=== PATIENT | female | born 1950 | race Caucasian/White ===

== ENCOUNTER 2018-08-31 17:56 | Emergency (ER) | payer MEDICARE, MEDICAID ==
--- NOTE | 2018-08-31 18:34 | ERPHSYRPT ---
- History of Present Illness Source: patient, family Exam Limitations: no limitations Patient Subjective Stated Complaint: patietn states shes been cleaning out garage nad got her self worn down and isnt feeling best but shes jsut tired from all work getting ready for garage sale. family concerned and worried shegena hada stroke Triage Nursing Assessment: pt alert and orientedx3, able to ambulate by self, hand steward/stewardess wine equal bialteral no drift upper or lower, no facial paralysis,smile symetrical, speech clear and intact, pupils perrla2, tracking well , skin warm dry and intact. Timing/Duration: day(s) (several ) Severity: mild Associated Symptoms: syncope (last week), weakness, No nausea, No vomiting, No abdominal pain, No shortness of breath, No chest pain Hx Tetanus, Diphtheria Vaccination/Date Given: Yes Hx Influenza Vaccination/Date Given: Yes Hx Pneumococcal Vaccination/Date Given: Yes Immunizations Up to Date: Yes <JESSE RICE - Last Filed: 08/31/18 18:57> <MICHAEL MCKENZIE - Last Filed: 08/31/18 21:12> - History of Present Illness Time Seen by Provider: 08/31/18 18:27 Physician History: 68 y/o white female presents with several day h/o weakness and confusion. family states she has not eaten or drank well today. pt has not seen a doctor in 34 years. she has nkda. only on jonathan asa. pt denies head injury, denies cp, denies soa, denies abd pain. pt denies n/v/d. pt states in the last 2 weeks she has been working in the garage and outside getting her home ready for a garage sale. it has been hot but she states she has been drinking plenty of gatorade and water. (JESSE RICE) Allergies/Adverse Reactions: No Known Drug Allergies Allergy (Unverified 08/31/18 18:15) - Review of Systems Constitutional: Weakness Eyes: No Symptoms Ears, Nose, & Throat: No Symptoms Respiratory: No Symptoms Cardiac: No Symptoms Abdominal/Gastrointestinal: No Symptoms Genitourinary Symptoms: No Symptoms Musculoskeletal: No Symptoms Skin: No Symptoms Neurological: Other (pts family states more confused in last week. ) Psychological: No Symptoms Endocrine: No Symptoms Hematologic/Lymphatic: No Symptoms Immunological/Allergic: No Symptoms All Other Systems: Reviewed and Negative <JESSE RICE WilliamRaquel - Last Filed: 08/31/18 18:57> - Past Medical History Pertinent Past Medical History: No Neurological History: No Pertinent History ENT History: No Pertinent History Cardiac History: No Pertinent History Respiratory History: No Pertinent History Endocrine Medical History: No Pertinent History Musculoskeletal History: No Pertinent History GI Medical History: No Pertinent History History: No Pertinent History Psycho-Social History: No Pertinent History Female Reproductive Disorders: No Pertinent History - Past Surgical History Past Surgical History: No Neuro Surgical History: No Pertinent History Cardiac: No Pertinent History Respiratory: No Pertinent History Gastrointestinal: No Pertinent History Genitourinary: No Pertinent History Musculoskeletal: No Pertinent History Female Surgical History: No Pertinent History - Social History Smoking Status: Never smoker Exposure to second hand smoke: Yes Drug Use: none Patient Lives Alone: No - Female History Hx Now: No <JESSE RICE WilliamRaquel - Last Filed: 08/31/18 18:57> - Physical Exam General Appearance: no apparent distress, alert Eye Exam: PERRL/EOMI, eyes nml inspection Ears, Nose, Throat Exam: normal ENT inspection, moist mucous membranes Neck Exam: normal inspection, non-tender, supple, full range of motion Respiratory Exam: normal breath sounds, lungs clear, airway intact, No chest tenderness, No respiratory distress Cardiovascular Exam: regular rate/rhythm, normal heart sounds, normal peripheral pulses Gastrointestinal/Abdomen Exam: soft, normal bowel sounds, No tenderness, No guarding Pelvic Exam: not done Rectal Exam: not done Back Exam: normal inspection, normal range of motion, No CVA tenderness, No vertebral tenderness Extremity Exam: normal inspection, normal range of motion, pelvis stable Neurologic Exam: alert, oriented x 3, cooperative, trim line worker II-XII nml as tested, normal mood/affect, nml cerebellar function, nml station & gait, sensation nml Skin Exam: normal color, warm Lymphatic Exam: No adenopathy SpO2 Interpretation: normal SpO2: 96 O2 Delivery: Room Air <JESSE RICE WilliamRaquel - Last Filed: 08/31/18 18:57> - Nursing Vital Signs Nursing Vital Signs: Initial Vital Signs Temperature 98 F 08/31/18 17:57 Pulse Rate 102 H 08/31/18 17:57 Respiratory Rate 18 08/31/18 17:57 Blood Pressure 170/84 08/31/18 17:57 O2 Sat by Pulse Oximetry 96 08/31/18 17:57 Pain Scale Pain Intensity 0 - Course Nursing assessment & vital signs reviewed: Yes EKG Interpreted by Me: RATE (99), Sinus Rhythm, NORMAL AXIS, NORMAL INTERVALS, NORMAL QRS, Non-specific ST Changes, Other <JESSE RICE - Last Filed: 08/31/18 18:57> - CT Exams Head CT Interpretation: Discussed w/radiologist (head CT: Impression: 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) <MICHAEL MCKENZIE - Last Filed: 08/31/18 21:12> Ordered Tests: Active Orders 24 hr Category Date Time Status Accucheck STAT Care 08/31/18 18:41 Active Wastewater Engineer STAT Care 08/31/18 18:42 Active Clean Catch Urine Specimen STAT Care 08/31/18 18:41 Active EKG-ER Only STAT Care 08/31/18 18:41 Active IV Insertion STAT Care 08/31/18 18:41 Active Pulse Oximetry (ED) STAT Care 08/31/18 18:41 Active HEAD WITHOUT CONTRAST [CT] Stat Exams 08/31/18 18:42 Taken CBC W DIFF Stat Lab 08/31/18 18:45 Completed CMP Stat Lab 08/31/18 18:45 Completed CULTURE,URINE Stat Lab 08/31/18 18:41 Received NT PRO BNP Stat Lab 08/31/18 18:45 Completed TROPONIN Q3H Lab 08/31/18 18:45 Completed TROPONIN Q3H Lab 08/31/18 21:45 Ordered TROPONIN Q3H Lab 09/01/18 00:45 Ordered TROPONIN Q3H Lab 09/01/18 03:45 Ordered TROPONIN Q3H Lab 09/01/18 06:45 Ordered UA W/RFX UR CULTURE Stat Lab 08/31/18 18:41 Completed Urine Triage Profile Stat Lab 08/31/18 18:41 Ordered Medication Summary Generic Name Dose Route Start Last Admin Trade Name Freq PRN Reason Stop Dose Admin Ceftriaxone Sodium/Dextrose 1 g in 50 mls @ 100 mls/hr 08/31/18 21:05 Rocephin 1 Gm-D5w 50 Ml Bag IV 08/31/18 21:34 STAT STA Discontinued Medications Generic Name Dose Route Start Last Admin Trade Name Naina PRN Reason Stop Dose Admin Sodium Chloride 1,000 mls @ 999 mls/hr 08/31/18 18:41 08/31/18 20:04 Sodium Chloride 0.9% 1000 Ml IV 08/31/18 19:41 Infused .Q1H1M STA Infusion Sodium Chloride Confirm 08/31/18 19:10 Sodium Chloride 0.9% 1000 Ml Administered 08/31/18 19:11 Dose 1,000 mls @ ud .ROUTE .STK-MED ONE Lab/Rad Data: Laboratory Result Diagrams 08/31/18 18:45 08/31/18 18:45 Laboratory Results 08/31/18 08/31/18 08/31/18 Range/Units 18:45 18:45 18:45 WBC (4.0-10.5) K/mm3 RBC (4.1-5.4) M/mm3 Hgb (12.0-16.0) gm/dl Hct (35-47) % MCV (78-100) fl MCH (26-32) pg MCHC (32-36) g/dl RDW (11.5-14.0) % Plt Count (150-450) K/mm3 MPV (6-9.5) fl Gran % (36.0-66.0) % Eos # (Auto) (0-0.5) Absolute Lymphs (auto) (1.0-4.6) Absolute Monos (auto) (0.0-1.3) Lymphocytes % (24.0-44.0) % Monocytes % (0.0-12.0) % Eosinophils % (0.00-5.0) % Basophils % (0.0-0.4) % Absolute Granulocytes (1.4-6.9) Basophils # (0-0.4) Sodium 142 (137-145) mmol/L Potassium 3.8 (3.5-5.1) mmol/L Chloride 104 (98-107) mmol/L Carbon Dioxide 25 (22-30) mmol/L Anion Gap 16.2 H (5-15) MEQ/L BUN 17 (7-17) mg/dL Creatinine 0.75 (0.52-1.04) mg/dL Estimated GFR > 60.0 ML/MIN Glucose 102 (74-106) mg/dL Calcium 9.6 (8.4-10.2) mg/dL Total Bilirubin 0.60 (0.2-1.3) mg/dL AST 32 (14-36) U/L ALT 27 (0-35) U/L Alkaline Phosphatase 392 H (38-126) U/L Troponin I < 0.012 (0.000-0.034) ng/mL NT-Pro-B Natriuret Pep 122 (0-900) pg/mL Serum Total Protein 8.6 H (6.3-8.2) g/dL Albumin 4.3 (3.5-5.0) g/dL Urine Color (YELLOW) Urine Appearance (CLEAR) Urine pH (5-6) Ur Specific [place] (1.005-1.025) Urine Protein (Negative) Urine Ketones (NEGATIVE) Urine Blood (0-5) Sammy/ul Urine Nitrite (NEGATIVE) Urine Bilirubin (NEGATIVE) Urine Urobilinogen (0-1) mg/dL Ur Leukocyte Esterase (NEGATIVE) Urine WBC (Auto) (0-5) /HPF Urine RBC (Auto) (0-2) /HPF U Hyaline Cast (Auto) (0-2) /LPF U Epithel Cells (Auto) (FEW) /HPF Urine Bacteria (Auto) (NEGATIVE) /HPF Urine Mucus (Auto) (NEGATIVE) /HPF Urine Culture Reflexed (NO) Urine Glucose (NEGATIVE) mg/dL 08/31/18 08/31/18 Range/Units 18:45 18:41 WBC 10.2 (4.0-10.5) K/mm3 RBC 5.24 (4.1-5.4) M/mm3 Hgb 13.7 (12.0-16.0) gm/dl Hct 42.8 (35-47) % MCV 81.7 (78-100) fl MCH 26.1 (26-32) pg MCHC 32.0 (32-36) g/dl RDW 14.4 H (11.5-14.0) % Plt Count 456 H (150-450) K/mm3 MPV 10.1 H (6-9.5) fl Gran % 57.3 (36.0-66.0) % Eos # (Auto) 0.23 (0-0.5) Absolute Lymphs (auto) 3.23 (1.0-4.6) Absolute Monos (auto) 0.82 (0.0-1.3) Lymphocytes % 31.7 (24.0-44.0) % Monocytes % 8.1 (0.0-12.0) % Eosinophils % 2.3 (0.00-5.0) % Basophils % 0.6 (0.0-0.4) % Absolute Granulocytes 5.84 (1.4-6.9) Basophils # 0.06 (0-0.4) Sodium (137-145) mmol/L Potassium (3.5-5.1) mmol/L Chloride (98-107) mmol/L Carbon Dioxide (22-30) mmol/L Anion Gap (5-15) MEQ/L BUN (7-17) mg/dL Creatinine (0.52-1.04) mg/dL Estimated GFR ML/MIN Glucose (74-106) mg/dL Calcium (8.4-10.2) mg/dL Total Bilirubin (0.2-1.3) mg/dL AST (14-36) U/L ALT (0-35) U/L Alkaline Phosphatase (38-126) U/L Troponin I (0.000-0.034) ng/mL NT-Pro-B Natriuret Pep (0-900) pg/mL Serum Total Protein (6.3-8.2) g/dL Albumin (3.5-5.0) g/dL Urine Color YELLOW (YELLOW) Urine Appearance CLEAR (CLEAR) Urine pH 7.0 (5-6) Ur Specific [place] 1.011 (1.005-1.025) Urine Protein NEGATIVE (Negative) Urine Ketones SMALL (NEGATIVE) Urine Blood SMALL (0-5) Sammy/ul Urine Nitrite NEGATIVE (NEGATIVE) Urine Bilirubin NEGATIVE (NEGATIVE) Urine Urobilinogen 2 (0-1) mg/dL Ur Leukocyte Esterase SMALL (NEGATIVE) Urine WBC (Auto) 26-50 (0-5) /HPF Urine RBC (Auto) 0-2 (0-2) /HPF U Hyaline Cast (Auto) 3-5 (0-2) /LPF U Epithel Cells (Auto) NONE (FEW) /HPF Urine Bacteria (Auto) MANY (NEGATIVE) /HPF Urine Mucus (Auto) SLIGHT (NEGATIVE) /HPF Urine Culture Reflexed YES (NO) Urine Glucose NEGATIVE (NEGATIVE) mg/dL <JESSE RICE - Last Filed: 08/31/18 18:57> - Progress Progress: improved <MICHAEL MCKENZIE - Last Filed: 08/31/18 21:12> - Progress Progress Note: 08/31/18 18:57 transfer of care to dr. mckenzie. i have reviewed pt hx, condition and lab, ekg and xray results pending. (JESSE RICE) 08/31/18 20:35 This is a 68-year-old white female who is brought in by family with complaints of several days of weakness and seeming to be confused family states she has not been needing or drinking well today Patient basically states she just feels like she got tired from being out in the garage working Past medical history patient denies past surgical history patient denies Patient initially was seen by Dr. Rice given some IV fluids. Patient has not provided a urine yet. Patient's vitals temperature 90.8 pulse 102 respiration 18 blood pressure initially 170/84 this is, but after receiving IV fluids Physical examination head atraumatic normocephalic eyes PERRLA EOMI fundi unremarkable. Ears TMs are intact bilaterally. Nose is clear. Throat is clear. Neck is supple. Lungs are clear. Heart regular rate and rhythm without murmur. Abdomen soft nontender nondistended positive bowel sounds. Extremities full range of motion pulse equal symmetrical two over four. Neuro patient is alert, oriented x3, cranial nerves II through XII are intact, no facial droop,. Finger-nose within normal limits bilaterally, steward/stewardess wine equal and symmetrical 5 over 5,. Full range of motion all extremities. GCS is 15. Sensation intact to all extremities. The patient's EKG sinus rhythm, 99 beats per minute, normal axis, nonspecific ST and T wave abnormalities, no old EKG for comparison labs CBC White blood cell 10.7 hemoglobin 13.7 hematocrit 42.8 platelets 456 chemistry sodium 142 potassium 3.8 chloride 104 bicarbonate 25 BUN 17 creatinine 0.75 glucose 102 Troponin less than 0.[address] is pending. Impression weakness. Mild heat exhaustion. Plan await urinalysis. Await CT reading of the head. Will monitor patient's blood pressure. . .. . 08/31/18 21:08 Patient blood pressure is improved. Patient with 26-50 white cells per high-power field in her urine. Will give patient Rocephin 1 g IV. Plan home on Bactrim rest plenty of fluids. Patient was given IV normal saline 1 L. Impression 1 weakness 2. Mild heat exhaustion 3. UTI (MICHAEL MCKENZIE) <JESSE RICE - Last Filed: 08/31/18 18:57> - Departure Departure Disposition: Home Critical Care Time: No <MICHAEL MCKENZIE - Last Filed: 08/31/18 21:12> - Departure Clinical Impression: mild heat exhaustion, Weakness UTI (urinary tract infection) Qualifiers: Urinary tract infection type: site unspecified Hematuria presence: without hematuria Qualified Code(s): N39.0 - Urinary tract infection, site not specified Condition: Fair Referrals: DOCTOR,NO FAMILY [Primary Care Provider] - Additional Instructions: Return home. Rest. Plenty of fluids. Bactrim DS one orally twice a day for 10 days. Followup with your family doctor (list) call and schedule followup appointment. Return for acute distress severe symptoms or for any problems. Prescriptions: Smz/Tmp Ds Tablet [Bactrim Ds Tablet] 1 tab PO BID #20 tablet
[2018-08-31] MEDS ORDERED: Sodium Chloride 0.9% 1000 ML 1,000 ML IV STA (18:41)
[2018-08-31 18:57] LABS: BASOPHIL % 0.6 % (0.0-0.4); Basophil (Absolute #) 0.06 (0-0.4); Eosinophil % 2.3 % (0.00-5.0); Eosinophil (Absolute #) 0.23 (0-0.5); Granulocyte Absolute (ANC) 5.84 (1.4-6.9); Granulocytes % 57.3 % (36.0-66.0); Hematocrit 42.8 % (35-47); Hemoglobin 13.7 gm/dl (12.0-16.0); Lymphocyte (Absolute #) 3.23 (1.0-4.6); Lymphocytes % 31.7 % (24.0-44.0); Mean Cell Volume 81.7 fl (78-100); Mean Corpuscular Hemoglobin 26.1 pg (26-32); Mean Platelet Volume 10.1 fl (6-9.5); Monocyte (Absolute #) 0.82 (0.0-1.3); Monocytes % 8.1 % (0.0-12.0); Platelet Count 456 K/mm3 (150-450); Red Blood Count 5.24 M/mm3 (4.1-5.4); Red Cell Distribution Width 14.4 % (11.5-14.0); White Blood Count 10.2 K/mm3 (4.0-10.5)
[2018-08-31 19:10] LABS: ALBUMIN 4.3 g/dL (3.5-5.0); ALKALINE PHOSPHATASE 392 U/L (38-126); ANION GAP 16.2 MEQ/L (5-15); BLOOD UREA NITROGEN 17 mg/dL (7-17); CHLORIDE 104 mmol/L (98-107); Calcium 9.6 mg/dL (8.4-10.2); Carbon Dioxide 25 mmol/L (22-30); Creatinine 1 0.75 mg/dL (0.52-1.04); Glucose 102 mg/dL (74-106); Potassium 3.8 mmol/L (3.5-5.1); SGOT/AST 32 U/L (14-36); SGPT/ALT 27 U/L (0-35); SODIUM 142 mmol/L (137-145); Total Protein 8.6 g/dL (6.3-8.2)
[2018-08-31] MEDS ORDERED: Sodium Chloride 0.9% 1000 ML 1,000 ML ONE (19:10)
[2018-08-31 20:57] LABS: Appearance CLEAR (CLEAR); Bacteria MANY /HPF (NEGATIVE); Bilirubin NEGATIVE (NEGATIVE); Blood SMALL Ery/ul (0-5); Glucose NEGATIVE (NEGATIVE); Ketones SMALL (NEGATIVE); Leukocyte Esterase SMALL (NEGATIVE); Mucus SLIGHT /HPF (NEGATIVE); Nitrite NEGATIVE (NEGATIVE); Protein,Urine Dip NEGATIVE (Negative); RBC 0-2 /HPF (0-2); Specific Gravity 1.011 (1.005-1.025); Urobilinogen 2 mg/dL (0-1); WBC 26-50 /HPF (0-5)
[2018-08-31] MEDS ORDERED: ROCEPHIN 1 Gm-D5w 50 ml Bag** 1 G/50 ML IVPB IV STA (21:05)
[2018-08-31] MEDS ORDERED: ROCEPHIN 1 Gm-D5w 50 ml Bag** 1 G/50 ML IVPB IV ONE (21:13)
[2018-08-31 21:14] LABS: Amphetamine,Urine NEGATIVE (NEGATIVE); Barbiturate,Urine NEGATIVE (NEGATIVE); Benzodiazepine,Urine NEGATIVE (NEGATIVE); Cocaine,Urine NEGATIVE (NEGATIVE); Methadone,Urine NEGATIVE (NEGATIVE); Opiate,Urine NEGATIVE (NEGATIVE); PCP,Urine NEGATIVE (NEGATIVE); THC,Urine NEGATIVE (NEGATIVE)
[2018-08-31 21:49] VITALS: BP 196/71; PULSE 80; O2SAT 95
--- NOTE | 2018-09-01 08:43 | XRAY ---
Indication: Confusion and weakness. Multiple contiguous axial images obtained through the head without contrast. Comparison: None Age-appropriate global atrophy and minimal periventricular degenerative micro-ischemia bilaterally. Small remote appearing lacunar infarcts seen in the internal capsule bilaterally. No acute intracranial hemorrhage, abnormal extra-axial fluid collection, or mass effect. Fourth ventricle is midline without hydrocephalus. [place]-white matter differentiation preserved. Bony calvarium intact. Visualized paranasal sinuses and mastoid air cells are clear. 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 CT DI 70.31
== END 2018-08-31 21:47 | disposition home or self-care (01) ==
LOC: ED 17:56
DX: T67.5XXA Heat exhaustion, unspecified, initial encounter (principal); R53.1 Weakness; N39.0 Urinary tract infection, site not specified
CPT/HCPCS: 36000; 36415; 70450; 80053; 80307; 81001; 82962; 83880; 84484; 85025; 87077; 87086; 87186; 93005; 93041; 94760; 96360; 96365; 99284; J0696

== ENCOUNTER 2018-09-29 10:54 | Emergency (ER) | payer MEDICARE, MEDICAID ==
[2018-09-29 11:48] LABS: BASOPHIL % 0.4 % (0.0-0.4); Basophil (Absolute #) 0.04 (0-0.4); Eosinophil % 1.8 % (0.00-5.0); Eosinophil (Absolute #) 0.19 (0-0.5); Granulocyte Absolute (ANC) 7.71 (1.4-6.9); Granulocytes % 71.3 % (36.0-66.0); Hematocrit 42.1 % (35-47); Hemoglobin 13.4 gm/dl (12.0-16.0); Lymphocyte (Absolute #) 2.27 (1.0-4.6); Mean Cell Volume 81.4 fl (78-100); Mean Corpuscular Hemoglobin 25.9 pg (26-32); Mean Corpuscular Hgb Concent. 31.8 g/dl (32-36); Mean Platelet Volume 9.9 fl (6-9.5); Monocyte (Absolute #) 0.59 (0.0-1.3); Monocytes % 5.5 % (0.0-12.0); Platelet Count 436 K/mm3 (150-450); Red Blood Count 5.17 M/mm3 (4.1-5.4); Red Cell Distribution Width 15.1 % (11.5-14.0); White Blood Count 10.8 K/mm3 (4.0-10.5)
[2018-09-29 11:59] LABS: ALBUMIN 4.1 g/dL (3.5-5.0); ALKALINE PHOSPHATASE 683 U/L (38-126); ANION GAP 15.6 MEQ/L (5-15); BLOOD UREA NITROGEN 15 mg/dL (7-17); CHLORIDE 105 mmol/L (98-107); Calcium 9.5 mg/dL (8.4-10.2); Carbon Dioxide 24 mmol/L (22-30); Creatinine 1 0.85 mg/dL (0.52-1.04); Glucose 127 mg/dL (74-106); Potassium 3.5 mmol/L (3.5-5.1); SGOT/AST 83 U/L (14-36); SGPT/ALT 121 U/L (0-35); SODIUM 141 mmol/L (137-145); Total Protein 8.1 g/dL (6.3-8.2)
[2018-09-29 12:31] LABS: Appearance CLOUDY (CLEAR); Bacteria FEW /HPF (NEGATIVE); Bilirubin SMALL (NEGATIVE); Blood SMALL Ery/ul (0-5); Glucose 50 mg/dL (NEGATIVE); Hyaline Casts >50 /LPF (0-2); Ketones NEGATIVE (NEGATIVE); Leukocyte Esterase MODERATE (NEGATIVE); Mucus MANY /HPF (NEGATIVE); Nitrite NEGATIVE (NEGATIVE); Protein,Urine Dip 100 (Negative); Specific Gravity 1.019 (1.005-1.025); Urobilinogen 4 mg/dL (0-1); WBC >100 /HPF (0-5)
[2018-09-29 12:32] LABS: Budding Yeast Few /HPF (NEGATIVE)
[2018-09-29] MEDS ORDERED: ROCEPHIN 1 Gm-D5w 50 ml Bag** 0 G/0 ML IVPB IV ONE (12:52)
[2018-09-29] MEDS: ROCEPHIN 1 Gm-D5w 50 ml Bag** 1 G/50 ML IVPB IV STA ×2 (12:53→13:28)
[2018-09-29] MEDS ORDERED: Rocephin 1000 MG INJ ONE (13:17)
[2018-09-29] MEDS ORDERED: XYLOCAINE 1% HCL 20 ML MDV ONE (13:17)
[2018-09-29] MEDS ORDERED: Rocephin 1000 MG INJ IM ONE (13:28)
--- NOTE | 2018-09-29 13:35 | XRAY ---
Indication: Elevated liver function testing. Multiple contiguous axial images obtained through the abdomen and pelvis without contrast as ordered. Comparison: None Lung bases demonstrates mild bibasilar dependent atelectasis and a few calcified granulomas. No infiltrate or effusion. Heart is not enlarged. Moderate-sized hiatal hernia with partial intrathoracic stomach. Noncontrasted stomach and bowel loops appear nonobstructed. Normal appendix. Gallbladder normally distended with at least 2 gallstones, largest 5 mm. No intrahepatic biliary distention or free fluid/air. Tiny calcified splenic granulomas. Remaining liver, gallbladder, pancreas, spleen, adrenal glands, kidneys, ureters, bladder, and uterus appear unremarkable for noncontrast exam. Mild scattered aortoiliac calcifications without AAA. Osseous structures intact. Impression: 1. Tiny gallstones. Gallbladder sonogram may yield further information if clinically warranted. 2. Hiatal hernia with partial intrathoracic stomach and evidence for old granulomatous disease. 3. Remaining CT abdomen/pelvis without contrast exam is negative. CT DI 11.78
--- NOTE | 2018-09-29 14:00 | ERPHSYRPT ---
- History of Present Illness Source: patient, family Exam Limitations: clinical condition Patient Subjective Stated Complaint: pt states "I feel fine.". Pt sister states "She passed out once this morning in a chair and she just stared off and would not answer her children after that.". Pt daughter stated "she passed out and fell last week." Triage Nursing Assessment: Pt presented throgh the front and placed in room 3. Pt presented alert and orietented X 3, skin pwd PT ambulates with an upright and steady. PT able to speak in clear full sentences. PT in no apparent respiratory distress. Physician History: Pt is a 68 y/o female that presented to the ED with unresponsiveness. Pt was in the ED recently with syncope, and was worked up. Was told to f/u with neurology. She does have an appointment in the future. Today the pt woke up to go to the hospital for US of the abdomen, and was found by her son standing in the door way to the BR, unresponsive. He got her to dress and got her to the family room, and EMS were called. Pt refused to come to the ED by ambulance , and eventually was brought by her sister and daughter. Pt does not remember what happened, and she just remembered getting washed in the AM, and then being in the car. She has no memory of what happened between those incidents. Pt denies any complains at this point. Timing/Duration: today Severity: moderate Character of Deficits: general (difuse) Deficits: no difficulties Baseline/Normal Cognition: alert oriented x 3 Current Cognition: alert oriented x 3 Baseline Gait: walks w/o assistance Associated Symptoms: fatigue Allergies/Adverse Reactions: No Known Drug Allergies Allergy (Verified 09/29/18 11:11) Home Medications: Aspirin EC 81 mg [Ecotrin 81 mg] 81 mg PO DAILY 09/29/18 [History] Grape Seed Oil [Grapeseed Oil] 500 ml MC DAILY 09/29/18 [History] Sertraline HCl 25 mg PO DAILY 09/29/18 [History] Hx Tetanus, Diphtheria Vaccination/Date Given: No Hx Influenza Vaccination/Date Given: No Hx Pneumococcal Vaccination/Date Given: No Immunizations Up to Date: Yes - Review of Systems Constitutional: Fatigue, Lethargy Eyes: No Symptoms Ears, Nose, & Throat: No Symptoms Respiratory: No Cough, No Dyspnea Cardiac: No Chest Pain, No Edema, No Syncope Abdominal/Gastrointestinal: No Abdominal Pain, No Nausea, No Vomiting, No Diarrhea Neurological: Other (unresponsivness) - Past Medical History Pertinent Past Medical History: Yes Neurological History: No Pertinent History ENT History: No Pertinent History Cardiac History: No Pertinent History Respiratory History: No Pertinent History Endocrine Medical History: No Pertinent History Musculoskeletal History: No Pertinent History GI Medical History: GERD History: No Pertinent History Psycho-Social History: No Pertinent History Female Reproductive Disorders: No Pertinent History - Past Surgical History Past Surgical History: No Neuro Surgical History: No Pertinent History Cardiac: No Pertinent History Respiratory: No Pertinent History Gastrointestinal: No Pertinent History Genitourinary: No Pertinent History Musculoskeletal: No Pertinent History Female Surgical History: No Pertinent History - Social History Smoking Status: Never smoker Exposure to second hand smoke: No Drug Use: none Patient Lives Alone: No - Female History Hx Now: No - Nursing Vital Signs Nursing Vital Signs: Initial Vital Signs Temperature 97.7 F 09/29/18 11:02 Pulse Rate 79 09/29/18 11:02 Respiratory Rate 18 09/29/18 11:02 Blood Pressure 153/87 09/29/18 11:02 O2 Sat by Pulse Oximetry 99 09/29/18 11:02 Pain Scale Pain Intensity 0 - Lala Coma Scale Best Eye Response (Lala): (4) open spontaneously Best Verbal Response ([place]): (5) oriented Best Motor Response ([place]): (6) obeys commands Lala Total: 15 - Physical Exam General Appearance: no apparent distress, alert, lethargy Eye Exam: bilateral eye: normal inspection, PERRL, EOMI Ears, Nose, Throat Exam: normal ENT inspection, moist mucous membranes Neck Exam: normal inspection, non-tender, supple Respiratory: normal breath sounds, lungs clear, airway intact, No respiratory distress Cardiovascular: regular rate/rhythm, No edema Gastrointestinal: soft, No tenderness, No distention Extremity Exam: normal inspection, No pedal edema 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, oriented x 3, lethargy 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 Exam: tongue midline Motor/Sensory: no motor deficit, no sensory deficit SpO2 Interpretation: normal SpO2: 97 O2 Delivery: Room Air - Course Nursing assessment & vital signs reviewed: Yes - CT Exams Abdomen/Pelvis CT Interpretation: Tele-radiologist Report (tiny gallstones, Hiatal hernia.) Ordered Tests: Active Orders 24 hr Category Date Time Status ABDOMEN AND PELVIS W/0 CONTRAS [CT] Stat Exams 09/29/18 13:03 Completed CBC W DIFF Stat Lab 09/29/18 11:40 Completed CMP Stat Lab 09/29/18 11:40 Completed CULTURE,URINE Stat Lab 09/29/18 12:24 Received UA W/RFX UR CULTURE Stat Lab 09/29/18 12:24 Completed Medication Summary Discontinued Medications Generic Name Dose Route Start Last Admin Trade Name Freq PRN Reason Stop Dose Admin Ceftriaxone Sodium Confirm 09/29/18 13:17 Rocephin 1000 Mg Inj Administered 09/29/18 13:18 Dose 1,000 mg .ROUTE .STK-MED ONE Ceftriaxone Sodium 1,000 mg 09/29/18 13:28 09/29/18 13:29 Rocephin 1000 Mg Inj IM 09/29/18 13:29 1,000 mg STAT ONE Administration Ceftriaxone Sodium/Dextrose 1 g in 50 mls @ 100 mls/hr 09/29/18 12:46 13:28 Rocephin 1 Gm-D5w 50 Ml Bag IV 09/29/18 13:15 Not Given STAT STA Ceftriaxone Sodium/Dextrose Confirm 09/29/18 12:52 Rocephin 1 Gm-D5w 50 Ml Bag Administered 09/29/18 12:53 Dose 1 g in 50 mls @ ud IV .STK-MED ONE Lidocaine HCl Confirm 09/29/18 13:17 Xylocaine 1% Hcl 20 Ml Mdv Administered 09/29/18 13:18 Dose 1 ml .ROUTE .STK-MED ONE Lab/Rad Data: Laboratory Result Diagrams 09/29/18 11:40 09/29/18 11:40 Laboratory Results 09/29/18 09/29/18 09/29/18 Range/Units 12:24 11:40 11:40 WBC 10.8 H (4.0-10.5) K/mm3 RBC 5.17 (4.1-5.4) M/mm3 Hgb 13.4 (12.0-16.0) gm/dl Hct 42.1 (35-47) % MCV 81.4 (78-100) fl MCH 25.9 L (26-32) pg MCHC 31.8 L (32-36) g/dl RDW 15.1 H (11.5-14.0) % Plt Count 436 (150-450) K/mm3 MPV 9.9 H (6-9.5) fl Gran % 71.3 H (36.0-66.0) % Eos # (Auto) 0.19 (0-0.5) Absolute Lymphs (auto) 2.27 (1.0-4.6) Absolute Monos (auto) 0.59 (0.0-1.3) Lymphocytes % 21.0 L (24.0-44.0) % Monocytes % 5.5 (0.0-12.0) % Eosinophils % 1.8 (0.00-5.0) % Basophils % 0.4 (0.0-0.4) % Absolute Granulocytes 7.71 H (1.4-6.9) Basophils # 0.04 (0-0.4) Sodium 141 (137-145) mmol/L Potassium 3.5 (3.5-5.1) mmol/L Chloride 105 (98-107) mmol/L Carbon Dioxide 24 (22-30) mmol/L Anion Gap 15.6 H (5-15) MEQ/L BUN 15 (7-17) mg/dL Creatinine 0.85 (0.52-1.04) mg/dL Estimated GFR > 60.0 ML/MIN Glucose 127 H (74-106) mg/dL Calcium 9.5 (8.4-10.2) mg/dL Total Bilirubin 0.40 (0.2-1.3) mg/dL AST 83 H (14-36) U/L ALT 121 H (0-35) U/L Alkaline Phosphatase 683 H (38-126) U/L Serum Total Protein 8.1 (6.3-8.2) g/dL Albumin 4.1 (3.5-5.0) g/dL Urine Color LAYLA (YELLOW) Urine Appearance CLOUDY (CLEAR) Urine pH 5.0 (5-6) Ur Specific [place] 1.019 (1.005-1.025) Urine Protein 100 (Negative) Urine Ketones NEGATIVE (NEGATIVE) Urine Blood SMALL (0-5) Sammy/ul Urine Nitrite NEGATIVE (NEGATIVE) Urine Bilirubin SMALL (NEGATIVE) Urine Urobilinogen 4 (0-1) mg/dL Ur Leukocyte Esterase MODERATE (NEGATIVE) Urine WBC (Auto) >100 (0-5) /HPF Urine RBC (Auto) 11-15 (0-2) /HPF U Hyaline Cast (Auto) >50 (0-2) /LPF U Epithel Cells (Auto) NONE (FEW) /HPF Urine Bacteria (Auto) FEW (NEGATIVE) /HPF Granular Casts (Auto) 10-25 (NEGATIVE) /LPF Urine Mucus (Auto) MANY (NEGATIVE) /HPF Urine Yeast (Budding) Few (NEGATIVE) /HPF Urine Culture Reflexed YES (NO) Urine Glucose 50 (NEGATIVE) mg/dL - Progress Progress: unchanged Progress Note: 09/29/18 14:03 Pt was seen and examined. Lab work did show UTI and Ceftriaxone IM was ordered. LFTs and Alk phos were elevated again, and CT showed tiney gallstones. Work up should be done as out pt. Can consider MRCP. CT of head was not done again, as there was no acute changes recently. Pt might have having partial seizures, and she should have work up done by Neurology as out pt. At this point, she is safe to d/c on ABX. Will see patient in: office Counseled pt/family regarding: need for follow-up - Departure Departure Disposition: Home Clinical Impression: Unresponsive episode Condition: Stable Critical Care Time: No Referrals: SANCHO LEGER NP [Primary Care Provider] - Additional Instructions: F/U with PCP for Neurologic evaluation. Finish ABX as ordered. Prescriptions: Cefdinir [Omnicef] 300 mg PO BID #14 capsule
[2018-09-29 14:45] VITALS: BP 148/80; PULSE 68; O2SAT 96
== END 2018-09-29 14:45 | disposition home or self-care (01) ==
LOC: ED 10:54
DX: R41.82 Altered mental status, unspecified (principal); Z79.899 Other long term (current) drug therapy
CPT/HCPCS: 36415; 74176; 80053; 81001; 85025; 87077; 87086; 87186; 96372; 99284; J0696

== ENCOUNTER 2019-03-03 14:42 | Emergency (ER) | payer MEDICARE ==
[2019-03-03] MEDS ORDERED: Pepcid 20 MG VIAL IV ONE ×2 (15:48→15:53)
[2019-03-03] MEDS ORDERED: Zofran 4 MG/2 ML VIAL IV ONE (15:48)
[2019-03-03] MEDS ORDERED: Sodium Chloride 0.9% 1000 ML 1,000 ML IV STA (15:48)
[2019-03-03] MEDS ORDERED: Sodium Chloride 0.9% 1000 ML 1,000 ML ONE (15:53)
[2019-03-03] MEDS ORDERED: Zofran 4 MG/2 ML VIAL ONE (15:54)
[2019-03-03 16:06] LABS: INR 1.01 (0.8-3.0); PROTIME 11.4 SECONDS (9.95-12.35)
[2019-03-03 16:06] LABS: Hematocrit 38.9 % (35-47); Mean Cell Volume 81.2 fl (78-100); Mean Corpuscular Hemoglobin 27.1 pg (26-32); Mean Corpuscular Hgb Concent. 33.4 g/dl (32-36); Mean Platelet Volume 9.8 fl (6-9.5); Platelet Count 526 K/mm3 (150-450); Red Blood Count 4.79 M/mm3 (4.1-5.4); Red Cell Distribution Width 14.8 % (11.5-14.0); White Blood Count 15.1 K/mm3 (4.0-10.5)
[2019-03-03 16:10] LABS: ALBUMIN 4.3 g/dL (3.5-5.0); ALKALINE PHOSPHATASE 654 U/L (38-126); AMYLASE 56 U/L (30-110); ANION GAP 15.9 MEQ/L (5-15); BLOOD UREA NITROGEN 11 mg/dL (7-17); CHLORIDE 92 mmol/L (98-107); Calcium 9.4 mg/dL (8.4-10.2); Carbon Dioxide 25 mmol/L (22-30); Creatinine 1 0.74 mg/dL (0.52-1.04); Glucose 167 mg/dL (74-106); LIPASE 59 U/L (23-300); Potassium 3.6 mmol/L (3.5-5.1); SGOT/AST 97 U/L (14-36); SGPT/ALT 108 U/L (0-35); SODIUM 129 mmol/L (137-145); Total Protein 8.5 g/dL (6.3-8.2)
--- NOTE | 2019-03-03 16:58 | ERPHSYRPT ---
- History of Present Illness Time Seen by Provider: 03/03/19 15:45 Historian: patient, family, EMS Exam Limitations: no limitations Patient Subjective Stated Complaint: pt brought by ambulance for vomiting and maybe a having a seizure at home because she had fallen, pt is a poor historian , and unsure of what happened, she lives with her son. pt was vomiting in the ambulance Triage Nursing Assessment: pt arrived per ambulance with emisis on shirt, co nausea, she is alert but does not remember what happened which is normal for her. skin w/d/p. resp easy, no edema noted Physician History: Patient began having vomiting at home, causing her to have a break through generalized seizure. 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 Patient was fine yesterday and at her baseline. Timing/Duration: today, sudden Activities at Onset: none Quality: other (denies pain) Severity of Pain-Max: none Severity of Pain-Current: none Modifying Factors: Worsens With: vomiting Associated Symptoms: nausea, syncope, vomiting, No back, No chest pain, No diaphoresis, No diarrhea, No fever/chills, No fatigue, No headache, No loss of appetite, No neck pain, No rash, No shortness of breath, No weakness Previous symptoms: no prior history, no recent treatment, other (patient does have a history of seizures) Allergies/Adverse Reactions: No Known Drug Allergies Allergy (Verified 03/03/19 14:46) Home Medications: Aspirin EC 81 mg [Ecotrin 81 mg] 81 mg PO DAILY 09/29/18 [History] Grape Seed Oil [Grapeseed Oil] 500 ml MC DAILY 09/29/18 [History] Sertraline HCl 25 mg PO DAILY 09/29/18 [History] Amlodipine Besylate 1 ea DAILY 03/03/19 [History] Atorvastatin Calcium [Lipitor] 40 mg DAILY 03/03/19 [History] Levetiracetam 500 mg BID 03/03/19 [History] Lisinopril 20 mg DAILY 03/03/19 [History] Hx Tetanus, Diphtheria Vaccination/Date Given: No Hx Influenza Vaccination/Date Given: No Hx Pneumococcal Vaccination/Date Given: No Immunizations Up to Date: Yes - Review of Systems Constitutional: No Fever, No Chills Eyes: No Eye Pain, No Vision Changes Ears, Nose, & Throat: No Nose Congestion, No Throat Pain, No Painful Swallowing Respiratory: No Cough, No Dyspnea Cardiac: No Chest Pain, No Edema, No Syncope Abdominal/Gastrointestinal: Nausea, Vomiting, No Abdominal Pain, No Diarrhea Genitourinary Symptoms: No Dysuria, No Frequency, No Hematuria, No Flank Pain Musculoskeletal: No Back Pain, No Neck Pain, No Deformity, No Joint Pain Skin: No Rash Neurological: Seizure, No Dizziness, No Focal Weakness, No Headache, No Lethargy , No Parasthesia, No Sensory Changes, No Tremors Psychological: No Anxiety Endocrine: No Symptoms, Excessive Sweating Hematologic/Lymphatic: No Easy Bleeding, No Easy Bruising All Other Systems: Reviewed and Negative - Past Medical History Pertinent Past Medical History: Yes Neurological History: No Pertinent History ENT History: No Pertinent History Cardiac History: No Pertinent History Respiratory History: No Pertinent History Endocrine Medical History: No Pertinent History Musculoskeletal History: No Pertinent History GI Medical History: GERD History: No Pertinent History Psycho-Social History: No Pertinent History Female Reproductive Disorders: No Pertinent History - Past Surgical History Past Surgical History: No Neuro Surgical History: No Pertinent History Cardiac: No Pertinent History Respiratory: No Pertinent History Gastrointestinal: No Pertinent History Genitourinary: No Pertinent History Musculoskeletal: No Pertinent History Female Surgical History: No Pertinent History - Social History Smoking Status: Never smoker Exposure to second hand smoke: No Drug Use: none Patient Lives Alone: No - Female History Hx Last Menstrual Period: post - Nursing Vital Signs Nursing Vital Signs: Initial Vital Signs Pulse Rate 67 03/03/19 15:48 Respiratory Rate 16 03/03/19 15:48 Blood Pressure 121/47 03/03/19 15:48 O2 Sat by Pulse Oximetry 92 L 03/03/19 15:48 Pain Scale Pain Intensity 0 - Physical Exam General Appearance: no apparent distress, alert Eye Exam: PERRL/EOMI, eyes nml inspection, No scleral icterus, No pale conjunctivae Ears, Nose, Throat Exam: normal ENT inspection, TMs normal, pharynx normal, moist mucous membranes, No TM abnormal (R), No TM abnormal (L) Neck Exam: normal inspection, non-tender, supple, full range of motion, No meningismus, No Brudzinski, No Kernig's Respiratory Exam: normal breath sounds, lungs clear, No respiratory distress Cardiovascular Exam: regular rate/rhythm, normal heart sounds, normal peripheral pulses, capillary refill <2 sec Gastrointestinal/Abdomen Exam: soft, normal bowel sounds, No tenderness, No distention, No mass Back Exam: normal inspection, normal range of motion, No CVA tenderness, No vertebral tenderness Extremity Exam: normal inspection, normal range of motion, pelvis stable, No contusions, No deformities, No joint swelling Neurologic Exam: alert, cooperative, 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 Bony thorax intact.) - CT Exams Abdomen/Pelvis CT Interpretation: Other (per radiologist interpretation: Stable hiatal hernia with partial intrathoracic stomach and evidence for old granulomatous disease. Inderal cholecystectomy without complications. And a CT abdomen and pelvis without contrast exam is negative.) Ordered Tests: Active Orders 24 hr Category Date Time Status EKG-ER Only STAT Care 03/03/19 15:48 Active IV Insertion STAT Care 03/03/19 15:48 Active ABDOMEN AND PELVIS W/0 CONTRAS [CT] Stat Exams 03/03/19 15:48 Completed CHEST 1 VIEW (PORTABLE) Stat Exams 03/03/19 15:48 Completed AMYLASE Stat Lab 03/03/19 15:48 Completed CBC W DIFF Stat Lab 03/03/19 Completed CMP Stat Lab 03/03/19 15:48 Completed CULTURE,URINE Stat Lab 03/03/19 18:29 Received LIPASE Stat Lab 03/03/19 15:48 Completed Lactic Acid Stat Lab 03/03/19 16:01 Completed Lactic Acid Stat Lab 03/03/19 18:21 Results MAGNESIUM Stat Lab 03/03/19 15:49 Completed Manual Differential NC Stat Lab 03/03/19 Completed PROTIME WITH INR Stat Lab 03/03/19 15:48 Completed TROPONIN Q3H Lab 03/03/19 16:00 Completed TROPONIN Q3H Lab 03/03/19 19:30 Completed TROPONIN Q3H Lab 03/03/19 22:00 Ordered TROPONIN Q3H Lab 03/04/19 01:00 Ordered TROPONIN Q3H Lab 03/04/19 04:00 Ordered UA W/RFX UR CULTURE Stat Lab 03/03/19 18:29 Completed Medication Summary Discontinued Medications Generic Name Dose Route Start Last Admin Trade Name Indraq PRN Reason Stop Dose Admin Famotidine 20 mg 03/03/19 15:48 03/03/19 15:57 Pepcid 20 Mg Vial IV 03/03/19 15:49 20 mg STAT ONE Administration Famotidine Confirm 03/03/19 15:53 Pepcid 20 Mg Vial Administered 03/03/19 15:54 Dose 20 mg IV .STK-MED ONE Sodium Chloride 1,000 mls @ 999 mls/hr 03/03/19 15:48 03/03/19 17:17 Sodium Chloride 0.9% 1000 Ml IV 03/03/19 16:48 Infused .Q1H1M STA Infusion Sodium Chloride Confirm 03/03/19 15:53 Sodium Chloride 0.9% 1000 Ml Administered 03/03/19 15:54 Dose 1,000 mls @ ud .ROUTE .STK-MED ONE Ceftriaxone Sodium/Dextrose 1 g in 50 mls @ 100 mls/hr 03/03/19 19:38 19:52 Rocephin 1 Gm-D5w 50 Ml Bag IV 03/03/19 20:07 100 ml/hr STAT STA 100 mls/hr Administration Ceftriaxone Sodium/Dextrose Confirm 03/03/19 19:46 Rocephin 1 Gm-D5w 50 Ml Bag Administered 03/03/19 19:47 Dose 1 g in 50 mls @ ud IV .STK-MED ONE Ondansetron HCl 4 mg 03/03/19 15:48 03/03/19 15:56 Zofran 4 Mg/2 Ml Vial IV 03/03/19 15:49 4 mg STAT ONE Administration Ondansetron HCl Confirm 03/03/19 15:54 Zofran 4 Mg/2 Ml Vial Administered 03/03/19 15:55 Dose 4 mg .ROUTE .STK-MED ONE Lab/Rad Data: Laboratory Result Diagrams 03/03/19 Unknown 03/03/19 15:48 Laboratory Results 03/03/19 03/03/19 03/03/19 Range/Units Unknown 19:30 18:29 WBC 15.1 H (4.0-10.5) K/mm3 RBC 4.79 (4.1-5.4) M/mm3 Hgb 13.0 (12.0-16.0) gm/dl Hct 38.9 (35-47) % MCV 81.2 (78-100) fl MCH 27.1 (26-32) pg MCHC 33.4 (32-36) g/dl RDW 14.8 H (11.5-14.0) % Plt Count 526 H (150-450) K/mm3 MPV 9.8 H (6-9.5) fl Segmented Neutrophils 68 H (36.0-66.0) % Band Neutrophils 3 H (0.0-2.0) % Lymphocytes (Manual) 18 L (24-44) % Monocytes (Manual) 6 (0.0-12.0) % Eosinophils (Manual) 2 (0.00-3.0) % Basophils (Manual) 2 H (0.0-1.0) % Atypical Lymphocytes 1 % Platelet Estimate NORMAL (NORMAL) RBC Morphology NORMAL PT (9.95-12.35) SECONDS INR (0.8-3.0) Sodium (137-145) mmol/L Potassium (3.5-5.1) mmol/L Chloride (98-107) mmol/L Carbon Dioxide (22-30) mmol/L Anion Gap (5-15) MEQ/L BUN (7-17) mg/dL Creatinine (0.52-1.04) mg/dL Estimated GFR ML/MIN Glucose (74-106) mg/dL Lactic Acid (0.4-2.0) Calcium (8.4-10.2) mg/dL Magnesium (1.6-2.3) mg/dL Total Bilirubin (0.2-1.3) mg/dL AST (14-36) U/L ALT (0-35) U/L Alkaline Phosphatase (38-126) U/L Troponin I < 0.012 (0.000-0.034) ng/mL Serum Total Protein (6.3-8.2) g/dL Albumin (3.5-5.0) g/dL Amylase (30-110) U/L Lipase (23-300) U/L Urine Color YELLOW (YELLOW) Urine Appearance SLIGHTLY CLOUDY (CLEAR) Urine pH 6.0 (5-6) Ur Specific Chilo 1.009 (1.005-1.025) Urine Protein NEGATIVE (Negative) Urine Ketones NEGATIVE (NEGATIVE) Urine Blood NEGATIVE (0-5) Sammy/ul Urine Nitrite POSITIVE (NEGATIVE) Urine Bilirubin NEGATIVE (NEGATIVE) Urine Urobilinogen NEGATIVE (0-1) mg/dL Ur Leukocyte Esterase SMALL (NEGATIVE) Urine WBC (Auto) 11-15 (0-5) /HPF Urine RBC (Auto) NONE (0-2) /HPF U Hyaline Cast (Auto) 0-2 (0-2) /LPF U Epithel Cells (Auto) RARE (FEW) /HPF Urine Bacteria (Auto) FEW (NEGATIVE) /HPF Other Casts (Auto) NEGATIVE (NEGATIVE) /LPF Urine Mucus (Auto) SLIGHT (NEGATIVE) /HPF Urine Culture Reflexed YES (NO) Urine Glucose NEGATIVE (NEGATIVE) mg/dL 03/03/19 03/03/19 03/03/19 Range/Units 18:21 16:01 16:00 WBC (4.0-10.5) K/mm3 RBC (4.1-5.4) M/mm3 Hgb (12.0-16.0) gm/dl Hct (35-47) % MCV (78-100) fl MCH (26-32) pg MCHC (32-36) g/dl RDW (11.5-14.0) % Plt Count (150-450) K/mm3 MPV (6-9.5) fl Segmented Neutrophils (36.0-66.0) % Band Neutrophils (0.0-2.0) % Lymphocytes (Manual) (24-44) % Monocytes (Manual) (0.0-12.0) % Eosinophils (Manual) (0.00-3.0) % Basophils (Manual) (0.0-1.0) % Atypical Lymphocytes % Platelet Estimate (NORMAL) RBC Morphology PT (9.95-12.35) SECONDS INR (0.8-3.0) Sodium (137-145) mmol/L Potassium (3.5-5.1) mmol/L Chloride (98-107) mmol/L Carbon Dioxide (22-30) mmol/L Anion Gap (5-15) MEQ/L BUN (7-17) mg/dL Creatinine (0.52-1.04) mg/dL Estimated GFR ML/MIN Glucose (74-106) mg/dL Lactic Acid 2.0 3.0 H (0.4-2.0) Calcium (8.4-10.2) mg/dL Magnesium (1.6-2.3) mg/dL Total Bilirubin (0.2-1.3) mg/dL AST (14-36) U/L ALT (0-35) U/L Alkaline Phosphatase (38-126) U/L Troponin I < 0.012 (0.000-0.034) ng/mL Serum Total Protein (6.3-8.2) g/dL Albumin (3.5-5.0) g/dL Amylase (30-110) U/L Lipase (23-300) U/L Urine Color (YELLOW) Urine Appearance (CLEAR) Urine pH (5-6) Ur Specific Chilo (1.005-1.025) Urine Protein (Negative) Urine Ketones (NEGATIVE) Urine Blood (0-5) Sammy/ul Urine Nitrite (NEGATIVE) Urine Bilirubin (NEGATIVE) Urine Urobilinogen (0-1) mg/dL Ur Leukocyte Esterase (NEGATIVE) Urine WBC (Auto) (0-5) /HPF Urine RBC (Auto) (0-2) /HPF U Hyaline Cast (Auto) (0-2) /LPF U Epithel Cells (Auto) (FEW) /HPF Urine Bacteria (Auto) (NEGATIVE) /HPF Other Casts (Auto) (NEGATIVE) /LPF Urine Mucus (Auto) (NEGATIVE) /HPF Urine Culture Reflexed (NO) Urine Glucose (NEGATIVE) mg/dL 03/03/19 03/03/19 03/03/19 Range/Units 15:49 15:48 15:48 WBC (4.0-10.5) K/mm3 RBC (4.1-5.4) M/mm3 Hgb (12.0-16.0) gm/dl Hct (35-47) % MCV (78-100) fl MCH (26-32) pg MCHC (32-36) g/dl RDW (11.5-14.0) % Plt Count (150-450) K/mm3 MPV (6-9.5) fl Segmented Neutrophils (36.0-66.0) % Band Neutrophils (0.0-2.0) % Lymphocytes (Manual) (24-44) % Monocytes (Manual) (0.0-12.0) % Eosinophils (Manual) (0.00-3.0) % Basophils (Manual) (0.0-1.0) % Atypical Lymphocytes % Platelet Estimate (NORMAL) RBC Morphology PT 11.4 (9.95-12.35) SECONDS INR 1.01 (0.8-3.0) Sodium 129 L (137-145) mmol/L Potassium 3.6 (3.5-5.1) mmol/L Chloride 92 L (98-107) mmol/L Carbon Dioxide 25 (22-30) mmol/L Anion Gap 15.9 H (5-15) MEQ/L BUN 11 (7-17) mg/dL Creatinine 0.74 (0.52-1.04) mg/dL Estimated GFR > 60.0 ML/MIN Glucose 167 H (74-106) mg/dL Lactic Acid (0.4-2.0) Calcium 9.4 (8.4-10.2) mg/dL Magnesium 1.7 (1.6-2.3) mg/dL Total Bilirubin 0.40 (0.2-1.3) mg/dL AST 97 H (14-36) U/L ALT 108 H (0-35) U/L Alkaline Phosphatase 654 H (38-126) U/L Troponin I (0.000-0.034) ng/mL Serum Total Protein 8.5 H (6.3-8.2) g/dL Albumin 4.3 (3.5-5.0) g/dL Amylase 56 (30-110) U/L Lipase 59 (23-300) U/L Urine Color (YELLOW) Urine Appearance (CLEAR) Urine pH (5-6) Ur Specific Chilo (1.005-1.025) Urine Protein (Negative) Urine Ketones (NEGATIVE) Urine Blood (0-5) Sammy/ul Urine Nitrite (NEGATIVE) Urine Bilirubin (NEGATIVE) Urine Urobilinogen (0-1) mg/dL Ur Leukocyte Esterase (NEGATIVE) Urine WBC (Auto) (0-5) /HPF Urine RBC (Auto) (0-2) /HPF U Hyaline Cast (Auto) (0-2) /LPF U Epithel Cells (Auto) (FEW) /HPF Urine Bacteria (Auto) (NEGATIVE) /HPF Other Casts (Auto) (NEGATIVE) /LPF Urine Mucus (Auto) (NEGATIVE) /HPF Urine Culture Reflexed (NO) Urine Glucose (NEGATIVE) mg/dL - Progress Progress: improved Progress Note: 03/03/19 20:21 Patient is doing well, no seizure activity at any time in the emergency department and no episodes of vomiting as patient has remained alert throughout her time in the emergency department with no focal neurologic department. Counseled pt/family regarding: lab results, diagnosis, need for follow-up, rad results - Departure Departure Disposition: Home Clinical Impression: Mild dehydration, Breakthrough seizure, Hiatal hernia UTI (urinary tract infection) Qualifiers: Urinary tract infection type: acute cystitis Hematuria presence: without hematuria Qualified Code(s): N30.00 - Acute cystitis without hematuria Nausea & vomiting Qualifiers: Vomiting type: unspecified Vomiting Intractability: non-intractable Qualified Code(s): R11.2 - Nausea with vomiting, unspecified Condition: Good Critical Care Time: No Referrals: SANCHO LEGER, CLIENT SERVICE COORDINATOR [Primary Care Provider] - Follow Up with PCP/3 days Instructions: Nausea -- Adult, Vomiting -- Adult Additional Instructions: Discharge/Care Plan PAULETTE GRULLON was seen on 03/03/19 in the Emergency Room. The patient was counseled regarding Diagnosis,Lab results, Imaging studies, need for follow up and when to return to the Emergency Room. Prescriptions given: Bactrim DS BID for 7 days Discharge Note I have spoken with the patient and/or caregivers. I have explained the patient' s condition, diagnosis and treatment plan based on the information available to me at this time. I have answered the patient's and family's questions and addressed any concerns. The patient and family have as good understanding of the patient's diagnosis, condition and treatment plan as can be expected at this point. The vital signs have been stable. The patient's condition is stable and appropriate for discharge from the emergency department. The patient will pursue further outpatient evaluation with the primary care physician or other designated or consulting physician as outlined in the discharge instructions. The patient and family are agreeable to this plan of care and follow-up instructions have been explained in detail. The patient and family have received these instruction. The patient and family are aware that any significant change in condition or worsening of symptoms should prompt an immediate return to this or the closest emergency department or call 911. Prescriptions: Ondansetron ODT 4 MG [Zofran Odt 4 mg] 4 mg PO Q8H PRN PRN #10 tab.rapdis PRN Reason: Nausea Smz/Tmp Ds Tablet [Bactrim Ds Tablet] 1 tab PO Q12H #7 tablet
--- NOTE | 2019-03-03 17:02 | XRAY ---
Indication: Not feeling well. Recent UTI. Multiple contiguous axial images obtained through the abdomen and pelvis without contrast as ordered. Comparison: September 29, 2018. Lung bases again demonstrates bibasilar dependent atelectasis with calcified granulomas. No infiltrate or effusion. Heart is not enlarged. Stable moderate sized hiatal hernia with partial intrathoracic stomach. Noncontrasted stomach and bowel loops remain nonobstructed. Normal appendix. There has been interval cholecystectomy. No free fluid/air. Stable tiny splenic calcified granulomas Remaining liver, pancreas, spleen, adrenal glands, kidneys, ureters, bladder, and uterus appear unremarkable for noncontrast exam. Stable mild scattered aortoiliac calcifications without AAA. Osseous structures intact. New inferior L1 Schmorl node. Impression: 1. Stable hiatal hernia with partial intrathoracic stomach and evidence for old granulomatous disease. 2. Interval cholecystectomy without complications. 3. Remaining CT abdomen/pelvis without contrast exam is negative
--- NOTE | 2019-03-03 17:02 | XRAY ---
Indication: Nausea and vomiting. Comparison: None Portable chest demonstrates normal heart and lungs with a few incidental calcified granulomas. Bony thorax intact.
[2019-03-03 17:53] VITALS: O2SAT 97
[2019-03-03 17:57] LABS: ATYPICAL LYMPHS 1 %; BAND 3 % (0.0-2.0); Basophil 2 % (0.0-1.0); Eosinophil 2 % (0.00-3.0); Lymphocytes 18 % (24-44); Monocyte 6 % (0.0-12.0); Neutrophils 68 % (36.0-66.0); Platelet Estimate NORMAL (NORMAL); Total Cells Counted 100
[2019-03-03 18:38] LABS: Appearance SLIGHTLY CLOUDY (CLEAR); Bacteria FEW /HPF (NEGATIVE); Bilirubin NEGATIVE (NEGATIVE); Blood NEGATIVE Ery/ul (0-5); Epithelial Cells RARE /HPF (FEW); Glucose NEGATIVE (NEGATIVE); Hyaline Casts 0-2 /LPF (0-2); Ketones NEGATIVE (NEGATIVE); Leukocyte Esterase SMALL (NEGATIVE); Mucus SLIGHT /HPF (NEGATIVE); Nitrite POSITIVE (NEGATIVE); Protein,Urine Dip NEGATIVE (Negative); Specific Gravity 1.009 (1.005-1.025); Urobilinogen NEGATIVE mg/dL (0-1)
[2019-03-03 19:12] VITALS: PULSE 80
[2019-03-03] MEDS ORDERED: ROCEPHIN 1 Gm-D5w 50 ml Bag** 1 G/50 ML IVPB IV STA (19:38)
[2019-03-03] MEDS ORDERED: ROCEPHIN 1 Gm-D5w 50 ml Bag** 1 G/50 ML IVPB IV ONE (19:46)
[2019-03-03 20:52] VITALS: BP 166/69
== END 2019-03-03 20:52 | disposition home or self-care (01) ==
LOC: ED 14:42
DX: E86.0 Dehydration (principal); N39.0 Urinary tract infection, site not specified; R11.2 Nausea with vomiting, unspecified; K44.9 Diaphragmatic hernia without obstruction or gangrene; Z79.899 Other long term (current) drug therapy; G40.909 Epilepsy, unspecified, not intractable, without status epilepticus
CPT/HCPCS: 36000; 36415; 71045; 74176; 80053; 81001; 82150; 83605; 83690; 83735; 84484; 85025; 85610; 87077; 87086; 87186; 93005; 96360; 96365; 96374; 96375; 99284; J0696; J2405

== ENCOUNTER 2020-04-24 18:32 | Observation (INO) | payer MEDICARE ==
[2020-04-24] MEDS ORDERED: Sodium Chloride 0.9% 1000 ML 1,000 ML IV SCH (19:15)
[2020-04-24 20:06] LABS: Hematocrit 34.8 % (35-47); Hemoglobin 10.6 gm/dl (12.0-16.0); Mean Cell Volume 92.3 fl (78-100); Mean Corpuscular Hemoglobin 28.1 pg (26-32); Mean Corpuscular Hgb Concent. 30.5 g/dl (32-36); Mean Platelet Volume 9.6 fl (7.5-11.0); Platelet Count 460 K/mm3 (150-450); Red Blood Count 3.77 M/mm3 (4.1-5.4); Red Cell Distribution Width 15.8 % (11.5-14.0); White Blood Count 10.7 K/mm3 (4.0-10.5)
[2020-04-24] MEDS ORDERED: Sodium Chloride 0.9% 1000 ML 1,000 ML ONE (20:07)
[2020-04-24 20:19] LABS: ALBUMIN 3.7 g/dL (3.5-5.0); ALKALINE PHOSPHATASE 816 U/L (38-126); ANION GAP 12.6 MEQ/L (5-15); BLOOD UREA NITROGEN 14 mg/dL (7-17); CHLORIDE 105 mmol/L (98-107); Carbon Dioxide 22 mmol/L (22-30); Creatinine 1 0.56 mg/dL (0.52-1.04); EST GLOMERULAR FILTRATION RATE > 60.0 ML/MIN; Glucose 89 mg/dL (74-106); SGOT/AST 71 U/L (14-36); SGPT/ALT 77 U/L (0-35); SODIUM 135 mmol/L (137-145); Total Protein 7.4 g/dL (6.3-8.2)
[2020-04-24 20:24] LABS: Potassium 4.5 mmol/L (3.5-5.1)
--- NOTE | 2020-04-24 20:27 | ERPHSYRPT ---
- History of Present Illness Time Seen by Provider: 04/24/20 19:00 Source: patient Exam Limitations: no limitations Patient Subjective Stated Complaint: pt here for blood in urine and increase confusion per son, pt is confused to reasons she is here, Triage Nursing Assessment: pt alert,confused to recent events, face mask in place, resp easy, skin w/d/p. abd soft, moves all ext well Physician History: Patient is a 69-year-old female presents to our ED with complaints of hematuria and confusion. Patient son states that patient had surgery in [facility] in January 2020. Surgery was performed in [place]. Patient later developed urinary tract infection. Patient was initially treated with Keflex. Antibiotic was switched to Macrobid. Patient complains of mild back pain. No fever. No nausea vomiting. No abdominal pain. Patient has no urinary symptoms at this time. Son also notes that she appears to be somewhat more confused than normal. Patient has difficult with short term memory. Symptoms are mild to moderate in intensity. No specific worsening improving factors. No associated chest pain or shortness of breath. No headache. No blurred vision. No numbness tingling or weakness. Patient voices no other complaints concerns at this time. Timing/Duration: today Severity: moderate Modifying Factors: Improves With: nothing Associated Symptoms: denies symptoms Allergies/Adverse Reactions: No Known Drug Allergies Allergy (Verified 03/03/19 14:46) Home Medications: Aspirin 81 gm Chew [Baby Aspirin 81 mg Chew] 81 mg PO DAILY 04/24/20 [History] Carvedilol 3.125 mg [Coreg 3.125 MG] 3.125 mg PO BID 04/24/20 [History] Ferrous Sulfate 325 mg [Feosol 325 mg] 325 mg PO DAILY 04/24/20 [History] Megestrol Acetate 20 mg PO DAILY 04/24/20 [History] Nitroglycerin 0.4 mg SL DAILY PRN PRN 04/24/20 [History] PANTOPRAZOLE 40 mg Tablet [Protonix 40MG Tablet] 40 mg PO DAILY 04/24/20 [History] Potassium Chloride 10 Meq Tab* [Klor Con 10 MEQ] 10 meq PO TID 04/24/20 [History] Sertraline HCl 100 mg PO DAILY 04/24/20 [History] Ticagrelor [Brilinta] 90 mg PO BID 04/24/20 [History] Hx Tetanus, Diphtheria Vaccination/Date Given: No Hx Influenza Vaccination/Date Given: No Hx Pneumococcal Vaccination/Date Given: No Immunizations Up to Date: Yes Travel Risk - International Travel Have you traveled outside of the country in past 3 weeks: No - Coronavirus Screening Are you exhibiting any of the following symptoms?: No - Review of Systems Constitutional: No Symptoms, No Fever, No Chills Eyes: No Symptoms Ears, Nose, & Throat: No Symptoms Respiratory: No Symptoms, No Cough, No Dyspnea Cardiac: No Symptoms, No Chest Pain, No Edema, No Syncope Abdominal/Gastrointestinal: No Symptoms, No Abdominal Pain, No Nausea, No Vomiting, No Diarrhea Genitourinary Symptoms: No Symptoms, No Dysuria Musculoskeletal: No Symptoms, No Back Pain, No Neck Pain Skin: No Symptoms, No Rash Neurological: No Symptoms, No Dizziness, No Focal Weakness, No Sensory Changes Psychological: No Symptoms Endocrine: No Symptoms Hematologic/Lymphatic: No Symptoms Immunological/Allergic: No Symptoms All Other Systems: Reviewed and Negative - Past Medical History Pertinent Past Medical History: Yes Neurological History: Stroke ENT History: No Pertinent History Cardiac History: No Pertinent History Respiratory History: No Pertinent History Endocrine Medical History: No Pertinent History Musculoskeletal History: No Pertinent History GI Medical History: GERD History: No Pertinent History Psycho-Social History: No Pertinent History Female Reproductive Disorders: No Pertinent History - Past Surgical History Past Surgical History: Yes Neuro Surgical History: No Pertinent History Cardiac: No Pertinent History Respiratory: No Pertinent History Gastrointestinal: No Pertinent History Genitourinary: No Pertinent History Musculoskeletal: No Pertinent History Female Surgical History: No Pertinent History - Social History Smoking Status: Never smoker Exposure to second hand smoke: No Drug Use: none Patient Lives Alone: No - Female History Hx Last Menstrual Period: post Hx Now: No - Nursing Vital Signs Nursing Vital Signs: Initial Vital Signs Temperature 97.8 F 04/24/20 18:42 Pulse Rate 100 H 04/24/20 18:42 Respiratory Rate 20 04/24/20 18:42 Blood Pressure 136/76 04/24/20 18:42 O2 Sat by Pulse Oximetry 97 04/24/20 18:42 Pain Scale Pain Intensity 0 - Physical Exam General Appearance: no apparent distress, alert Eye Exam: PERRL/EOMI, eyes nml inspection Ears, Nose, Throat Exam: normal ENT inspection, TMs normal, pharynx normal, moist mucous membranes Neck Exam: normal inspection, non-tender, supple, full range of motion Respiratory Exam: normal breath sounds, lungs clear, No respiratory distress Cardiovascular Exam: regular rate/rhythm, normal heart sounds, normal peripheral pulses Gastrointestinal/Abdomen Exam: soft, normal bowel sounds, No tenderness, No mass Back Exam: normal inspection, normal range of motion, No CVA tenderness, No vertebral tenderness Extremity Exam: normal inspection, normal range of motion, pelvis stable Neurologic Exam: alert, oriented x 3 (Patient requires cues for time.), cooperative, normal mood/affect, nml cerebellar function, sensation nml, confusion (Patient tends to make comments that are nonsensical. Patient states she is the blood running down her nose to her feet.), No motor deficits, No sensory deficit Skin Exam: normal color, warm, dry, No rash Lymphatic Exam: No adenopathy SpO2 Interpretation: normal SpO2: 98 O2 Delivery: Room Air - Course Nursing assessment & vital signs reviewed: Yes EKG Interpreted by Me: RATE (89), Sinus Rhythm, NORMAL AXIS, NORMAL INTERVALS - CT Exams Head CT Interpretation: Tele-radiologist Report (CT head reveals old bilateral basal ganglia lacunar infarcts. However there is a new right lacunar infarct right internal capsule) Ordered Tests: Active Orders 24 hr Category Date Time Status EKG-ER Only STAT Care 04/24/20 19:03 Active IV Insertion STAT Care 04/24/20 19:03 Active ABDOMEN AND PELVIS W CONTRAST [CT] Stat Exams 04/24/20 19:09 Taken HEAD WITHOUT CONTRAST [CT] Stat Exams 04/24/20 19:09 Taken CBC W DIFF Stat Lab 04/24/20 19:50 Completed CMP Stat Lab 04/24/20 19:50 Completed CULTURE,URINE Stat Lab 04/24/20 21:27 Received Manual Differential NC Stat Lab 04/24/20 19:50 Completed TROPONIN Q3H Lab 04/24/20 19:50 Completed TROPONIN Q3H Lab 04/24/20 22:49 Completed TSH [TSH, 3RD Generation] Stat Lab 04/24/20 19:50 Completed UA W/RFX UR CULTURE Stat Lab 04/24/20 21:27 Completed Transfer Order Routine Transfer 04/25/20 Ordered Medication Summary Generic Name Dose Route Start Last Admin Trade Name Freq PRN Reason Stop Dose Admin Sodium Chloride 1,000 mls @ 100 mls/hr 04/24/20 19:15 04/24/20 20:09 Sodium Chloride 0.9% 1000 Ml IV 05/24/20 19:14 100 mls/hr .Q10H AMELIE Administration Lab/Rad Data: Laboratory Result Diagrams 04/24/20 19:50 04/24/20 19:50 Laboratory Results 04/24/20 04/24/20 04/24/20 Range/Units 23:32 22:49 21:27 WBC (4.0-10.5) K/mm3 RBC (4.1-5.4) M/mm3 Hgb (12.0-16.0) gm/dl Hct (35-47) % MCV (78-100) fl MCH (26-32) pg MCHC (32-36) g/dl RDW (11.5-14.0) % Plt Count (150-450) K/mm3 MPV (7.5-11.0) fl Segmented Neutrophils (36.0-66.0) % Lymphocytes (Manual) (24-44) % Monocytes (Manual) (0.0-12.0) % Eosinophils (Manual) (0.00-3.0) % Platelet Estimate (NORMAL) RBC Morphology Sodium (137-145) mmol/L Potassium (3.5-5.1) mmol/L Chloride (98-107) mmol/L Carbon Dioxide (22-30) mmol/L Anion Gap (5-15) MEQ/L BUN (7-17) mg/dL Creatinine (0.52-1.04) mg/dL Estimated GFR ML/MIN Glucose (74-106) mg/dL Calcium (8.4-10.2) mg/dL Total Bilirubin (0.2-1.3) mg/dL AST (14-36) U/L ALT (0-35) U/L Alkaline Phosphatase (38-126) U/L Troponin I < 0.012 (0.000-0.034) ng/mL Serum Total Protein (6.3-8.2) g/dL Albumin (3.5-5.0) g/dL TSH 3rd Generation (0.47-4.68) mIU/L Urine Color YELLOW (YELLOW) Urine Appearance SLIGHTLY CLOUDY (CLEAR) Urine pH 7.0 (5-6) Ur Specific [place] 1.038 (1.005-1.025) Urine Protein NEGATIVE (Negative) Urine Ketones NEGATIVE (NEGATIVE) Urine Blood LARGE (0-5) Sammy/ul Urine Nitrite NEGATIVE (NEGATIVE) Urine Bilirubin NEGATIVE (NEGATIVE) Urine Urobilinogen NEGATIVE (0-1) mg/dL Ur Leukocyte Esterase TRACE (NEGATIVE) Urine WBC (Auto) 6-10 (0-5) /HPF Urine RBC (Auto) 51-100 (0-2) /HPF U Epithel Cells (Auto) RARE (FEW) /HPF Urine Bacteria (Auto) NONE SEEN (NEGATIVE) /HPF Urine Mucus (Auto) SLIGHT (NEGATIVE) /HPF Urine Culture Reflexed YES (NO) Urine Glucose NEGATIVE (NEGATIVE) mg/dL Influenza Type A Ag NEGATIVE (NEGATIVE) Influenza Type B Ag NEGATIVE (NEGATIVE) RSV (PCR) NEGATIVE (Negative) SARS-CoV-2 (PCR) NEGATIVE (NEGATIVE) 04/24/20 04/24/20 04/24/20 Range/Units 19:50 19:50 19:50 WBC (4.0-10.5) K/mm3 RBC (4.1-5.4) M/mm3 Hgb (12.0-16.0) gm/dl Hct (35-47) % MCV (78-100) fl MCH (26-32) pg MCHC (32-36) g/dl RDW (11.5-14.0) % Plt Count (150-450) K/mm3 MPV (7.5-11.0) fl Segmented Neutrophils (36.0-66.0) % Lymphocytes (Manual) (24-44) % Monocytes (Manual) (0.0-12.0) % Eosinophils (Manual) (0.00-3.0) % Platelet Estimate (NORMAL) RBC Morphology Sodium 135 L (137-145) mmol/L Potassium 4.5 (3.5-5.1) mmol/L Chloride 105 (98-107) mmol/L Carbon Dioxide 22 (22-30) mmol/L Anion Gap 12.6 (5-15) MEQ/L BUN 14 (7-17) mg/dL Creatinine 0.56 (0.52-1.04) mg/dL Estimated GFR > 60.0 ML/MIN Glucose 89 (74-106) mg/dL Calcium 9.0 (8.4-10.2) mg/dL Total Bilirubin 0.40 (0.2-1.3) mg/dL AST 71 H (14-36) U/L ALT 77 H (0-35) U/L Alkaline Phosphatase 816 H (38-126) U/L Troponin I < 0.012 (0.000-0.034) ng/mL Serum Total Protein 7.4 (6.3-8.2) g/dL Albumin 3.7 (3.5-5.0) g/dL TSH 3rd Generation 1.550 (0.47-4.68) mIU/L Urine Color (YELLOW) Urine Appearance (CLEAR) Urine pH (5-6) Ur Specific [place] (1.005-1.025) Urine Protein (Negative) Urine Ketones (NEGATIVE) Urine Blood (0-5) Sammy/ul Urine Nitrite (NEGATIVE) Urine Bilirubin (NEGATIVE) Urine Urobilinogen (0-1) mg/dL Ur Leukocyte Esterase (NEGATIVE) Urine WBC (Auto) (0-5) /HPF Urine RBC (Auto) (0-2) /HPF U Epithel Cells (Auto) (FEW) /HPF Urine Bacteria (Auto) (NEGATIVE) /HPF Urine Mucus (Auto) (NEGATIVE) /HPF Urine Culture Reflexed (NO) Urine Glucose (NEGATIVE) mg/dL Influenza Type A Ag (NEGATIVE) Influenza Type B Ag (NEGATIVE) RSV (PCR) (Negative) SARS-CoV-2 (PCR) (NEGATIVE) 04/24/20 Range/Units 19:50 WBC 10.7 H (4.0-10.5) K/mm3 RBC 3.77 L (4.1-5.4) M/mm3 Hgb 10.6 L (12.0-16.0) gm/dl Hct 34.8 L (35-47) % MCV 92.3 (78-100) fl MCH 28.1 (26-32) pg MCHC 30.5 L (32-36) g/dl RDW 15.8 H (11.5-14.0) % Plt Count 460 H (150-450) K/mm3 MPV 9.6 (7.5-11.0) fl Segmented Neutrophils 52 (36.0-66.0) % Lymphocytes (Manual) 29 (24-44) % Monocytes (Manual) 14 H (0.0-12.0) % Eosinophils (Manual) 5 H (0.00-3.0) % Platelet Estimate NORMAL (NORMAL) RBC Morphology NORMAL Sodium (137-145) mmol/L Potassium (3.5-5.1) mmol/L Chloride (98-107) mmol/L Carbon Dioxide (22-30) mmol/L Anion Gap (5-15) MEQ/L BUN (7-17) mg/dL Creatinine (0.52-1.04) mg/dL Estimated GFR ML/MIN Glucose (74-106) mg/dL Calcium (8.4-10.2) mg/dL Total Bilirubin (0.2-1.3) mg/dL AST (14-36) U/L ALT (0-35) U/L Alkaline Phosphatase (38-126) U/L Troponin I (0.000-0.034) ng/mL Serum Total Protein (6.3-8.2) g/dL Albumin (3.5-5.0) g/dL TSH 3rd Generation (0.47-4.68) mIU/L Urine Color (YELLOW) Urine Appearance (CLEAR) Urine pH (5-6) Ur Specific [place] (1.005-1.025) Urine Protein (Negative) Urine Ketones (NEGATIVE) Urine Blood (0-5) Sammy/ul Urine Nitrite (NEGATIVE) Urine Bilirubin (NEGATIVE) Urine Urobilinogen (0-1) mg/dL Ur Leukocyte Esterase (NEGATIVE) Urine WBC (Auto) (0-5) /HPF Urine RBC (Auto) (0-2) /HPF U Epithel Cells (Auto) (FEW) /HPF Urine Bacteria (Auto) (NEGATIVE) /HPF Urine Mucus (Auto) (NEGATIVE) /HPF Urine Culture Reflexed (NO) Urine Glucose (NEGATIVE) mg/dL Influenza Type A Ag (NEGATIVE) Influenza Type B Ag (NEGATIVE) RSV (PCR) (Negative) SARS-CoV-2 (PCR) (NEGATIVE) - Progress Progress: improved Progress Note: 04/25/20 00:32 Patient reassessed. Repeat neuro exam unchanged. Patient has hematuria. Patient has UTI currently on Macrobid. We will continue the Macrobid during this admission. Hematuria may need to be further investigated. In light of patient's confusion and new right internal capsule stroke we will admit for further evaluation. There is some pneumobilia observed however this is likely residual from her MRCP. Son states that patient is a fall risk. They agree to admission [facility] for further evaluation and treatment. Rapid Covid negative. 04/25/20 00:41 Discussed with : Molly Will see patient in: hospital (observation) Counseled pt/family regarding: lab results, diagnosis, rad results - Departure Departure Disposition: Home Clinical Impression: Hematuria, Infarction of right basal ganglia, Constipation, Hiatal hernia, Pn eumobilia, Lacunar infarction, Confusion Condition: Stable Critical Care Time: No Referrals: SANCHO LEGER NP [Primary Care Provider] -
[2020-04-24 20:54] LABS: Eosinophil 5 % (0.00-3.0); Lymphocytes 29 % (24-44); Monocyte 14 % (0.0-12.0); Neutrophils 52 % (36.0-66.0); Platelet Estimate NORMAL (NORMAL); Total Cells Counted 100
[2020-04-24 21:45] LABS: Appearance SLIGHTLY CLOUDY (CLEAR); Bilirubin NEGATIVE (NEGATIVE); Blood LARGE Ery/ul (0-5); Epithelial Cells RARE /HPF (FEW); Glucose NEGATIVE (NEGATIVE); Ketones NEGATIVE (NEGATIVE); Leukocyte Esterase TRACE (NEGATIVE); Mucus SLIGHT /HPF (NEGATIVE); Nitrite NEGATIVE (NEGATIVE); Protein,Urine Dip NEGATIVE (Negative); RBC 51-100 /HPF (0-2); Specific Gravity 1.038 (1.005-1.025); Urobilinogen NEGATIVE mg/dL (0-1)
[2020-04-24 21:46] LABS: Bacteria NONE SEEN /HPF (NEGATIVE)
[2020-04-25 00:12] LABS: INFLUENZA A NEGATIVE (NEGATIVE); INFLUENZA B NEGATIVE (NEGATIVE); RESPIRATORY SYNCTIAL VIRUS NEGATIVE (Negative)
[2020-04-25] MEDS ORDERED: MORPHINE SULFATE 2 MG INJ IV PRN (02:58)
[2020-04-25 05:28] LABS: Hematocrit 33.7 % (35-47); Hemoglobin 9.9 gm/dl (12.0-16.0); Mean Cell Volume 93.1 fl (78-100); Mean Corpuscular Hemoglobin 27.3 pg (26-32); Mean Corpuscular Hgb Concent. 29.4 g/dl (32-36); Mean Platelet Volume 9.4 fl (7.5-11.0); Platelet Count 432 K/mm3 (150-450); Red Blood Count 3.62 M/mm3 (4.1-5.4); Red Cell Distribution Width 15.7 % (11.5-14.0); White Blood Count 10.5 K/mm3 (4.0-10.5)
[2020-04-25 05:48] LABS: ALBUMIN 3.5 g/dL (3.5-5.0); ALKALINE PHOSPHATASE 861 U/L (38-126); ANION GAP 11.3 MEQ/L (5-15); BLOOD UREA NITROGEN 10 mg/dL (7-17); CHLORIDE 106 mmol/L (98-107); Calcium 9.2 mg/dL (8.4-10.2); Carbon Dioxide 24 mmol/L (22-30); Creatinine 1 0.57 mg/dL (0.52-1.04); EST GLOMERULAR FILTRATION RATE > 60.0 ML/MIN; Glucose 94 mg/dL (74-106); Potassium 4.2 mmol/L (3.5-5.1); SGOT/AST 62 U/L (14-36); SGPT/ALT 71 U/L (0-35); SODIUM 136 mmol/L (137-145); TROPONIN < 0.012 ng/mL (0.000-0.034); Total Protein 6.9 g/dL (6.3-8.2)
[2020-04-25] MEDS: Sodium Chloride 0.9% 1000 ML 1,000 ML IV SCH ×2 (07:18→20:05)
[2020-04-25 08:36] LABS: ANISOCYTOSIS 1+; BAND 1 % (0.0-2.0); Basophil 1 % (0.0-1.0); Eosinophil 3 % (0.00-3.0); Hypochromia 1+; Lymphocytes 31 % (24-44); Monocyte 5 % (0.0-12.0); Neutrophils 59 % (36.0-66.0); Platelet Estimate NORMAL (NORMAL); Total Cells Counted 100; Toxic Granulation 1+
--- NOTE | 2020-04-25 08:48 | XRAY ---
Indication: Confusion. Multiple contiguous images obtained through the head without contrast. Comparison: August 31, 2018. There is again age-appropriate global atrophy, mild periventricular degenerative micro-ischemia, and small remote-appearing bilateral internal capsule lacunar infarcts. Anterior limb right internal capsule demonstrates new subcentimeter focus of lacunar infarct. No acute intracranial hemorrhage, abnormal extra-axial fluid collection, or mass effect. Fourth ventricle is midline without hydrocephalus. Cop[place]-white matter differentiation preserved. Bony calvarium intact. Visualized paranasal sinuses and mastoid air cells are clear. Impression: 1. Again atrophy, degenerative micro-ischemia, and multifocal bilateral internal capsule lacunar infarcts. 2. No acute intracranial abnormalities.
--- NOTE | 2020-04-25 08:54 | XRAY ---
Indication: Hematuria. Renal mass. Recent UTI. Multiple contiguous axial images obtained through the abdomen and pelvis using 80 cc Isovue 370 contrast. Comparison: March 03, 2019. Lung bases demonstrate stable left costophrenic angle calcified granuloma. No infiltrate or effusion. Heart is not enlarged. Stable moderate-sized hiatal hernia with partial intrathoracic stomach. Noncontrasted stomach and bowel loops appear nonobstructed. Normal appendix. There is now mild diffuse scattered colonic fecal debris throughout including rectum. Again cholecystectomy with new mild pneumobilia. No free fluid/air. Remaining liver, pancreas, spleen, adrenal glands, kidneys, ureters, bladder, and aorta appear unremarkable. There remains mild scattered aortoiliac calcifications. No AAA or pathologic retroperitoneal lymphadenopathy. Osseous structures again demonstrates inferior L1 Schmorl node. T12 superior endplate demonstrates new minimal concave deformity with sclerotic margins favoring remote fracture with less than 25% height loss. Impression: 1. New mild diffuse fecal stasis. 2. Again cholecystectomy with new pneumobilia. 3. New finding remote appearing minimal T12 endplate fracture. 4. Stable hiatal hernia with partial intrathoracic stomach and left lung calcified granuloma.
[2020-04-25] MEDS: Macrobid 100MG Capsule PO SCH ×2 (09:07→17:51)
[2020-04-25] MEDS ORDERED: Nitrostat 0.4 MG Tablet SL PRN (12:42)
[2020-04-25] MEDS ORDERED: Protonix 40MG Tablet PO SCH (12:45)
[2020-04-25] MEDS ORDERED: ZOLOFT 50 MG TABLET PO SCH (13:00)
[2020-04-25] MEDS ORDERED: ECOTRIN 81 MG PO SCH (13:00)
[2020-04-25] MEDS ORDERED: FEOSOL 325 MG PO SCH (13:00)
[2020-04-25] MEDS ORDERED: Megace 40 MG/ML PO SCH (13:00)
[2020-04-25] MEDS ORDERED: Miralax Powder 17GM PACKET PO SCH (14:00)
[2020-04-25] MEDS: Klor Con 10 MEQ PO SCH ×2 (14:19→21:53)
[2020-04-25] MEDS: BRILINTA PO SCH ×2 (14:20→21:53)
[2020-04-25] MEDS: Coreg 3.125 MG PO SCH ×2 (14:20→21:53)
[2020-04-26 03:36] VITALS: BP 189/83; PULSE 76; O2SAT 97
[2020-04-26] MEDS ORDERED: MEGESTROL ACETATE 20 MG PO SCH (10:00)
[2020-04-26] MEDS ORDERED: NON-FORMULARY ITEM (Sertraline Hcl [Sertraline Hcl] 100 MG) PO SCH (10:00)
[2020-04-26] MEDS ORDERED: BABY ASPIRIN 81 MG CHEW PO SCH (10:00)
--- NOTE | 2020-06-08 12:01 | PCM.SSS ---
History of Present Illness - Chief Complaint Chief Complaint: UTI, R lacunar infarct, Confusion Date: 06/24/20 History of Present Illness: is a 69 year old female. Pt. presented to ER with some increase in her baseline confusion level and hematuria which has been an intermittent problem for this patient. - Review of Systems Constitutional: No Fever, No Chills Eyes: No Symptoms Ears, Nose, & Throat: No Symptoms Respiratory: No Cough, No Short Of Breath Cardiac: No Chest Pain, No Edema, No Syncope Abdominal/Gastrointestinal: No Abdominal Pain, No Nausea, No Vomiting, No Diarrhea Genitourinary Symptoms: No Dysuria Musculoskeletal: No Back Pain, No Neck Pain Skin: No Rash Neurological: No Dizziness, No Focal Weakness, No Sensory Changes Psychological: No Symptoms Endocrine: No Symptoms Hematologic/Lymphatic: No Symptoms Immunological/Allergic: No Symptoms Medications & Allergies Home Medications: Home Medication List Aspirin 81 gm Chew [Baby Aspirin 81 mg Chew] 81 mg PO DAILY 04/24/20 [History Confirmed 04/24/20] Carvedilol 3.125 mg [Coreg 3.125 MG] 3.125 mg PO BID 04/24/20 [History Confirmed 04/24/20] Ferrous Sulfate 325 mg [Feosol 325 mg] 325 mg PO DAILY 04/24/20 [History Confirmed 04/24/20] Megestrol Acetate 20 mg PO DAILY 04/24/20 [History Confirmed 04/24/20] Nitroglycerin 0.4 mg SL DAILY PRN PRN 04/24/20 [History Confirmed 04/24/20] PANTOPRAZOLE 40 mg Tablet [Protonix 40MG Tablet] 40 mg PO DAILY 04/24/20 [History Confirmed 04/24/20] Potassium Chloride 10 Meq Tab* [Klor Con 10 MEQ] 10 meq PO TID 04/24/20 [History Confirmed 04/24/20] Sertraline HCl 100 mg PO DAILY 04/24/20 [History Confirmed 04/24/20] Ticagrelor [Brilinta] 90 mg PO BID 04/24/20 [History Confirmed 04/24/20] Allergies/Adverse Reactions: Allergies Allergy/AdvReac Type Severity Reaction Status Date / Time No Known Drug Allergies Allergy Verified 03/03/19 14:46 - Past Medical History Past Medical History: No Neurological History: Stroke ENT History: No Pertinent History Cardiac History: Hypertension Respiratory History: No Pertinent History Endocrine Medical History: No Pertinent History Musculoskelatal History: No Pertinent History GI Medical History: Other History: No Pertinent History Pyscho-Social History: No Pertinent History Reproductive Disorders: No Pertinent History - Female History Hx Last Menstrual Period: post Are you now?: No - Past Surgical History Past Surgical History: Yes Neuro Surgical History: No Pertinent History Cardiac History: Cardiac Stent Respiratory Surgery: No Pertinent History GI Surgical History: Cholecystectomy Genitourinary Surgical Hx: No Pertinent History Musculskeletal Surgical Hx: No Pertinent History Female Surgical History: No Pertinent History - Social History Smoking Status: Never smoker Exposure to second hand smoke: No Alcohol: None Drug Use: none - Physical Exam General Appearance: no apparent distress, alert Neurologic Exam: alert, oriented x 3, cooperative, normal mood/affect, nml cerebellar function, nml station & gait, sensation nml, No motor deficits Eye Exam: PERRL/EOMI, eyes nml inspection Ears, Nose, Throat Exam: normal ENT inspection, pharynx normal, moist mucous membranes Neck Exam: normal inspection, non-tender, supple, full range of motion Respiratory Exam: normal breath sounds, lungs clear, No respiratory distress Cardiovascular Exam: regular rate/rhythm, normal heart sounds, normal peripheral pulses Gastrointestinal/Abdomen Exam: soft, normal bowel sounds, No tenderness, No mass Back Exam: normal inspection, normal range of motion, No CVA tenderness, No vertebral tenderness Extremity Exam: normal inspection, normal range of motion, pelvis stable Skin Exam: normal color, warm, dry, No rash Lymphatic Exam: No adenopathy Results - Labs Lab/Micro Results: Microbiology 04/24/20 21:27 Urine Culture - Final Urine, Catheterized NO GROWTH Assessment/Plan (1) Confusion Status: Acute Code(s): R41.0 - DISORIENTATION, UNSPECIFIED (2) Hematuria Status: Acute Code(s): R31.9 - HEMATURIA, UNSPECIFIED (3) Lacunar infarction Status: Acute Code(s): I63.81 - OTHER CEREB INFRC DUE TO OCCLS OR STENOSIS OF SMALL ARTERY (4) UTI (urinary tract infection) Status: Acute Code(s): N39.0 - URINARY TRACT INFECTION, SITE NOT SPECIFIED Hospital Summary - Hospital Course Hospital Course: Pt. admitted, urine cleared up quickly and pateint promptly returned to her baseline, feeling able and ready for d/c the following day - Vitals & Intake/Output Vital Signs: Vital Signs Temperature 98.1 F 04/26/20 03:36 Pulse Rate 76 04/26/20 03:36 Respiratory Rate 18 04/26/20 03:36 Blood Pressure 189/83 04/26/20 03:36 O2 Sat by Pulse Oximetry 97 04/26/20 03:36 - Lab Result Diagrams: 04/25/20 04:20 04/25/20 04:20 Micro Results-Entire Visit: Microbiology 04/24/20 21:27 Urine Culture - Final Urine, Catheterized NO GROWTH - Procedures and Test Procedures and Tests throughout Hospitalization: Therapy Orders & Screens 04/25/20 03:50 OT Screen per Nursing Assess ONCE Comment: Protocol Order Physician Instructions: Greater than 3 points order OT Admission Screening Reason For Exam: Triggered on Admission Diagnosis: UTI, R lacunar infarct Open Wound/Cellutlitis/Pressure Ulcers: No Acute Fx/ORIF/Change in wt bearing status: No Severe MUSCULOSKELETAL pain: No ADL Dysfunction: Yes Decreased Functional Mobility/Strength: Yes Sprain/Strain: No Acute Post-op Mobility Dysfunction: No Total Points: 4 PT Screen per Nursing Assess ONCE Comment: Protocol Order Physician Instructions: Greater than 3 points order PT Admission Screenin Reason For Exam: Triggered on Admission Diagnosis: UTI, R lacunar infarct Open Wound/Cellutlitis/Pressure Ulcers: No Acute Fx/ORIF/Change in wt bearing status: No Severe MUSCULOSKELETAL pain: No ADL Dysfunction: Yes Decreased Functional Mobility/Strength: Yes Sprain/Strain: No Acute Post-op Mobility Dysfunction: No Total Points: 4 - Discharge Discharge Date: 04/26/20 Disposition: DC TO OTHER HOSP Condition: Stable Prescriptions: No Action Ticagrelor [Brilinta] 90 mg PO BID Sertraline HCl 100 mg PO DAILY Potassium Chloride 10 Meq Tab* [Klor Con 10 MEQ] 10 meq PO TID PANTOPRAZOLE 40 mg Tablet [Protonix 40MG Tablet] 40 mg PO DAILY Nitroglycerin 0.4 mg SL DAILY PRN PRN PRN Reason: Chest Pain Megestrol Acetate 20 mg PO DAILY Ferrous Sulfate 325 mg [Feosol 325 mg] 325 mg PO DAILY Carvedilol 3.125 mg [Coreg 3.125 MG] 3.125 mg PO BID Aspirin 81 gm Chew [Baby Aspirin 81 mg Chew] 81 mg PO DAILY Follow up with: SANCHO LEGER NP [Primary Care Provider] -
== END 2020-04-26 03:25 ==
LOC: ED 18:32 → MED SURG 04-25 02:56
PROVIDERS: ADMIT Family Medicine; ATTEND Family Medicine
DX: R41.0 Disorientation, unspecified (principal); R31.9 Hematuria, unspecified; I63.81 Other cerebral infarction due to occlusion or stenosis of small artery; Z79.899 Other long term (current) drug therapy; N39.0 Urinary tract infection, site not specified; Z20.822 Contact with and (suspected) exposure to COVID-19
CPT/HCPCS: 0241U; 36000; 36415; 70450; 74177; 80053; 81001; 84443; 84484; 85025; 87086; 93005; 93268; 94762; 99284; G0378; A9270-GY

== ENCOUNTER 2020-10-17 23:01 | Emergency (ER) | payer MEDICARE ==
[2020-10-17] MEDS ORDERED: Sodium Chloride 0.9% 1000 ML 1,000 ML IV STA (23:03)
[2020-10-17] MEDS ORDERED: Zofran 4 MG/2 ML VIAL IV ONE (23:08)
[2020-10-17] MEDS ORDERED: Sodium Chloride 0.9% 1000 ML 1,000 ML ONE (23:39)
[2020-10-18 00:09] LABS: ALBUMIN 4.1 g/dL (3.5-5.0); ALKALINE PHOSPHATASE 284 U/L (38-126); ANION GAP 17.1 MEQ/L (5-15); BLOOD UREA NITROGEN 14 mg/dL (7-17); CHLORIDE 104 mmol/L (98-107); Calcium 8.9 mg/dL (8.4-10.2); Carbon Dioxide 23 mmol/L (22-30); Creatinine 1 0.61 mg/dL (0.52-1.04); EST GLOMERULAR FILTRATION RATE > 60.0 ML/MIN; Glucose 119 mg/dL (74-106); Potassium 3.6 mmol/L (3.5-5.1); SGOT/AST 139 U/L (14-36); SGPT/ALT 78 U/L (0-35); SODIUM 140 mmol/L (137-145); Total Protein 7.5 g/dL (6.3-8.2)
[2020-10-18 00:10] LABS: Absolute Neutrophil Ct (ANC) 11.95 (1.4-6.9); BASOPHIL % 0.1 % (0.0-0.4); Basophil (Absolute #) 0.01 (0-0.4); Eosinophil % 0.3 % (0.00-5.0); Eosinophil (Absolute #) 0.04 (0-0.5); Hematocrit 40.6 % (35-47); Hemoglobin 12.8 gm/dl (12.0-16.0); Lymphocyte (Absolute #) 0.85 (1.0-4.6); Mean Cell Volume 93.5 fl (78-100); Mean Corpuscular Hemoglobin 29.5 pg (26-32); Mean Corpuscular Hgb Concent. 31.5 g/dl (32-36); Monocyte (Absolute #) 1.28 (0.0-1.3); Monocytes % 9.1 % (0.0-12.0); Neutrophil % 84.5 % (36.0-66.0); Platelet Count 228 K/mm3 (150-450); Red Blood Count 4.34 M/mm3 (4.1-5.4); Red Cell Distribution Width 13.7 % (11.5-14.0); White Blood Count 14.1 K/mm3 (4.0-10.5)
--- NOTE | 2020-10-18 00:10 | ERPHSYRPT ---
- History of Present Illness Time Seen by Provider: 10/17/20 23:10 Source: patient Exam Limitations: no limitations Patient Subjective Stated Complaint: pt states "I have vomited x3, diarrhea and had a fever since 2129". Triage Nursing Assessment: Pt arrived via EMS with c/o vomiting x3 since 2129, diarrhea x2 and a fever of 102.8. Pt denies any cough or weakness. Abd soft with hypoactive bs x4 quad, nontender. Physician History: Patient is a 70-year-old female presents to our ED for evaluation of nausea vomiting diarrhea and fever. Symptoms started today. Symptoms have been progressive. Patient feels weak. Emesis is nonbloody nonbilious. No associated chest pain or shortness of breath. Patient was vaccinated against Covid 19 using moderna vaccination. Symptoms are constant. Symptoms are moderate in intensity. No specific worsening or improving factors. Patient voices no other complaints or concerns at this time. 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: Acetaminophen Associated Symptoms: nausea/vomiting, weakness, No chest pain, No cough, No headache, No shortness of breath, No sore throat, No stiff neck, No syncope Allergies/Adverse Reactions: No Known Drug Allergies Allergy (Verified 10/17/20 23:30) Home Medications: Aspirin 81 gm Chew [Baby Aspirin 81 mg Chew] 81 mg PO DAILY 04/24/20 [History] Carvedilol 3.125 mg [Coreg 3.125 MG] 3.125 mg PO BID 04/24/20 [History] Megestrol Acetate 20 mg PO DAILY 04/24/20 [History] Nitroglycerin 0.4 mg SL DAILY PRN PRN 04/24/20 [History] PANTOPRAZOLE 40 mg Tablet [Protonix 40MG Tablet] 40 mg PO DAILY 04/24/20 [History] Potassium Chloride 10 Meq Tab* [Klor Con 10 MEQ] 10 meq PO TID 04/24/20 [History] Sertraline HCl 100 mg PO DAILY 04/24/20 [History] Ticagrelor [Brilinta] 90 mg PO BID 04/24/20 [History] lisinopriL [Lisinopril] 5 mg PO DAILY 10/17/20 [History] ursodioL [Ursodiol] 500 mg PO TID 10/17/20 [History] Hx Tetanus, Diphtheria Vaccination/Date Given: Yes Hx Influenza Vaccination/Date Given: (unknown) Hx Pneumococcal Vaccination/Date Given: Yes Immunizations Up to Date: Yes Travel Risk - International Travel Have you traveled outside of the country in past 3 weeks: No - Coronavirus Screening Are you exhibiting any of the following symptoms?: Yes Symptoms: Fever, Vomiting/Diarrhea Close contact with a COVID-19 positive Pt in past 14-21 Days: No - Vaccine Status Have you recieved a Covid-19 vaccination: Yes 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 - Vaccination Dates Date of 2cond Vaccination (if applicable): jun, 2020 - Review of Systems Constitutional: No Symptoms, No Fever, No Chills Eyes: No Symptoms Ears, Nose, & Throat: No Symptoms Respiratory: No Symptoms, No Cough, No Dyspnea Cardiac: No Symptoms, No Chest Pain, No Edema, No Syncope Abdominal/Gastrointestinal: No Symptoms, No Abdominal Pain, No Nausea, No Vomiting, No Diarrhea Genitourinary Symptoms: No Symptoms, No Dysuria Musculoskeletal: No Symptoms, No Back Pain, No Neck Pain Skin: No Symptoms, No Rash Neurological: No Symptoms, No Dizziness, No Focal Weakness, No Sensory Changes Psychological: No Symptoms Endocrine: No Symptoms Hematologic/Lymphatic: No Symptoms Immunological/Allergic: No Symptoms All Other Systems: Reviewed and Negative - Past Medical History Pertinent Past Medical History: Yes Neurological History: Stroke ENT History: No Pertinent History Cardiac History: Angina, Hypertension Respiratory History: No Pertinent History Endocrine Medical History: No Pertinent History Musculoskeletal History: No Pertinent History GI Medical History: Other History: No Pertinent History Psycho-Social History: No Pertinent History Female Reproductive Disorders: No Pertinent History Other Medical History: autoimmune liver disease. shingles - Past Surgical History Past Surgical History: Yes Neuro Surgical History: No Pertinent History Cardiac: Cardiac Stent Respiratory: No Pertinent History Gastrointestinal: Cholecystectomy Genitourinary: No Pertinent History Musculoskeletal: No Pertinent History Female Surgical History: No Pertinent History - Social History Smoking Status: Never smoker Exposure to second hand smoke: No Drug Use: none Patient Lives Alone: No - Nursing Vital Signs Nursing Vital Signs: Initial Vital Signs Temperature 102.8 F 10/17/20 23:02 Pulse Rate 102 H 10/17/20 23:02 Respiratory Rate 18 10/17/20 23:02 Blood Pressure 172/59 10/17/20 23:02 O2 Sat by Pulse Oximetry 99 10/17/20 23:02 Pain Scale Pain Intensity 0 - Physical Exam General Appearance: no apparent distress, alert Eye Exam: PERRL/EOMI ENT Exam: normal ENT inspection, No pharyngeal erythema, No tonsillar exudate Neck Exam: supple, full range of motion, No meningismus Respiratory Exam: normal breath sounds, lungs clear, no respiratory distress Cardiovascular/Chest Exam: normal heart sounds, regular rate/rhythm, No murmur, No edema Gastrointestinal/Abdominal Exam: soft, non tender, no distention Extremity Exam: non-tender, normal range of motion, normal inspection, normal capillary refill Neurologic Exam: alert, oriented x 3, cooperative, surveyor geodetic II-XII nml as tested, normal mood/affect, sensation nml, No motor deficits Skin Exam: normal color, warm, dry, No rash SpO2: 97 - Course Nursing assessment & vital signs reviewed: Yes EKG Interpreted by Me: RATE ([id number]), Sinus Tach, NORMAL AXIS, NORMAL INTERVALS - Radiology Exams Chest X-ray Interpretation: Interpreted by me (Few calcified granulomas. Chest x-ray similar to previous dated 03/03/2019. No new infiltrates or consolidations. Bony thorax intact.) Ordered Tests: Active Orders 24 hr Category Date Time Status Grainer Machine STAT Care 10/17/20 23:04 Active EKG-ER Only STAT Care 10/17/20 23:03 Active IV Insertion STAT Care 10/17/20 23:03 Active Pulse Oximetry (ED) STAT Care 10/17/20 23:03 Active CHEST 1 VIEW (PORTABLE) Stat Exams 10/17/20 23:04 Taken BLOOD CULTURE Stat Lab 10/17/20 23:50 Received CBC W DIFF Stat Lab 10/17/20 23:35 Completed CMP Stat Lab 10/17/20 23:35 Completed INFLUENZA A+B WESLEY Stat Lab 10/17/20 23:35 Completed Lactic Acid Stat Lab 10/17/20 23:46 Completed Lactic Acid Stat Lab 10/18/20 01:51 Completed UA W/RFX UR CULTURE Stat Lab 10/18/20 01:35 Completed Medication Summary Generic Name Dose Route Start Last Admin Trade Name Freq PRN Reason Stop Dose Admin Sodium Chloride 1,000 mls @ 250 mls/hr 10/18/20 01:30 10/18/20 01:25 Sodium Chloride 0.9% 1000 Ml IV 11/17/20 01:29 250 mls/hr .Q4H AMELIE Administration Discontinued Medications Generic Name Dose Route Start Last Admin Trade Name Naina PRN Reason Stop Dose Admin Acetaminophen 975 mg 10/18/20 01:20 10/18/20 01:39 Tylenol 325 Mg PO 10/18/20 01:21 975 mg STAT ONE Administration Acetaminophen Confirm 10/18/20 01:38 Tylenol 325 Mg Administered 10/18/20 01:39 Dose 975 mg .ROUTE .STK-MED ONE Sodium Chloride 1,000 mls @ 999 mls/hr 10/17/20 23:03 10/17/20 23:41 Sodium Chloride 0.9% 1000 Ml IV 10/18/20 00:03 999 mls/hr .Q1H1M STA Administration Sodium Chloride Confirm 10/17/20 23:39 Sodium Chloride 0.9% 1000 Ml Administered 10/17/20 23:40 Dose 1,000 mls @ ud .ROUTE .STK-MED ONE Ibuprofen 600 mg 10/18/20 01:20 10/18/20 01:39 Motrin 600 Mg PO 10/18/20 01:21 600 mg STAT ONE Administration Ibuprofen Confirm 10/18/20 01:38 Motrin 600 Mg Administered 10/18/20 01:39 Dose 600 mg .ROUTE .STK-MED ONE Ondansetron HCl 4 mg 10/17/20 23:08 Zofran 4 Mg/2 Ml Vial IV 10/17/20 23:09 STAT ONE Lab/Rad Data: Laboratory Result Diagrams 10/17/20 23:35 10/17/20 23:35 Laboratory Results 10/18/20 10/18/20 10/17/20 Range/Units 01:51 01:35 23:46 WBC (4.0-10.5) K/mm3 RBC (4.1-5.4) M/mm3 Hgb (12.0-16.0) gm/dl Hct (35-47) % MCV (78-100) fl MCH (26-32) pg MCHC (32-36) g/dl RDW (11.5-14.0) % Plt Count (150-450) K/mm3 MPV (7.5-11.0) fl Gran % (36.0-66.0) % Eos # (Auto) (0-0.5) Absolute Lymphs (auto) (1.0-4.6) Absolute Monos (auto) (0.0-1.3) Lymphocytes % (24.0-44.0) % Monocytes % (0.0-12.0) % Eosinophils % (0.00-5.0) % Basophils % (0.0-0.4) % Absolute Granulocytes (1.4-6.9) Basophils # (0-0.4) Sodium (137-145) mmol/L Potassium (3.5-5.1) mmol/L Chloride (98-107) mmol/L Carbon Dioxide (22-30) mmol/L Anion Gap (5-15) MEQ/L BUN (7-17) mg/dL Creatinine (0.52-1.04) mg/dL Estimated GFR ML/MIN Glucose (74-106) mg/dL Lactic Acid 1.9 3.0 H (0.4-2.0) Calcium (8.4-10.2) mg/dL Total Bilirubin (0.2-1.3) mg/dL AST (14-36) U/L ALT (0-35) U/L Alkaline Phosphatase (38-126) U/L Serum Total Protein (6.3-8.2) g/dL Albumin (3.5-5.0) g/dL Urine Color YELLOW (YELLOW) Urine Appearance CLEAR (CLEAR) Urine pH 7.0 (5-6) Ur Specific [place] 1.009 (1.005-1.025) Urine Protein NEGATIVE (Negative) Urine Ketones NEGATIVE (NEGATIVE) Urine Blood NEGATIVE (0-5) Sammy/ul Urine Nitrite NEGATIVE (NEGATIVE) Urine Bilirubin NEGATIVE (NEGATIVE) Urine Urobilinogen NEGATIVE (0-1) mg/dL Ur Leukocyte Esterase NEGATIVE (NEGATIVE) Urine WBC (Auto) NONE (0-5) /HPF Urine RBC (Auto) NONE (0-2) /HPF U Epithel Cells (Auto) NONE (FEW) /HPF Urine Bacteria (Auto) NONE (NEGATIVE) /HPF Urine Mucus (Auto) SLIGHT (NEGATIVE) /HPF Urine Culture Reflexed NO (NO) Urine Glucose NEGATIVE (NEGATIVE) mg/dL Influenza Type A Ag (NEGATIVE) Influenza Type B Ag (NEGATIVE) 10/17/20 10/17/2010/17/21 Range/Units 23:35 23:35 23:35 WBC 14.1 H (4.0-10.5) K/mm3 RBC 4.34 (4.1-5.4) M/mm3 Hgb 12.8 (12.0-16.0) gm/dl Hct 40.6 (35-47) % MCV 93.5 (78-100) fl MCH 29.5 (26-32) pg MCHC 31.5 L (32-36) g/dl RDW 13.7 (11.5-14.0) % Plt Count 228 (150-450) K/mm3 MPV 10.0 (7.5-11.0) fl Gran % 84.5 H (36.0-66.0) % Eos # (Auto) 0.04 (0-0.5) Absolute Lymphs (auto) 0.85 L (1.0-4.6) Absolute Monos (auto) 1.28 (0.0-1.3) Lymphocytes % 6.0 L (24.0-44.0) % Monocytes % 9.1 (0.0-12.0) % Eosinophils % 0.3 (0.00-5.0) % Basophils % 0.1 (0.0-0.4) % Absolute Granulocytes 11.95 H (1.4-6.9) Basophils # 0.01 (0-0.4) Sodium 140 (137-145) mmol/L Potassium 3.6 (3.5-5.1) mmol/L Chloride 104 (98-107) mmol/L Carbon Dioxide 23 (22-30) mmol/L Anion Gap 17.1 H (5-15) MEQ/L BUN 14 (7-17) mg/dL Creatinine 0.61 (0.52-1.04) mg/dL Estimated GFR > 60.0 ML/MIN Glucose 119 H (74-106) mg/dL Lactic Acid (0.4-2.0) Calcium 8.9 (8.4-10.2) mg/dL Total Bilirubin 0.80 (0.2-1.3) mg/dL AST 139 H (14-36) U/L ALT 78 H (0-35) U/L Alkaline Phosphatase 284 H (38-126) U/L Serum Total Protein 7.5 (6.3-8.2) g/dL Albumin 4.1 (3.5-5.0) g/dL Urine Color (YELLOW) Urine Appearance (CLEAR) Urine pH (5-6) Ur Specific [place] (1.005-1.025) Urine Protein (Negative) Urine Ketones (NEGATIVE) Urine Blood (0-5) Sammy/ul Urine Nitrite (NEGATIVE) Urine Bilirubin (NEGATIVE) Urine Urobilinogen (0-1) mg/dL Ur Leukocyte Esterase (NEGATIVE) Urine WBC (Auto) (0-5) /HPF Urine RBC (Auto) (0-2) /HPF U Epithel Cells (Auto) (FEW) /HPF Urine Bacteria (Auto) (NEGATIVE) /HPF Urine Mucus (Auto) (NEGATIVE) /HPF Urine Culture Reflexed (NO) Urine Glucose (NEGATIVE) mg/dL Influenza Type A Ag NEGATIVE (NEGATIVE) Influenza Type B Ag NEGATIVE (NEGATIVE) - Progress Progress: improved Progress Note: Patient reassessed. She feels much better. Upon arrival patient had a mild tachycardia. Tachycardia resolved. Patient has a mild leukocytosis of 14. No focus of bacterial infection observed. Lactic acid was slightly elevated upon arrival. Lactic acid now within normal limits. Lactic acid originally 3.0. Di scharge lactic acid is 1.9. Chest x-ray was negative for pneumonia. No infiltrates or consolidations. Few calcified granulomas. Chest x-ray was similar to chest x-ray performed on March 03, 2019. Temperature upon arrival was 102.8. Temperature currently 99.3. Patient tolerated p.o. No bouts of diarrhea while in our ED. Anion gap slightly elevated. Patient received 2.5 L normal saline total. After liter was received via EMS. She received 2 L in our ED. Will discharge home at this time. Patient agrees to follow-up with her primary care doctor within 48 hours for reevaluation. Outpatient Covid test performed just prior to arrival. Results pending. 10/18/20 04:49 Counseled pt/family regarding: lab results, diagnosis, need for follow-up, rad results - Departure Departure Disposition: Home Clinical Impression: Fever, Nausea and vomiting, Diarrhea, Leukocytosis, High anion gap metabolic acidosis, Lactic acidosis Condition: Stable Critical Care Time: No Referrals: SANCHO LEGER NP [Primary Care Provider] - Additional Instructions: Discharge/Care Plan PAULETTE GRULLON was seen on 10/18/20 in the Emergency Room. The patient was counseled regarding Diagnosis,Lab results, Imaging studies, need for follow up and when to return to the Emergency Room. Prescriptions given: Discharge Note I have spoken with the patient and/or caregivers. I have explained the patient's condition, diagnosis and treatment plan based on the information available to me at this time. I have answered the patient's and/or caregiver's questions and addressed any concerns. The patient and/or caregivers have as good understanding of the patient's diagnosis, condition and treatment plan as can be expected at this point. The vital signs have been stable. The patient's condition is stable and appropriate for discharge from the emergency department. The patient will pursue further outpatient evaluation with the primary care physician or other designated or consulting physician as outlined in the discharge instructions. The patient and/or caregivers are agreeable to this plan of care and follow-up instructions have been explained in detail. The patient and/or caregivers have received these instruction. The patient/and or caregivers are aware that any significant change in condition or worsening of symptoms should prompt an immediate return to this or the closest emergency department or call 911.
[2020-10-18 00:20] LABS: INFLUENZA A NEGATIVE (NEGATIVE); INFLUENZA B NEGATIVE (NEGATIVE)
[2020-10-18] MEDS ORDERED: MOTRIN 600 MG PO ONE (01:20)
[2020-10-18] MEDS ORDERED: TYLENOL 325 MG PO ONE (01:20)
[2020-10-18] MEDS ORDERED: Sodium Chloride 0.9% 1000 ML 1,000 ML ONE (01:22)
[2020-10-18] MEDS ORDERED: Sodium Chloride 0.9% 1000 ML 1,000 ML IV SCH (01:30)
[2020-10-18] MEDS ORDERED: MOTRIN 600 MG ONE (01:38)
[2020-10-18] MEDS ORDERED: TYLENOL 325 MG ONE (01:38)
[2020-10-18 02:10] LABS: Appearance CLEAR (CLEAR); Bilirubin NEGATIVE (NEGATIVE); Blood NEGATIVE Ery/ul (0-5); Glucose NEGATIVE (NEGATIVE); Ketones NEGATIVE (NEGATIVE); Leukocyte Esterase NEGATIVE (NEGATIVE); Mucus SLIGHT /HPF (NEGATIVE); Nitrite NEGATIVE (NEGATIVE); Protein,Urine Dip NEGATIVE (Negative); Specific Gravity 1.009 (1.005-1.025); Urobilinogen NEGATIVE mg/dL (0-1)
[2020-10-18 05:38] VITALS: BP 135/54; PULSE 72; O2SAT 98
--- NOTE | 2020-10-18 09:24 | XRAY ---
Indication: Pneumonia. Comparison: March 03, 2019. Portable chest again demonstrates normal heart and lungs with incidental tiny calcified granulomas. Bony thorax intact again with mild osteopenia and degenerative changes. No new/acute findings.
== END 2020-10-18 05:45 | disposition home or self-care (01) ==
LOC: ED 23:01
DX: R11.2 Nausea with vomiting, unspecified (principal); R19.7 Diarrhea, unspecified; R50.9 Fever, unspecified; R53.1 Weakness; Z79.899 Other long term (current) drug therapy; R00.0 Tachycardia, unspecified; D72.829 Elevated white blood cell count, unspecified; E87.2 Acidosis; Z20.822 Contact with and (suspected) exposure to COVID-19
CPT/HCPCS: 36000; 36415; 71045; 80053; 81001; 83605; 85025; 87040; 87400; 93005; 93041; 94760; 96360; 99284; U0003; A9270-GY

== ENCOUNTER 2021-02-07 16:23 | Emergency (ER) | payer MEDICARE ==
--- NOTE | 2021-02-07 16:45 | ERPHSYRPT ---
- History of Present Illness Time Seen by Provider: 02/07/21 16:35 Source: patient, EMS Exam Limitations: no limitations Physician History: This is 70-year-old white female with history of gastroesophageal reflux disease and hypertension who was at home and looked off into space and the home health provider felt that the patient might of had a seizure. The patient did vomit. Patient states that she did not feel that she had a seizure and felt very hot and that may have precipitated her vomiting. Patient sees nurse practitioner Smitha. Patient arrived to the emergency department via EMS without pain. She states she is not nauseated at this time. Her blood sugar in route was 120. Timing/Duration: today Severity: mild Character of Deficits: none Deficits: no difficulties Baseline/Normal Cognition: alert oriented x 3 Current Cognition: alert oriented x 3 Baseline Gait: walks w/o assistance Associated Symptoms: vomiting Allergies/Adverse Reactions: No Known Drug Allergies Allergy (Verified 10/17/20 23:30) Home Medications: Aspirin 81 gm Chew [Baby Aspirin 81 mg Chew] 81 mg PO DAILY 04/24/20 [History] Carvedilol 3.125 mg [Coreg 3.125 MG] 3.125 mg PO BID 04/24/20 [History] Megestrol Acetate 20 mg PO DAILY 04/24/20 [History] Nitroglycerin 0.4 mg SL DAILY PRN PRN 04/24/20 [History] PANTOPRAZOLE 40 mg Tablet [Protonix 40MG Tablet] 40 mg PO DAILY 04/24/20 [History] Potassium Chloride 10 Meq Tab* [Klor Con 10 MEQ] 10 meq PO TID 04/24/20 [History] Sertraline HCl 100 mg PO DAILY 04/24/20 [History] Ticagrelor [Brilinta] 90 mg PO BID 04/24/20 [History] lisinopriL [Lisinopril] 5 mg PO DAILY 10/17/20 [History] ursodioL [Ursodiol] 500 mg PO TID 10/17/20 [History] Hx Tetanus, Diphtheria Vaccination/Date Given: Yes Hx Influenza Vaccination/Date Given: (unknown) Hx Pneumococcal Vaccination/Date Given: Yes Travel Risk - International Travel Have you traveled outside of the country in past 3 weeks: No - Coronavirus Screening Are you exhibiting any of the following symptoms?: No Close contact with a COVID-19 positive Pt in past 14-21 Days: No - Vaccine Status Have you recieved a Covid-19 vaccination: Yes 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 - Vaccination Dates Date of 2cond Vaccination (if applicable): jun, 2020 - Review of Systems Constitutional: No Symptoms Eyes: No Symptoms Ears, Nose, & Throat: No Symptoms Respiratory: No Symptoms Cardiac: No Symptoms Abdominal/Gastrointestinal: Vomiting Genitourinary Symptoms: No Symptoms Musculoskeletal: No Symptoms Skin: No Symptoms Neurological: No Symptoms Psychological: No Symptoms Endocrine: No Symptoms Hematologic/Lymphatic: No Symptoms Immunological/Allergic: No Symptoms All Other Systems: Reviewed and Negative - Past Medical History Pertinent Past Medical History: Yes Neurological History: Stroke ENT History: No Pertinent History Cardiac History: Angina, Hypertension Respiratory History: No Pertinent History Endocrine Medical History: No Pertinent History Musculoskeletal History: No Pertinent History GI Medical History: Other History: No Pertinent History Psycho-Social History: No Pertinent History Female Reproductive Disorders: No Pertinent History Other Medical History: autoimmune liver disease. shingles - Past Surgical History Past Surgical History: Yes Neuro Surgical History: No Pertinent History Cardiac: Cardiac Stent Respiratory: No Pertinent History Gastrointestinal: Cholecystectomy Genitourinary: No Pertinent History Musculoskeletal: No Pertinent History Female Surgical History: No Pertinent History - Social History Smoking Status: Never smoker Exposure to second hand smoke: No Drug Use: none Patient Lives Alone: No - Nursing Vital Signs Nursing Vital Signs: Initial Vital Signs Temperature 98.2 F 02/07/21 16:26 Pulse Rate 61 02/07/21 16:26 Respiratory Rate 15 02/07/21 16:26 Blood Pressure 136/44 02/07/21 16:26 O2 Sat by Pulse Oximetry 96 02/07/21 16:26 Pain Scale Pain Intensity 0 - Lala Coma Scale Best Eye Response (Lala): (4) open spontaneously Best Verbal Response ([place]): (5) oriented Best Motor Response ([place]): (6) obeys commands [place] Total: 15 - Physical Exam General Appearance: no apparent distress, alert, anxiety Eye Exam: bilateral eye: normal inspection, PERRL, EOMI Ears, Nose, Throat Exam: normal ENT inspection, moist mucous membranes Neck Exam: normal inspection, non-tender, supple, full range of motion Respiratory: normal breath sounds, lungs clear, airway intact, No chest tenderness, No respiratory distress Cardiovascular: regular rate/rhythm, normal heart sounds, normal peripheral pulses Gastrointestinal: soft, normal bowel sounds, No tenderness Pelvic Exam: not done Rectal Exam: not done Back Exam: normal inspection, normal range of motion, No CVA tenderness, No vertebral tenderness Extremity Exam: normal inspection, normal range of motion, pelvis stable 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, oriented x 3, cooperative lineman Exam: normal hearing, normal speech, PERRL Coordination/Gait: normal finger to nose, normal gait, normal cerebellar function Motor/Sensory: no motor deficit, no sensory deficit, no pronator drift Skin Exam: normal color, warm, dry SpO2 Interpretation: normal O2 Delivery: Room Air - Course Nursing assessment & vital signs reviewed: Yes EKG Interpreted by Me: RATE (61), Sinus Rhythm, NORMAL AXIS, NORMAL INTERVALS, NORMAL QRS, NORMAL ST-T, Other (No acute ischemic changes on today's EKG. There is improvement when compared to EKG dated 10/17/2020) Ordered Tests: Active Orders 24 hr Category Date Time Status Reefer Truck Driver STAT Care 02/07/21 16:50 Active EKG-ER Only STAT Care 02/07/21 16:49 Active IV Insertion STAT Care 02/07/21 16:49 Active Pulse Oximetry (ED) STAT Care 02/07/21 16:49 Active HEAD WITHOUT CONTRAST [CT] Stat Exams 02/07/21 16:49 Taken BLOOD CULTURE Stat Lab 02/07/21 17:14 Received CBC W DIFF Stat Lab 02/07/21 16:45 Completed CMP Stat Lab 02/07/21 16:45 Completed MAG [MAGNESIUM] Stat Lab 02/07/21 16:45 Completed UA W/RFX UR CULTURE Stat Lab 02/07/21 16:49 Ordered Lab/Rad Data: Laboratory Result Diagrams 02/07/21 16:45 02/07/21 16:45 Laboratory Results 02/07/21 02/07/21 02/07/21 Range/Units 16:45 16:45 16:45 WBC 9.7 (4.0-10.5) K/mm3 RBC 4.79 (4.1-5.4) M/mm3 Hgb 13.6 (12.0-16.0) gm/dl Hct 43.6 (35-47) % MCV 91.0 (78-100) fl MCH 28.4 (26-32) pg MCHC 31.2 L (32-36) g/dl RDW 15.0 H (11.5-14.0) % Plt Count 456 H (150-450) K/mm3 MPV 9.6 (7.5-11.0) fl Gran % 50.5 (36.0-66.0) % Eos # (Auto) 0.35 (0-0.5) Absolute Lymphs (auto) 4.07 (1.0-4.6) Absolute Monos (auto) 0.34 (0.0-1.3) Lymphocytes % 41.8 (24.0-44.0) % Monocytes % 3.5 (0.0-12.0) % Eosinophils % 3.6 (0.00-5.0) % Basophils % 0.6 (0.0-0.4) % Absolute Granulocytes 4.92 (1.4-6.9) Basophils # 0.06 (0-0.4) Sodium 139 (137-145) mmol/L Potassium 4.7 (3.5-5.1) mmol/L Chloride 105 (98-107) mmol/L Carbon Dioxide 23 (22-30) mmol/L Anion Gap 15.2 H (5-15) MEQ/L BUN 19 H (7-17) mg/dL Creatinine 1.06 H (0.52-1.04) mg/dL Estimated GFR 54.3 ML/MIN Glucose 125 H (74-106) mg/dL Calcium 9.5 (8.4-10.2) mg/dL Magnesium 2.1 (1.6-2.3) mg/dL Total Bilirubin 0.40 (0.2-1.3) mg/dL AST 32 (14-36) U/L ALT 21 (0-35) U/L Alkaline Phosphatase 178 H (38-126) U/L Serum Total Protein 7.4 (6.3-8.2) g/dL Albumin 4.1 (3.5-5.0) g/dL - Progress Progress: improved Progress Note: 02/07/21 18:11 CAT scan of the head shows a nonacute senile brain with old bilateral basal ganglia lacunar infarcts when compared to a prior CT of the head 2020 Patient has not yet provided us a urine sample and refuses straight catheterization. We will provide her with oral intake. However, if she still cannot provide us with a urine sample and refuses catheterization, we will send a prescription home with her to obtain a urine sample at home and bring it to the lab for evaluation. 02/07/21 18:52 Patient is still unable to provide us with a urine. She refuses catheteriza tion. I have written a prescription for her to bring back a urine specimen to the laboratory data. The prescription states to fax the results to Sanaz Ramirez nurse practitioner's office once it is obtained and ran. Counseled pt/family regarding: lab results, diagnosis, need for follow-up, rad results - Departure Departure Disposition: Home Clinical Impression: Vomiting, Fever Condition: Stable Critical Care Time: No Referrals: SANAZ LEGER NP [Primary Care Provider] - Follow up/PCP as directed Additional Instructions: Drink plenty fluids. Once you are able to obtain a urine specimen, return to the lab at [facility]. Call your primary provider's office approximately 2 hours after you have dropped off the urine specimen to obtain your results.
[2021-02-07 17:04] LABS: Absolute Neutrophil Ct (ANC) 4.92 (1.4-6.9); BASOPHIL % 0.6 % (0.0-0.4); Basophil (Absolute #) 0.06 (0-0.4); Eosinophil % 3.6 % (0.00-5.0); Eosinophil (Absolute #) 0.35 (0-0.5); Hematocrit 43.6 % (35-47); Hemoglobin 13.6 gm/dl (12.0-16.0); Lymphocyte (Absolute #) 4.07 (1.0-4.6); Lymphocytes % 41.8 % (24.0-44.0); Mean Corpuscular Hemoglobin 28.4 pg (26-32); Mean Corpuscular Hgb Concent. 31.2 g/dl (32-36); Mean Platelet Volume 9.6 fl (7.5-11.0); Monocyte (Absolute #) 0.34 (0.0-1.3); Monocytes % 3.5 % (0.0-12.0); Neutrophil % 50.5 % (36.0-66.0); Platelet Count 456 K/mm3 (150-450); Red Blood Count 4.79 M/mm3 (4.1-5.4); White Blood Count 9.7 K/mm3 (4.0-10.5)
[2021-02-07 17:13] LABS: ALBUMIN 4.1 g/dL (3.5-5.0); ANION GAP 15.2 MEQ/L (5-15); BILIRUBIN,TOTAL 0.4 mg/dL (0.2-1.3); Calcium 9.5 mg/dL (8.4-10.2); Creatinine 1 1.06 mg/dL (0.52-1.04); EST GLOMERULAR FILTRATION RATE 54.3 ML/MIN; Potassium 4.7 mmol/L (3.5-5.1); Total Protein 7.4 g/dL (6.3-8.2)
[2021-02-07 19:04] VITALS: BP 124/56; PULSE 80; O2SAT 99
--- NOTE | 2021-02-08 08:49 | XRAY ---
Indication: Seizure. Multiple contiguous axial images obtained through the head without contrast. Comparison: April 24, 2020. There is again age-appropriate global atrophy and old bilateral basal ganglia lacunar infarcts. Left cerebellum now demonstrates 5 mm focus of old infarct. No acute intracranial hemorrhage, abnormal extra-axial fluid collection, or mass effect. Fourth ventricle is midline without hydrocephalus. Bony calvarium intact. Visualized paranasal sinuses and mastoid air cells are clear. Impression: 1. Again atrophy, degenerative micro-ischemia, and multifocal tiny remote infarcts as detailed. 2. No acute intracranial abnormalities.
== END 2021-02-07 19:09 | disposition home or self-care (01) ==
LOC: ED 16:23
DX: R11.11 Vomiting without nausea (principal); R50.9 Fever, unspecified; I10 Essential (primary) hypertension; I20.9 Angina pectoris, unspecified; K21.9 Gastro-esophageal reflux disease without esophagitis
CPT/HCPCS: 36000; 36415; 70450; 80053; 83735; 85025; 87040; 93005; 93041; 94760; 99284

== ENCOUNTER 2021-08-24 22:18 | Emergency (ER) | payer MEDICARE ==
[2021-08-24] MEDS ORDERED: XYLOCAINE 1% HCL 20 ML MDV IJ ONE (22:19)
[2021-08-24] MEDS ORDERED: Zofran 4 MG/2 ML VIAL IV ONE (22:22)
[2021-08-24] MEDS ORDERED: Sodium Chloride 0.9% 1000 ML 1,000 ML IV STA (22:22)
[2021-08-24 22:46] VITALS: O2SAT 94
[2021-08-24] MEDS ORDERED: Sodium Chloride 0.9% 1000 ML 1,000 ML ONE (22:46)
[2021-08-24] MEDS ORDERED: Zofran 4 MG/2 ML VIAL ONE (22:49)
[2021-08-24 22:52] LABS: Absolute Neutrophil Ct (ANC) 11.96 x10^3/uL (1.4-6.9); Basophil (Absolute #) 0.04 x10^3/uL (0-0.4); Eosinophil % 0.1 % (0.00-5.0); Eosinophil (Absolute #) 0.01 x10^3/uL (0-0.5); Hematocrit 40.4 % (35-47); Hemoglobin 13.4 g/dL (12.0-16.0); Lymphocytes % 4.4 % (24.0-44.0); Mean Cell Volume 90.4 fL (78-100); Mean Corpuscular Hgb Concent. 33.2 g/dL (32-36); Mean Platelet Volume 9.8 fL (7.5-11.0); Monocyte (Absolute #) 0.95 x10^3/uL (0.0-1.3); Neutrophil % 87.6 % (36.0-66.0); Platelet Count 236 x10^3/uL (150-450); Red Blood Count 4.47 x10^6/uL (4.1-5.4); Red Cell Distribution Width 13.4 % (11.5-14.0); White Blood Count 13.6 x10^3/uL (4.0-10.5)
[2021-08-24 22:58] LABS: Appearance SLIGHTLY CLOUDY (CLEAR); Bilirubin SMALL (NEGATIVE); Glucose NEGATIVE (NEGATIVE); Ketones NEGATIVE (NEGATIVE); Mucus SLIGHT /HPF (NEGATIVE); RBC 0-2 /HPF (0-2)
[2021-08-24 22:59] LABS: Bacteria NONE SEEN /HPF (NEGATIVE); Dipstick done @ ? MAIN LAB; Nitrite NEGATIVE (NEGATIVE); Protein,Urine Dip 30 (Negative); RBC NEGATIVE Ery/ul (0-5); Urine Cultured Indicated? NO; Urobilinogen 2 mg/dL (0-1)
--- NOTE | 2021-08-24 23:00 | ERPHSYRPT ---
- History of Present Illness Time Seen by Provider: 08/24/21 22:57 Source: patient, family, EMS Exam Limitations: no limitations Patient Subjective Stated Complaint: ems states pt she treated for uti last thursday and has been running a fever today Triage Nursing Assessment: pt came into the er via ambulance; pt is axo x3; c/o urinary difficults and fever; family states fever of 100 at home; pt was afebrile upon arrival; pt not opening eye when being talked to; clear lung sounds in all lobes; clear heart tone; family states pt vomited twice at home; abd large, soft, nontender; hyperactive bowel sounds; hypertension; urine straw and foul smelling Physician History: ems states pt she treated for uti last thursday and has been running a fever today pt vomited twice at home; patient is confused. Patient is 71-year-old female with significant past medical history of hypertension coronary artery disease autoimmune hepatitis was recently treated for urinary tract infection with nitrofurantoin. Patient also recently got hepatitis B vaccination. Since last 2 to 3 days patient started feeling bad and having a nausea and vomiting could not keep anything down. Today she has 2 episode of vomiting so son got concerned and called ambulance and patient was brought into the emergency room. In the emergency room patient was initially weak but afterwards patient was able to answer. She denies any fever or chills. Brought she states that she was running low-grade fever yesterday. Timing/Duration: day(s) (three) Pain Radiation: none Severity of Pain-Max: none Severity of Pain-Current: none Prior abdominal problems: none Sexual intercourse history: non-contributory Modifying Factors: Improves With: nothing Associated Symptoms: fever, nausea, vomiting, dysuria Allergies/Adverse Reactions: No Known Drug Allergies Allergy (Verified 08/24/21 22:26) Home Medications: Aspirin 81 gm Chew [Baby Aspirin 81 mg Chew] 81 mg PO DAILY 04/24/20 [History] Carvedilol 3.125 mg [Coreg 3.125 MG] 3.125 mg PO BID 04/24/20 [History] Megestrol Acetate 20 mg PO DAILY 04/24/20 [History] Nitroglycerin 0.4 mg SL DAILY PRN PRN 04/24/20 [History] PANTOPRAZOLE 40 mg Tablet [Protonix 40MG Tablet] 40 mg PO DAILY 04/24/20 [History] Potassium Chloride Tab* [Klor Con] 10 meq PO TID 04/24/20 [History] Sertraline HCl 100 mg PO DAILY 04/24/20 [History] Ticagrelor [Brilinta] 90 mg PO BID 04/24/20 [History] lisinopriL [Lisinopril] 5 mg PO DAILY 10/17/20 [History] ursodioL [Ursodiol] 500 mg PO TID 10/17/20 [History] Hx Tetanus, Diphtheria Vaccination/Date Given: Yes Hx Influenza Vaccination/Date Given: Yes (unknown) Hx Pneumococcal Vaccination/Date Given: Yes Travel Risk - International Travel Have you traveled outside of the country in past 3 weeks: No - Coronavirus Screening Are you exhibiting any of the following symptoms?: Yes Symptoms: Fever, Vomiting/Diarrhea Close contact with a COVID-19 positive Pt in past 14-21 Days: No - Vaccine Status Have you recieved a Covid-19 vaccination: Yes Abstract Checker: [facility] - Vaccination Dates Date of 2cond Vaccination (if applicable): jun, 2020 - Review of Systems Constitutional: Fever, Lethargy, Weakness Eyes: No Symptoms Ears, Nose, & Throat: No Symptoms Respiratory: No Symptoms Cardiac: No Symptoms Abdominal/Gastrointestinal: Nausea, Vomiting, Appetite Changes, No Diarrhea, No Hematemesis, No Hematochezia, No Melena, No Dysphagia Genitourinary Symptoms: Frequency, Urgency Musculoskeletal: No Symptoms - Past Medical History Pertinent Past Medical History: Yes Neurological History: Stroke ENT History: No Pertinent History Cardiac History: Angina, Coronary Artery Disease, Hypertension Respiratory History: No Pertinent History Endocrine Medical History: No Pertinent History Musculoskeletal History: No Pertinent History GI Medical History: Other History: No Pertinent History Psycho-Social History: No Pertinent History Female Reproductive Disorders: No Pertinent History Other Medical History: autoimmune liver disease. shingles - Past Surgical History Past Surgical History: Yes Neuro Surgical History: No Pertinent History Cardiac: Cardiac Stent Respiratory: No Pertinent History Gastrointestinal: Cholecystectomy Genitourinary: No Pertinent History Musculoskeletal: No Pertinent History Female Surgical History: No Pertinent History - Social History Smoking Status: Never smoker Exposure to second hand smoke: No Drug Use: none Patient Lives Alone: No Significant Family History: no pertinent family hx - Nursing Vital Signs Nursing Vital Signs: Initial Vital Signs Temperature 97.5 F 08/24/21 22:20 Pulse Rate 106 H 08/24/21 22:20 Respiratory Rate 14 08/24/21 22:20 Blood Pressure 157/74 08/24/21 22:20 O2 Sat by Pulse Oximetry 94 L 08/24/21 22:20 - Physical Exam General Appearance: mild distress, lethargy Eye Exam: PERRL/EOMI Ears, Nose, Throat Exam: normal ENT inspection Neck Exam: normal inspection Respiratory Exam: normal breath sounds Cardiovascular Exam: regular rate/rhythm Gastrointestinal/Abdomen Exam: soft Back Exam: normal inspection Extremity Exam: normal inspection Neurologic Exam: disoriented, confusion Skin Exam: normal color SpO2 Interpretation: normal SpO2: 94 O2 Delivery: Room Air - Course Nursing assessment & vital signs reviewed: Yes Ordered Tests: Active Orders 24 hr Category Date Time Status CBC W DIFF Stat Lab 08/24/21 22:50 Completed CMP Stat Lab 08/24/21 22:50 Completed CULTURE,URINE Stat Lab 08/24/21 23:04 Received UA W/RFX CULTURE Stat Lab 08/24/21 22:20 Completed Medication Summary Discontinued Medications Generic Name Dose Route Start Last Admin Trade Name Freq PRN Reason Stop Dose Admin Ceftriaxone Sodium 1,000 mg 08/24/21 23:09 08/24/21 23:16 Ceftriaxone Sodium 1000 Mg Inj Vial IM 08/24/21 23:10 1,000 mg STAT ONE Administration Ceftriaxone Sodium Confirm 08/24/21 23:12 Ceftriaxone Sodium 1000 Mg Inj Vial Administered 08/24/21 23:13 Dose 1,000 mg .ROUTE .STK-MED ONE Methylprednisolone Sodium 0 mg 08/24/21 23:22 08/24/21 23:26 Succinate 125 mg/ Sterile IM 08/24/21 23:23 125 mg Water 2 ml STAT ONE Administration Sodium Chloride 1,000 mls @ 999 mls/hr 08/24/21 22:22 08/24/21 22:50 Sodium Chloride 0.9% 1000 Ml IV 08/24/21 23:22 999 mls/hr .Q1H1M STA Administration Sodium Chloride Confirm 08/24/21 22:46 Sodium Chloride 0.9% 1000 Ml Administered 08/24/21 22:47 Dose 1,000 mls @ ud .ROUTE .STK-MED ONE Ceftriaxone Sodium/Dextrose 1 g in 50 mls @ 100 mls/hr 08/24/21 22:55 08/24/21 23:11 Rocephin 1 Gm-D5w 50 Ml Bag IV 08/24/21 23:24 Not Given STAT STA Ceftriaxone Sodium/Dextrose Confirm 08/24/21 23:03 Rocephin 1 Gm-D5w 50 Ml Bag Administered 08/24/21 23:04 Dose 1 g in 50 mls @ ud IV .STK-MED ONE Methylprednisolone Sodium Succinate Confirm 08/24/21 23:21 Methylprednis Sod Succ 125 Mg/2 Ml Vial Administered 08/24/21 23:22 Dose 125 mg .ROUTE .STK-MED ONE Ondansetron HCl 4 mg 08/24/21 22:22 08/24/21 22:50 Ondansetron Hcl 4 Mg/2 Ml Vial IV 08/24/21 22:23 4 mg STAT ONE Administration Ondansetron HCl Confirm 08/24/21 22:49 Ondansetron Hcl 4 Mg/2 Ml Vial Administered 08/24/21 22:50 Dose 4 mg .ROUTE .STK-MED ONE Sterile Water Confirm 08/24/21 23:21 Water For Injection,Sterile 10 Ml Vial Administered 08/24/21 23:22 Dose 10 ml IJ .STK-MED ONE Lab/Rad Data: Laboratory Result Diagrams 08/24/21 22:50 08/24/21 22:50 Laboratory Results 08/24/21 08/24/21 08/24/21 Range/Units 22:50 22:50 22:20 WBC 13.6 H (4.0-10.5) x10^3/uL RBC 4.47 (4.1-5.4) x10^6/uL Hgb 13.4 (12.0-16.0) g/dL Hct 40.4 (35-47) % MCV 90.4 (78-100) fL MCH 30.0 (26-32) pg MCHC 33.2 (32-36) g/dL RDW 13.4 (11.5-14.0) % Plt Count 236 (150-450) x10^3/uL MPV 9.8 (7.5-11.0) fL Gran % 87.6 H (36.0-66.0) % Immature Gran % (Auto) 0.6 H (0.00-0.4) % Nucleat RBC Rel Count 0.0 (0.00-0.1) % Eos # (Auto) 0.01 (0-0.5) x10^3/uL Immature Gran # (Auto) 0.08 H (0.00-0.03) x10^3u/L Absolute Lymphs (auto) 0.60 L (1.0-4.6) x10^3/uL Absolute Monos (auto) 0.95 (0.0-1.3) x10^3/uL Absolute Nucleated RBC 0.00 (0.00-0.01) x10^3u/L Lymphocytes % 4.4 L (24.0-44.0) % Monocytes % 7.0 (0.0-12.0) % Eosinophils % 0.1 (0.00-5.0) % Basophils % 0.3 (0.0-0.4) % Absolute Granulocytes 11.96 H (1.4-6.9) x10^3/uL Basophils # 0.04 (0-0.4) x10^3/uL Sodium 139 (137-145) mmol/L Potassium 3.5 (3.5-5.1) mmol/L Chloride 110 H (98-107) mmol/L Carbon Dioxide 17 L (22-30) mmol/L Anion Gap 15.0 (5-15) MEQ/L BUN 14 (7-17) mg/dL Creatinine 0.76 (0.52-1.04) mg/dL Estimated GFR > 60.0 ML/MIN Glucose 139 H (74-106) mg/dL Calcium 8.7 (8.4-10.2) mg/dL Total Bilirubin 1.80 H (0.2-1.3) mg/dL AST 303 H (14-36) U/L ALT 171 H (0-35) U/L Alkaline Phosphatase 235 H (38-126) U/L Serum Total Protein 7.3 (6.3-8.2) g/dL Albumin 3.8 (3.5-5.0) g/dL Urinalys Dipstick Clnc MAIN LAB Urine Color DARK YELLOW (YELLOW) Urine Appearance SLIGHTLY CLOUDY (CLEAR) Urine pH 8.0 (5-6) Ur Specific [place] 1.020 (1.005-1.025) POC Urine Protein Conf 30 (Negative) Urine Ketones NEGATIVE (NEGATIVE) Urine Nitrite NEGATIVE (NEGATIVE) Urine Bilirubin SMALL (NEGATIVE) Urine Urobilinogen 2 (0-1) mg/dL Urine Leukocytes NEGATIVE (NEGATIVE) Urine WBC (Auto) 3-5 (0-5) /HPF Urine RBC (Auto) 0-2 (0-2) /HPF U Hyaline Cast (Auto) 3-5 (0-2) /LPF U Epithel Cells (Auto) NONE (FEW) /HPF Urine Bacteria (Auto) NONE SEEN (NEGATIVE) /HPF Urine RBC NEGATIVE (0-5) Sammy/ul Urine Mucus (Auto) SLIGHT (NEGATIVE) /HPF Ur Culture Indicated? NO Urine Glucose NEGATIVE (NEGATIVE) mg/dL - Progress Progress: improved Air Movement: good Antibiotics given: Yes Counseled pt/family regarding: lab results, diagnosis, need for follow-up - Departure Departure Disposition: Home Clinical Impression: Chronic autoimmune hepatitis UTI (urinary tract infection) Qualifiers: Urinary tract infection type: acute cystitis Hematuria presence: without hematuria Qualified Code(s): N30.00 - Acute cystitis without hematuria Nausea & vomiting Qualifiers: Vomiting type: unspecified Qualified Code(s): R11.2 - Nausea with vomiting, unspecified Condition: Stable Critical Care Time: Yes Critical Care Time(excluding separately billable procedures): Critical 30-74 mins Referrals: SANCHO LEGER NP [Primary Care Provider] - Follow Up with PCP/3 days Instructions: Urinary Tract Infection, Adult (DC) Additional Instructions: During this ER visit your blood tests are showing that your autoimmune hepatitis is flaring up as well as you have mild urinary tract infection. We have treated your urinary tract infection with antibiotic as well as we have given 1 dose of steroid for your autoimmune hepatitis. We have prescribed cephalexin 500 mg every 6 hours for 7 days as well as prednisone 10 mg daily. We have provided you your lab results which you should contact your liver specialist and let them know about these liver enzymes elevation. Stay on your oral medication for your autoimmune hepatitis. If symptoms get worse or patient gets more confused come back to the emergency room. Discharge/Care Plan PAULETTE GRULLON was seen on 08/24/21 in the Emergency Room. The patient was counseled regarding Diagnosis,Lab results, Imaging studies, need for follow up and when to return to the Emergency Room. Prescriptions given: Discharge Note I have spoken with the patient and/or caregivers. I have explained the patient's condition, diagnosis and treatment plan based on the information available to me at this time. I have answered the patient's and/or caregiver's questions and addressed any concerns. The patient and/or caregivers have as good understanding of the patient's diagnosis, condition and treatment plan as can be expected at this point. The vital signs have been stable. The patient's condition is stable and appropriate for discharge from the emergency department. The patient will pursue further outpatient evaluation with the primary care danica calix or other designated or consulting physician as outlined in the discharge instructions. The patient and/or caregivers are agreeable to this plan of care and follow-up instructions have been explained in detail. The patient and/or caregivers have received these instruction. The patient/and or caregivers are aware that any significant change in condition or worsening of symptoms should prompt an immediate return to this or the closest emergency department or call 911. PAULETTE GRULLON was seen on 08/24/21 n the Emergency Room. At that time you were treated for an emergent condition, during your visit Laboratory, Radiology and/or other procedures may have been ordered. It is very important that you follow-up with your Primary Care Physician SANCHO LEGER within the next 24-48 hours to review your Emergency Room visit and the final results of testing that was ordered. Some test results such as Urine Cultures, Blood Cultures, and other cultures if ordered will not be finalized for 24-48 hours. If you do not have a Primary Care Provider please call the medical records department at [phone] ext [phone] to obtain a copy of your results or you may sign into our patient portal to obtain these results by visiting us @ [email or web address] and completing the following steps: 1. Click on the Patient Portal link 2. Click the Patient Self Enrollment Link to complete the enrollment form and entering your 3. Once the enrollment form is completed you will receive an email with a temporary ID and password at the email address you provided. 4. Next choose a user name and password. Your user name must be at least 4 characters long and your password must be at least 4 characters long. 5. Choose a security question from the list and provide your answer to the que stion. If you already have signed into the Health Portal you may access your Health Ca re Information 22/09 by the following steps: 1. Login to our website @ [email or web address] 2. Enter your original user name and password. FAQS The [facility] Health Portal is an online tool that contains your Lab Results, Radiology Reports, Visit History, Discharge Instructions and Health Summary Lab and Radiology Results will not be available for 72 hours on the portal. The Portal is a secure site, passwords are encryted and URLs are re-written so they cannot be copied and pasted. You and authorized family members are the only ones who can access your Portal. Also there is a timeout feature that protects your information if you leave the Portal page open. If you have technical difficulty please use the Contact Us link on the page this will allow you to submit any questions you have regarding the Portal or you may contact the Medical Record Department at [phone]. Prescriptions: Prednisone 10 mg [Deltasone 10 mg] 10 mg PO DAILY #30 tablet Cephalexin Mh 500 mg [Keflex 500 mg] 500 mg PO Q6H #40 cap Ondansetron ODT 4 MG [Zofran Odt 4 mg] 4 mg PO Q6H PRN PRN #20 tablet PRN Reason: Nausea/Vomiting
[2021-08-24] MEDS ORDERED: ROCEPHIN 1 Gm-D5w 50 ml Bag** 1 G/50 ML IVPB IV ONE (23:03)
[2021-08-24] MEDS: ROCEPHIN 1 Gm-D5w 50 ml Bag** 1 G/50 ML IVPB IV STA ×2 (23:04→23:11)
[2021-08-24 23:05] LABS: ALBUMIN 3.8 g/dL (3.5-5.0); ALKALINE PHOSPHATASE 235 U/L (38-126); BLOOD UREA NITROGEN 14 mg/dL (7-17); CHLORIDE 110 mmol/L (98-107); Calcium 8.7 mg/dL (8.4-10.2); Carbon Dioxide 17 mmol/L (22-30); Creatinine 1 0.76 mg/dL (0.52-1.04); EST GLOMERULAR FILTRATION RATE > 60.0 ML/MIN; Glucose 139 mg/dL (74-106); Potassium 3.5 mmol/L (3.5-5.1); SGOT/AST 303 U/L (14-36); SGPT/ALT 171 U/L (0-35); SODIUM 139 mmol/L (137-145); Total Protein 7.3 g/dL (6.3-8.2)
[2021-08-24] MEDS ORDERED: Rocephin 1000 MG INJ IM ONE (23:09)
[2021-08-24] MEDS ORDERED: Rocephin 1000 MG INJ ONE (23:12)
[2021-08-24] MEDS ORDERED: Sterile H2O 10 ml IJ ONE (23:21)
[2021-08-24] MEDS ORDERED: solu-MEDROL ONE (23:21)
[2021-08-24] MEDS ORDERED: solu-MEDROL 125 MG, Sterile H2O 10 ml 2 ML IM ONE ×2 (23:22)
[2021-08-24 23:37] VITALS: BP 148/76; PULSE 102
== END 2021-08-24 23:40 | disposition home or self-care (01) ==
LOC: ED 22:18
DX: K75.4 Autoimmune hepatitis (principal); N30.00 Acute cystitis without hematuria; R11.2 Nausea with vomiting, unspecified; R50.9 Fever, unspecified; R53.1 Weakness; I10 Essential (primary) hypertension; Z79.899 Other long term (current) drug therapy; Z79.52 Long term (current) use of systemic steroids
CPT/HCPCS: 36000; 36415; 80053; 81015; 85025; 87086; 96372; 96374; 99284; 99291; J0696; J2405; J2930

== ENCOUNTER 2021-11-07 18:33 | Emergency (ER) | payer MEDICARE ==
[2021-11-07 18:54] VITALS: BP 160/71; PULSE 79; O2SAT 100
--- NOTE | 2021-11-07 19:24 | ERPHSYRPT ---
- History of Present Illness Time Seen by Provider: 11/07/21 18:43 Source: patient Exam Limitations: no limitations Patient Subjective Stated Complaint: pt states "I have back pain when I have a bowel movement." Triage Nursing Assessment: pt came into the er via wheelchair; pt is axo x3; c/o back pain; pt currently denies pain; no tenderness present when palpating back; good range of motion to back; hypertension Physician History: 71 years old female with history of CVA, hypertension, seizure disorder presented in the ER with chief complaint of intermittent low back pain which comes and cramps before having a bowel movement and improves after bowel movement. This has been happening for the last few days. It happened earlier and home health nurse thought this could be a sign of kidney stone and sent in here. Patient denies any abdominal pain, nausea vomiting or back pain at present. No new numbness tingling or weakness of lower extremities. Denies any perineal numbness. Does have history of recurrent UTI and recently completed antibiotics. Timing/Duration: day(s) (2), intermittent, improved Severity: moderate Modifying Factors: Improves With: other (Worsens before bowel movement and gets better after) Associated Symptoms: denies symptoms Allergies/Adverse Reactions: No Known Drug Allergies Allergy (Verified 11/07/21 18:41) Home Medications: Aspirin 81 gm Chew [Baby Aspirin 81 mg Chew] 81 mg PO DAILY 04/24/20 [History] Carvedilol 3.125 mg [Coreg 3.125 MG] 3.125 mg PO BID 04/24/20 [History] Megestrol Acetate 20 mg PO DAILY 04/24/20 [History] Nitroglycerin 0.4 mg SL DAILY PRN PRN 04/24/20 [History] PANTOPRAZOLE 40 mg Tablet [Protonix 40MG Tablet] 40 mg PO DAILY 04/24/20 [History] Potassium Chloride Tab* [Klor Con] 10 meq PO TID 04/24/20 [History] Sertraline HCl 100 mg PO DAILY 04/24/20 [History] Ticagrelor [Brilinta] 90 mg PO BID 04/24/20 [History] lisinopriL [Lisinopril] 5 mg PO DAILY 10/17/20 [History] ursodioL [Ursodiol] 500 mg PO TID 10/17/20 [History] Hx Tetanus, Diphtheria Vaccination/Date Given: Yes Hx Influenza Vaccination/Date Given: Yes (unknown) Hx Pneumococcal Vaccination/Date Given: Yes Travel Risk - International Travel Have you traveled outside of the country in past 3 weeks: No - Coronavirus Screening Are you exhibiting any of the following symptoms?: No Close contact with a COVID-19 positive Pt in past 14-21 Days: No - Vaccine Status Have you recieved a Covid-19 vaccination: Yes Whizzer Operator: Moderna - Vaccination Dates Date of 2cond Vaccination (if applicable): jun, 2020 - Review of Systems Constitutional: No Symptoms Eyes: No Symptoms Ears, Nose, & Throat: No Symptoms Respiratory: No Symptoms Cardiac: No Symptoms Abdominal/Gastrointestinal: No Symptoms Genitourinary Symptoms: No Symptoms Musculoskeletal: No Symptoms Psychological: No Symptoms Endocrine: No Symptoms Hematologic/Lymphatic: No Symptoms Immunological/Allergic: No Symptoms - Past Medical History Pertinent Past Medical History: Yes Neurological History: Stroke ENT History: No Pertinent History Cardiac History: Angina, Coronary Artery Disease, Hypertension Respiratory History: No Pertinent History Endocrine Medical History: No Pertinent History Musculoskeletal History: No Pertinent History GI Medical History: Other History: No Pertinent History Psycho-Social History: No Pertinent History Female Reproductive Disorders: No Pertinent History Other Medical History: autoimmune liver disease. shingles - Past Surgical History Past Surgical History: Yes Neuro Surgical History: No Pertinent History Cardiac: Cardiac Stent Respiratory: No Pertinent History Gastrointestinal: Cholecystectomy Genitourinary: No Pertinent History Musculoskeletal: No Pertinent History Female Surgical History: No Pertinent History - Social History Smoking Status: Never smoker Exposure to second hand smoke: No Drug Use: none Patient Lives Alone: No Significant Family History: no pertinent family hx - Nursing Vital Signs Nursing Vital Signs: Initial Vital Signs Temperature 98.6 F 11/07/21 18:42 Pulse Rate 79 11/07/21 18:42 Respiratory Rate 16 11/07/21 18:42 Blood Pressure 160/71 11/07/21 18:42 O2 Sat by Pulse Oximetry 100 11/07/21 18:42 Pain Scale Pain Intensity [Lower Back] 0 Pain Intensity 0 - Physical Exam General Appearance: no apparent distress, alert Eye Exam: PERRL/EOMI, eyes nml inspection Ears, Nose, Throat Exam: normal ENT inspection, pharynx normal Neck Exam: normal inspection, non-tender, supple, full range of motion Respiratory Exam: normal breath sounds, lungs clear Cardiovascular Exam: regular rate/rhythm, normal heart sounds Gastrointestinal/Abdomen Exam: soft, normal bowel sounds, No tenderness, No distention, No mass, No guarding Back Exam: normal inspection, normal range of motion, No CVA tenderness Extremity Exam: normal inspection Neurologic Exam: alert, oriented x 3, cooperative, beef grinder II-XII nml as tested Skin Exam: normal color SpO2 Interpretation: normal SpO2: 100 O2 Delivery: Room Air - Progress Progress: unchanged Progress Note: 11/07/21 19:23 Patient is symptom-free currently. No objective findings on exam. Offered baseline work-up and patient does not want anything to be done. She is not in any distress at all. She wants to go home. Discussed with her son as well and he is in agreement with having outpatient follow-up with primary care and return to ER for any worsening Counseled pt/family regarding: diagnosis, need for follow-up - Departure Departure Disposition: Home Clinical Impression: Intermittent low back pain Condition: Stable Critical Care Time: No Referrals: SANCHO LEGER NP [Primary Care Provider] - Follow up/PCP as directed (1-2 days for reevaluation) Instructions: Low Back Pain (DC) Additional Instructions: Take Tylenol as needed for pain. Follow-up with primary care for reevaluation. Return to ER for worsening low back pain, abdominal pain or if develop nausea vomiting etc.
== END 2021-11-07 19:30 | disposition home or self-care (01) ==
LOC: ED 18:33
DX: M54.50 Low back pain, unspecified (principal); I10 Essential (primary) hypertension; Z79.02 Long term (current) use of antithrombotics/antiplatelets; Z79.899 Other long term (current) drug therapy
CPT/HCPCS: 99281

== ENCOUNTER 2022-04-18 22:57 | Emergency (ER) | payer MEDICARE ==
[2022-04-18] MEDS ORDERED: Pepcid 20 MG VIAL IV ONE ×2 (23:15→23:25)
[2022-04-18] MEDS ORDERED: Zofran 4 MG/2 ML VIAL IV ONE (23:15)
[2022-04-18] MEDS ORDERED: Sodium Chloride 0.9% 1000 ML 1,000 ML IV STA (23:15)
[2022-04-18] MEDS ORDERED: MORPHINE SULFATE 4 MG INJ IV ONE (23:15)
[2022-04-18] MEDS ORDERED: BENADRYL 50 MG/ML IV ONE (23:15)
[2022-04-18] MEDS ORDERED: BENADRYL 50 MG/ML ONE (23:25)
[2022-04-18] MEDS ORDERED: Zofran 4 MG/2 ML VIAL ONE (23:25)
[2022-04-18] MEDS ORDERED: Sodium Chloride 0.9% 1000 ML 1,000 ML ONE (23:26)
[2022-04-18] MEDS ORDERED: MORPHINE SULFATE 4 MG INJ ONE (23:26)
--- NOTE | 2022-04-18 23:34 | ERPHSYRPT ---
- History of Present Illness Time Seen by Provider: 04/18/22 23:00 Historian: patient, family (son) Exam Limitations: no limitations Patient Subjective Stated Complaint: Pt reports she started vomiting approx 2 hours after eating dinner. Denies any pain. Triage Nursing Assessment: Pt brought in by EMS, transfered to ED cot by staff. Vomiting of undigested food while on EMS cot visualized. Alert and oriented x3. No apparent respiratory distress. Skin cool/pale/dry. Physician History: Patient has had 8 episodes of sudden onset of vomiting over the past 5 hours. Patient states that she has not not been feeling well over the last 2 months and has been evaluated by many people with no specific cause to her symptoms. Patient is currently taking prophylactic Bactrim to prevent UTIs and patient's son states that she gets more fatigued and sleeps more when she gets a UTI or has more confusion, and patient son states she is not sleeping more over the past day with no confusion. Son was concerned that patient had potentially brought some things in her lungs as she did have a brief syncopal event with the vomiting, causing her to stiffen up, then when she woke she had the emesis coming out of her mouth but did not stop breathing. Timing/Duration: today, hour(s) (5) Activities at Onset: none Abdominal Pain Onset Location: generalized abdomen Pain Radiation: no radiation Severity of Pain-Max: moderate Severity of Pain-Current: moderate Modifying Factors: Worsens With: eating Associated Symptoms: fatigue, nausea, vomiting, No back, No chest pain, No diaphoresis, No diarrhea, No fever/chills, No headache, No heartburn, No neck pain, No rash, No shortness of breath, No syncope, No weakness Previous symptoms: different symptoms, recently seen Allergies/Adverse Reactions: levetiracetam [From [facility]] Adverse Reaction (Verified 04/18/22 23:29) Home Medications: Aspirin 81 gm Chew [Baby Aspirin 81 mg Chew] 81 mg PO BID 04/24/20 [History] Nitroglycerin 0.4 mg SL DAILY PRN PRN 04/24/20 [History] PANTOPRAZOLE 40 mg Tablet [Protonix 40MG Tablet] 40 mg PO BID 04/24/20 [History] Potassium Chloride Tab* [Klor Con] 10 meq PO TID 04/24/20 [History] Sertraline HCl 100 mg PO DAILY 04/24/20 [History] ursodioL [Ursodiol] 500 mg PO TID 10/17/20 [History] Alendronate Sodium 70 mg PO WEEKLY 04/18/22 [History] Atorvastatin Calcium 40 mg PO DAILY 04/18/22 [History] Cholecalciferol (Vitamin D3) [Vitamin D3] 2,000 iu PO DAILY 04/18/22 [History] Donepezil HCl 10 mg PO DAILY 04/18/22 [History] Magnesium Oxide [Magnesium] 400 mg PO DAILY 04/18/22 [History] Metoprolol Succinate 25 mg PO DAILY 04/18/22 [History] Mirabegron [Myrbetriq] 25 mg PO DAILY 04/18/22 [History] Smz/Tmp Ds Tablet [Bactrim Ds Tablet] 1 tab PO DAILY 04/18/22 [History] Topiramate 100 mg [Topamax 100 MG] 100 mg PO BID 04/18/22 [History] Hx Tetanus, Diphtheria Vaccination/Date Given: Yes Hx Influenza Vaccination/Date Given: Yes (unknown) Hx Pneumococcal Vaccination/Date Given: Yes Travel Risk - International Travel Have you traveled outside of the country in past 3 weeks: No - Coronavirus Screening Are you exhibiting any of the following symptoms?: Yes Symptoms: Vomiting/Diarrhea Close contact with a COVID-19 positive Pt in past 14-21 Days: No - Vaccine Status Have you recieved a Covid-19 vaccination: Yes Alarm Security Or Surveillance Monitor: Moderna - Vaccination Dates Date of 2cond Vaccination (if applicable): jun, 2020 - Review of Systems Constitutional: Fatigue, Malaise, No Fever, No Chills Eyes: No Eye Pain, No Eye Redness, No Photophobia, No Vision Changes Ears, Nose, & Throat: No Ear Pain, No Ear Discharge, No Nose Congestion, No Nose Discharge, No Sinus Drainage, No Mouth Pain Respiratory: No Cough, No Dyspnea, No Dyspnea on Exertion (HINES) Cardiac: No Chest Pain, No Edema, No Syncope Abdominal/Gastrointestinal: Abdominal Pain, Nausea, Vomiting, No Diarrhea, No Hematemesis, No Hematochezia, No Melena Genitourinary Symptoms: No Dysuria, No Hematuria, No Flank Pain Musculoskeletal: No Back Pain, No Neck Pain Skin: No Rash, No Skin Lesions Neurological: No Dizziness, No Focal Weakness, No Headache, No Parasthesia, No Seizure, No Sensory Changes Psychological: No Symptoms, No Anxiety, No Hallucinations Endocrine: No Polyuria, No Polydipsia Hematologic/Lymphatic: No Easy Bleeding, No Easy Bruising All Other Systems: Reviewed and Negative - Past Medical History Pertinent Past Medical History: Yes Neurological History: Stroke ENT History: No Pertinent History Cardiac History: Angina, Coronary Artery Disease, Hypertension Respiratory History: No Pertinent History Endocrine Medical History: No Pertinent History Musculoskeletal History: No Pertinent History GI Medical History: Other History: No Pertinent History Psycho-Social History: No Pertinent History Female Reproductive Disorders: No Pertinent History Other Medical History: autoimmune liver disease. shingles - Past Surgical History Past Surgical History: Yes Neuro Surgical History: No Pertinent History Cardiac: Cardiac Stent Respiratory: No Pertinent History Gastrointestinal: Cholecystectomy Genitourinary: No Pertinent History Musculoskeletal: No Pertinent History Female Surgical History: No Pertinent History - Social History Smoking Status: Never smoker Exposure to second hand smoke: No Drug Use: none Patient Lives Alone: No Significant Family History: no pertinent family hx - Nursing Vital Signs Nursing Vital Signs: Initial Vital Signs Temperature 96.4 F 04/18/22 22:58 Pulse Rate 61 04/18/22 22:58 Respiratory Rate 15 04/18/22 22:58 Blood Pressure 148/47 04/18/22 22:58 O2 Sat by Pulse Oximetry 97 04/18/22 22:58 Pain Scale Pain Intensity 0 - Physical Exam General Appearance: no apparent distress, alert Eye Exam: PERRL/EOMI, eyes nml inspection Ears, Nose, Throat Exam: normal ENT inspection, TMs normal, pharynx normal, moist mucous membranes, No dry mucous membranes Neck Exam: normal inspection, non-tender, supple, full range of motion, No Brudzinski, No JVD, No lymphadenopathy Respiratory Exam: normal breath sounds, lungs clear, airway intact, No respiratory distress, No diminished breath sounds, No accessory muscle use, No crackles/rales, No rhonchi, No wheezing, No stridor Cardiovascular Exam: regular rate/rhythm, normal heart sounds, normal peripheral pulses, capillary refill <2 sec Gastrointestinal/Abdomen Exam: soft, normal bowel sounds, No tenderness, No distention, No mass, No guarding Back Exam: normal range of motion, No CVA tenderness, No vertebral tenderness, No rash Extremity Exam: normal inspection, normal range of motion, pelvis stable, No calf tenderness, No veena's sign, No tenderness Neurologic Exam: alert, oriented x 3, cooperative, digital associate II-XII nml as tested, normal mood/affect, nml cerebellar function, sensation nml, No motor deficits Skin Exam: normal color, warm, dry, No rash, No petechiae, No jaundice SpO2 Interpretation: normal SpO2: 97 O2 Delivery: Room Air - Course Nursing assessment & vital signs reviewed: Yes EKG Interpreted by Me: RATE (63), Sinus Rhythm, NORMAL AXIS, NORMAL INTERVALS, NORMAL QRS, NORMAL ST-T, Other (No significant change in comparison to EKG from June 07, 2021; repeat EKG at 331 on 04/19/2022 shows no significant change in comparison to previous EKG from 04/18/2022 as patient has borderline QTc prolongation at 487 ms but no signs of any ST or T wave changes and any difference and a Q wave in III) Rhythm Strip: Normal Sinus Rhythm - Radiology Exams Chest X-ray Interpretation: Interpreted by me, Negative, No Pneumonia, No Pneumothorax, Nml Heart Size, No Infiltrates, Nml Mediastinum, Nml Soft Tissues, Other (Calcification of the aorta) - CT Exams Abdomen/Pelvis CT Interpretation: Negative, Tele-radiologist Report (Atherosclerotic disease of the visualized distal thoracic aorta as well as abdominal aorta and iliac arteries with approximately 30 to 40% infrarenal abdominal aortic narrowing. Gallbladder surgically absent. Liver is normal. Pancreas normal. Spleen is normal. Overall: No acute abnormalities) Ordered Tests: Active Orders 24 hr Category Date Time Status EKG-ER Only STAT Care 04/18/22 23:15 Completed EKG-ER Only STAT Care 04/19/22 03:25 Completed IV Insertion STAT Care 04/18/22 23:15 Completed ABDOMEN AND PELVIS W CONTRAST [CT] Stat Exams 04/18/22 23:16 Taken CHEST 1 VIEW (PORTABLE) Stat Exams 04/18/22 23:15 Taken ACETAMINOPHEN Stat Lab 04/19/22 00:00 Completed CBC W DIFF Stat Lab 04/18/22 23:36 Completed CMP Stat Lab 04/18/22 23:36 Completed ETHYL ALCOHOL Stat Lab 04/18/22 23:36 Completed LIPASE Stat Lab 04/18/22 23:36 Completed Lactic Acid Stat Lab 04/18/22 23:58 Completed MAGNESIUM Stat Lab 04/18/22 23:36 Completed PROTIME WITH INR Stat Lab 04/18/22 23:36 Completed TROPONIN Q4H Lab 04/18/22 23:36 Completed TROPONIN Q4H Lab 04/19/22 02:52 Completed VENOUS BLOOD GAS Stat Lab 04/18/22 23:58 Completed Medication Summary Discontinued Medications Generic Name Dose Route Start Last Admin Trade Name Naina PRN Reason Stop Dose Admin Diphenhydramine HCl 25 mg 04/18/22 23:15 04/18/22 23:32 Diphenhydramine Hcl 50 Mg/Ml Vial IV 04/18/22 23:16 25 mg STAT ONE Administration Diphenhydramine HCl Confirm 04/18/22 23:25 Diphenhydramine Hcl 50 Mg/Ml Vial Administered 04/18/22 23:26 Dose 50 mg .ROUTE .STK-MED ONE Famotidine 20 mg 04/18/22 23:15 04/18/22 23:33 Famotidine 20 Mg/1 Vial IV 04/18/22 23:16 20 mg STAT ONE Administration Famotidine Confirm 04/18/22 23:25 Famotidine 20 Mg/1 Vial Administered 04/18/22 23:26 Dose 20 mg IV .STK-MED ONE Sodium Chloride 1,000 mls @ 999 mls/hr 04/18/22 23:15 04/19/22 02:45 Sodium Chloride 0.9% 1000 Ml IV 04/19/22 00:15 Infused .Q1H1M STA Infusion Sodium Chloride Confirm 04/18/22 23:26 Sodium Chloride 0.9% 1000 Ml Administered 04/18/22 23:27 Dose 1,000 mls @ ud .ROUTE .STK-MED ONE Morphine Sulfate 4 mg 04/18/22 23:15 04/18/22 23:33 Morphine Sulfate 4 Mg/Ml Injection IV 04/18/22 23:16 4 mg STAT ONE Administration Morphine Sulfate Confirm 04/18/22 23:26 Morphine Sulfate 4 Mg/Ml Injection Administered 04/18/22 23:27 Dose 4 mg .ROUTE .STK-MED ONE Ondansetron HCl 4 mg 04/18/22 23:15 04/18/22 23:31 Ondansetron Hcl 4 Mg/2 Ml Vial IV 04/18/22 23:16 4 mg STAT ONE Administration Ondansetron HCl Confirm 04/18/22 23:25 Ondansetron Hcl 4 Mg/2 Ml Vial Administered 04/18/22 23:26 Dose 4 mg .ROUTE .STK-MED ONE Lab/Rad Data: Laboratory Result Diagrams 04/18/22 23:36 04/18/22 23:36 Laboratory Results 04/19/22 04/19/22 04/18/22 Range/Units 02:52 00:00 23:58 WBC (4.0-10.5) x10^3/uL RBC (4.1-5.4) x10^6/uL Hgb (12.0-16.0) g/dL Hct (35-47) % MCV (78-100) fL MCH (26-32) pg MCHC (32-36) g/dL RDW (11.5-14.0) % Plt Count (150-450) x10^3/uL MPV (7.5-11.0) fL Gran % (36.0-66.0) % Immature Gran % (Auto) (0.00-0.4) % Nucleat RBC Rel Count (0.00-0.1) % Eos # (Auto) (0-0.5) x10^3/uL Immature Gran # (Auto) (0.00-0.03) x10^3u/L Absolute Lymphs (auto) (1.0-4.6) x10^3/uL Absolute Monos (auto) (0.0-1.3) x10^3/uL Absolute Nucleated RBC (0.00-0.01) x10^3u/L Lymphocytes % (24.0-44.0) % Monocytes % (0.0-12.0) % Eosinophils % (0.00-5.0) % Basophils % (0.0-0.4) % Absolute Granulocytes (1.4-6.9) x10^3/uL Basophils # (0-0.4) x10^3/uL PT (9.4-12.5) SECONDS INR (0.8-3.0) pO2/FiO2 Ratio 21.0 % VBG pH 7.29 L (7.32-7.42) VBG pCO2 at Pat Temp 44 (42-55) mm/Hg VBG pO2 at Pat Temp 21 L (25-40) mm/Hg VBG HCO3 21.2 L (22-28) meq/L VBG O2 Sat (Kristel) 32.8 L (95-100) VBG Base Excess -5.3 L (-2.0-2.0) VBG Hemoglobin 13.1 VBG Carboxyhemoglobin 2.9 (0.0-6.9) % T HGB POC Potassium 3.7 (3.5-5.1) Sodium (137-145) mmol/L Potassium (3.5-5.1) mmol/L Chloride (98-107) mmol/L Carbon Dioxide (22-30) mmol/L Anion Gap (5-15) MEQ/L BUN (7-17) mg/dL Creatinine (0.52-1.04) mg/dL Estimated GFR ML/MIN Glucose (74-106) mg/dL Lactic Acid (0.4-2.0) Calcium (8.4-10.2) mg/dL Magnesium (1.6-2.3) mg/dL Total Bilirubin (0.2-1.3) mg/dL AST (14-36) U/L ALT (0-35) U/L Alkaline Phosphatase (38-126) U/L Troponin I 0.020 (0.000-0.034) ng/mL Serum Total Protein (6.3-8.2) g/dL Albumin (3.5-5.0) g/dL Lipase (23-300) U/L Urine Color (Yellow) Urine Appearance (Clear) Urine pH (4.6-8.0) Ur Specific [place] (1.005-1.030) Urine Protein (Negative) Urine Glucose (UA) (Negative) mg/dL Urine Ketones (Negative) Urine Blood (Negative) Urine Nitrite (Negative) Urine Bilirubin (Negative) Urine Urobilinogen (0.2) mg/dL Ur Leukocyte Esterase (Negative) U Hyaline Cast (Auto) (0-2) /LPF Urine Microscopic RBC (0-5) /HPF Urine Microscopic WBC (0-5) /HPF Ur Epithelial Cells (None Seen) /HPF Urine Bacteria (None Seen) /HPF Urine Culture Reflexed (NO) Urine Opiates Level (NEGATIVE) Ur Methadone (NEGATIVE) Acetaminophen < 10 L (10-30) ug/ml Urine Barbiturates (NEGATIVE) Ur Phencyclidine (PCP) (NEGATIVE) Urine Amphetamine (NEGATIVE) U Benzodiazepine Level (NEGATIVE) Urine Cocaine (NEGATIVE) Urine Marijuana (THC) (NEGATIVE) Ethyl Alcohol (0-10) mg/dL Influenza Type A Ag (NEGATIVE) Influenza Type B Ag (NEGATIVE) RSV (PCR) (Negative) SARS-CoV-2 (PCR) (NEGATIVE) 04/18/22 04/18/22 04/18/22 Range/Units 23:58 23:36 23:36 WBC (4.0-10.5) x10^3/uL RBC (4.1-5.4) x10^6/uL Hgb (12.0-16.0) g/dL Hct (35-47) % MCV (78-100) fL MCH (26-32) pg MCHC (32-36) g/dL RDW (11.5-14.0) % Plt Count (150-450) x10^3/uL MPV (7.5-11.0) fL Gran % (36.0-66.0) % Immature Gran % (Auto) (0.00-0.4) % Nucleat RBC Rel Count (0.00-0.1) % Eos # (Auto) (0-0.5) x10^3/uL Immature Gran # (Auto) (0.00-0.03) x10^3u/L Absolute Lymphs (auto) (1.0-4.6) x10^3/uL Absolute Monos (auto) (0.0-1.3) x10^3/uL Absolute Nucleated RBC (0.00-0.01) x10^3u/L Lymphocytes % (24.0-44.0) % Monocytes % (0.0-12.0) % Eosinophils % (0.00-5.0) % Basophils % (0.0-0.4) % Absolute Granulocytes (1.4-6.9) x10^3/uL Basophils # (0-0.4) x10^3/uL PT (9.4-12.5) SECONDS INR (0.8-3.0) pO2/FiO2 Ratio % VBG pH (7.32-7.42) VBG pCO2 at Pat Temp (42-55) mm/Hg VBG pO2 at Pat Temp (25-40) mm/Hg VBG HCO3 (22-28) meq/L VBG O2 Sat (Kristel) (95-100) VBG Base Excess (-2.0-2.0) VBG Hemoglobin VBG Carboxyhemoglobin (0.0-6.9) % T HGB POC Potassium (3.5-5.1) Sodium (137-145) mmol/L Potassium (3.5-5.1) mmol/L Chloride (98-107) mmol/L Carbon Dioxide (22-30) mmol/L Anion Gap (5-15) MEQ/L BUN (7-17) mg/dL Creatinine (0.52-1.04) mg/dL Estimated GFR ML/MIN Glucose (74-106) mg/dL Lactic Acid 1.8 (0.4-2.0) Calcium (8.4-10.2) mg/dL Magnesium 1.9 (1.6-2.3) mg/dL Total Bilirubin (0.2-1.3) mg/dL AST (14-36) U/L ALT (0-35) U/L Alkaline Phosphatase (38-126) U/L Troponin I (0.000-0.034) ng/mL Serum Total Protein (6.3-8.2) g/dL Albumin (3.5-5.0) g/dL Lipase (23-300) U/L Urine Color (Yellow) Urine Appearance (Clear) Urine pH (4.6-8.0) Ur Specific [place] (1.005-1.030) Urine Protein (Negative) Urine Glucose (UA) (Negative) mg/dL Urine Ketones (Negative) Urine Blood (Negative) Urine Nitrite (Negative) Urine Bilirubin (Negative) Urine Urobilinogen (0.2) mg/dL Ur Leukocyte Esterase (Negative) U Hyaline Cast (Auto) (0-2) /LPF Urine Microscopic RBC (0-5) /HPF Urine Microscopic WBC (0-5) /HPF Ur Epithelial Cells (None Seen) /HPF Urine Bacteria (None Seen) /HPF Urine Culture Reflexed (NO) Urine Opiates Level (NEGATIVE) Ur Methadone (NEGATIVE) Acetaminophen (10-30) ug/ml Urine Barbiturates (NEGATIVE) Ur Phencyclidine (PCP) (NEGATIVE) Urine Amphetamine (NEGATIVE) U Benzodiazepine Level (NEGATIVE) Urine Cocaine (NEGATIVE) Urine Marijuana (THC) (NEGATIVE) Ethyl Alcohol (0-10) mg/dL Influenza Type A Ag NEGATIVE (NEGATIVE) Influenza Type B Ag NEGATIVE (NEGATIVE) RSV (PCR) NEGATIVE (Negative) SARS-CoV-2 (PCR) NEGATIVE (NEGATIVE) 04/18/22 04/18/22 04/18/22 Range/Units 23:36 23:36 23:36 WBC 15.5 H (4.0-10.5) x10^3/uL RBC 4.18 (4.1-5.4) x10^6/uL Hgb 12.6 (12.0-16.0) g/dL Hct 39.7 (35-47) % MCV 95.0 (78-100) fL MCH 30.1 (26-32) pg MCHC 31.7 L (32-36) g/dL RDW 13.2 (11.5-14.0) % Plt Count 288 (150-450) x10^3/uL MPV 9.8 (7.5-11.0) fL Gran % 80.2 H (36.0-66.0) % Immature Gran % (Auto) 0.4 (0.00-0.4) % Nucleat RBC Rel Count 0.0 (0.00-0.1) % Eos # (Auto) 0.10 (0-0.5) x10^3/uL Immature Gran # (Auto) 0.06 H (0.00-0.03) x10^3u/L Absolute Lymphs (auto) 2.12 (1.0-4.6) x10^3/uL Absolute Monos (auto) 0.78 (0.0-1.3) x10^3/uL Absolute Nucleated RBC 0.00 (0.00-0.01) x10^3u/L Lymphocytes % 13.6 L (24.0-44.0) % Monocytes % 5.0 (0.0-12.0) % Eosinophils % 0.6 (0.00-5.0) % Basophils % 0.2 (0.0-0.4) % Absolute Granulocytes 12.45 H (1.4-6.9) x10^3/uL Basophils # 0.03 (0-0.4) x10^3/uL PT 10.6 (9.4-12.5) SECONDS INR 1.00 (0.8-3.0) pO2/FiO2 Ratio % VBG pH (7.32-7.42) VBG pCO2 at Pat Temp (42-55) mm/Hg VBG pO2 at Pat Temp (25-40) mm/Hg VBG HCO3 (22-28) meq/L VBG O2 Sat (Kristel) (95-100) VBG Base Excess (-2.0-2.0) VBG Hemoglobin VBG Carboxyhemoglobin (0.0-6.9) % T HGB POC Potassium (3.5-5.1) Sodium 140 (137-145) mmol/L Potassium 3.7 (3.5-5.1) mmol/L Chloride 108 H (98-107) mmol/L Carbon Dioxide 22 (22-30) mmol/L Anion Gap 13.0 (5-15) MEQ/L BUN 16 (7-17) mg/dL Creatinine 1.03 (0.52-1.04) mg/dL Estimated GFR 56.0 ML/MIN Glucose 123 H (74-106) mg/dL Lactic Acid (0.4-2.0) Calcium 8.3 L (8.4-10.2) mg/dL Magnesium (1.6-2.3) mg/dL Total Bilirubin 1.20 (0.2-1.3) mg/dL AST 251 H (14-36) U/L ALT 142 H (0-35) U/L Alkaline Phosphatase 128 H (38-126) U/L Troponin I < 0.012 (0.000-0.034) ng/mL Serum Total Protein 7.1 (6.3-8.2) g/dL Albumin 3.9 (3.5-5.0) g/dL Lipase 182 (23-300) U/L Urine Color (Yellow) Urine Appearance (Clear) Urine pH (4.6-8.0) Ur Specific [place] (1.005-1.030) Urine Protein (Negative) Urine Glucose (UA) (Negative) mg/dL Urine Ketones (Negative) Urine Blood (Negative) Urine Nitrite (Negative) Urine Bilirubin (Negative) Urine Urobilinogen (0.2) mg/dL Ur Leukocyte Esterase (Negative) U Hyaline Cast (Auto) (0-2) /LPF Urine Microscopic RBC (0-5) /HPF Urine Microscopic WBC (0-5) /HPF Ur Epithelial Cells (None Seen) /HPF Urine Bacteria (None Seen) /HPF Urine Culture Reflexed (NO) Urine Opiates Level (NEGATIVE) Ur Methadone (NEGATIVE) Acetaminophen (10-30) ug/ml Urine Barbiturates (NEGATIVE) Ur Phencyclidine (PCP) (NEGATIVE) Urine Amphetamine (NEGATIVE) U Benzodiazepine Level (NEGATIVE) Urine Cocaine (NEGATIVE) Urine Marijuana (THC) (NEGATIVE) Ethyl Alcohol < 10 (0-10) mg/dL Influenza Type A Ag (NEGATIVE) Influenza Type B Ag (NEGATIVE) RSV (PCR) (Negative) SARS-CoV-2 (PCR) (NEGATIVE) 04/18/22 04/18/22 Range/Units 00:54 00:54 WBC (4.0-10.5) x10^3/uL RBC (4.1-5.4) x10^6/uL Hgb (12.0-16.0) g/dL Hct (35-47) % MCV (78-100) fL MCH (26-32) pg MCHC (32-36) g/dL RDW (11.5-14.0) % Plt Count (150-450) x10^3/uL MPV (7.5-11.0) fL Gran % (36.0-66.0) % Immature Gran % (Auto) (0.00-0.4) % Nucleat RBC Rel Count (0.00-0.1) % Eos # (Auto) (0-0.5) x10^3/uL Immature Gran # (Auto) (0.00-0.03) x10^3u/L Absolute Lymphs (auto) (1.0-4.6) x10^3/uL Absolute Monos (auto) (0.0-1.3) x10^3/uL Absolute Nucleated RBC (0.00-0.01) x10^3u/L Lymphocytes % (24.0-44.0) % Monocytes % (0.0-12.0) % Eosinophils % (0.00-5.0) % Basophils % (0.0-0.4) % Absolute Granulocytes (1.4-6.9) x10^3/uL Basophils # (0-0.4) x10^3/uL PT (9.4-12.5) SECONDS INR (0.8-3.0) pO2/FiO2 Ratio % VBG pH (7.32-7.42) VBG pCO2 at Pat Temp (42-55) mm/Hg VBG pO2 at Pat Temp (25-40) mm/Hg VBG HCO3 (22-28) meq/L VBG O2 Sat (Kristel) (95-100) VBG Base Excess (-2.0-2.0) VBG Hemoglobin VBG Carboxyhemoglobin (0.0-6.9) % T HGB POC Potassium (3.5-5.1) Sodium (137-145) mmol/L Potassium (3.5-5.1) mmol/L Chloride (98-107) mmol/L Carbon Dioxide (22-30) mmol/L Anion Gap (5-15) MEQ/L BUN (7-17) mg/dL Creatinine (0.52-1.04) mg/dL Estimated GFR ML/MIN Glucose (74-106) mg/dL Lactic Acid (0.4-2.0) Calcium (8.4-10.2) mg/dL Magnesium (1.6-2.3) mg/dL Total Bilirubin (0.2-1.3) mg/dL AST (14-36) U/L ALT (0-35) U/L Alkaline Phosphatase (38-126) U/L Troponin I (0.000-0.034) ng/mL Serum Total Protein (6.3-8.2) g/dL Albumin (3.5-5.0) g/dL Lipase (23-300) U/L Urine Color Yellow (Yellow) Urine Appearance Clear (Clear) Urine pH 6.5 (4.6-8.0) Ur Specific [place] >=1.030 A (1.005-1.030) Urine Protein Negative (Negative) Urine Glucose (UA) Negative (Negative) mg/dL Urine Ketones Negative (Negative) Urine Blood Negative (Negative) Urine Nitrite Negative (Negative) Urine Bilirubin Negative (Negative) Urine Urobilinogen 0.2 (0.2) mg/dL Ur Leukocyte Esterase Negative (Negative) U Hyaline Cast (Auto) NONE SEEN (0-2) /LPF Urine Microscopic RBC 0-2 (0-5) /HPF Urine Microscopic WBC 0-2 (0-5) /HPF Ur Epithelial Cells None Seen (None Seen) /HPF Urine Bacteria None Seen (None Seen) /HPF Urine Culture Reflexed NO (NO) Urine Opiates Level POSITIVE (NEGATIVE) Ur Methadone NEGATIVE (NEGATIVE) Acetaminophen (10-30) ug/ml Urine Barbiturates NEGATIVE (NEGATIVE) Ur Phencyclidine (PCP) NEGATIVE (NEGATIVE) Urine Amphetamine NEGATIVE (NEGATIVE) U Benzodiazepine Level NEGATIVE (NEGATIVE) Urine Cocaine NEGATIVE (NEGATIVE) Urine Marijuana (THC) NEGATIVE (NEGATIVE) Ethyl Alcohol (0-10) mg/dL Influenza Type A Ag (NEGATIVE) Influenza Type B Ag (NEGATIVE) RSV (PCR) (Negative) SARS-CoV-2 (PCR) (NEGATIVE) - Progress Progress: improved Progress Note: 04/19/22 01:11 Patient's nausea, vomiting and pain have all resolved and is resting comfortably 04/19/22 01:55 Patient is resting comfortably, sinus rhythm on the monitor car operator, normal SPO2, normal respiratory rate and has not had any episodes of vomiting during her time in the emergency department after IV medications and IV hydration given 04/19/22 03:28 Patient has no active nausea or vomiting, no chest pain, no dizziness, no dyspnea, no abdominal pain with no tenderness, guarding or rebound on repeat abdominal examination with sinus rhythm on the monitor car operator no signs of ST or T wave changes suggest any type of ischemia, injury or infarction or any significant ectopy or arrhythmias of any concern 04/19/22 03:38 Patient is a 69-year-old female was brought to emergency room due to having uncontrollable nausea and vomiting that began this evening with nonspecific abdominal pain. Patient not felt well for multiple months, and there is no specific trigger to her symptoms this evening. Patient initial evaluation showed an EKG that was negative for any acute ST or T wave changes suggest ischemia, injury or infarction or any arrhythmias, and she had a normal initial troponin. Review of systems otherwise was negative and physical exam did not show any other concerning findings, so labs were drawn, swabs for influenza, SARS-CoV-2 and RSV were performed and a urine was obtained as well as a chest x- ray and CT of the abdomen pelvis performed due to concerns of potential aspiration of the chest, due to concerns potential obstruction or inflammation of the abdomen causing the vomiting and patient's son states that she had a brief syncopal event with vomiting but woke up instantly but did have some emesis in her mouth. Patient was given IV hydration, IV medications to help with nausea and pain which resolves her symptoms she had no issues of vomiting for over 4 and half hours of monitoring in the emergency department. Patient's chest x-ray is negative for any acute cardiopulmonary process including any signs of aspiration per my interpretation and her CT of her abdomen and pelvis did not show any significant abnormalities in regards to obstruction, inflammation or any other concerning findings on the CT scan imaging per radiologist interpretation, as patient did have an elevation in her AST, ALT and alk phos which most likely was from her chronic autoimmune hepatitis as she had a negative alcohol negative acetaminophen levels here in the emergency department and no signs of any new inflammation or obstruction to her biliary tract or liver on the CAT scan. Although patient had elevated white blood cell count, this most likely was reactive to her clinical vomiting as she had no signs of infectious causes on her viral swabs, urinalysis, chest x-ray and no signs of sepsis or any perfusion abnormalities in her lab work on her clinical examination. Patient did not have any concerning findings of cardiac etiology causing her nausea and vomiting as well as the potentially brief syncope she had as she maintained sinus rhythm with no significant AV blocks, arrhythmias or ectopy during her time in the emergency department and had initial negative EKG, initial negative troponin, and repeat EKG showed no acute changes with a sinus rhythm in comparison to previous with no signs of any ST or T wave changes of any significance as well as having a repeat troponin that was in the normal range 4 hours after the initial. Patient at this is time will be discharged home with short supply of Zofran to help with symptomatic relief, and she is to follow-up with her primary care provider as an outpatient to continue evaluation of her symptoms and determine if she needs any further evaluation for her chr onic and acute issues that brought her into the emergency room this evening. At the time of discharge, patient was hemodynamically good condition, vomiting well controlled, hydrated and did not have any indication for inpatient admission or transfer to another facility for any further evaluation can be tried a trial of outpatient therapy. Counseled pt/family regarding: lab results, diagnosis, need for follow-up, rad results Medical Desision Making - Independent Historian Additional History obtained from: Child - Diagnostic Testing Diagnostic test were ordered, analyzed, and reviewed by me: Yes Radiological Interpretation: Interpreted by me, Reviewed by me, Teleradiologist Report - Risk of complications Low Risk: Low risk of morbidity from additional dx testing or treatment The pt has a mod risk of morbidity or mortality based on: Need for prescription drug management - Departure Departure Disposition: Home Clinical Impression: Chronic autoimmune hepatitis, Generalized abdominal pain, Transaminitis Nausea & vomiting Qualifiers: Vomiting type: unspecified Qualified Code(s): R11.2 - Nausea with vomiting, unspecified Leukocytosis Qualifiers: Eosinophilia type: in diseases classified elsewhere Condition: Good Critical Care Time: No Referrals: SANCHO LEGER NP [Primary Care Provider] - 04/21/22 Instructions: Vasovagal Response, Nausea and Vomiting, Adult (DC), Syncope (Fainting) (DC), Liver Function Test, Abdominal Pain, Adult ED Additional Instructions: Return back to the nearest emergency room if you have any worsening vomiting, worsening abdominal pain, new vomiting blood, any black or red stools, new chest pain, new shortness of breath, new back pain, new focal weakness in your arms legs face, any overwhelming headache, any loss of vision, any fever greater than 101, new easy bruising or new skin rashes or any other concerning signs or symptoms that were not present at today's emergency room visit for immediate re evaluation in the nearest emergency department Prescriptions: Ondansetron ODT 4 MG [Zofran Odt 4 mg] 4 mg PO Q8H PRN PRN #12 tablet PRN Reason: Vomiting
[2022-04-18 23:42] LABS: Absolute Neutrophil Ct (ANC) 12.45 x10^3/uL (1.4-6.9); BASOPHIL % 0.2 % (0.0-0.4); Basophil (Absolute #) 0.03 x10^3/uL (0-0.4); Eosinophil % 0.6 % (0.00-5.0); Hematocrit 39.7 % (35-47); Hemoglobin 12.6 g/dL (12.0-16.0); IMMATURE GRAN # 0.06 x10^3u/L (0.00-0.03); IMMATURE GRAN % 0.4 % (0.00-0.4); Lymphocyte (Absolute #) 2.12 x10^3/uL (1.0-4.6); Lymphocytes % 13.6 % (24.0-44.0); Mean Corpuscular Hemoglobin 30.1 pg (26-32); Mean Corpuscular Hgb Concent. 31.7 g/dL (32-36); Mean Platelet Volume 9.8 fL (7.5-11.0); Monocyte (Absolute #) 0.78 x10^3/uL (0.0-1.3); Neutrophil % 80.2 % (36.0-66.0); Platelet Count 288 x10^3/uL (150-450); Red Blood Count 4.18 x10^6/uL (4.1-5.4); Red Cell Distribution Width 13.2 % (11.5-14.0); White Blood Count 15.5 x10^3/uL (4.0-10.5)
[2022-04-18 23:56] LABS: PROTIME 10.6 SECONDS (9.4-12.5)
[2022-04-19 00:02] LABS: VBG BASE EXCESS -5.3 (-2.0-2.0); VBG CARBOXYHEMOGLOBIN 2.9 % T HGB (0.0-6.9); VBG HCO3- 21.2 meq/L (22-28); VBG HEMOGLOBIN 13.1; VBG O2 SATURATION 32.8 (95-100); VBG POTASSIUM 3.7 (3.5-5.1); VBG pH 7.29 (7.32-7.42)
[2022-04-19 00:07] LABS: ALBUMIN 3.9 g/dL (3.5-5.0); ALKALINE PHOSPHATASE 128 U/L (38-126); BLOOD UREA NITROGEN 16 mg/dL (7-17); CHLORIDE 108 mmol/L (98-107); Calcium 8.3 mg/dL (8.4-10.2); Carbon Dioxide 22 mmol/L (22-30); Creatinine 1 1.03 mg/dL (0.52-1.04); ETHYL ALCOHOL < 10 mg/dL (0-10); Glucose 123 mg/dL (74-106); LIPASE 182 U/L (23-300); Potassium 3.7 mmol/L (3.5-5.1); SGOT/AST 251 U/L (14-36); SGPT/ALT 142 U/L (0-35); SODIUM 140 mmol/L (137-145); TROPONIN < 0.012 ng/mL (0.000-0.034); Total Protein 7.1 g/dL (6.3-8.2)
[2022-04-19 00:19] LABS: INFLUENZA A NEGATIVE (NEGATIVE); INFLUENZA B NEGATIVE (NEGATIVE); RESPIRATORY SYNCTIAL VIRUS NEGATIVE (Negative); SARS-CoV-2 Xpert Express NEGATIVE (NEGATIVE)
[2022-04-19 01:18] LABS: Amphetamine,Urine NEGATIVE (NEGATIVE); Barbiturate,Urine NEGATIVE (NEGATIVE); Benzodiazepine,Urine NEGATIVE (NEGATIVE); Cocaine,Urine NEGATIVE (NEGATIVE); Methadone,Urine NEGATIVE (NEGATIVE); Opiate,Urine POSITIVE (NEGATIVE); PCP,Urine NEGATIVE (NEGATIVE); THC,Urine NEGATIVE (NEGATIVE)
[2022-04-19 01:25] LABS: ADD URINE CULTURE? NO (NO); Appearance Clear (Clear); Bacteria None Seen /HPF (None Seen); Bilirubin Negative (Negative); Blood Negative (Negative); Epithelial Cells None Seen /HPF (None Seen); Glucose, Urine Negative (Negative); Hyaline Casts NONE SEEN /LPF (0-2); Ketones Negative (Negative); Leukocyte Esterase Negative (Negative); Nitrite Negative (Negative); Ph 6.5 (4.6-8.0); Protein,Urine Dip Negative (Negative); RBC 0-2 /HPF (0-5); Specific Gravity >=1.030 (1.005-1.030); Urobilinogen 0.2 mg/dL (0.2); WBC 0-2 /HPF (0-5)
[2022-04-19 03:09] VITALS: BP 129/56
[2022-04-19 04:04] VITALS: PULSE 87
[2022-04-19 07:04] VITALS: O2SAT 97
--- NOTE | 2022-04-19 07:55 | XRAY ---
Indication: Nausea, vomiting, diarrhea. Multiple contiguous axial images obtained through the abdomen and pelvis using 80 cc Isovue 370 contrast. Comparison: April 24, 2020 Lung bases again demonstrates left costophrenic angle and new peripheral right lower lobe calcified granulomas. Minimal bilateral dependent atelectasis. Heart not enlarged. Enlarging moderate sized hiatal hernia again with partial intrathoracic stomach. Interval left total hip arthroplasty with subsequent beam artifact limits images through the pelvis. Also interval hysterectomy. Noncontrasted stomach and bowel loops remain nonobstructed again with normal appendix. No free fluid/air. Again cholecystectomy with pneumobilia. Urinary bladder demonstrates new tiny intraluminal air bubble either iatrogenic from recent catheterization versus gas-forming infection. Remaining liver, pancreas, spleen, adrenal glands, kidneys, ureters, and bladder are unremarkable. Again moderate scattered aortoiliac calcifications. No AAA or pathological retroperitoneal lymphadenopathy. Osseous structures intact again with osteopenia, remote T12 superior endplate fracture, and inferior L1 Schmorl node. Impression: 1. New beam artifact from left total hip arthroplasty. 2. Enlarging hiatal hernia with again partial intrathoracic stomach. 3. New urinary bladder intraluminal air bubble either iatrogenic versus gas-forming infection. 4. Again cholecystectomy with pneumobilia, arteriosclerotic disease, chronic bony findings, and old granulomatous disease. Comment: Preliminary interpretation made by [facility] who does not report incidental urinary bladder air bubble.
--- NOTE | 2022-04-19 07:57 | XRAY ---
Indication: Nausea and vomiting. Malaise. Comparison: March 17, 2022 Portable chest again demonstrates normal heart and lungs with a few incidental calcified granulomas. No new/acute findings.
== END 2022-04-19 04:04 | disposition home or self-care (01) ==
LOC: ED 22:57
DX: K75.4 Autoimmune hepatitis (principal); R10.84 Generalized abdominal pain; R74.01 Elevation of levels of liver transaminase levels; R11.2 Nausea with vomiting, unspecified; I10 Essential (primary) hypertension; Z79.899 Other long term (current) drug therapy; Z20.828 Contact with and (suspected) exposure to other viral communicable diseases
CPT/HCPCS: 0241U; 36000; 36415; 71045; 74177; 80053; 80307; 81001; 82805; 83605; 83690; 83735; 84484; 85025; 85610; 93005; 96360; 96374; 96375; 99284; J1200; J2270; J2405; G0480

== ENCOUNTER 2022-05-30 18:05 | Emergency (ER) | payer MEDICARE ==
--- NOTE | 2022-05-30 18:08 | ERPHSYRPT ---
- History of Present Illness Time Seen by Provider: 05/30/22 18:08 Source: patient, EMS Exam Limitations: clinical condition Physician History: This is a 71-year-old white female patient who was brought into the emergency department by paramedics. Additional history was obtained from the paramedics and the patient's son. Patient arrived to the emergency department with her vital signs stable and without any types of complaints. She states she is here because her children wanted her to be evaluated. Her son states that she has been more drowsy and confused today. Patient is not on any antibiotics. She was on Bactrim DS for prophylaxis. However despite the prophylaxis she was still having urinary tract infections and therefore they tried a different antibiotic, cefdinir. On the cefdinir, the son states that she has been having diarrhea so they stopped the cefdinir antibiotic. Patient has no complaints of chest pain. She has no complaints of abdominal pain. She has no nausea or vomiting complaints. Patient states she is not short of breath. Patient does have a history of a CVA in the past and chronic angina. She also has a history of hypertension and hyperlipidemia. Timing/Duration: today Severity: mild (To moderate) Character of Deficits: none Deficits: no difficulties Baseline/Normal Cognition: alert oriented x 3 Current Cognition: alert oriented x 3 Baseline Gait: walks w/o assistance Associated Symptoms: weakness (Per family but patient denies that there is any difference) Allergies/Adverse Reactions: levetiracetam [From [facility]] Adverse Reaction (Verified 05/30/22 18:29) Home Medications: Aspirin 81 gm Chew [Baby Aspirin 81 mg Chew] 81 mg PO BID 04/24/20 [History] Nitroglycerin 0.4 mg SL DAILY PRN PRN 04/24/20 [History] PANTOPRAZOLE 40 mg Tablet [Protonix 40MG Tablet] 40 mg PO BID 04/24/20 [History] Potassium Chloride Tab* [Klor Con] 10 meq PO TID 04/24/20 [History] Sertraline HCl 100 mg PO DAILY 04/24/20 [History] ursodioL [Ursodiol] 500 mg PO TID 10/17/20 [History] Alendronate Sodium 70 mg PO WEEKLY 04/18/22 [History] Atorvastatin Calcium 40 mg PO DAILY 04/18/22 [History] Cholecalciferol (Vitamin D3) [Vitamin D3] 2,000 iu PO DAILY 04/18/22 [History] Donepezil HCl 10 mg PO DAILY 04/18/22 [History] Magnesium Oxide [Magnesium] 400 mg PO DAILY 04/18/22 [History] Metoprolol Succinate 25 mg PO DAILY 04/18/22 [History] Mirabegron [Myrbetriq] 25 mg PO DAILY 04/18/22 [History] Topiramate 100 mg [Topamax 100 MG] 100 mg PO BID 04/18/22 [History] Cyanocobalamin (Vitamin B-12) [Vitamin B-12] 1 cap PO DAILY 05/30/22 [History] Memantine HCl 5 mg [Namenda 5 MG] 1 tab PO BID 05/30/22 [History] Multivitamin 1 tab PO DAILY 05/30/22 [History] Hx Tetanus, Diphtheria Vaccination/Date Given: Yes Hx Influenza Vaccination/Date Given: Yes (unknown) Hx Pneumococcal Vaccination/Date Given: Yes Travel Risk - International Travel Have you traveled outside of the country in past 3 weeks: No - Coronavirus Screening Are you exhibiting any of the following symptoms?: No Close contact with a COVID-19 positive Pt in past 14-21 Days: No - Vaccine Status Have you recieved a Covid-19 vaccination: Yes Medical Surgery Nurse: Moderna - Vaccination Dates Date of 2cond Vaccination (if applicable): jun, 2020 - Review of Systems Constitutional: Weakness Eyes: No Symptoms Ears, Nose, & Throat: No Symptoms Respiratory: No Symptoms Cardiac: No Symptoms Abdominal/Gastrointestinal: No Symptoms Genitourinary Symptoms: No Symptoms Musculoskeletal: No Symptoms Skin: No Symptoms Neurological: No Symptoms Psychological: No Symptoms Endocrine: No Symptoms Hematologic/Lymphatic: No Symptoms Immunological/Allergic: No Symptoms All Other Systems: Reviewed and Negative - Past Medical History Pertinent Past Medical History: Yes Neurological History: Stroke ENT History: No Pertinent History Cardiac History: Angina, Coronary Artery Disease, Hypertension Respiratory History: No Pertinent History Endocrine Medical History: No Pertinent History Musculoskeletal History: No Pertinent History GI Medical History: Other History: No Pertinent History Psycho-Social History: No Pertinent History Female Reproductive Disorders: No Pertinent History Other Medical History: autoimmune liver disease. shingles - Past Surgical History Past Surgical History: Yes Neuro Surgical History: No Pertinent History Cardiac: Cardiac Stent Respiratory: No Pertinent History Gastrointestinal: Cholecystectomy Genitourinary: No Pertinent History Musculoskeletal: No Pertinent History Female Surgical History: No Pertinent History - Social History Smoking Status: Never smoker Exposure to second hand smoke: No Drug Use: none Patient Lives Alone: No Significant Family History: no pertinent family hx - Nursing Vital Signs Nursing Vital Signs: Initial Vital Signs Temperature 97.7 F 05/30/22 18:06 Pulse Rate 72 05/30/22 18:06 Respiratory Rate 17 05/30/22 18:06 Blood Pressure 155/50 05/30/22 18:06 O2 Sat by Pulse Oximetry 99 05/30/22 18:06 Pain Scale Pain Intensity 0 - [place] Coma Scale Best Eye Response ([place]): (4) open spontaneously Best Verbal Response ([place]): (5) oriented Best Motor Response ([place]): (6) obeys commands [place] Total: 15 - Physical Exam General Appearance: no apparent distress, alert Eye Exam: bilateral eye: normal inspection, PERRL, EOMI Ears, Nose, Throat Exam: normal ENT inspection, moist mucous membranes Neck Exam: normal inspection, non-tender, supple, full range of motion Respiratory: normal breath sounds, lungs clear, airway intact, No chest tenderness, No respiratory distress Cardiovascular: regular rate/rhythm, normal heart sounds, normal peripheral pulses Gastrointestinal: soft, normal bowel sounds, No tenderness Pelvic Exam: not done Rectal Exam: not done Back Exam: normal inspection, normal range of motion, No CVA tenderness, No vertebral tenderness Extremity Exam: normal inspection, normal range of motion, pelvis stable 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, oriented x 3, 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 Exam: normal hearing, normal speech, PERRL, tongue midline Motor/Sensory: no motor deficit, no sensory deficit Skin Exam: normal color, warm, dry SpO2 Interpretation: normal O2 Delivery: Room Air - Course Nursing assessment & vital signs reviewed: Yes EKG Interpreted by Me: RATE (69), Sinus Rhythm, NORMAL AXIS, NORMAL INTERVALS, NORMAL QRS, NORMAL ST-T, Other (No acute ischemic changes on today's twelve-lead EKG.) Ordered Tests: Active Orders 24 hr Category Date Time Status Neon Technician STAT Care 05/30/22 18:19 Active EKG-ER Only STAT Care 05/30/22 18:18 Active IV Insertion STAT Care 05/30/22 18:18 Active NPO (ED) STAT Care 05/30/22 18:18 Active POCT Glucose Check STAT Care 05/30/22 18:18 Active Pulse Oximetry (ED) STAT Care 05/30/22 18:18 Active cath [Cath for Specimen-Straight] STAT Care 05/30/22 18:25 Active HEAD WITHOUT CONTRAST [CT] Stat Exams 05/30/22 18:19 Taken CBC W DIFF Stat Lab 05/30/22 18:30 Completed CMP Stat Lab 05/30/22 18:30 Completed CULTURE,URINE Stat Lab 05/30/22 18:29 Ordered Direct Bilirubin Stat Lab 05/30/22 20:35 Completed MAGNESIUM Stat Lab 05/30/22 18:30 Completed [place] Screen Stat Lab 05/30/22 18:30 Completed POCT GLUCOSE Stat Lab 05/30/22 18:31 Completed TROPONIN Q4H Lab 05/30/22 18:30 Completed TROPONIN Q4H Lab 05/30/22 22:30 Ordered TROPONIN Q4H Lab 05/31/22 02:30 Ordered UA W/RFX UR CULTURE Stat Lab 05/30/22 18:29 Completed Medication Summary Generic Name Dose Route Start Last Admin Trade Name Freq PRN Reason Stop Dose Admin Levofloxacin/Dextrose 500 mg in 100 mls @ 100 mls/hr 05/30/22 20:49 05/30/22 21:02 Levofloxacin 500mg/100ml D5w IV 05/30/22 21:48 100 ml/hr STAT STA 100 mls/hr Administration Discontinued Medications Generic Name Dose Route Start Last Admin Trade Name Freq PRN Reason Stop Dose Admin Levofloxacin/Dextrose Confirm 05/30/22 21:00 Levofloxacin 500mg/100ml D5w Administered 05/30/22 21:01 Dose 500 mg in 100 mls @ ud IV .AirPOS-MED ONE Lab/Rad Data: Laboratory Result Diagrams 05/30/22 18:30 05/30/22 18:30 Laboratory Results 05/30/22 05/30/22 05/30/22 Range/Units 20:35 18:31 18:30 WBC (4.0-10.5) x10^3/uL RBC (4.1-5.4) x10^6/uL Hgb (12.0-16.0) g/dL Hct (35-47) % MCV (78-100) fL MCH (26-32) pg MCHC (32-36) g/dL RDW (11.5-14.0) % Plt Count (150-450) x10^3/uL MPV (7.5-11.0) fL Gran % (36.0-66.0) % Immature Gran % (Auto) (0.00-0.4) % Nucleat RBC Rel Count (0.00-0.1) % Eos # (Auto) (0-0.5) x10^3/uL Immature Gran # (Auto) (0.00-0.03) x10^3u/L Absolute Lymphs (auto) (1.0-4.6) x10^3/uL Absolute Monos (auto) (0.0-1.3) x10^3/uL Absolute Nucleated RBC (0.00-0.01) x10^3u/L Lymphocytes % (24.0-44.0) % Monocytes % (0.0-12.0) % Eosinophils % (0.00-5.0) % Basophils % (0.0-0.4) % Absolute Granulocytes (1.4-6.9) x10^3/uL Basophils # (0-0.4) x10^3/uL Sodium (137-145) mmol/L Potassium (3.5-5.1) mmol/L Chloride (98-107) mmol/L Carbon Dioxide (22-30) mmol/L Anion Gap (5-15) MEQ/L BUN (7-17) mg/dL Creatinine (0.52-1.04) mg/dL Estimated GFR ML/MIN Glucose (74-106) mg/dL POC Glucometer 111 H (74 to 106) mg/dL Calcium (8.4-10.2) mg/dL Magnesium (1.6-2.3) mg/dL Total Bilirubin (0.2-1.3) mg/dL Direct Bilirubin 1.0 H (0.0-0.4) mg/dL AST (14-36) U/L ALT (0-35) U/L Alkaline Phosphatase (38-126) U/L Ammonia (9-30) umol/L Troponin I (0.000-0.034) ng/mL Serum Total Protein (6.3-8.2) g/dL Albumin (3.5-5.0) g/dL Urine Color (Yellow) Urine Appearance (Clear) Urine pH (4.6-8.0) Ur Specific [place] (1.005-1.030) Urine Protein (Negative) Urine Glucose (UA) (Negative) mg/dL Urine Ketones (Negative) Urine Blood (Negative) Urine Nitrite (Negative) Urine Bilirubin (Negative) Urine Urobilinogen (0.2) mg/dL Ur Leukocyte Esterase (Negative) U Hyaline Cast (Auto) (0-2) /LPF Urine Microscopic RBC (0-5) /HPF Urine Microscopic WBC (0-5) /HPF Ur Epithelial Cells (None Seen) /HPF Urine Bacteria (None Seen) /HPF Urine Culture Reflexed (NO) Monoscreen (Negative) Influenza Type A Ag NEGATIVE (NEGATIVE) Influenza Type B Ag NEGATIVE (NEGATIVE) RSV (PCR) NEGATIVE (NEGATIVE) SARS-CoV-2 (PCR) NEGATIVE (NEGATIVE) 05/30/22 05/30/22 05/30/22 Range/Units 18:30 18:30 18:30 WBC (4.0-10.5) x10^3/uL RBC (4.1-5.4) x10^6/uL Hgb (12.0-16.0) g/dL Hct (35-47) % MCV (78-100) fL MCH (26-32) pg MCHC (32-36) g/dL RDW (11.5-14.0) % Plt Count (150-450) x10^3/uL MPV (7.5-11.0) fL Gran % (36.0-66.0) % Immature Gran % (Auto) (0.00-0.4) % Nucleat RBC Rel Count (0.00-0.1) % Eos # (Auto) (0-0.5) x10^3/uL Immature Gran # (Auto) (0.00-0.03) x10^3u/L Absolute Lymphs (auto) (1.0-4.6) x10^3/uL Absolute Monos (auto) (0.0-1.3) x10^3/uL Absolute Nucleated RBC (0.00-0.01) x10^3u/L Lymphocytes % (24.0-44.0) % Monocytes % (0.0-12.0) % Eosinophils % (0.00-5.0) % Basophils % (0.0-0.4) % Absolute Granulocytes (1.4-6.9) x10^3/uL Basophils # (0-0.4) x10^3/uL Sodium (137-145) mmol/L Potassium (3.5-5.1) mmol/L Chloride (98-107) mmol/L Carbon Dioxide (22-30) mmol/L Anion Gap (5-15) MEQ/L BUN (7-17) mg/dL Creatinine (0.52-1.04) mg/dL Estimated GFR ML/MIN Glucose (74-106) mg/dL POC Glucometer (74 to 106) mg/dL Calcium (8.4-10.2) mg/dL Magnesium (1.6-2.3) mg/dL Total Bilirubin (0.2-1.3) mg/dL Direct Bilirubin (0.0-0.4) mg/dL AST (14-36) U/L ALT (0-35) U/L Alkaline Phosphatase (38-126) U/L Ammonia < 9 L (9-30) umol/L Troponin I < 0.012 (0.000-0.034) ng/mL Serum Total Protein (6.3-8.2) g/dL Albumin (3.5-5.0) g/dL Urine Color (Yellow) Urine Appearance (Clear) Urine pH (4.6-8.0) Ur Specific [place] (1.005-1.030) Urine Protein (Negative) Urine Glucose (UA) (Negative) mg/dL Urine Ketones (Negative) Urine Blood (Negative) Urine Nitrite (Negative) Urine Bilirubin (Negative) Urine Urobilinogen (0.2) mg/dL Ur Leukocyte Esterase (Negative) U Hyaline Cast (Auto) (0-2) /LPF Urine Microscopic RBC (0-5) /HPF Urine Microscopic WBC (0-5) /HPF Ur Epithelial Cells (None Seen) /HPF Urine Bacteria (None Seen) /HPF Urine Culture Reflexed (NO) Monoscreen NEGATIVE (Negative) Influenza Type A Ag (NEGATIVE) Influenza Type B Ag (NEGATIVE) RSV (PCR) (NEGATIVE) SARS-CoV-2 (PCR) (NEGATIVE) 05/30/22 05/30/22 05/30/22 Range/Units 18:30 18:30 18:29 WBC 11.7 H (4.0-10.5) x10^3/uL RBC 4.29 (4.1-5.4) x10^6/uL Hgb 12.8 (12.0-16.0) g/dL Hct 40.3 (35-47) % MCV 93.9 (78-100) fL MCH 29.8 (26-32) pg MCHC 31.8 L (32-36) g/dL RDW 13.1 (11.5-14.0) % Plt Count 232 (150-450) x10^3/uL MPV 10.0 (7.5-11.0) fL Gran % 79.1 H (36.0-66.0) % Immature Gran % (Auto) 0.3 (0.00-0.4) % Nucleat RBC Rel Count 0.0 (0.00-0.1) % Eos # (Auto) 0.06 (0-0.5) x10^3/uL Immature Gran # (Auto) 0.04 H (0.00-0.03) x10^3u/L Absolute Lymphs (auto) 1.34 (1.0-4.6) x10^3/uL Absolute Monos (auto) 0.95 (0.0-1.3) x10^3/uL Absolute Nucleated RBC 0.00 (0.00-0.01) x10^3u/L Lymphocytes % 11.5 L (24.0-44.0) % Monocytes % 8.2 (0.0-12.0) % Eosinophils % 0.5 (0.00-5.0) % Basophils % 0.4 (0.0-0.4) % Absolute Granulocytes 9.21 H (1.4-6.9) x10^3/uL Basophils # 0.05 (0-0.4) x10^3/uL Sodium 144 (137-145) mmol/L Potassium 4.1 (3.5-5.1) mmol/L Chloride 113 H (98-107) mmol/L Carbon Dioxide 21 L (22-30) mmol/L Anion Gap 13.8 (5-15) MEQ/L BUN 16 (7-17) mg/dL Creatinine 0.81 (0.52-1.04) mg/dL Estimated GFR > 60.0 ML/MIN Glucose 118 H (74-106) mg/dL POC Glucometer (74 to 106) mg/dL Calcium 8.6 (8.4-10.2) mg/dL Magnesium 2.0 (1.6-2.3) mg/dL Total Bilirubin 1.50 H (0.2-1.3) mg/dL Direct Bilirubin (0.0-0.4) mg/dL AST 328 H (14-36) U/L ALT 206 H (0-35) U/L Alkaline Phosphatase 155 H (38-126) U/L Ammonia (9-30) umol/L Troponin I (0.000-0.034) ng/mL Serum Total Protein 6.8 (6.3-8.2) g/dL Albumin 3.7 (3.5-5.0) g/dL Urine Color Dark Yellow A (Yellow) Urine Appearance Clear (Clear) Urine pH 6.5 (4.6-8.0) Ur Specific [place] 1.020 (1.005-1.030) Urine Protein Trace A (Negative) Urine Glucose (UA) Negative (Negative) mg/dL Urine Ketones Trace A (Negative) Urine Blood Negative (Negative) Urine Nitrite Negative (Negative) Urine Bilirubin Small A (Negative) Urine Urobilinogen 1.0 A (0.2) mg/dL Ur Leukocyte Esterase Small A (Negative) U Hyaline Cast (Auto) 0-2 (0-2) /LPF Urine Microscopic RBC 0-2 (0-5) /HPF Urine Microscopic WBC 3-5 (0-5) /HPF Ur Epithelial Cells Few (None Seen) /HPF Urine Bacteria Few A (None Seen) /HPF Urine Culture Reflexed ORDERED SEPARATELY (NO) Monoscreen (Negative) Influenza Type A Ag (NEGATIVE) Influenza Type B Ag (NEGATIVE) RSV (PCR) (NEGATIVE) SARS-CoV-2 (PCR) (NEGATIVE) - Progress Progress: improved, re-examined Progress Note: 05/30/22 20:11 Patient has no acute intracranial abnormality on CAT scan of the head without contrast 05/30/22 21:18 This patient's medical issue is 1 of moderate complexity. Level of complexity and the work-up performed was based on review of the patient's past medical history, review of the patient's medication list, review of the patient's drug allergy list, history of present illness and physical findings on examination. Work-up includes placement of intravenous line, normal saline infusion through the IV, CBC, CMP, ammonia level, twelve-lead EKG, urinalysis and CAT scan of the head. I reviewed the results of these studies. I did compare them to labs that were performed on outpatient approxi-10 hours prior to these labs. Althoug h not emergent levels, the repeat levels of the liver enzymes are elevated. I attempted to get a hold of Dr. Mojica, the patient's pastoral counselor. He was not on-call. We put a call into Dr. Cruz. He never called back. I went in to discuss the lab results, CAT scan of the head findings with the patient's son. I also informed him that I did attempt to put a call into Dr. Mojica and then Dr. Neil without a return call back. The patient now appears much more alert and is looking around. The patient is having Levaquin infused to treat a urinary tract infection. I let the patient know that I did a hepatitis profile but that we will get the results back tonight on that profile panel. Patient states that his mother has an appointment to see urologist next week and she is to keep that appointment. He was also told to get a hold of his pastoral counselor, Dr. Mojica on 06/02/2022 to make arranges for follow-up appointment within the next 3 to 5 days. We will write for Macrodantin antibiotic for this patient as an outpatient Counseled pt/family regarding: lab results, diagnosis, need for follow-up, rad results Medical Desision Making - Independent Historian Additional History obtained from: Child - Discussion of managment Reviewed:: Test results Agreed on:: Treatment plan, need for follow-up - Social Determinants of Health Limited access to: transportation - Diagnostic Testing Radiological Interpretation: Reviewed by me - Risk of complications The pt has a mod risk of morbidity or mortality based on: Need for prescription drug management - Departure Departure Disposition: Home Clinical Impression: UTI (urinary tract infection), Confusion, Elevated liver function tests Condition: Stable Critical Care Time: No Referrals: [facility] [Primary Care Provider] - Follow up/PCP as directed Additional Instructions: Drink plenty of fluids. Take the antibiotics as prescribed. Follow-up with your liver specialist on 06/02/2022 to make arrangements for follow-up appointment in the next 3 to 5 days. Take your other medicine as prescribed. Keep your appointment with your urologist for next week. Prescriptions: Nitrofurantoin Macrocrystal [Macrodantin] 100 mg PO BID #10 cap
[2022-05-30 18:41] LABS: Absolute Neutrophil Ct (ANC) 9.21 x10^3/uL (1.4-6.9); BASOPHIL % 0.4 % (0.0-0.4); Basophil (Absolute #) 0.05 x10^3/uL (0-0.4); Eosinophil % 0.5 % (0.00-5.0); Eosinophil (Absolute #) 0.06 x10^3/uL (0-0.5); Hematocrit 40.3 % (35-47); Hemoglobin 12.8 g/dL (12.0-16.0); IMMATURE GRAN # 0.04 x10^3u/L (0.00-0.03); IMMATURE GRAN % 0.3 % (0.00-0.4); Lymphocyte (Absolute #) 1.34 x10^3/uL (1.0-4.6); Lymphocytes % 11.5 % (24.0-44.0); Mean Cell Volume 93.9 fL (78-100); Mean Corpuscular Hemoglobin 29.8 pg (26-32); Mean Corpuscular Hgb Concent. 31.8 g/dL (32-36); Monocyte (Absolute #) 0.95 x10^3/uL (0.0-1.3); Monocytes % 8.2 % (0.0-12.0); Neutrophil % 79.1 % (36.0-66.0); Platelet Count 232 x10^3/uL (150-450); Red Blood Count 4.29 x10^6/uL (4.1-5.4); Red Cell Distribution Width 13.1 % (11.5-14.0); White Blood Count 11.7 x10^3/uL (4.0-10.5)
[2022-05-30 18:55] LABS: ALBUMIN 3.7 g/dL (3.5-5.0); ALKALINE PHOSPHATASE 155 U/L (38-126); ANION GAP 13.8 MEQ/L (5-15); BLOOD UREA NITROGEN 16 mg/dL (7-17); CHLORIDE 113 mmol/L (98-107); Calcium 8.6 mg/dL (8.4-10.2); Carbon Dioxide 21 mmol/L (22-30); Creatinine 1 0.81 mg/dL (0.52-1.04); EST GLOMERULAR FILTRATION RATE > 60.0 ML/MIN; Glucose 118 mg/dL (74-106); Potassium 4.1 mmol/L (3.5-5.1); SGOT/AST 328 U/L (14-36); SGPT/ALT 206 U/L (0-35); SODIUM 144 mmol/L (137-145); Total Protein 6.8 g/dL (6.3-8.2)
[2022-05-30 19:06] LABS: Appearance Clear (Clear); Bilirubin Small (Negative); Blood Negative (Negative); Epithelial Cells Few /HPF (None Seen); Glucose, Urine Negative (Negative); Ketones Trace (Negative); Leukocyte Esterase Small (Negative); Nitrite Negative (Negative); Ph 6.5 (4.6-8.0); Protein,Urine Dip Trace (Negative)
[2022-05-30 19:07] LABS: ADD URINE CULTURE? ORDERED SEPARATELY (NO); Bacteria Few /HPF (None Seen); Hyaline Casts 0-2 /LPF (0-2); RBC 0-2 /HPF (0-5)
[2022-05-30 19:20] LABS: INFLUENZA A NEGATIVE (NEGATIVE); INFLUENZA B NEGATIVE (NEGATIVE); RESPIRATORY SYNCTIAL VIRUS NEGATIVE (NEGATIVE); SARS-CoV-2 Xpert Express NEGATIVE (NEGATIVE)
[2022-05-30] MEDS ORDERED: Levofloxacin 500MG/100ML D5W 500 MG/100 ML BAG IV STA (20:49)
[2022-05-30] MEDS ORDERED: Levofloxacin 500MG/100ML D5W 500 MG/100 ML BAG IV ONE (21:00)
[2022-05-30] MEDS ORDERED: Sodium Chloride 0.9% 500 ML 500 ML IV ONE ×2 (21:17→21:31)
--- NOTE | 2022-05-30 21:39 | XRAY ---
Indication: Confusion. Syncope. Multiple contiguous axial images obtained through the head without contrast. Comparison: February 07, 2021 Again age-appropriate global atrophy, minimal periventricular degenerative micro-ischemia, and old bilateral basal ganglia lacunar infarcts. No acute intracranial hemorrhage, abnormal extra-axial fluid collection, or mass effect. Fourth ventricle is midline without hydrocephalus. Bony calvarium intact. Visualized paranasal sinuses and mastoid air cells are clear. Impression: Again nonacute senile brain with old bilateral basal ganglia lacunar infarcts. Comment: Preliminary interpretation made by [facility]. No critical discrepancy.
[2022-05-30 23:13] VITALS: BP 137/85; PULSE 84; O2SAT 98
[2022-06-01 10:08] LABS: HBsAg Screen Negative (Negative); HCV Ab Non Reactive (Non Reactive); Hep A Ab, IgM Negative (Negative); Hep B Core Ab, IgM Negative (Negative)
== END 2022-05-30 23:13 | disposition home or self-care (01) ==
LOC: ED 18:05
DX: N39.0 Urinary tract infection, site not specified (principal); R41.0 Disorientation, unspecified; R79.89 Other specified abnormal findings of blood chemistry; I10 Essential (primary) hypertension; E78.5 Hyperlipidemia, unspecified; Z79.899 Other long term (current) drug therapy; Z20.828 Contact with and (suspected) exposure to other viral communicable diseases
CPT/HCPCS: 0241U; 36000; 36415; 70450; 80053; 80074; 81001; 82140; 82248; 82947; 83735; 84484; 85025; 86308; 87086; 93005; 93041; 94760; 99284; P9612; 96360; 96361; 96365; J1956

== ENCOUNTER 2022-06-27 10:00 | Observation (INO) | payer MEDICARE ==
[2022-06-27 10:43] LABS: BASOPHIL % 0.6 % (0.0-0.4); Basophil (Absolute #) 0.06 x10^3/uL (0-0.4); Eosinophil % 1.5 % (0.00-5.0); Eosinophil (Absolute #) 0.16 x10^3/uL (0-0.5); Hematocrit 40.5 % (35-47); Hemoglobin 12.7 g/dL (12.0-16.0); IMMATURE GRAN # 0.05 x10^3u/L (0.00-0.03); IMMATURE GRAN % 0.5 % (0.00-0.4); Lymphocytes % 19.8 % (24.0-44.0); Mean Cell Volume 95.7 fL (78-100); Mean Corpuscular Hgb Concent. 31.4 g/dL (32-36); Mean Platelet Volume 10.1 fL (7.5-11.0); Monocyte (Absolute #) 0.43 x10^3/uL (0.0-1.3); Monocytes % 4.1 % (0.0-12.0); Neutrophil % 73.5 % (36.0-66.0); Platelet Count 226 x10^3/uL (150-450); Red Blood Count 4.23 x10^6/uL (4.1-5.4); Red Cell Distribution Width 13.5 % (11.5-14.0); White Blood Count 10.6 x10^3/uL (4.0-10.5)
--- NOTE | 2022-06-27 10:46 | XRAY ---
Indication: Syncope. Comparison: April 18, 2022 Portable chest again demonstrates normal heart and lungs with incidental tiny calcified granulomas. Bony thorax intact again with osteopenia and mild degenerative changes. Impression: Continued nonacute chest with chronic features.
--- NOTE | 2022-06-27 10:52 | XRAY ---
Indication: Syncope. Altered mental status. Stroke. Multiple contiguous axial images obtained through the head without contrast. Comparison: May 30, 2022 Stable age-appropriate global atrophy, minimal periventricular degenerative micro-ischemia, and old bilateral basal ganglia lacunar infarcts. No acute intracranial hemorrhage, abnormal extra-axial fluid collection, or mass effect. Fourth ventricle is midline without hydrocephalus. Bony calvarium intact. Visualized paranasal sinuses and mastoid air cells are clear. Impression: Stable nonacute senile brain with old bilateral basal ganglia lacunar infarcts.
[2022-06-27 10:59] LABS: ALBUMIN 3.3 g/dL (3.5-5.0); ALKALINE PHOSPHATASE 107 U/L (38-126); ANION GAP 15.1 MEQ/L (5-15); BLOOD UREA NITROGEN 18 mg/dL (7-17); CHLORIDE 112 mmol/L (98-107); Calcium 8.1 mg/dL (8.4-10.2); Carbon Dioxide 21 mmol/L (22-30); Creatinine 1 0.78 mg/dL (0.52-1.04); EST GLOMERULAR FILTRATION RATE > 60.0 ML/MIN; Glucose 111 mg/dL (74-106); MAGNESIUM 2.1 mg/dL (1.6-2.3); Potassium 3.9 mmol/L (3.5-5.1); SGOT/AST 85 U/L (14-36); SGPT/ALT 35 U/L (0-35); SODIUM 144 mmol/L (137-145); Total Protein 6.5 g/dL (6.3-8.2)
--- NOTE | 2022-06-27 11:17 | ERPHSYRPT ---
- History of Present Illness Time Seen by Provider: 06/27/22 10:04 Source: patient Exam Limitations: no limitations Patient Subjective Stated Complaint: pt here for a syncope episode at home today, family told ems she has them often, Triage Nursing Assessment: pt arrived per ambulance, alert but drowsy, resp easy, skin w/d/p. abd soft, chest clear, no edema noted Physician History: 71 years old female with multiple medical problems including hypertension, hyperlipidemia, anxiety/depressiondementia, some autoimmune liver problem, frequent syncope episodes/blackouts is brought in the ER after she had 3 [id number] syncopal episodes prior to arrival. Per son patient was sitting on Timing/Duration: today, sudden, improved Severity: moderate Character of Deficits: none Deficits: no difficulties Baseline/Normal Cognition: alert oriented x 3 Current Cognition: alert oriented x 3 Associated Symptoms: fatigue, loss of consciousness, No confusion, No fever, No vomiting, No muscle spasms, No numbness/tingling in legs/feet, No ringing in e ars, No seizures, No slurred speech, No vision changes, No headache Allergies/Adverse Reactions: levetiracetam [From [facility]] Adverse Reaction (Verified 06/27/22 10:09) Home Medications: Aspirin 81 gm Chew [Baby Aspirin 81 mg Chew] 81 mg PO BID 04/24/20 [History] Nitroglycerin 0.4 mg SL Q5MIN PRN MR X 3 PRN 04/24/20 [History] PANTOPRAZOLE 40 mg Tablet [Protonix 40MG Tablet] 40 mg PO BID 04/24/20 [History] Potassium Chloride Tab* [Klor Con] 10 meq PO TID 04/24/20 [History] Sertraline HCl 100 mg PO HS 04/24/20 [History] ursodioL [Ursodiol] 500 mg PO TID 10/17/20 [History] Alendronate Sodium 70 mg PO WEEKLY 04/18/22 [History] Atorvastatin Calcium 40 mg PO HS 04/18/22 [History] Cholecalciferol (Vitamin D3) [Vitamin D3] 50 mcg PO DAILY 04/18/22 [History] Donepezil HCl 10 mg PO 1700 04/18/22 [History] Magnesium Oxide [Magnesium] 400 mg PO DAILY 04/18/22 [History] Metoprolol Succinate 25 mg PO HS 04/18/22 [History] Mirabegron [Myrbetriq] 25 mg PO HS 04/18/22 [History] Topiramate 100 mg [Topamax 100 MG] 100 mg PO BID 04/18/22 [History] Cyanocobalamin (Vitamin B-12) [Vitamin B-12] 1,000 mcg PO DAILY 05/30/22 [Histor y] Multivitamin 1 tab PO 1200 05/30/22 [History] Ascorbic Acid [Vitamin C] 250 mg PO DAILY 06/27/22 [History] Memantine HCl [Namenda] 10 mg PO BID 06/27/22 [History] Polyethylene Glycol 3350 17 gm [Miralax Powder 17GM PACKET] 17 gm PO BID 06/27/22 [History] Hx Tetanus, Diphtheria Vaccination/Date Given: Yes Hx Influenza Vaccination/Date Given: Yes (unknown) Hx Pneumococcal Vaccination/Date Given: Yes Immunizations Up to Date: Yes Travel Risk - International Travel Have you traveled outside of the country in past 3 weeks: No - Coronavirus Screening Are you exhibiting any of the following symptoms?: No - Vaccine Status Have you recieved a Covid-19 vaccination: Yes [place]: Moderna - Vaccination Dates Date of 2cond Vaccination (if applicable): jun, 2020 - Review of Systems Constitutional: Fatigue, Weakness Eyes: No Symptoms Ears, Nose, & Throat: No Symptoms Respiratory: No Symptoms Skin: No Symptoms Hematologic/Lymphatic: No Symptoms - Past Medical History Pertinent Past Medical History: Yes Neurological History: Stroke ENT History: No Pertinent History Cardiac History: Angina, Coronary Artery Disease, Hypertension Respiratory History: No Pertinent History Endocrine Medical History: No Pertinent History Musculoskeletal History: No Pertinent History GI Medical History: Other History: No Pertinent History Psycho-Social History: No Pertinent History Female Reproductive Disorders: No Pertinent History Other Medical History: autoimmune liver disease. shingles - Past Surgical History Past Surgical History: Yes Neuro Surgical History: No Pertinent History Cardiac: Cardiac Stent Respiratory: No Pertinent History Gastrointestinal: Cholecystectomy Genitourinary: No Pertinent History Musculoskeletal: No Pertinent History Female Surgical History: No Pertinent History - Social History Smoking Status: Never smoker Exposure to second hand smoke: No Drug Use: none Patient Lives Alone: No Significant Family History: no pertinent family hx - Nursing Vital Signs Nursing Vital Signs: Initial Vital Signs Temperature 96.8 F 06/27/22 10:11 Pulse Rate 54 L 06/27/22 10:11 Respiratory Rate 18 06/27/22 10:11 Blood Pressure 132/49 06/27/22 10:11 Pain Scale Pain Intensity 0 - Lala Coma Scale Best Eye Response ([place]): (4) open spontaneously Best Verbal Response ([place]): (5) oriented Best Motor Response ([place]): (6) obeys commands Lala Total: 15 - Physical Exam General Appearance: no apparent distress, alert Eye Exam: bilateral eye: normal inspection, PERRL, EOMI Ears, Nose, Throat Exam: moist mucous membranes Neck Exam: normal inspection, full range of motion Respiratory: normal breath sounds, lungs clear Cardiovascular: regular rate/rhythm, normal heart sounds Gastrointestinal: soft, normal bowel sounds Back Exam: normal inspection Extremity Exam: normal inspection, normal range of motion 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, 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: normal hearing, normal speech, PERRL Coordination/Gait: normal finger to nose Motor/Sensory: no motor deficit, no sensory deficit, negative Babinski's sign Skin Exam: normal color SpO2 Interpretation: normal SpO2: 95 O2 Delivery: Room Air - Course EKG Interpreted by Me: RATE (53), Sinus John, NORMAL AXIS, NORMAL INTERVALS, Non-specific ST Changes Ordered Tests: Medication Summary Discontinued Medications Generic Name Dose Route Start Last Admin Trade Name Freq PRN Reason Stop Dose Admin Acetaminophen 650 mg 06/27/22 15:59 06/28/22 09:31 Acetaminophen 325 Mg Tablet PO 07/27/22 15:58 650 mg Q4H PRN PRN Administration PAIN AND/OR FEVER Albuterol/Ipratropium 3 ml 06/27/22 15:59 Ipratropium/Albuterol Sulfate 3 Ml Ampul.Neb IH 07/27/22 15:58 Q4HPRN PRN SHORTNESS OF BREATH/WHEEZING Alendronate Sodium 70 mg 06/29/22 06:00 06/29/22 06:18 Alendronate Sodium 70 Mg Tablet PO 07/29/22 05:59 70 mg Farmer AMELIE Administration Ascorbic Acid 250 mg 06/28/22 10:00 06/29/22 10:16 Ascorbic Acid 500 Mg Tablet PO 07/28/22 09:59 250 mg DAILY AMELIE Administration Aspirin 81 mg 06/28/22 10:00 06/29/22 10:13 Aspirin 81 Mg Tablet.Ec PO 07/28/22 09:59 81 mg DAILY AMELIE Administration Cholecalciferol 2,000 unit 06/28/22 10:00 06/29/22 10:17 Cholecalciferol (Vitamin D3) 1000 Unit Tablet PO 07/28/22 09:59 2,000 unit DAILY AMELIE Administration Cyanocobalamin 1,000 mcg 06/28/22 10:00 06/29/22 10:15 Cyanocobalamin 500 Mcg Tablet PO 07/28/22 09:59 1,000 mcg DAILY AMELIE Administration Donepezil HCl 10 mg 06/28/22 17:00 06/29/22 16:58 Donepezil Hcl 10 Mg Tablet PO 07/28/22 16:59 10 mg 1700 AMELIE Administration Sodium Chloride 500 mls @ 500 mls/hr 06/27/22 11:51 06/27/22 14:15 Sodium Chloride 0.9% 500 Ml IV 06/27/22 12:50 Infused .Q1H ONE Infusion Ceftriaxone Sodium/Dextrose 2 g in 50 mls @ 100 mls/hr 06/27/22 14:04 06/27/22 14:54 Rocephin 2 Gm-D5w 50ml Bag IV 06/27/22 14:33 Infused STAT STA Infusion Ceftriaxone Sodium/Dextrose Confirm 06/27/22 14:07 Rocephin 2 Gm-D5w 50ml Bag Administered 06/27/22 14:08 Dose 2 g in 50 mls @ ud IV .STK-MED ONE Sodium Chloride 1,000 mls @ 50 mls/hr 06/27/22 15:59 06/29/22 11:46 Sodium Chloride 0.9% 1000 Ml IV 07/27/22 15:58 50 mls/hr .Q20H AMELIE Administration Ceftriaxone Sodium/Dextrose 2 g in 50 mls @ 100 mls/hr 06/28/22 10:00 06/29/22 10:32 Rocephin 2 Gm-D5w 50ml Bag IV 07/01/22 09:59 100 mls/hr Q24H10 AMELIE Administration Magnesium Oxide 400 mg 06/28/22 10:00 06/29/22 10:13 Magnesium Oxide 400 Mg Tablet PO 07/28/22 09:59 400 mg DAILY AMELIE Administration Memantine 10 mg 06/27/22 22:00 06/27/22 23:10 Memantine Hcl 5 Mg Tablet PO 06/27/22 22:01 10 mg BID ONE Administration Memantine 10 mg 06/28/22 10:00 06/29/22 10:14 Memantine Hcl 5 Mg Tablet PO 07/27/22 21:59 10 mg BID AMELIE Administration Metoprolol Succinate 25 mg 06/27/22 22:00 06/27/22 23:10 Metoprolol Succinate 25 Mg Xl Tab PO 06/27/22 22:01 25 mg HS ONE Administration Metoprolol Succinate 25 mg 06/28/22 22:00 Metoprolol Succinate 25 Mg Xl Tab PO 07/27/22 21:59 HS AMELIE Mirabegron 25 mg 06/27/22 22:00 06/27/22 23:11 Mirabegron 25 Mg Tab.Er.24h PO 06/27/22 22:01 25 mg HS ONE Administration Mirabegron 25 mg 06/28/22 22:00 06/28/22 22:20 Mirabegron 25 Mg Tab.Er.24h PO 07/28/22 21:59 25 mg HS AMELIE Administration Multivitamins Therapeutic 1 tab 06/28/22 12:00 06/29/22 12:21 Multivitamins,Therapeutic 1 Tab Tab PO 07/28/22 11:59 1 tab 1200 AMELIE Administration Nitroglycerin 0.4 mg 06/28/22 07:58 Nitroglycerin 0.4 Mg Tablet Bottle SL 07/28/22 07:57 Q5MIN PRN MR X 3 PRN CHEST PAIN Ursodiol 500mg 1 each 06/28/22 15:00 06/29/22 15:04 Tablet PO 07/28/22 14:59 1 each TID AMELIE Administration Pantoprazole Sodium 40 mg 06/27/22 17:00 06/29/22 10:14 Pantoprazole 40 Mg Vial IV 07/27/22 16:59 40 mg Q24H10 AMELIE Administration Polyethylene Glycol 17 gm 06/28/22 07:58 Polyethylene Glycol 3350 17 Gm Packet PO 07/28/22 07:57 BID PRN PRN CONSTIPATION Potassium Chloride 10 meq 06/27/22 22:00 06/29/22 15:03 Potassium Chloride Tab 10 Meq Tab PO 07/27/22 21:59 10 meq TID AMELIE Administration Sertraline HCl 50 mg 06/27/22 22:00 06/27/22 23:11 Sertraline Hcl 50 Mg Tab PO 06/27/22 22:01 50 mg HS ONE Administration Sertraline HCl 50 mg 06/28/22 22:00 06/28/22 22:20 Sertraline Hcl 50 Mg Tab PO 07/27/22 21:59 50 mg HS AMELIE Administration Simvastatin 40 mg 06/27/22 22:00 06/27/22 23:11 Simvastatin 20 Mg Tablet PO 06/27/22 22:01 40 mg HS ONE Administration Simvastatin 40 mg 06/28/22 22:00 06/28/22 22:20 Simvastatin 20 Mg Tablet PO 07/27/22 21:59 40 mg HS AMELIE Administration Topiramate 100 mg 06/27/22 22:00 06/29/22 10:15 Topiramate 50 Mg Tablet PO 07/27/22 21:59 100 mg BID AMELIE Administration Lab/Rad Data: Laboratory Result Diagrams 06/27/22 10:36 06/27/22 10:00 Laboratory Results 06/27/22 06/27/22 06/27/22 Range/Units 12:37 12:37 11:41 WBC (4.0-10.5) x10^3/uL RBC (4.1-5.4) x10^6/uL Hgb (12.0-16.0) g/dL Hct (35-47) % MCV (78-100) fL MCH (26-32) pg MCHC (32-36) g/dL RDW (11.5-14.0) % Plt Count (150-450) x10^3/uL MPV (7.5-11.0) fL Gran % (36.0-66.0) % Immature Gran % (Auto) (0.00-0.4) % Nucleat RBC Rel Count (0.00-0.1) % Eos # (Auto) (0-0.5) x10^3/uL Immature Gran # (Auto) (0.00-0.03) x10^3u/L Absolute Lymphs (auto) (1.0-4.6) x10^3/uL Absolute Monos (auto) (0.0-1.3) x10^3/uL Absolute Nucleated RBC (0.00-0.01) x10^3u/L Lymphocytes % (24.0-44.0) % Monocytes % (0.0-12.0) % Eosinophils % (0.00-5.0) % Basophils % (0.0-0.4) % Absolute Granulocytes (1.4-6.9) x10^3/uL Basophils # (0-0.4) x10^3/uL Sodium (137-145) mmol/L Potassium (3.5-5.1) mmol/L Chloride (98-107) mmol/L Carbon Dioxide (22-30) mmol/L Anion Gap (5-15) MEQ/L BUN (7-17) mg/dL Creatinine (0.52-1.04) mg/dL Estimated GFR ML/MIN Glucose (74-106) mg/dL POC Glucometer 93 (74 to 106) mg/dL Calcium (8.4-10.2) mg/dL Magnesium (1.6-2.3) mg/dL Total Bilirubin (0.2-1.3) mg/dL AST (14-36) U/L ALT (0-35) U/L Alkaline Phosphatase (38-126) U/L Troponin I < 0.012 (0.000-0.034) ng/mL Serum Total Protein (6.3-8.2) g/dL Albumin (3.5-5.0) g/dL Procalcitonin 0.109 H (0.030-0.080) ng/mL TSH 3rd Generation 1.090 (0.47-4.68) mIU/L Urine Color (Yellow) Urine Appearance (Clear) Urine pH (4.6-8.0) Ur Specific [place] (1.005-1.030) Urine Protein (Negative) Urine Glucose (UA) (Negative) mg/dL Urine Ketones (Negative) Urine Blood (Negative) Urine Nitrite (Negative) Urine Bilirubin (Negative) Urine Urobilinogen (0.2) mg/dL Ur Leukocyte Esterase (Negative) U Hyaline Cast (Auto) (0-2) /LPF Urine Microscopic RBC (0-5) /HPF Urine Microscopic WBC (0-5) /HPF Ur Epithelial Cells (None Seen) /HPF Urine Bacteria (None Seen) /HPF Urine Culture Reflexed (NO) 06/27/22 06/27/22 06/27/22 Range/Units 11:22 10:36 10:36 WBC 10.6 H (4.0-10.5) x10^3/uL RBC 4.23 (4.1-5.4) x10^6/uL Hgb 12.7 (12.0-16.0) g/dL Hct 40.5 (35-47) % MCV 95.7 (78-100) fL MCH 30.0 (26-32) pg MCHC 31.4 L (32-36) g/dL RDW 13.5 (11.5-14.0) % Plt Count 226 (150-450) x10^3/uL MPV 10.1 (7.5-11.0) fL Gran % 73.5 H (36.0-66.0) % Immature Gran % (Auto) 0.5 H (0.00-0.4) % Nucleat RBC Rel Count 0.0 (0.00-0.1) % Eos # (Auto) 0.16 (0-0.5) x10^3/uL Immature Gran # (Auto) 0.05 H (0.00-0.03) x10^3u/L Absolute Lymphs (auto) 2.10 (1.0-4.6) x10^3/uL Absolute Monos (auto) 0.43 (0.0-1.3) x10^3/uL Absolute Nucleated RBC 0.00 (0.00-0.01) x10^3u/L Lymphocytes % 19.8 L (24.0-44.0) % Monocytes % 4.1 (0.0-12.0) % Eosinophils % 1.5 (0.00-5.0) % Basophils % 0.6 (0.0-0.4) % Absolute Granulocytes 7.80 H (1.4-6.9) x10^3/uL Basophils # 0.06 (0-0.4) x10^3/uL Sodium (137-145) mmol/L Potassium (3.5-5.1) mmol/L Chloride (98-107) mmol/L Carbon Dioxide (22-30) mmol/L Anion Gap (5-15) MEQ/L BUN (7-17) mg/dL Creatinine (0.52-1.04) mg/dL Estimated GFR ML/MIN Glucose (74-106) mg/dL POC Glucometer (74 to 106) mg/dL Calcium (8.4-10.2) mg/dL Magnesium (1.6-2.3) mg/dL Total Bilirubin (0.2-1.3) mg/dL AST (14-36) U/L ALT (0-35) U/L Alkaline Phosphatase (38-126) U/L Troponin I < 0.012 (0.000-0.034) ng/mL Serum Total Protein (6.3-8.2) g/dL Albumin (3.5-5.0) g/dL Procalcitonin (0.030-0.080) ng/mL TSH 3rd Generation (0.47-4.68) mIU/L Urine Color Dark Yellow A (Yellow) Urine Appearance Turbid A (Clear) Urine pH 7.0 (4.6-8.0) Ur Specific [place] 1.020 (1.005-1.030) Urine Protein Trace A (Negative) Urine Glucose (UA) Negative (Negative) mg/dL Urine Ketones Trace A (Negative) Urine Blood Negative (Negative) Urine Nitrite Negative (Negative) Urine Bilirubin Negative (Negative) Urine Urobilinogen 0.2 (0.2) mg/dL Ur Leukocyte Esterase Small A (Negative) U Hyaline Cast (Auto) 6-10 A (0-2) /LPF Urine Microscopic RBC 3-5 (0-5) /HPF Urine Microscopic WBC 6-10 A (0-5) /HPF Ur Epithelial Cells Rare (None Seen) /HPF Urine Bacteria None Seen (None Seen) /HPF Urine Culture Reflexed YES (NO) 06/27/22 06/27/22 Range/Units 10:16 10:00 WBC (4.0-10.5) x10^3/uL RBC (4.1-5.4) x10^6/uL Hgb (12.0-16.0) g/dL Hct (35-47) % MCV (78-100) fL MCH (26-32) pg MCHC (32-36) g/dL RDW (11.5-14.0) % Plt Count (150-450) x10^3/uL MPV (7.5-11.0) fL Gran % (36.0-66.0) % Immature Gran % (Auto) (0.00-0.4) % Nucleat RBC Rel Count (0.00-0.1) % Eos # (Auto) (0-0.5) x10^3/uL Immature Gran # (Auto) (0.00-0.03) x10^3u/L Absolute Lymphs (auto) (1.0-4.6) x10^3/uL Absolute Monos (auto) (0.0-1.3) x10^3/uL Absolute Nucleated RBC (0.00-0.01) x10^3u/L Lymphocytes % (24.0-44.0) % Monocytes % (0.0-12.0) % Eosinophils % (0.00-5.0) % Basophils % (0.0-0.4) % Absolute Granulocytes (1.4-6.9) x10^3/uL Basophils # (0-0.4) x10^3/uL Sodium 144 (137-145) mmol/L Potassium 3.9 (3.5-5.1) mmol/L Chloride 112 H (98-107) mmol/L Carbon Dioxide 21 L (22-30) mmol/L Anion Gap 15.1 H (5-15) MEQ/L BUN 18 H (7-17) mg/dL Creatinine 0.78 (0.52-1.04) mg/dL Estimated GFR > 60.0 ML/MIN Glucose 111 H (74-106) mg/dL POC Glucometer 103 (74 to 106) mg/dL Calcium 8.1 L (8.4-10.2) mg/dL Magnesium 2.1 (1.6-2.3) mg/dL Total Bilirubin 0.80 (0.2-1.3) mg/dL AST 85 H (14-36) U/L ALT 35 (0-35) U/L Alkaline Phosphatase 107 (38-126) U/L Troponin I (0.000-0.034) ng/mL Serum Total Protein 6.5 (6.3-8.2) g/dL Albumin 3.3 L (3.5-5.0) g/dL Procalcitonin (0.030-0.080) ng/mL TSH 3rd Generation (0.47-4.68) mIU/L Urine Color (Yellow) Urine Appearance (Clear) Urine pH (4.6-8.0) Ur Specific [place] (1.005-1.030) Urine Protein (Negative) Urine Glucose (UA) (Negative) mg/dL Urine Ketones (Negative) Urine Blood (Negative) Urine Nitrite (Negative) Urine Bilirubin (Negative) Urine Urobilinogen (0.2) mg/dL Ur Leukocyte Esterase (Negative) U Hyaline Cast (Auto) (0-2) /LPF Urine Microscopic RBC (0-5) /HPF Urine Microscopic WBC (0-5) /HPF Ur Epithelial Cells (None Seen) /HPF Urine Bacteria (None Seen) /HPF Urine Culture Reflexed (NO) - Progress Progress: improved, re-examined Progress Note: 06/27/22 14:25 71 years old is evaluated for multiple syncopal episodes prior to arrival. Patient does have multiple medical problems including having similar syncopal episodes and usually they are 1 or 2 and she is back to normal but today she was feeling more weaker than usual. She has generalized weakness and feels more sleepy per son. She does have history of UTIs and is on prophylactic medications. She is given gentle hydration, obtain CT head which is negative for any acute intracranial findings. Chest x-ray negative as well. Has a white count of 10, chemistries consistent with mild dehydration. AST 85 and normal bilirubin. Patient has normal TSH but procalcitonin 1.1, does have UTI as well despite being on antibiotic, started on Rocephin. Cultures are obtained. Patient has bradycardia with heart rate in 50s on presentation with no ST elevation and negative troponins but improved in 70s on reevaluation. She is not in any distress but sleepy which is not normal for her. She has no focal new neurodeficit. I believe patient would benefit with [facility] admission and further evaluation and continue with antibiotics until cultures are back. Discussed work-up with patient and son, plan of observation admission and they agree with it. Discussed with Dr. Patel and patient is accepted for admission. Discussed with : Molly Will see patient in: hospital (observation) Counseled pt/family regarding: lab results, diagnosis, rad results Medical Desision Making - Independent Historian Additional History obtained from: Child - Discussion of managment Care discussed with:: on-call "doc" Reviewed:: Test results, Need for additional workup Agreed on:: Treatment plan, place in obs Will see patient: in hospital - Diagnostic Testing Diagnostic test were ordered, analyzed, and reviewed by me: Yes Radiological Interpretation: Reviewed by me - Risk of complications The pt has a high risk of morbidity or mortality based on: Decision regarding hospitilization or escalation of hosp level of care - Departure Departure Disposition: Observation Clinical Impression: Syncope and collapse, UTI (urinary tract infection), Weakness Condition: Stable Critical Care Time: No
[2022-06-27 11:49] LABS: Appearance Turbid (Clear); Bilirubin Negative (Negative); Blood Negative (Negative); Glucose, Urine Negative (Negative); Ketones Trace (Negative); Leukocyte Esterase Small (Negative); Nitrite Negative (Negative); Protein,Urine Dip Trace (Negative); Urobilinogen 0.2 mg/dL (0.2)
[2022-06-27] MEDS ORDERED: Sodium Chloride 0.9% 500 ML 500 ML IV ONE (11:51)
[2022-06-27 12:16] LABS: Bacteria None Seen /HPF (None Seen); Epithelial Cells Rare /HPF (None Seen)
[2022-06-27 12:17] LABS: ADD URINE CULTURE? YES (NO)
[2022-06-27 13:47] LABS: PROCALCITONIN 0.109 ng/mL (0.030-0.080); TSH, 3RD Generation 1.09 mIU/L (0.47-4.68)
[2022-06-27] MEDS ORDERED: ROCEPHIN 2 Gm-D5w 50ML BAG** 2 G/50 ML IVPB IV STA (14:04)
[2022-06-27] MEDS ORDERED: ROCEPHIN 2 Gm-D5w 50ML BAG** 2 G/50 ML IVPB IV ONE (14:07)
[2022-06-27] MEDS ORDERED: DUONEB 0.5-3 MG/3 ml Neb IH PRN (15:59)
[2022-06-27] MEDS ORDERED: TYLENOL 325 MG PO PRN (15:59)
[2022-06-27] MEDS: Sodium Chloride 0.9% 1000 ML 1,000 ML IV SCH (16:22)
[2022-06-27] MEDS: PROTONIX 40 MG IV IV SCH (18:31)
[2022-06-27] MEDS ORDERED: ZOLOFT 50 MG TABLET PO ONE (22:00)
[2022-06-27] MEDS ORDERED: MYRBETRIQ PO ONE (22:00)
[2022-06-27] MEDS ORDERED: Toprol-Xl 25MG Tablets PO ONE (22:00)
[2022-06-27] MEDS ORDERED: Namenda 5 MG PO ONE (22:00)
[2022-06-27] MEDS ORDERED: ZOCOR 20MG PO ONE (22:00)
[2022-06-27] MEDS: TOPIRAMATE PO SCH (23:10)
[2022-06-27] MEDS: Klor Con PO SCH (23:10)
[2022-06-28] MEDS: Sodium Chloride 0.9% 1000 ML 1,000 ML IV SCH ×3 (02:27→23:55)
[2022-06-28 07:02] LABS: Absolute Neutrophil Ct (ANC) 6.21 x10^3/uL (1.4-6.9); BASOPHIL % 0.4 % (0.0-0.4); Basophil (Absolute #) 0.04 x10^3/uL (0-0.4); Eosinophil % 0.4 % (0.00-5.0); Eosinophil (Absolute #) 0.04 x10^3/uL (0-0.5); Hematocrit 36.2 % (35-47); Hemoglobin 11.4 g/dL (12.0-16.0); IMMATURE GRAN # 0.03 x10^3u/L (0.00-0.03); IMMATURE GRAN % 0.3 % (0.00-0.4); Lymphocyte (Absolute #) 1.94 x10^3/uL (1.0-4.6); Lymphocytes % 20.8 % (24.0-44.0); Mean Cell Volume 93.3 fL (78-100); Mean Corpuscular Hemoglobin 29.4 pg (26-32); Mean Corpuscular Hgb Concent. 31.5 g/dL (32-36); Mean Platelet Volume 10.3 fL (7.5-11.0); Monocyte (Absolute #) 1.08 x10^3/uL (0.0-1.3); Monocytes % 11.6 % (0.0-12.0); Neutrophil % 66.5 % (36.0-66.0); Platelet Count 181 x10^3/uL (150-450); Red Blood Count 3.88 x10^6/uL (4.1-5.4); Red Cell Distribution Width 13.5 % (11.5-14.0); White Blood Count 9.3 x10^3/uL (4.0-10.5)
[2022-06-28 07:12] LABS: ALBUMIN 2.4 g/dL (3.5-5.0); ALKALINE PHOSPHATASE 108 U/L (38-126); ANION GAP 10.4 MEQ/L (5-15); BLOOD UREA NITROGEN 18 mg/dL (7-17); CHLORIDE 114 mmol/L (98-107); Calcium 7.2 mg/dL (8.4-10.2); Carbon Dioxide 18 mmol/L (22-30); Creatinine 1 0.64 mg/dL (0.52-1.04); EST GLOMERULAR FILTRATION RATE > 60.0 ML/MIN; Glucose 90 mg/dL (74-106); Potassium 3.8 mmol/L (3.5-5.1); SGOT/AST 301 U/L (14-36); SGPT/ALT 223 U/L (0-35); SODIUM 139 mmol/L (137-145); Total Protein 5.1 g/dL (6.3-8.2)
[2022-06-28] MEDS ORDERED: Miralax Powder 17GM PACKET PO PRN (07:58)
[2022-06-28] MEDS ORDERED: Nitrostat 0.4 MG Tablet SL PRN (07:58)
[2022-06-28] MEDS: PROTONIX 40 MG IV IV SCH (08:55)
[2022-06-28] MEDS: ROCEPHIN 2 Gm-D5w 50ML BAG** 2 G/50 ML IVPB IV SCH (08:57)
[2022-06-28] MEDS: Namenda 5 MG PO SCH ×2 (08:59→22:21)
[2022-06-28] MEDS: TOPIRAMATE PO SCH ×2 (08:59→22:21)
[2022-06-28] MEDS: Klor Con PO SCH ×3 (08:59→22:20)
[2022-06-28] MEDS: ECOTRIN 81 MG PO SCH (09:31)
[2022-06-28] MEDS: VITAMIN D PO SCH (09:31)
[2022-06-28] MEDS: Vitamin C 500 MG PO SCH (09:31)
[2022-06-28] MEDS: Vitamin B-12 500 MCG PO SCH (09:31)
[2022-06-28] MEDS: MAG-OX 400 PO SCH (09:31)
[2022-06-28] MEDS ORDERED: NON-FORMULARY ITEM (Cyanocobalamin (Vitamin B-12) [Vitamin B-12] 1,000 MCG Capsule) PO SCH (10:00)
[2022-06-28] MEDS ORDERED: NON-FORMULARY ITEM (Cholecalciferol (Vitamin D3) [Vitamin D3] 50 MCG Tablet) PO SCH (10:00)
[2022-06-28] MEDS ORDERED: NON-FORMULARY ITEM (Magnesium Oxide [Magnesium] 400 MG Tablet) PO SCH (10:00)
[2022-06-28] MEDS ORDERED: ASCORBIC ACID 250 MG PO SCH (10:00)
[2022-06-28] MEDS: THERAGRAN MULTIVITAMIN PO SCH (11:58)
[2022-06-28] MEDS ORDERED: NON-FORMULARY ITEM (Multivitamin [Multivitamin] 1 EACH Tablet) PO SCH (12:00)
[2022-06-28] MEDS ORDERED: Actigall 300MG PO SCH (15:00)
[2022-06-28] MEDS: NON-FORMULARY ITEM PO SCH ×2 (15:09→22:21)
--- NOTE | 2022-06-28 17:29 | PCM.HP ---
History of Present Illness - Chief Complaint Chief Complaint: Syncope and collapse History of Present Illness: is a 71 years old female with multiple medical problems including HTN,HLD,CAD, anxiety/depressiondementia, some autoimmune liver problem, frequent syncope episodes/blackouts is brought in the ER after she had 3 [id number] syncopal episodes prior to arrival. - Review of Systems Constitutional: Fatigue, Lethargy Eyes: No Symptoms Ears, Nose, & Throat: No Symptoms Respiratory: No Symptoms Cardiac: No Symptoms Abdominal/Gastrointestinal: No Symptoms Genitourinary Symptoms: Frequency Musculoskeletal: Myalgias Skin: No Symptoms Neurological: Other (syncope) Psychological: No Symptoms Endocrine: No Symptoms Hematologic/Lymphatic: No Symptoms Immunological/Allergic: No Symptoms Medications & Allergies Home Medications: Home Medication List Aspirin 81 gm Chew [Baby Aspirin 81 mg Chew] 81 mg PO BID 04/24/20 [History Confirmed 06/27/22] Nitroglycerin 0.4 mg SL Q5MIN PRN MR X 3 PRN 04/24/20 [History Confirmed 06/27/22] PANTOPRAZOLE 40 mg Tablet [Protonix 40MG Tablet] 40 mg PO BID 04/24/20 [History Confirmed 06/27/22] Potassium Chloride Tab* [Klor Con] 10 meq PO TID 04/24/20 [History Confirmed 06/27/22] Sertraline HCl 100 mg PO HS 04/24/20 [History Confirmed 06/27/22] ursodioL [Ursodiol] 500 mg PO TID 10/17/20 [History Confirmed 06/27/22] Alendronate Sodium 70 mg PO WEEKLY 04/18/22 [History Confirmed 06/27/22] Atorvastatin Calcium 40 mg PO HS 04/18/22 [History Confirmed 06/27/22] Cholecalciferol (Vitamin D3) [Vitamin D3] 50 mcg PO DAILY 04/18/22 [History Confirmed 06/27/22] Donepezil HCl 10 mg PO 1700 04/18/22 [History Confirmed 06/27/22] Magnesium Oxide [Magnesium] 400 mg PO DAILY 04/18/22 [History Confirmed 06/27/22] Metoprolol Succinate 25 mg PO HS 04/18/22 [History Confirmed 06/27/22] Mirabegron [Myrbetriq] 25 mg PO HS 04/18/22 [History Confirmed 06/27/22] Topiramate 100 mg [Topamax 100 MG] 100 mg PO BID 04/18/22 [History Confirmed 06/27/22] Cyanocobalamin (Vitamin B-12) [Vitamin B-12] 1,000 mcg PO DAILY 05/30/22 [History Confirmed 06/27/22] Multivitamin 1 tab PO 1200 05/30/22 [History Confirmed 06/27/22] Ascorbic Acid [Vitamin C] 250 mg PO DAILY 06/27/22 [History Confirmed 06/27/22] Memantine HCl [Namenda] 10 mg PO BID 06/27/22 [History Confirmed 06/27/22] Polyethylene Glycol 3350 17 gm [Miralax Powder 17GM PACKET] 17 gm PO BID 06/27/22 [History Confirmed 06/27/22] Allergies/Adverse Reactions: Allergies Allergy/AdvReac Type Severity Reaction Status Date / Time levetiracetam [From [facility]] AdvReac Verified 06/27/22 10:09 - Past Medical History Past Medical History: Yes Neurological History: Seizures, Stroke ENT History: No Pertinent History Cardiac History: Angina, Coronary Artery Disease, Hypertension Respiratory History: No Pertinent History Endocrine Medical History: No Pertinent History Musculoskelatal History: No Pertinent History GI Medical History: Other History: No Pertinent History Pyscho-Social History: No Pertinent History Reproductive Disorders: No Pertinent History Comment: autoimmune liver disease. shingles - Past Surgical History Past Surgical History: Yes Neuro Surgical History: No Pertinent History Cardiac History: Cardiac Stent Respiratory Surgery: No Pertinent History GI Surgical History: Cholecystectomy Genitourinary Surgical Hx: No Pertinent History Musculskeletal Surgical Hx: No Pertinent History Female Surgical History: No Pertinent History Other Surgical History: L HIP REPLACEMENT - Social History Smoking Status: Never smoker Exposure to second hand smoke: No Alcohol: None Drug Use: none Significant Family History: no pertinent family hx - Physical Exam Vital Signs: Vital Signs - 24 hr Temp Pulse Resp BP Pulse Ox 06/28/22 16:00 97.1 F 60 17 138/58 96 06/28/22 12:00 18 06/28/22 11:55 98.4 F 66 17 131/61 93 L 06/28/22 08:00 18 06/28/22 07:31 100.4 F 70 18 128/62 94 L 06/28/22 04:00 98.9 F 68 16 130/62 95 06/28/22 00:00 16 06/27/22 23:48 99.8 F 90 16 124/58 94 L 06/27/22 20:00 16 06/27/22 19:47 100.3 F 84 16 117/53 95 General Appearance: no apparent distress, other (sleepy alert when awakened and oreinted.) Eye Exam: eyes nml inspection Ears, Nose, Throat Exam: normal ENT inspection Neck Exam: normal inspection Respiratory Exam: normal breath sounds Cardiovascular Exam: regular rate/rhythm Gastrointestinal/Abdomen Exam: soft, normal bowel sounds, tenderness (suprapubic,no guarding) Pelvic Exam: not done Rectal Exam: not done Back Exam: normal inspection Results - Labs Lab/Micro Results: Lab Results-Last 24 Hours 06/27/22 06/27/22 06/27/22 Range/Units 16:51 19:44 19:44 WBC (4.0-10.5) x10^3/uL RBC (4.1-5.4) x10^6/uL Hgb (12.0-16.0) g/dL Hct (35-47) % MCV (78-100) fL MCH (26-32) pg MCHC (32-36) g/dL RDW (11.5-14.0) % Plt Count (150-450) x10^3/uL MPV (7.5-11.0) fL Gran % (36.0-66.0) % Immature Gran % (Auto) (0.00-0.4) % Nucleat RBC Rel Count (0.00-0.1) % Eos # (Auto) (0-0.5) x10^3/uL Immature Gran # (Auto) (0.00-0.03) x10^3u/L Absolute Lymphs (auto) (1.0-4.6) x10^3/uL Absolute Monos (auto) (0.0-1.3) x10^3/uL Absolute Nucleated RBC (0.00-0.01) x10^3u/L Lymphocytes % (24.0-44.0) % Monocytes % (0.0-12.0) % Eosinophils % (0.00-5.0) % Basophils % (0.0-0.4) % Absolute Granulocytes (1.4-6.9) x10^3/uL Basophils # (0-0.4) x10^3/uL Sodium (137-145) mmol/L Potassium (3.5-5.1) mmol/L Chloride (98-107) mmol/L Carbon Dioxide (22-30) mmol/L Anion Gap (5-15) MEQ/L BUN (7-17) mg/dL Creatinine (0.52-1.04) mg/dL Estimated GFR ML/MIN Glucose (74-106) mg/dL POC Glucometer (74 to 106) mg/dL Calcium (8.4-10.2) mg/dL Total Bilirubin (0.2-1.3) mg/dL AST (14-36) U/L ALT (0-35) U/L Alkaline Phosphatase (38-126) U/L Troponin I < 0.012 (0.000-0.034) ng/mL Serum Total Protein (6.3-8.2) g/dL Albumin (3.5-5.0) g/dL Prealbumin 20.10 (17.6-36.0) mg/dL 25-OH Vitamin D Total 47.8 (30-100) ng/mL 06/27/22 06/28/22 06/28/22 Range/Units 20:40 06:19 06:19 WBC 9.3 (4.0-10.5) x10^3/uL RBC 3.88 L (4.1-5.4) x10^6/uL Hgb 11.4 L (12.0-16.0) g/dL Hct 36.2 (35-47) % MCV 93.3 (78-100) fL MCH 29.4 (26-32) pg MCHC 31.5 L (32-36) g/dL RDW 13.5 (11.5-14.0) % Plt Count 181 (150-450) x10^3/uL MPV 10.3 (7.5-11.0) fL Gran % 66.5 H (36.0-66.0) % Immature Gran % (Auto) 0.3 (0.00-0.4) % Nucleat RBC Rel Count 0.0 (0.00-0.1) % Eos # (Auto) 0.04 (0-0.5) x10^3/uL Immature Gran # (Auto) 0.03 (0.00-0.03) x10^3u/L Absolute Lymphs (auto) 1.94 (1.0-4.6) x10^3/uL Absolute Monos (auto) 1.08 (0.0-1.3) x10^3/uL Absolute Nucleated RBC 0.00 (0.00-0.01) x10^3u/L Lymphocytes % 20.8 L (24.0-44.0) % Monocytes % 11.6 (0.0-12.0) % Eosinophils % 0.4 (0.00-5.0) % Basophils % 0.4 (0.0-0.4) % Absolute Granulocytes 6.21 (1.4-6.9) x10^3/uL Basophils # 0.04 (0-0.4) x10^3/uL Sodium 139 (137-145) mmol/L Potassium 3.8 (3.5-5.1) mmol/L Chloride 114 H (98-107) mmol/L Carbon Dioxide 18 L (22-30) mmol/L Anion Gap 10.4 (5-15) MEQ/L BUN 18 H (7-17) mg/dL Creatinine 0.64 (0.52-1.04) mg/dL Estimated GFR > 60.0 ML/MIN Glucose 90 (74-106) mg/dL POC Glucometer 99 (74 to 106) mg/dL Calcium 7.2 L (8.4-10.2) mg/dL Total Bilirubin 1.50 H (0.2-1.3) mg/dL AST 301 H (14-36) U/L ALT 223 H (0-35) U/L Alkaline Phosphatase 108 (38-126) U/L Troponin I (0.000-0.034) ng/mL Serum Total Protein 5.1 L (6.3-8.2) g/dL Albumin 2.4 L (3.5-5.0) g/dL Prealbumin (17.6-36.0) mg/dL 25-OH Vitamin D Total (30-100) ng/mL Microbiology 06/27/22 11:22 Urine Culture - Preliminary Clean Catch Midstream <10K NORMAL SKIN AVELINA PROBABLE SKIN CONTAMINANT - Radiology Impressions Radiology Exams & Impressions: Radiology Procedures Category Date Time Status CHEST 1 VIEW (PORTABLE) Stat Exams 06/27/22 10:15 Completed HEAD WITHOUT CONTRAST [CT] Stat Exams 06/27/22 10:16 Completed - Other Procedures and Tests Respiratory Therapy 06/27/22 16:30 Respiratory Therapy Assessment ONCE Assessment/Plan (1) Syncope and collapse Status: Suspected Code(s): R55 - SYNCOPE AND COLLAPSE (2) UTI (urinary tract infection) Status: Acute Qualifiers: Urinary tract infection type: site unspecified Code(s): N39.0 - URINARY TRACT INFECTION, SITE NOT SPECIFIED (3) Leukocytosis Status: Acute Code(s): D72.829 - ELEVATED WHITE BLOOD CELL COUNT, UNSPECIFIED
[2022-06-28] MEDS: Aricept 10 MG PO SCH (18:26)
[2022-06-28] MEDS ORDERED: MYRBETRIQ PO SCH (22:00)
[2022-06-28] MEDS ORDERED: ZOLOFT 50 MG TABLET PO SCH (22:00)
[2022-06-28] MEDS ORDERED: ZOCOR 20MG PO SCH (22:00)
[2022-06-28] MEDS ORDERED: Toprol-Xl 25MG Tablets PO SCH (22:00)
[2022-06-29] MEDS ORDERED: Fosamax 70 MG PO SCH (06:00)
[2022-06-29 07:16] LABS: Hematocrit 36.6 % (35-47); Hemoglobin 11.6 g/dL (12.0-16.0); Mean Cell Volume 93.1 fL (78-100); Mean Corpuscular Hemoglobin 29.5 pg (26-32); Mean Corpuscular Hgb Concent. 31.7 g/dL (32-36); Mean Platelet Volume 9.8 fL (7.5-11.0); Platelet Count 163 x10^3/uL (150-450); Red Blood Count 3.93 x10^6/uL (4.1-5.4); Red Cell Distribution Width 13.7 % (11.5-14.0); White Blood Count 6.4 x10^3/uL (4.0-10.5)
[2022-06-29 07:46] LABS: ALBUMIN 2.8 g/dL (3.5-5.0); ALKALINE PHOSPHATASE 119 U/L (38-126); ANION GAP 9.8 MEQ/L (5-15); BLOOD UREA NITROGEN 6 mg/dL (7-17); CHLORIDE 116 mmol/L (98-107); Calcium 7.4 mg/dL (8.4-10.2); Carbon Dioxide 20 mmol/L (22-30); Creatinine 1 0.51 mg/dL (0.52-1.04); EST GLOMERULAR FILTRATION RATE > 60.0 ML/MIN; Glucose 81 mg/dL (74-106); Potassium 3.6 mmol/L (3.5-5.1); SGOT/AST 136 U/L (14-36); SGPT/ALT 151 U/L (0-35); SODIUM 142 mmol/L (137-145); Total Protein 5.8 g/dL (6.3-8.2)
[2022-06-29] MEDS: ECOTRIN 81 MG PO SCH (10:13)
[2022-06-29] MEDS: MAG-OX 400 PO SCH (10:13)
[2022-06-29] MEDS: Klor Con PO SCH ×2 (10:13→15:03)
[2022-06-29] MEDS: NON-FORMULARY ITEM PO SCH ×2 (10:14→15:04)
[2022-06-29] MEDS: PROTONIX 40 MG IV IV SCH (10:14)
[2022-06-29] MEDS: Namenda 5 MG PO SCH (10:14)
[2022-06-29] MEDS: Vitamin B-12 500 MCG PO SCH (10:15)
[2022-06-29] MEDS: TOPIRAMATE PO SCH (10:15)
[2022-06-29] MEDS: Vitamin C 500 MG PO SCH (10:16)
[2022-06-29] MEDS: VITAMIN D PO SCH (10:17)
[2022-06-29] MEDS: ROCEPHIN 2 Gm-D5w 50ML BAG** 2 G/50 ML IVPB IV SCH (10:32)
[2022-06-29] MEDS: Sodium Chloride 0.9% 1000 ML 1,000 ML IV SCH (11:46)
[2022-06-29] MEDS: THERAGRAN MULTIVITAMIN PO SCH (12:21)
[2022-06-29 15:15] LABS: Appearance Clear (Clear); Bacteria None Seen /HPF (None Seen); Bilirubin Negative (Negative); Blood Small (Negative); Epithelial Cells None Seen /HPF (None Seen); Glucose, Urine Negative (Negative); Ketones Negative (Negative); Leukocyte Esterase Small (Negative); Nitrite Negative (Negative); Ph 7.5 (4.6-8.0); Protein,Urine Dip Negative (Negative); RBC 0-2 /HPF (0-5); Specific Gravity <=1.005 (1.005-1.030); Urobilinogen 0.2 mg/dL (0.2)
[2022-06-29 15:16] LABS: ADD URINE CULTURE? ORDERED SEPARATELY (NO)
[2022-06-29 16:09] VITALS: BP 146/65; PULSE 64
[2022-06-29] MEDS: Aricept 10 MG PO SCH (16:58)
--- NOTE | 2022-06-29 17:04 | PCM.DCORD ---
- Discharge Condition: Stable Prescriptions: Continue Sertraline HCl 100 mg PO HS Potassium Chloride Tab* [Klor Con] 10 meq PO TID PANTOPRAZOLE 40 mg Tablet [Protonix 40MG Tablet] 40 mg PO BID Nitroglycerin 0.4 mg SL Q5MIN PRN MR X 3 PRN PRN Reason: Chest Pain Aspirin 81 gm Chew [Baby Aspirin 81 mg Chew] 81 mg PO BID ursodioL [Ursodiol] 500 mg PO TID Topiramate 100 mg [Topamax 100 MG] 100 mg PO BID Metoprolol Succinate 25 mg PO HS Alendronate Sodium 70 mg PO WEEKLY Magnesium Oxide [Magnesium] 400 mg PO DAILY Donepezil HCl 10 mg PO 1700 Cholecalciferol (Vitamin D3) [Vitamin D3] 50 mcg PO DAILY Mirabegron [Myrbetriq] 25 mg PO HS Atorvastatin Calcium 40 mg PO HS Cyanocobalamin (Vitamin B-12) [Vitamin B-12] 1,000 mcg PO DAILY Multivitamin 1 tab PO 1200 Polyethylene Glycol 3350 17 gm [Miralax Powder 17GM PACKET] 17 gm PO BID Ascorbic Acid [Vitamin C] 250 mg PO DAILY Memantine HCl [Namenda] 10 mg PO BID Discontinued Cefdinir 300 mg PO HS Additional Instructions: will follow up with he Urologiat, Dr Velázquez. Will see Breeding Manager -appt Dr Lissette Sun in [place] this Thursday Will follow with her Equity Structurer Dr Salas Butts Follow up with: [facility] [Primary Care Provider] - SANCHO LEGER NP [Family Provider] -
[2022-07-05 23:44] VITALS: O2SAT 95
== END 2022-06-29 18:25 | disposition home health service (06) ==
LOC: ED 10:00 → MED SURG 15:58
PROVIDERS: ADMIT Family Medicine; ATTEND Family Medicine
DX: R55 Syncope and collapse (principal); N39.0 Urinary tract infection, site not specified; I10 Essential (primary) hypertension; D72.829 Elevated white blood cell count, unspecified; I25.10 Atherosclerotic heart disease of native coronary artery without angina pectoris; E78.5 Hyperlipidemia, unspecified; Z79.899 Other long term (current) drug therapy; F41.9 Anxiety disorder, unspecified; F41.8 Other specified anxiety disorders
CPT/HCPCS: 36000; 36415; 70450; 71045; 80053; 81001; 82306; 82533; 82607; 82947; 83735; 84134; 84145; 84425; 84443; 84484; 85025; 85027; 87040; 87077; 87086; 87186; 93005; 93268; 96360; 96365; 99285; G0378; J0696; A9270-GY

== ENCOUNTER 2022-07-27 01:59 | Observation (INO) | payer MEDICARE ==
[2022-07-27] MEDS ORDERED: Sodium Chloride 0.9% 1000 ML 1,000 ML IV SCH (02:45)
--- NOTE | 2022-07-27 02:50 | ERPHSYRPT ---
- History of Present Illness Time Seen by Provider: 07/27/22 02:43 Source: patient, family Exam Limitations: no limitations Physician History: hx is confirmed by independent interview her family present in ER. pt had 2 syncopal episodes the first began with back dailey . Now has no symptoms - no CP, No Dizziness, No headache, No vomiting no pain, No abd pain. Normal neuro exam and fundia re benign with normal visual childress on exam. No hx fall or trauma. no pronator drift. normal bilateral bacteriologist dairy Witnessed: by family Prior Episodes: multiple episodes today Timing/Duration: today Precipitating Factors: unknown Context: sitting Loss of Consciousness: brief (seconds) Charcter of event(s): became unresponsive Allergies/Adverse Reactions: levetiracetam [From [facility]] Adverse Reaction (Verified 07/27/22 02:05) Home Medications: Aspirin 81 gm Chew [Baby Aspirin 81 mg Chew] 81 mg PO BID 04/24/20 [History] Nitroglycerin 0.4 mg SL Q5MIN PRN MR X 3 PRN 04/24/20 [History] PANTOPRAZOLE 40 mg Tablet [Protonix 40MG Tablet] 40 mg PO BID 04/24/20 [History] Potassium Chloride Tab* [Klor Con] 10 meq PO TID 04/24/20 [History] Sertraline HCl 100 mg PO HS 04/24/20 [History] ursodioL [Ursodiol] 500 mg PO TID 10/17/20 [History] Alendronate Sodium 70 mg PO WEEKLY 04/18/22 [History] Atorvastatin Calcium 40 mg PO HS 04/18/22 [History] Cholecalciferol (Vitamin D3) [Vitamin D3] 50 mcg PO DAILY 04/18/22 [History] Donepezil HCl 10 mg PO 1700 04/18/22 [History] Magnesium Oxide [Magnesium] 400 mg PO DAILY 04/18/22 [History] Mirabegron [Myrbetriq] 25 mg PO HS 04/18/22 [History] Topiramate 100 mg [Topamax 100 MG] 100 mg PO BID 04/18/22 [History] Cyanocobalamin (Vitamin B-12) [Vitamin B-12] 1,000 mcg PO DAILY 05/30/22 [Hi story] Multivitamin 1 tab PO 1200 05/30/22 [History] Ascorbic Acid [Vitamin C] 250 mg PO DAILY 06/27/22 [History] Memantine HCl [Namenda] 10 mg PO BID 06/27/22 [History] Polyethylene Glycol 3350 17 gm [Miralax Powder 17GM PACKET] 17 gm PO BID 06/27/22 [History] Hx Tetanus, Diphtheria Vaccination/Date Given: Yes Hx Influenza Vaccination/Date Given: Yes (unknown) Hx Pneumococcal Vaccination/Date Given: Yes Travel Risk - Vaccine Status Have you recieved a Covid-19 vaccination: Yes 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 - Vaccination Dates Date of 2cond Vaccination (if applicable): jun, 2020 - Past Medical History Pertinent Past Medical History: Yes Neurological History: Seizures, Stroke ENT History: No Pertinent History Cardiac History: Angina, Coronary Artery Disease, Hypertension Respiratory History: No Pertinent History Endocrine Medical History: No Pertinent History Musculoskeletal History: No Pertinent History GI Medical History: Other History: No Pertinent History Psycho-Social History: No Pertinent History Female Reproductive Disorders: No Pertinent History Other Medical History: autoimmune liver disease. shingles - Past Surgical History Past Surgical History: Yes Neuro Surgical History: No Pertinent History Cardiac: Cardiac Stent Respiratory: No Pertinent History Gastrointestinal: Cholecystectomy Genitourinary: No Pertinent History Musculoskeletal: No Pertinent History Female Surgical History: No Pertinent History Other Surgical History: L HIP REPLACEMENT - Social History Smoking Status: Never smoker Exposure to second hand smoke: No Drug Use: none Patient Lives Alone: No Significant Family History: no pertinent family hx - Review of Systems Constitutional: No Fever, No Chills Eyes: No Symptoms Ears, Nose, & Throat: No Symptoms Respiratory: No Cough, No Dyspnea Cardiac: No Chest Pain, No Edema, No Syncope Abdominal/Gastrointestinal: No Abdominal Pain, No Nausea, No Vomiting, No Diarrhea Genitourinary Symptoms: No Dysuria Musculoskeletal: Back Pain, No Neck Pain Skin: No Rash Neurological: Other (syncopal), No Dizziness, No Focal Weakness, No Sensory Changes Psychological: No Symptoms Endocrine: No Symptoms Hematologic/Lymphatic: No Symptoms Immunological/Allergic: No Symptoms All Other Systems: Reviewed and Negative Physical Exam - Nursing Vital Signs Nursing Vital Signs: Initial Vital Signs Temperature 98.6 F 07/27/22 02:02 Pulse Rate 89 07/27/22 02:02 Respiratory Rate 18 07/27/22 02:02 Blood Pressure 106/36 07/27/22 02:02 O2 Sat by Pulse Oximetry 99 07/27/22 02:02 Pain Scale Pain Intensity 0 - Hagerman Coma Scale Best Eye Response (Hagerman): (4) open spontaneously Best Verbal Response (Lala): (5) oriented Best Motor Response (Hagerman): (6) obeys commands Lala Total: 15 - Physical Exam General Appearance: no apparent distress, alert Eye Exam: bilateral eye: PERRL, EOMI Ears, Nose, Throat Exam: normal ENT inspection, pharynx normal, moist mucous membranes Neck Exam: normal inspection, non-tender, supple, full range of motion Respiratory: normal breath sounds, lungs clear, No chest tenderness, No respiratory distress Cardiovascular: regular rate/rhythm, capillary refill <2 sec, No murmur, No pulse deficit Gastrointestinal: soft, No tenderness, No distention, No mass Pelvic Exam: deferred Rectal Exam: deferred Back Exam: normal inspection, normal range of motion, No CVA tenderness, No vertebral tenderness Extremity Exam: normal inspection, normal range of motion, pelvis stable, No ten derness Peripheral Pulses: carotid (R): 2+, carotid (L): 2+, femoral (R): 2+, femoral (L): 2+, dorsalis-pedis (R): 2+, dorsalis-pedis (L): 2+ 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, oriented x 3, cooperative airplane pilot photogrammetry Exam: normal speech, PERRL, No facial droop Coordination/Gait: normal finger to nose Motor/Sensory: no motor deficit, no sensory deficit, no pronator drift DTR: bicep (R): 2+, bicep (L): 2+, tricep (R): 2+, tricep (L): 2+, knee (R): 2+, knee (L): 2+, ankle (R): 2+, ankle (L): 2+ Skin Exam: normal color, warm, dry, No rash SpO2 Interpretation: normal SpO2: 96 O2 Delivery: Room Air - Course Nursing assessment & vital signs reviewed: Yes EKG Interpreted by Me: Sinus Tach, NORMAL AXIS, NORMAL INTERVALS, Non-specific ST Changes, Other (inf Q) - CT Exams Chest CT Interpretation: Tele-radiologist Report, No PE Abdomen/Pelvis CT Interpretation: Tele-radiologist Report, Other (no aneurysm) Ordered Tests: Active Orders 24 hr Category Date Time Status EKG-ER Only STAT Care 07/27/22 02:44 Active IV Insertion STAT Care 07/27/22 02:44 Active ABDOMEN AND PELVIS W/0 CONTRAS [CT] Stat Exams 07/27/22 03:08 Completed CHEST WITH CONTRAST [CT] Stat Exams 07/27/22 03:56 Completed HEAD WITHOUT CONTRAST [CT] Stat Exams 07/27/22 02:43 Completed CBC W DIFF Stat Lab 07/27/22 03:20 Completed CMP Stat Lab 07/27/22 03:20 Completed D-DIMER QUANTITATIVE Stat Lab 07/27/22 03:20 Completed Lactic Acid Stat Lab 07/27/22 03:15 Completed NT PRO BNPII Stat Lab 07/27/22 03:20 Completed T4 (Thyroxine) Stat Lab 07/27/22 03:20 Completed TROPONIN Q4H Lab 07/27/22 03:20 Completed TROPONIN Q4H Lab 07/27/22 06:45 Ordered TROPONIN Q4H Lab 07/27/22 10:45 Ordered TSH [TSH, 3RD Generation] Stat Lab 07/27/22 03:20 Completed UA W/RFX UR CULTURE Stat Lab 07/27/22 02:44 Ordered Medication Summary Generic Name Dose Route Start Last Admin Trade Name Freq PRN Reason Stop Dose Admin Sodium Chloride 1,000 mls @ 100 mls/hr 07/27/22 02:45 07/27/22 03:16 Sodium Chloride 0.9% 1000 Ml IV 08/26/22 02:44 100 mls/hr .Q10H AMELIE Administration Lab/Rad Data: Laboratory Result Diagrams 07/27/22 03:20 07/27/22 03:20 Laboratory Results 07/27/22 07/27/22 07/27/22 Range/Units 03:20 03:20 03:20 WBC (4.0-10.5) x10^3/uL RBC (4.1-5.4) x10^6/uL Hgb (12.0-16.0) g/dL Hct (35-47) % MCV (78-100) fL MCH (26-32) pg MCHC (32-36) g/dL RDW (11.5-14.0) % Plt Count (150-450) x10^3/uL MPV (7.5-11.0) fL Gran % (36.0-66.0) % Immature Gran % (Auto) (0.00-0.4) % Nucleat RBC Rel Count (0.00-0.1) % Eos # (Auto) (0-0.5) x10^3/uL Immature Gran # (Auto) (0.00-0.03) x10^3u/L Absolute Lymphs (auto) (1.0-4.6) x10^3/uL Absolute Monos (auto) (0.0-1.3) x10^3/uL Absolute Nucleated RBC (0.00-0.01) x10^3u/L Lymphocytes % (24.0-44.0) % Monocytes % (0.0-12.0) % Eosinophils % (0.00-5.0) % Basophils % (0.0-0.4) % Absolute Granulocytes (1.4-6.9) x10^3/uL Basophils # (0-0.4) x10^3/uL D-Dimer 1.28 H* (0.0-0.50) mg/L Sodium (137-145) mmol/L Potassium (3.5-5.1) mmol/L Chloride (98-107) mmol/L Carbon Dioxide (22-30) mmol/L Anion Gap (5-15) MEQ/L BUN (7-17) mg/dL Creatinine (0.52-1.04) mg/dL Estimated GFR ML/MIN Glucose (74-106) mg/dL Lactic Acid (0.4-2.0) Calcium (8.4-10.2) mg/dL Total Bilirubin (0.2-1.3) mg/dL AST (14-36) U/L ALT (0-35) U/L Alkaline Phosphatase (38-126) U/L Troponin I (0.000-0.034) ng/mL NT-Pro-B Natriuret Pep (<300) pg/mL Serum Total Protein (6.3-8.2) g/dL Albumin (3.5-5.0) g/dL Thyroxine (T4) 8.33 (5.53-10.96) ug/dL TSH 3rd Generation 1.750 (0.47-4.68) mIU/L 07/27/22 07/27/22 07/27/22 Range/Units 03:20 03:20 03:20 WBC 11.2 H (4.0-10.5) x10^3/uL RBC 4.05 L (4.1-5.4) x10^6/uL Hgb 12.2 (12.0-16.0) g/dL Hct 37.9 (35-47) % MCV 93.6 (78-100) fL MCH 30.1 (26-32) pg MCHC 32.2 (32-36) g/dL RDW 13.7 (11.5-14.0) % Plt Count 207 (150-450) x10^3/uL MPV 10.0 (7.5-11.0) fL Gran % 89.2 H (36.0-66.0) % Immature Gran % (Auto) 0.4 (0.00-0.4) % Nucleat RBC Rel Count 0.0 (0.00-0.1) % Eos # (Auto) 0.02 (0-0.5) x10^3/uL Immature Gran # (Auto) 0.04 H (0.00-0.03) x10^3u/L Absolute Lymphs (auto) 0.69 L (1.0-4.6) x10^3/uL Absolute Monos (auto) 0.41 (0.0-1.3) x10^3/uL Absolute Nucleated RBC 0.00 (0.00-0.01) x10^3u/L Lymphocytes % 6.2 L (24.0-44.0) % Monocytes % 3.7 (0.0-12.0) % Eosinophils % 0.2 (0.00-5.0) % Basophils % 0.3 (0.0-0.4) % Absolute Granulocytes 9.98 H (1.4-6.9) x10^3/uL Basophils # 0.03 (0-0.4) x10^3/uL D-Dimer (0.0-0.50) mg/L Sodium 141 (137-145) mmol/L Potassium 3.3 L (3.5-5.1) mmol/L Chloride 114 H (98-107) mmol/L Carbon Dioxide 18 L (22-30) mmol/L Anion Gap 11.9 (5-15) MEQ/L BUN 17 (7-17) mg/dL Creatinine 0.74 (0.52-1.04) mg/dL Estimated GFR > 60.0 ML/MIN Glucose 113 H (74-106) mg/dL Lactic Acid (0.4-2.0) Calcium 8.4 (8.4-10.2) mg/dL Total Bilirubin 1.40 H (0.2-1.3) mg/dL AST 379 H (14-36) U/L ALT 190 H (0-35) U/L Alkaline Phosphatase 133 H (38-126) U/L Troponin I < 0.012 (0.000-0.034) ng/mL NT-Pro-B Natriuret Pep 421 (<300) pg/mL Serum Total Protein 6.2 L (6.3-8.2) g/dL Albumin 3.4 L (3.5-5.0) g/dL Thyroxine (T4) (5.53-10.96) ug/dL TSH 3rd Generation (0.47-4.68) mIU/L 07/27/22 Range/Units 03:15 WBC (4.0-10.5) x10^3/uL RBC (4.1-5.4) x10^6/uL Hgb (12.0-16.0) g/dL Hct (35-47) % MCV (78-100) fL MCH (26-32) pg MCHC (32-36) g/dL RDW (11.5-14.0) % Plt Count (150-450) x10^3/uL MPV (7.5-11.0) fL Gran % (36.0-66.0) % Immature Gran % (Auto) (0.00-0.4) % Nucleat RBC Rel Count (0.00-0.1) % Eos # (Auto) (0-0.5) x10^3/uL Immature Gran # (Auto) (0.00-0.03) x10^3u/L Absolute Lymphs (auto) (1.0-4.6) x10^3/uL Absolute Monos (auto) (0.0-1.3) x10^3/uL Absolute Nucleated RBC (0.00-0.01) x10^3u/L Lymphocytes % (24.0-44.0) % Monocytes % (0.0-12.0) % Eosinophils % (0.00-5.0) % Basophils % (0.0-0.4) % Absolute Granulocytes (1.4-6.9) x10^3/uL Basophils # (0-0.4) x10^3/uL D-Dimer (0.0-0.50) mg/L Sodium (137-145) mmol/L Potassium (3.5-5.1) mmol/L Chloride (98-107) mmol/L Carbon Dioxide (22-30) mmol/L Anion Gap (5-15) MEQ/L BUN (7-17) mg/dL Creatinine (0.52-1.04) mg/dL Estimated GFR ML/MIN Glucose (74-106) mg/dL Lactic Acid 1.6 (0.4-2.0) Calcium (8.4-10.2) mg/dL Total Bilirubin (0.2-1.3) mg/dL AST (14-36) U/L ALT (0-35) U/L Alkaline Phosphatase (38-126) U/L Troponin I (0.000-0.034) ng/mL NT-Pro-B Natriuret Pep (<300) pg/mL Serum Total Protein (6.3-8.2) g/dL Albumin (3.5-5.0) g/dL Thyroxine (T4) (5.53-10.96) ug/dL TSH 3rd Generation (0.47-4.68) mIU/L - Progress Progress: improved, re-examined Progress Note: 07/27/22 06:[address] Cortes , hospitalist and pt and all agree best to come in for obs and syncopal episodes Discussed with Dr.: Other (Dr. Cortes) Will see patient in: hospital (observation) Counseled pt/family regarding: lab results, diagnosis, need for follow-up, rad results Medical Desision Making - Independent Historian Additional History obtained from: Family - Discussion of managment Care discussed with:: hospitalist Reviewed:: Test results, Need for additional workup Agreed on:: Treatment plan, need for follow-up, decision to admit, place in obs Will see patient: in hospital - Diagnostic Testing Diagnostic test were ordered, analyzed, and reviewed by me: Yes Radiological Interpretation: Reviewed by me, Teleradiologist Report - Risk of complications The pt has a mod risk of morbidity or mortality based on: Need for prescription drug management The pt has a high risk of morbidity or mortality based on: Drug therapy requiring intensive monitoring for toxicity - Departure Departure Disposition: Observation Clinical Impression: Syncopal episodes Condition: Good Critical Care Time: No Referrals: [facility] [Primary Care Provider] - Follow up/PCP as directed
[2022-07-27 03:27] LABS: Absolute Neutrophil Ct (ANC) 9.98 x10^3/uL (1.4-6.9); BASOPHIL % 0.3 % (0.0-0.4); Basophil (Absolute #) 0.03 x10^3/uL (0-0.4); Eosinophil % 0.2 % (0.00-5.0); Eosinophil (Absolute #) 0.02 x10^3/uL (0-0.5); Hematocrit 37.9 % (35-47); Hemoglobin 12.2 g/dL (12.0-16.0); IMMATURE GRAN # 0.04 x10^3u/L (0.00-0.03); IMMATURE GRAN % 0.4 % (0.00-0.4); Lymphocyte (Absolute #) 0.69 x10^3/uL (1.0-4.6); Lymphocytes % 6.2 % (24.0-44.0); Mean Cell Volume 93.6 fL (78-100); Mean Corpuscular Hemoglobin 30.1 pg (26-32); Mean Corpuscular Hgb Concent. 32.2 g/dL (32-36); Monocyte (Absolute #) 0.41 x10^3/uL (0.0-1.3); Monocytes % 3.7 % (0.0-12.0); Neutrophil % 89.2 % (36.0-66.0); Platelet Count 207 x10^3/uL (150-450); Red Blood Count 4.05 x10^6/uL (4.1-5.4); Red Cell Distribution Width 13.7 % (11.5-14.0); White Blood Count 11.2 x10^3/uL (4.0-10.5)
[2022-07-27 03:41] LABS: ALBUMIN 3.4 g/dL (3.5-5.0); ALKALINE PHOSPHATASE 133 U/L (38-126); ANION GAP 11.9 MEQ/L (5-15); BLOOD UREA NITROGEN 17 mg/dL (7-17); CHLORIDE 114 mmol/L (98-107); Calcium 8.4 mg/dL (8.4-10.2); Carbon Dioxide 18 mmol/L (22-30); Creatinine 1 0.74 mg/dL (0.52-1.04); EST GLOMERULAR FILTRATION RATE > 60.0 ML/MIN; Glucose 113 mg/dL (74-106); Potassium 3.3 mmol/L (3.5-5.1); SGOT/AST 379 U/L (14-36); SGPT/ALT 190 U/L (0-35); SODIUM 141 mmol/L (137-145); Total Protein 6.2 g/dL (6.3-8.2)
[2022-07-27 03:54] LABS: NT PRO BNPII 421 pg/mL (<300); TROPONIN < 0.012 ng/mL (0.000-0.034)
--- NOTE | 2022-07-27 04:50 | XRAY ---
CLINICAL HISTORY:syncopal episodes today prior cvas COMPARISON:None; TECHNIQUES:Axial non-contrast CT scan of the brain was performed from the skull base to the high parietal region. FINDINGS: Mild prominent ventricular system and extra-axial CSF spaces suggest age-related involutional changes. Bilateral periventricular and left cerebellar hemispheres old lacunar infarctions are noted. Cop[place]-white matter differentiation is maintained. No midline shifts or deformity. No intracerebral or extra axial hematoma. Normal size and configuration of the cerebral ventricles. Normal CT appearance of the right cerebellar hemisphere, brainstem, and cerebellar peduncles. The osseous structures in the skull base are unremarkable. No definite calvarium fractures. The scanned paranasal sinuses are clear. IMPRESSION: 1-No evidence of established infarction, intracranial or extracranial hemorrhage. 1-Sau-szlkwpa involutional changes. 3-Bilateral periventricular and left cerebellar hemisphere old lacunar infarctions. 4-No significant changes in comparison with the previous study. Electronically Signed by: Hayden Goldberg MD. (07/27/2022 03:45:46 DESK REPORTER)
--- NOTE | 2022-07-27 05:10 | XRAY ---
CLINICAL HISTORY:syncopal with flank pain COMPARISON:None; TECHNIQUES:CT of the abdomen and pelvis was performed with axial images as well as sagittal and coronal reconstruction images without intravenous contrast. FINDINGS: Calcified granulomas within the periphery of the left lower lung lobe. The liver is normal in size, morphology, and position, air is seen within the biliary tree likely postoperative. No focal lesion. The CBD is dilated reaching 1.4 cm and shows soft tissue density material inside. Surgical removal of the gallbladder. Unremarkable appearing pancreas. No pancreatic mass or ductal dilatation is seen. Unremarkable appearing spleen. The adrenal glands are normal. The kidneys appear unremarkable with no stones, cysts masses, or hydronephrosis. The ureters are normal with no stones. Unremarkable abdominal aorta without specific evidence of aneurysm or dissection. IVC is normal. The visualized distal esophagus appears unremarkable. Sliding hiatal hernia. Unremarkable appearing duodenum. Small Bowel and colon are non-distended with no abnormality. No free air and no ascites. No free intraperitoneal air is seen. Left hip prosthesis degrading the image quality of pelvic structures. No abdominal wall pathology is seen. Vertebral spondylotic changes and Schmorl's node at the inferior endplate of L1 vertebra. IMPRESSION: 1-Postoperative pneumobilia. 2-Dilated CBD with soft tissue density material inside. Further evaluation by MRCP is advised. 3-Hiatus hernia. 4-Calcified granulomas within the periphery of the left lower lung lobe. 5-Vertebral spondylotic changes and Schmorl's node at the inferior endplate of L1 vertebra. 6-No significant changes in comparison with the previous study. Electronically Signed by: Hayden Goldberg MD. 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
--- NOTE | 2022-07-27 06:10 | XRAY ---
CLINICAL HISTORY:elevated d dimer and syncope COMPARISON:None; TECHNIQUES:Contiguous axial CT images of the chest were acquired with the administration of intravenous contrast. Coronal and sagittal reconstructions were obtained; FINDINGS: The scanned pulmonary parenchyma shows no definite consolidative lesions. Left hilar calcified lymph node. Right upper lobe nodule with popcorn calcification measuring 9.8X 6.8 mm and bilateral lower lung lobes peripheral calcified nodules measuring 5 mm each, suggesting old granulomas. Atherosclerotic calcification of the aorta. Hiatus hernia. No free or encysted pleural effusion. Heart size is normal, and there is no pericardial effusion. Vertebral spondylotic changes and Schmorls node at the inferior endplate of L1 vertebra. IMPRESSION: 1-Right upper lung lobe and bilateral lower lung lobes calcified granulomas. 2-Calcified left hilar lymph node. 3-Hiatus hernia. 4-Vertebral spondylotic changes and Schmorls node at the inferior endplate of L1 vertebra. Electronically Signed by: Hayden Goldberg MD. 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
[2022-07-27] MEDS ORDERED: TYLENOL 325 MG PO PRN (08:03)
[2022-07-27] MEDS ORDERED: DUONEB 0.5-3 MG/3 ml Neb IH PRN (08:03)
[2022-07-27] MEDS ORDERED: HUMALOG SQ PRN (08:03)
[2022-07-27] MEDS ORDERED: Zofran 4 MG/2 ML VIAL IV PRN (08:03)
[2022-07-27] MEDS ORDERED: MORPHINE SULFATE 2 MG INJ IV PRN (08:03)
[2022-07-27] MEDS ORDERED: Fosamax 70 MG PO SCH ×2 (09:30→11:30)
[2022-07-27] MEDS ORDERED: NON-FORMULARY ITEM (Cyanocobalamin (Vitamin B-12) [Vitamin B-12] 1,000 MCG Capsule) PO SCH (10:00)
[2022-07-27] MEDS ORDERED: NON-FORMULARY ITEM (Memantine Hcl [Namenda] 10 MG Tablet) PO SCH (10:00)
[2022-07-27] MEDS ORDERED: NON-FORMULARY ITEM (Magnesium Oxide [Magnesium] 400 MG Tablet) PO SCH (10:00)
[2022-07-27] MEDS ORDERED: MEDICATION INTERVENTION MC SCH ×2 (10:00)
[2022-07-27] MEDS ORDERED: ASCORBIC ACID 250 MG PO SCH (10:00)
[2022-07-27] MEDS ORDERED: BABY ASPIRIN 81 MG CHEW PO SCH (10:00)
[2022-07-27] MEDS ORDERED: NON-FORMULARY ITEM (Cholecalciferol (Vitamin D3) [Vitamin D3] 50 MCG Tablet) PO SCH (10:00)
[2022-07-27] MEDS ORDERED: NON-FORMULARY ITEM (Topiramate 100 Mg*** [Topamax 100 Mg***] 100 MG Tablet) PO SCH (10:00)
[2022-07-27] MEDS ORDERED: NON-FORMULARY ITEM (Non-Formulary Drug [Non-Formulary Item] 1 EACH Each) VAG SCH (10:00)
[2022-07-27] MEDS ORDERED: URSODIOL 500 MG PO SCH (10:00)
[2022-07-27] MEDS: ECOTRIN 81 MG PO SCH ×2 (10:18→21:28)
[2022-07-27] MEDS: VITAMIN D PO SCH (10:18)
[2022-07-27] MEDS: THERAGRAN MULTIVITAMIN PO SCH (10:18)
[2022-07-27] MEDS: Protonix 40MG Tablet PO SCH ×2 (10:19→21:28)
[2022-07-27] MEDS: Vitamin B-12 500 MCG PO SCH (10:19)
[2022-07-27] MEDS: Vitamin C 500 MG PO SCH (10:19)
[2022-07-27] MEDS: TOPIRAMATE PO SCH ×2 (10:19→21:28)
[2022-07-27] MEDS: MAG-OX 400 PO SCH (10:20)
[2022-07-27] MEDS: Klor Con PO SCH ×3 (10:20→21:28)
[2022-07-27] MEDS: Namenda 5 MG PO SCH ×2 (10:20→21:28)
[2022-07-27] MEDS: Miralax Powder 17GM PACKET PO SCH ×2 (10:32→21:28)
[2022-07-27] MEDS: PATIENT OWN MEDICATION PO SCH ×3 (11:31→21:29)
[2022-07-27] MEDS: Aricept 10 MG PO SCH (11:31)
[2022-07-27] MEDS ORDERED: NON-FORMULARY ITEM (Multivitamin [Multivitamin] 1 EACH Tablet) PO SCH (12:00)
--- NOTE | 2022-07-27 14:04 | PCM.NOTE ---
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 Patient had a witnessed "passing out spell" during the night when she was up using the bedside commode son states patient starred a blank stare and slumped over but son held her up,she had vomit in her mouth and jaw was clinched . He had to pry her mouth open to remove the vomitus. This happened a second time and patient was taken to ER for evaluation. Today patient is sitting up in bed feeding herself lunch. 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 renin levels) Hematologic/Lymphatic: Other (is on ASA) Immunological/Allergic: No Symptoms Objective Exam General Appearance: no apparent distress (is sitting up in bed feeding herself lunch, Son and daughter at bedside) Neurologic Exam: alert (OX2) Skin Exam: normal color, warm, dry Eye Exam: eyes nml inspection Ears, Nose, Throat Exam: normal ENT inspection Neck Exam: normal inspection OBJECTIVE DATA Vital Signs: Vital Signs - 24 hr Temp Pulse Resp BP BP Pulse Ox 07/27/22 12:00 16 07/27/22 11:41 98.7 F 86 16 132/60 96 07/27/22 08:11 97.3 F 91 H 16 140/63 96 07/27/22 08:03 86 16 96 07/27/22 08:01 97.3 F 91 H 16 140/63 96 07/27/22 08:00 97.3 F 91 H 16 140/63 96 07/27/22 06:29 96 07/27/22 06:02 92 H 20 135/59 97 07/27/22 05:02 93 H 20 127/52 96 07/27/22 04:00 90 19 127/52 98 07/27/22 03:08 86 21 136/62 97 07/27/22 02:30 96 H 22 138/73 96 07/27/22 02:02 98.6 F 89 18 106/36 99 Pain Assessment - Last Documented Pain Intensity 0 Intake and Output: Intake & Output 07/25/22 07/26/22 07/27/22 07/28/22 11:59 11:59 11:59 11:59 Weight 61.3 kg Lab Results: Lab Results-Last 24 Hours 07/27/22 07/27/22 07/27/22 Range/Units 03:15 03:20 03:20 WBC 11.2 H (4.0-10.5) x10^3/uL RBC 4.05 L (4.1-5.4) x10^6/uL Hgb 12.2 (12.0-16.0) g/dL Hct 37.9 (35-47) % MCV 93.6 (78-100) fL MCH 30.1 (26-32) pg MCHC 32.2 (32-36) g/dL RDW 13.7 (11.5-14.0) % Plt Count 207 (150-450) x10^3/uL MPV 10.0 (7.5-11.0) fL Gran % 89.2 H (36.0-66.0) % Immature Gran % (Auto) 0.4 (0.00-0.4) % Nucleat RBC Rel Count 0.0 (0.00-0.1) % Eos # (Auto) 0.02 (0-0.5) x10^3/uL Immature Gran # (Auto) 0.04 H (0.00-0.03) x10^3u/L Absolute Lymphs (auto) 0.69 L (1.0-4.6) x10^3/uL Absolute Monos (auto) 0.41 (0.0-1.3) x10^3/uL Absolute Nucleated RBC 0.00 (0.00-0.01) x10^3u/L Lymphocytes % 6.2 L (24.0-44.0) % Monocytes % 3.7 (0.0-12.0) % Eosinophils % 0.2 (0.00-5.0) % Basophils % 0.3 (0.0-0.4) % Absolute Granulocytes 9.98 H (1.4-6.9) x10^3/uL Basophils # 0.03 (0-0.4) x10^3/uL D-Dimer (0.0-0.50) mg/L Sodium 141 (137-145) mmol/L Potassium 3.3 L (3.5-5.1) mmol/L Chloride 114 H (98-107) mmol/L Carbon Dioxide 18 L (22-30) mmol/L Anion Gap 11.9 (5-15) MEQ/L BUN 17 (7-17) mg/dL Creatinine 0.74 (0.52-1.04) mg/dL Estimated GFR > 60.0 ML/MIN Glucose 113 H (74-106) mg/dL Lactic Acid 1.6 (0.4-2.0) Calcium 8.4 (8.4-10.2) mg/dL Total Bilirubin 1.40 H (0.2-1.3) mg/dL AST 379 H (14-36) U/L ALT 190 H (0-35) U/L Alkaline Phosphatase 133 H (38-126) U/L Troponin I (0.000-0.034) ng/mL NT-Pro-B Natriuret Pep (<300) pg/mL Serum Total Protein 6.2 L (6.3-8.2) g/dL Albumin 3.4 L (3.5-5.0) g/dL Thyroxine (T4) (5.53-10.96) ug/dL TSH 3rd Generation (0.47-4.68) mIU/L 07/27/22 07/27/22 07/27/22 Range/Units 03:20 03:20 03:20 WBC (4.0-10.5) x10^3/uL RBC (4.1-5.4) x10^6/uL Hgb (12.0-16.0) g/dL Hct (35-47) % MCV (78-100) fL MCH (26-32) pg MCHC (32-36) g/dL RDW (11.5-14.0) % Plt Count (150-450) x10^3/uL MPV (7.5-11.0) fL Gran % (36.0-66.0) % Immature Gran % (Auto) (0.00-0.4) % Nucleat RBC Rel Count (0.00-0.1) % Eos # (Auto) (0-0.5) x10^3/uL Immature Gran # (Auto) (0.00-0.03) x10^3u/L Absolute Lymphs (auto) (1.0-4.6) x10^3/uL Absolute Monos (auto) (0.0-1.3) x10^3/uL Absolute Nucleated RBC (0.00-0.01) x10^3u/L Lymphocytes % (24.0-44.0) % Monocytes % (0.0-12.0) % Eosinophils % (0.00-5.0) % Basophils % (0.0-0.4) % Absolute Granulocytes (1.4-6.9) x10^3/uL Basophils # (0-0.4) x10^3/uL D-Dimer 1.28 H* (0.0-0.50) mg/L Sodium (137-145) mmol/L Potassium (3.5-5.1) mmol/L Chloride (98-107) mmol/L Carbon Dioxide (22-30) mmol/L Anion Gap (5-15) MEQ/L BUN (7-17) mg/dL Creatinine (0.52-1.04) mg/dL Estimated GFR ML/MIN Glucose (74-106) mg/dL Lactic Acid (0.4-2.0) Calcium (8.4-10.2) mg/dL Total Bilirubin (0.2-1.3) mg/dL AST (14-36) U/L ALT (0-35) U/L Alkaline Phosphatase (38-126) U/L Troponin I < 0.012 (0.000-0.034) ng/mL NT-Pro-B Natriuret Pep 421 (<300) pg/mL Serum Total Protein (6.3-8.2) g/dL Albumin (3.5-5.0) g/dL Thyroxine (T4) (5.53-10.96) ug/dL TSH 3rd Generation 1.750 (0.47-4.68) mIU/L 05/28/23 05/28/23 05/28/23 Range/Units 03:20 06:37 10:48 WBC (4.0-10.5) x10^3/uL RBC (4.1-5.4) x10^6/uL Hgb (12.0-16.0) g/dL Hct (35-47) % MCV (78-100) fL MCH (26-32) pg MCHC (32-36) g/dL RDW (11.5-14.0) % Plt Count (150-450) x10^3/uL MPV (7.5-11.0) fL Gran % (36.0-66.0) % Immature Gran % (Auto) (0.00-0.4) % Nucleat RBC Rel Count (0.00-0.1) % Eos # (Auto) (0-0.5) x10^3/uL Immature Gran # (Auto) (0.00-0.03) x10^3u/L Absolute Lymphs (auto) (1.0-4.6) x10^3/uL Absolute Monos (auto) (0.0-1.3) x10^3/uL Absolute Nucleated RBC (0.00-0.01) x10^3u/L Lymphocytes % (24.0-44.0) % Monocytes % (0.0-12.0) % Eosinophils % (0.00-5.0) % Basophils % (0.0-0.4) % Absolute Granulocytes (1.4-6.9) x10^3/uL Basophils # (0-0.4) x10^3/uL D-Dimer (0.0-0.50) mg/L Sodium (137-145) mmol/L Potassium (3.5-5.1) mmol/L Chloride (98-107) mmol/L Carbon Dioxide (22-30) mmol/L Anion Gap (5-15) MEQ/L BUN (7-17) mg/dL Creatinine (0.52-1.04) mg/dL Estimated GFR ML/MIN Glucose (74-106) mg/dL Lactic Acid (0.4-2.0) Calcium (8.4-10.2) mg/dL Total Bilirubin (0.2-1.3) mg/dL AST (14-36) U/L ALT (0-35) U/L Alkaline Phosphatase (38-126) U/L Troponin I 0.021 0.024 (0.000-0.034) ng/mL NT-Pro-B Natriuret Pep (<300) pg/mL Serum Total Protein (6.3-8.2) g/dL Albumin (3.5-5.0) g/dL Thyroxine (T4) 8.33 (5.53-10.96) ug/dL TSH 3rd Generation (0.47-4.68) mIU/L Radiology Exams: Radiology Procedures Category Date Time Status ABDOMEN AND PELVIS W/0 CONTRAS [CT] Stat Exams 07/27/22 03:08 Completed CHEST WITH CONTRAST [CT] Stat Exams 07/27/22 03:56 Completed HEAD WITHOUT CONTRAST [CT] Stat Exams 07/27/22 02:43 Completed Assessment/Plan (1) At risk for aspiration pneumonia Current Visit: Yes Status: Suspected Code(s): Z91.89 - OTH PERSONAL RISK FACTORS, NOT ELSEWHERE CLASSIFIED
[2022-07-27 14:24] LABS: Appearance Clear (Clear); Bacteria None Seen /HPF (None Seen); Bilirubin Small (Negative); Blood Negative (Negative); Epithelial Cells None Seen /HPF (None Seen); Glucose, Urine Negative (Negative); Hyaline Casts NONE SEEN /LPF (0-2); Ketones Trace (Negative); Leukocyte Esterase Trace (Negative); Nitrite Negative (Negative); Ph 5.5 (4.6-8.0); Protein,Urine Dip 30 (Negative); RBC 0-2 /HPF (0-5); Specific Gravity >=1.030 (1.005-1.030); WBC 0-2 /HPF (0-5)
[2022-07-27 14:25] LABS: ADD URINE CULTURE? YES (NO)
[2022-07-27] MEDS: Sodium Chloride 0.9% W/ 20 mEq KCl/LITER 1,000 ML IV SCH (15:23)
[2022-07-27] MEDS: ZOCOR 20MG PO SCH (21:28)
[2022-07-27] MEDS: MYRBETRIQ PO SCH (21:28)
[2022-07-27] MEDS: ZOLOFT 50 MG TABLET PO SCH (21:29)
[2022-07-27] MEDS ORDERED: LIPITOR 40MG PO SCH (22:00)
[2022-07-27] MEDS ORDERED: NON-FORMULARY ITEM (Sertraline Hcl [Sertraline Hcl] 100 MG Tablet) PO SCH (22:00)
[2022-07-28] MEDS: Sodium Chloride 0.9% W/ 20 mEq KCl/LITER 1,000 ML IV SCH ×2 (03:20→15:25)
[2022-07-28] MEDS: Aricept 10 MG PO SCH (09:42)
[2022-07-28] MEDS: Vitamin B-12 500 MCG PO SCH (09:42)
[2022-07-28] MEDS: MAG-OX 400 PO SCH (09:42)
[2022-07-28] MEDS: VITAMIN D PO SCH (09:43)
[2022-07-28] MEDS: Namenda 5 MG PO SCH ×2 (09:44→21:02)
[2022-07-28] MEDS: TOPIRAMATE PO SCH ×2 (09:44→21:02)
[2022-07-28] MEDS: ECOTRIN 81 MG PO SCH ×2 (09:44→21:02)
[2022-07-28] MEDS: Protonix 40MG Tablet PO SCH ×2 (09:44→21:02)
[2022-07-28] MEDS: Klor Con PO SCH ×3 (09:45→21:02)
[2022-07-28] MEDS: Vitamin C 500 MG PO SCH (09:45)
[2022-07-28] MEDS: THERAGRAN MULTIVITAMIN PO SCH (09:45)
[2022-07-28] MEDS: Miralax Powder 17GM PACKET PO SCH ×2 (09:47→21:01)
[2022-07-28] MEDS ORDERED: PATIENT OWN MEDICATION VAG SCH ×2 (10:00→22:00)
[2022-07-28] MEDS: PATIENT OWN MEDICATION PO SCH ×3 (10:05→21:02)
--- NOTE | 2022-07-28 10:13 | XRAY ---
CLINICAL HISTORY:Possible aspiration. COMPARISON:Prior CT chest dated 07/27/2022. Prior Chest X-ray dated 06/27/2022. TECHNIQUES:X-ray of the chest, AP view. FINDINGS: Radiographic examination of the chest demonstrates clear lungs. Few subcentimeter diffusely calcified granulomas are seen in both lower zones. Normal configuration of the mediastinum. The michael are normal in size and position. The cardiac size is normal. The bony thorax is unremarkable. The right costophrenic and cardiophrenic angles are clear. Left costophrenic angle is not clearly visualized. Hiatal hernia noted. IMPRESSION: 1. No consolidation or evidence of aspiration. 2. Left costophrenic angle is obscured, possibility of effusion is less likely as no effusion identified on one day-old CT, however, ultrasound may be performed to exclude pleural effusion. Electronically Signed by: Hayden Goldberg MD. 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
--- NOTE | 2022-07-28 11:29 | PCM.NOTE ---
Date and Time: 07/28/22 112 Subjective Assessment: patient is stable and has no complaints today, her family is a great help with her history. she has a longstanding history of issues with her GI tract starting with a cholecystectomy in 2019, in 2019 she developed CBD stones and had an ERCP with Dr Saenz at [facility] and apparently devloped a bile leak and was transferred to [facility] for further surgery and was there for 3 months. each time she has a syncopal episode her LFTs will go up then return to normal with time. she apparently had an MRCP at [facility] in the last 2 weeks and her GI told her it was normal, there is concern for seizures as well, she sees Dr Matthew Zaldivar at [facility] for neurology and follows with Dr Salas Butts for cardiology, no etiology of her syncope has been discovered in the last couple of years. each time they are associated with a position change like rising to stand or on the commode per family Objective Exam General Appearance: no apparent distress Neurologic Exam: alert, cooperative Skin Exam: normal color, warm, dry Respiratory Exam: normal breath sounds, lungs clear, No respiratory distress Cardiovascular Exam: regular rate/rhythm, normal heart sounds Gastrointestinal/Abdomen Exam: soft, No tenderness, No mass Extremity Exam: normal inspection OBJECTIVE DATA Vital Signs: Vital Signs - 24 hr Temp Pulse Resp BP Pulse Ox 07/28/22 06:45 98.5 F 70 16 134/60 98 07/28/22 04:00 16 07/28/22 03:55 97.7 F 67 16 128/58 97 07/28/22 00:00 97.9 F 76 16 109/55 95 07/27/22 20:00 18 07/27/22 19:37 97.9 F 92 H 18 117/56 95 07/27/22 16:00 97.8 F 101 H 16 168/67 94 L 07/27/22 12:00 16 07/27/22 11:41 98.7 F 86 16 132/60 96 Pain Assessment - Last Documented Pain Intensity 0 Intake and Output: Intake & Output 07/25/22 07/26/22 07/27/22 07/28/22 11:59 11:59 11:59 11:59 Intake Total 966 Output Total 500 Balance 466 Weight 61.3 kg 61.3 kg Lab Results: Lab Results-Last 24 Hours 07/27/22 07/27/22 Range/Units 02:44 10:48 Troponin I 0.024 (0.000-0.034) ng/mL Urine Color Dark Yellow A (Yellow) Urine Appearance Clear (Clear) Urine pH 5.5 (4.6-8.0) Ur Specific Babb >=1.030 A (1.005-1.030) Urine Protein 30 (Negative) Urine Glucose (UA) Negative (Negative) mg/dL Urine Ketones Trace A (Negative) Urine Blood Negative (Negative) Urine Nitrite Negative (Negative) Urine Bilirubin Small A (Negative) Urine Urobilinogen 1.0 A (0.2) mg/dL Ur Leukocyte Esterase Trace A (Negative) U Hyaline Cast (Auto) NONE SEEN (0-2) /LPF Urine Microscopic RBC 0-2 (0-5) /HPF Urine Microscopic WBC 0-2 (0-5) /HPF Ur Epithelial Cells None Seen (None Seen) /HPF Urine Bacteria None Seen (None Seen) /HPF Urine Culture Reflexed YES (NO) Radiology Exams: Radiology Procedures Category Date Time Status ABDOMEN AND PELVIS W/0 CONTRAS [CT] Stat Exams 07/27/22 03:08 Completed CHEST 1 VIEW (PORTABLE) Routine Exams 07/28/22 09:06 Completed CHEST WITH CONTRAST [CT] Stat Exams 07/27/22 03:56 Completed HEAD WITHOUT CONTRAST [CT] Stat Exams 07/27/22 02:43 Completed MRA BRAIN WITHOUT CONTRAST [MRI] Routine Exams 07/28/22 11:22 Ordered MRA NECK WITHOUT CONTRAST [MRI] Routine Exams 07/28/22 11:22 Ordered MRI BRAIN W/O CONTRAST [MRI] Routine Exams 07/28/22 11:21 Ordered Assessment/Plan (1) Syncopal episodes Current Visit: Yes Status: Acute Assessment & Plan: plan to pursue MRI/MRA she does have bilateral old infarcts on ct, cva/tia would be in differential. history supports vasovagal syncope based on context of episodes. NC has been ruled out Code(s): R55 - SYNCOPE AND COLLAPSE (2) Seizure disorder Current Visit: Yes Status: Acute Assessment & Plan: awaiting EEG Code(s): G40.909 - EPILEPSY, UNSP, NOT INTRACTABLE, WITHOUT STATUS EPILEPTICUS (3) Transaminitis Current Visit: No Status: Acute Assessment & Plan: sounds like a chronic intermittent problem related to her complex GI history, I feel her CT findings are likely chronic and she had a very recent MRCP, will attempt to obtain those results but in my mind she has no complaints of abd pain and no vomiting and she is tolerating po intake, will monitor LFT trends Code(s): R74.01 - ELEVATION OF LEVELS OF LIVER TRANSAMINASE LEVELS
[2022-07-28] MEDS: ZOCOR 20MG PO SCH (21:02)
[2022-07-28] MEDS: ZOLOFT 50 MG TABLET PO SCH (21:02)
[2022-07-28] MEDS: MYRBETRIQ PO SCH (21:02)
[2022-07-29] MEDS: Sodium Chloride 0.9% W/ 20 mEq KCl/LITER 1,000 ML IV SCH (03:24)
[2022-07-29 04:32] LABS: Absolute Neutrophil Ct (ANC) 8.35 x10^3/uL (1.4-6.9); BASOPHIL % 0.4 % (0.0-0.4); Basophil (Absolute #) 0.05 x10^3/uL (0-0.4); Eosinophil % 1.7 % (0.00-5.0); Eosinophil (Absolute #) 0.22 x10^3/uL (0-0.5); Hematocrit 31.4 % (35-47); Hemoglobin 10.2 g/dL (12.0-16.0); IMMATURE GRAN # 0.07 x10^3u/L (0.00-0.03); IMMATURE GRAN % 0.6 % (0.00-0.4); Lymphocyte (Absolute #) 2.77 x10^3/uL (1.0-4.6); Lymphocytes % 21.9 % (24.0-44.0); Mean Cell Volume 92.4 fL (78-100); Mean Corpuscular Hgb Concent. 32.5 g/dL (32-36); Mean Platelet Volume 10.8 fL (7.5-11.0); Monocyte (Absolute #) 1.16 x10^3/uL (0.0-1.3); Monocytes % 9.2 % (0.0-12.0); Neutrophil % 66.2 % (36.0-66.0); Platelet Count 177 x10^3/uL (150-450); Red Cell Distribution Width 15.1 % (11.5-14.0); White Blood Count 12.6 x10^3/uL (4.0-10.5)
[2022-07-29 04:56] LABS: ALBUMIN 2.6 g/dL (3.5-5.0); ALKALINE PHOSPHATASE 99 U/L (38-126); ANION GAP 11.8 MEQ/L (5-15); BLOOD UREA NITROGEN 8 mg/dL (7-17); CHLORIDE 117 mmol/L (98-107); Calcium 7.4 mg/dL (8.4-10.2); Carbon Dioxide 17 mmol/L (22-30); Creatinine 1 0.55 mg/dL (0.52-1.04); EST GLOMERULAR FILTRATION RATE > 60.0 ML/MIN; Glucose 95 mg/dL (74-106); Potassium 3.9 mmol/L (3.5-5.1); SGOT/AST 122 U/L (14-36); SGPT/ALT 146 U/L (0-35); SODIUM 142 mmol/L (137-145); Total Protein 5.7 g/dL (6.3-8.2)
[2022-07-29 07:52] LABS: A-aADO2 19; ABG HEMOGLOBIN 10.6; ABG POTASSIUM 4.3 (3.5-5.1); ABG SITE LEFT RADIAL; ALLEN TEST OK? YES; ARTERIAL BLD GAS O2 SATURATION 99.5 % (95-100); ARTERIAL BLOOD GAS BASE EXCESS -4.3 (-2.0-2.0); ARTERIAL BLOOD GAS FIO2 21 %; ARTERIAL BLOOD GAS PCO2 32 mmHg (35-45); ARTERIAL BLOOD GAS PO2 91 mmHg (75-100); CARBOXYHEMOGLOBIN 0.8 % THgb (0.0-6.9); HCO3- 19.8 (22-28); HGB O2 SAT 97.7 g/dF (94-100); Methhemoglobin 0.9 % (1.4-1.5); paO2 pAO1 0.83
--- NOTE | 2022-07-29 08:43 | PCM.DS ---
Discharge Summary Date of Admission: 07/27/22 07:51 Admitting Physician: KASHMIR SCHRADER DO Primary Care Provider: [facility] [place]ergies All[place] [facility] [place]verse Reaction (Verified 07/27/22 02:05) Hospital Summary - Hospital Course Hospital Course: Pt is a 71 yo female pt of Nataly Leger with chronic autoimmune hepatitis, anemia, anxiety, cirrhosis of liver, dementia, depression, GERD, hx CVA, hx hep A, HLD, hypersomnia, idiopathic neuorpathy, overactive bladder, PVD, primary biliary cholangitis, major depression, and sz d/o who had a seizure-like episode at home involving blank staring while on the commode with vomitus held in the mouth. There was some concern for aspiration so she was admitted. CT chest without aspiration; CXR done the next day (yesterday) without sign of pneumonia. There was question of pleural effusion, but thought less likely as no effusion was identified on the CT chest the day prior. Is laina po fine. Up to bathroom with assist. Lives with her children. States she is doing "ok" today. - Vitals & Intake/Output Vital Signs: Vital Signs Temperature 97.9 F 07/29/22 07:31 Pulse Rate 77 07/29/22 07:31 Respiratory Rate 18 07/29/22 08:00 Blood Pressure 161/68 07/29/22 07:31 O2 Sat by Pulse Oximetry 97 07/29/22 07:31 Intake & Output: Intake & Output 07/26/22 07/27/22 07/28/22 07/29/22 11:59 11:59 11:59 11:59 Intake Total 966 2942 Output Total 500 550 Balance 466 2392 Weight 61.3 kg 61.3 kg - Lab Result Diagrams: 07/29/22 04:12 07/29/22 04:12 Lab Results-Last 24 Hrs: Lab Results-Last 24 Hours 07/29/22 07/29/22 07/29/22 Range/Units 04:12 04:12 07:50 WBC 12.6 H (4.0-10.5) x10^3/uL RBC 3.40 L (4.1-5.4) x10^6/uL Hgb 10.2 L (12.0-16.0) g/dL Hct 31.4 L (35-47) % MCV 92.4 (78-100) fL MCH 30.0 (26-32) pg MCHC 32.5 (32-36) g/dL RDW 15.1 H (11.5-14.0) % Plt Count 177 (150-450) x10^3/uL MPV 10.8 (7.5-11.0) fL Gran % 66.2 H (36.0-66.0) % Immature Gran % (Auto) 0.6 H (0.00-0.4) % Nucleat RBC Rel Count 0.0 (0.00-0.1) % Eos # (Auto) 0.22 (0-0.5) x10^3/uL Immature Gran # (Auto) 0.07 H (0.00-0.03) x10^3u/L Absolute Lymphs (auto) 2.77 (1.0-4.6) x10^3/uL Absolute Monos (auto) 1.16 (0.0-1.3) x10^3/uL Absolute Nucleated RBC 0.00 (0.00-0.01) x10^3u/L Lymphocytes % 21.9 L (24.0-44.0) % Monocytes % 9.2 (0.0-12.0) % Eosinophils % 1.7 (0.00-5.0) % Basophils % 0.4 (0.0-0.4) % Absolute Granulocytes 8.35 H (1.4-6.9) x10^3/uL Basophils # 0.05 (0-0.4) x10^3/uL Puncture Site LEFT RADIAL pCO2 32 L (35-45) mmHg pO2 91 (75-100) mmHg Base Excess -4.3 L (-2.0-2.0) O2 Saturation 97.7 (94-100) g/dF ABG pH 7.40 (7.35-7.45) ABG HCO3 19.8 L (22-28) ABG O2 Sat (Measured) 99.5 (95-100) % Julio Test YES A-a Gradient 19 a/A Ratio 0.83 Hemoglobin 10.6 Carboxyhemoglobin 0.8 (0.0-6.9) % THgb Methemoglobin 0.9 L (1.4-1.5) % Temperature 37.0 C POC O2 Flow Rate 21 % Sodium 142 (137-145) mmol/L Potassium 3.9 4.3 (3.5-5.1) mmol/L Chloride 117 H (98-107) mmol/L Carbon Dioxide 17 L (22-30) mmol/L Anion Gap 11.8 (5-15) MEQ/L BUN 8 (7-17) mg/dL Creatinine 0.55 (0.52-1.04) mg/dL Estimated GFR > 60.0 ML/MIN Glucose 95 (74-106) mg/dL Calcium 7.4 L (8.4-10.2) mg/dL Magnesium 2.0 (1.6-2.3) mg/dL Total Bilirubin 0.70 (0.2-1.3) mg/dL AST 122 H (14-36) U/L ALT 146 H (0-35) U/L Alkaline Phosphatase 99 (38-126) U/L Serum Total Protein 5.7 L (6.3-8.2) g/dL Albumin 2.6 L (3.5-5.0) g/dL Micro Results-Entire Visit: Microbiology 07/27/22 02:44 Urine Culture - Preliminary Urine, Void GRAM POSITIVE ID AND SENSITIVITY PENDING - Radiology Exams Ordered Rad Exams-Entire Visit: Radiology Procedures Category Date Time Status CHEST 1 VIEW (PORTABLE) Routine Exams 07/28/22 09:06 Completed MRA BRAIN WITHOUT CONTRAST [MRI] Routine Exams 07/29/22 11:22 Ordered MRA NECK WITHOUT CONTRAST [MRI] Routine Exams 07/29/22 11:22 Ordered MRI BRAIN W/O CONTRAST [MRI] Routine Exams 07/29/22 11:21 Ordered - Procedures and Test Procedures and Tests throughout Hospitalization: Therapy Orders & Screens 07/27/22 08:03 Respiratory Therapy Consult ROUTINE Comment: Reason For Exam: 07/27/22 13:51 EEG 41-60 Minutes (Normal) ONCE Comment: Reason For Exam: Diagnosis: SYNCOPAL EPISODE [id number] ONCE Comment: Reason For Exam: Diagnosis: SYNCOPAL EPISODE 07/29/22 08:34 PT Eval & Treat ( Order) ONCE Reason for Eval:: syncope; ensure ok to d/c Diagnosis: SYNCOPAL EPISODE Discharge Exam General Appearance: no apparent distress, alert Neurologic Exam: cooperative, other (flat affect. answers questions. is getting bed bath.) Eye Exam: eyes nml inspection Ears, Nose, Throat Exam: moist mucous membranes Neck Exam: normal inspection Respiratory Exam: normal breath sounds, lungs clear, No crackles/rales, No rhonchi, No wheezing Cardiovascular Exam: regular rate/rhythm, normal heart sounds, No murmur Back Exam: normal inspection, No rash Extremity Exam: normal inspection, other (moves lower extremities equally), No pedal edema, No swelling Skin Exam: normal color, warm, dry, No rash Final Diagnosis/Problem List - Final Discharge Diagnosis/Problem (1) Seizure disorder Current Visit: Yes Status: Acute Assessment & Plan: Family said she was back to baseline at the time of hospital admission, but she was kept for observation. Will have PT consult, and if ok will discharge to home. Continue current meds. GA was ruled out. Pt sees Dr. Wendy Zaldivar. EEG just done. Night EEG also ordered but must be done outpatient. Code(s): G40.909 - EPILEPSY, UNSP, NOT INTRACTABLE, WITHOUT STATUS EPILEPTICUS (2) Syncopal episodes Current Visit: Yes Status: Chronic Code(s): R55 - SYNCOPE AND COLLAPSE (3) Elevated liver function tests Current Visit: No Status: Chronic Assessment & Plan: Improved since admission - tbili 1.4 on admission, 0.7 this morning. AST and ALT still elevated but improved. F/u with PCP. Code(s): R79.89 - OTHER SPECIFIED ABNORMAL FINDINGS OF BLOOD CHEMISTRY (4) UTI (urinary tract infection) Current Visit: No Status: Acute Assessment & Plan: G+ on prelim results - give kefzol x1 dose here and start keflex at home pending culture. Code(s): N39.0 - URINARY TRACT INFECTION, SITE NOT SPECIFIED - Discharge Disposition: Home, Self-Care Condition: Good Prescriptions: New Lactobacillus Acidophilus [Acidophilus TABLET] 1 tab PO BID #10 tablet cephALEXin [Cephalexin] 500 mg PO QID #20 tablet Continue Sertraline HCl 100 mg PO HS Potassium Chloride Tab* [Klor Con] 10 meq PO TID PANTOPRAZOLE 40 mg Tablet [Protonix 40MG Tablet] 40 mg PO BID Aspirin 81 gm Chew [Baby Aspirin 81 mg Chew] 81 mg PO BID ursodioL [Ursodiol] 500 mg PO TID Topiramate 100 mg [Topamax 100 MG] 100 mg PO BID Alendronate Sodium 70 mg PO WEEKLY Magnesium Oxide [Magnesium] 400 mg PO DAILY Donepezil HCl 10 mg PO 1200 Cholecalciferol (Vitamin D3) [Vitamin D3] 50 mcg PO DAILY Mirabegron [Myrbetriq] 25 mg PO HS Atorvastatin Calcium 40 mg PO HS Cyanocobalamin (Vitamin B-12) [Vitamin B-12] 1,000 mcg PO DAILY Multivitamin 1 tab PO 1200 Polyethylene Glycol 3350 17 gm [Miralax Powder 17GM PACKET] 17 gm PO BID Ascorbic Acid [Vitamin C] 250 mg PO DAILY Memantine HCl [Namenda] 10 mg PO BID Non-Formulary Drug [Non-Formulary Item] 1 mg VAG DAILY Instructions: Syncope (Fainting) Follow up with: SANCHO LEGER NP [Family Provider] - 08/01/22 10:30 am
[2022-07-29] MEDS: PATIENT OWN MEDICATION PO SCH ×2 (09:29→14:54)
[2022-07-29] MEDS: Namenda 5 MG PO SCH (09:29)
[2022-07-29] MEDS: MAG-OX 400 PO SCH (09:30)
[2022-07-29] MEDS: TOPIRAMATE PO SCH (09:30)
[2022-07-29] MEDS: VITAMIN D PO SCH (09:30)
[2022-07-29] MEDS: Protonix 40MG Tablet PO SCH (09:30)
[2022-07-29] MEDS: Klor Con PO SCH ×2 (09:30→14:54)
[2022-07-29] MEDS: ECOTRIN 81 MG PO SCH (09:30)
[2022-07-29] MEDS: Vitamin C 500 MG PO SCH (09:31)
[2022-07-29] MEDS: Aricept 10 MG PO SCH (09:31)
[2022-07-29] MEDS: Vitamin B-12 500 MCG PO SCH (09:31)
[2022-07-29] MEDS: THERAGRAN MULTIVITAMIN PO SCH (09:32)
[2022-07-29] MEDS: Miralax Powder 17GM PACKET PO SCH (11:46)
[2022-07-29] MEDS ORDERED: CEFAZOLIN 2 GM-D5W BAG** 2 GM/50 ML ML IV ONE (11:56)
--- NOTE | 2022-07-29 14:10 | XRAY ---
Indication: Stroke symptoms. Sagittal, coronal, and axial MRI brain performed without contrast using T1, T2, FLAIR, diffusion, and ADC sequences. Comparison: None Age-appropriate global atrophy and minimal periventricular degenerative micro-ischemia signal bilaterally. Small remote lacunar infarcts internal capsule bilaterally and also left cerebellum. No acute intracranial hemorrhage, abnormal extra-axial fluid collection, or mass effect. Diffusion images are negative for restricted signal. Fourth ventricle is midline without hydrocephalus. Normal flow void signal within the major intracerebral circulation. Normal appearing craniocervical junction and sella turcica. Paranasal sinuses are clear. Impression: Normal aging brain including atrophy and degenerative micro-ischemia. Remote lacunar infarcts both internal capsule and left cerebellum. No acute intracranial abnormalities or evidence for evolving large vessel territorial stroke.
--- NOTE | 2022-07-29 14:28 | XRAY ---
Indication: Stroke symptoms. Multiple 3-D [id number] MRA [place] of [place] performed. Comparison: None Study is slightly degraded by motion artifact. Distal internal carotid arteries are bilaterally symmetric without critical stenosis or obstruction. Normal carotid terminus with normal branching A1 and M1 segments bilaterally. Incidental origin posterior cerebral arteries bilaterally. Basilar artery, left/right superior cerebellar, and left/right anterior inferior cerebellar arteries are normal in MRA appearance. Impression: Motion artifact. MRA [place] grossly negative. Conventional contrast enhanced CTA may yield further information if there remains further clinical concern.
[2022-07-29 16:26] VITALS: BP 165/72; PULSE 80; O2SAT 96
== END 2022-07-29 17:38 | disposition home or self-care (01) ==
LOC: ED 01:59 → MED SURG 07:51
PROVIDERS: ADMIT Family Medicine; ATTEND Family Medicine
DX: G40.909 Epilepsy, unspecified, not intractable, without status epilepticus (principal); R55 Syncope and collapse; R79.89 Other specified abnormal findings of blood chemistry; N39.0 Urinary tract infection, site not specified; R74.01 Elevation of levels of liver transaminase levels; D64.9 Anemia, unspecified; F41.9 Anxiety disorder, unspecified; K74.60 Unspecified cirrhosis of liver; E78.5 Hyperlipidemia, unspecified; Z79.899 Other long term (current) drug therapy; Z20.828 Contact with and (suspected) exposure to other viral communicable diseases; Z91.89 Other specified personal risk factors, not elsewhere classified
CPT/HCPCS: 36000; 36415; 36600; 70450; 70544; 70551; 71045; 71260; 74176; 80053; 81001; 82375; 82803; 83605; 83735; 83880; 84436; 84443; 84484; 85025; 85379; 87077; 87086; 87186; 93005; 93268; 94760; 95812; 96360; 96361; 99285; J0690; J2405; A9270-GY; G0378

== ENCOUNTER 2022-10-14 11:06 | Inpatient (IN) | payer MEDICARE ==
[2022-10-14 12:25] LABS: Absolute Neutrophil Ct (ANC) 19.48 x10^3/uL (1.4-6.9); BASOPHIL % 0.1 % (0.0-0.4); Basophil (Absolute #) 0.03 x10^3/uL (0-0.4); Eosinophil (Absolute #) 0 x10^3/uL (0-0.5); Hemoglobin 12.2 g/dL (12.0-16.0); IMMATURE GRAN # 0.19 x10^3u/L (0.00-0.03); IMMATURE GRAN % 0.9 % (0.00-0.4); Lymphocyte (Absolute #) 0.81 x10^3/uL (1.0-4.6); Lymphocytes % 3.7 % (24.0-44.0); Mean Cell Volume 90.9 fL (78-100); Mean Corpuscular Hemoglobin 29.2 pg (26-32); Mean Corpuscular Hgb Concent. 32.1 g/dL (32-36); Mean Platelet Volume 9.6 fL (7.5-11.0); Neutrophil % 89.3 % (36.0-66.0); Platelet Count 226 x10^3/uL (150-450); Red Blood Count 4.18 x10^6/uL (4.1-5.4); Red Cell Distribution Width 13.2 % (11.5-14.0); White Blood Count 21.8 x10^3/uL (4.0-10.5)
[2022-10-14 12:26] LABS: ALBUMIN 3.1 g/dL (3.5-5.0); ANION GAP 16.6 MEQ/L (5-15); BILIRUBIN,TOTAL 2.1 mg/dL (0.2-1.3); Calcium 8.5 mg/dL (8.4-10.2); Creatinine 1 1.14 mg/dL (0.52-1.04); EST GLOMERULAR FILTRATION RATE 49.7 ML/MIN; MAGNESIUM 1.8 mg/dL (1.6-2.3); Potassium 3.2 mmol/L (3.5-5.1); Total Protein 5.9 g/dL (6.3-8.2)
[2022-10-14 12:41] LABS: Appearance Clear (Clear); Bacteria None Seen /HPF (None Seen); Bilirubin Negative (Negative); Blood Negative (Negative); Epithelial Cells Many /HPF (None Seen); Glucose, Urine Negative (Negative); Ketones Negative (Negative); Leukocyte Esterase Negative (Negative); Nitrite Negative (Negative); Protein,Urine Dip Negative (Negative); RBC 0-2 /HPF (0-5)
[2022-10-14 12:46] LABS: ADD URINE CULTURE? ORDERED SEPARATELY (NO)
[2022-10-14] MEDS ORDERED: Sodium Chloride 0.9% 1000 ML 1,000 ML IV STA (12:49)
[2022-10-14] MEDS ORDERED: Klor Con PO ONE ×2 (12:49→12:51)
[2022-10-14] MEDS ORDERED: Sodium Chloride 0.9% 1000 ML 1,000 ML ONE (12:51)
[2022-10-14] MEDS: Magnesium 1 Gm / 100 Ml D5W*** 100 ML IV SCH ×2 (12:52→13:31)
[2022-10-14] MEDS ORDERED: Magnesium 1 Gm / 100 Ml D5W*** 100 ML IV ONE ×2 (12:52→13:27)
--- NOTE | 2022-10-14 12:52 | ERPHSYRPT ---
- History of Present Illness Time Seen by Provider: 10/14/22 11:20 Source: patient Exam Limitations: no limitations Patient Subjective Stated Complaint: son states that pt vomited last night and think she is dehydrated Triage Nursing Assessment: pt came into the er; pt is axo x3; c/o vomiting; skin is pale and warm and dry; mucus membranes pink and moist; active bowel sounds in all quads; pt denies N/V/D; clear lung sounds in all lobes; no respiratory distress present; vitals wnl Physician History: Patient is a 72-year-old female presents to our ED with her son for evaluation of syncope and vomiting. Son states patient had a syncopal episode yesterday. She was unresponsive for several minutes. No trauma reported. However she was shortly thereafter back to her baseline. They did not seek medical attention at that time. She vomited once. Emesis was nonbloody nonbilious. Son states patient sleeps approximately 22 hours per night. He believes that she may have passed out because she was dehydrated and weak. Patient currently denies pain. Portions of this note were created with voice recognition technology. There may be grammatical, spelling, punctuation or sound alike errors Timing/Duration: today Severity: moderate Modifying Factors: Improves With: nothing Associated Symptoms: denies symptoms Allergies/Adverse Reactions: levetiracetam [From [facility]] Adverse Reaction (Verified 10/14/22 11:09) Home Medications: Aspirin 81 gm Chew [Baby Aspirin 81 mg Chew] 81 mg PO BID 04/24/20 [History] PANTOPRAZOLE 40 mg Tablet [Protonix 40MG Tablet] 40 mg PO BID 04/24/20 [History] Potassium Chloride Tab* [Klor Con] 10 meq PO TID 04/24/20 [History] Sertraline HCl 100 mg PO HS 04/24/20 [History] ursodioL [Ursodiol] 500 mg PO TID 10/17/20 [History] Alendronate Sodium 70 mg PO WEEKLY 04/18/22 [History] Cholecalciferol (Vitamin D3) [Vitamin D3] 50 mcg PO DAILY 04/18/22 [History] Donepezil HCl 10 mg PO 1200 04/18/22 [History] Magnesium Oxide [Magnesium] 400 mg PO DAILY 04/18/22 [History] Topiramate 100 mg [Topamax 100 MG] 100 mg PO BID 04/18/22 [History] Cyanocobalamin (Vitamin B-12) [Vitamin B-12] 1,000 mcg PO DAILY 05/30/22 [History] Multivitamin 1 tab PO 1200 05/30/22 [History] Ascorbic Acid [Vitamin C] 250 mg PO DAILY 06/27/22 [History] Memantine HCl [Namenda] 10 mg PO BID 06/27/22 [History] Polyethylene Glycol 3350 17 gm [Miralax Powder 17GM PACKET] 17 gm PO BID 06/27/22 [History] Nitrofurantoin Macro 100 mg [Macrobid 100MG Capsule] 100 mg PO DAILY 10/14/22 [History] Hx Tetanus, Diphtheria Vaccination/Date Given: Yes Hx Influenza Vaccination/Date Given: No Hx Pneumococcal Vaccination/Date Given: Yes Travel Risk - International Travel Have you traveled outside of the country in past 3 weeks: No - Coronavirus Screening Are you exhibiting any of the following symptoms?: No Close contact with a COVID-19 positive Pt in past 14-21 Days: No - Vaccine Status Have you recieved a Covid-19 vaccination: Yes [employer]: Moderna - Vaccination Dates Date of 2cond Vaccination (if applicable): UNKNOWN - Review of Systems Constitutional: No Symptoms, No Fever, No Chills Eyes: No Symptoms Ears, Nose, & Throat: No Symptoms Respiratory: No Symptoms, No Cough, No Dyspnea Cardiac: No Symptoms, No Chest Pain, No Edema, No Syncope Abdominal/Gastrointestinal: No Symptoms, No Abdominal Pain, No Nausea, No Vomiting, No Diarrhea Genitourinary Symptoms: No Symptoms, No Dysuria Musculoskeletal: No Symptoms, No Back Pain, No Neck Pain Skin: No Symptoms, No Rash Neurological: No Symptoms, No Dizziness, No Focal Weakness, No Sensory Changes Psychological: No Symptoms Endocrine: No Symptoms Hematologic/Lymphatic: No Symptoms Immunological/Allergic: No Symptoms All Other Systems: Reviewed and Negative - Past Medical History Pertinent Past Medical History: Yes Neurological History: Seizures, Stroke ENT History: No Pertinent History Cardiac History: Angina, Coronary Artery Disease, Hypertension Respiratory History: No Pertinent History Endocrine Medical History: No Pertinent History Musculoskeletal History: Osteoporosis GI Medical History: Other History: No Pertinent History Psycho-Social History: Anxiety, Depression Female Reproductive Disorders: No Pertinent History Other Medical History: autoimmune liver disease. shingles - Past Surgical History Past Surgical History: Yes Neuro Surgical History: No Pertinent History Cardiac: Cardiac Stent Respiratory: No Pertinent History Gastrointestinal: Bowel Surgery, Cholecystectomy Genitourinary: No Pertinent History Musculoskeletal: No Pertinent History Female Surgical History: No Pertinent History Other Surgical History: PARTIAL L HIP REPLACEMENT - Social History Smoking Status: Never smoker Exposure to second hand smoke: No Drug Use: none Patient Lives Alone: No Significant Family History: no pertinent family hx - Nursing Vital Signs Nursing Vital Signs: Initial Vital Signs Pulse Rate 80 10/14/22 11:09 Blood Pressure 93/47 10/14/22 11:09 O2 Sat by Pulse Oximetry 97 10/14/22 11:09 Pain Scale Pain Intensity 0 - Physical Exam General Appearance: no apparent distress, alert Eye Exam: PERRL/EOMI, eyes nml inspection Ears, Nose, Throat Exam: normal ENT inspection, TMs normal, pharynx normal, moist mucous membranes Neck Exam: normal inspection, non-tender, supple, full range of motion Respiratory Exam: normal breath sounds, lungs clear, airway intact, No respiratory distress Cardiovascular Exam: regular rate/rhythm, normal heart sounds, normal peripheral pulses Gastrointestinal/Abdomen Exam: soft, normal bowel sounds, No tenderness, No mass Back Exam: normal inspection, normal range of motion, No CVA tenderness, No vertebral tenderness Extremity Exam: normal inspection, normal range of motion, pelvis stable Neurologic Exam: alert, oriented x 3, cooperative, normal mood/affect, nml station & gait, sensation nml, No motor deficits Skin Exam: normal color, warm, dry, No rash Lymphatic Exam: No adenopathy SpO2 Interpretation: normal SpO2: 96 O2 Delivery: Room Air - Course Nursing assessment & vital signs reviewed: Yes EKG Interpreted by Me: RATE (82), Sinus Rhythm, NORMAL AXIS, NORMAL INTERVALS - Radiology Exams Chest X-ray Interpretation: Teleradiologist Report (Chronic findings, lung granuloma) - CT Exams Head CT Interpretation: Tele-radiologist Report (Old lacunar infarct, no acute findings CT head) Ordered Tests: Active Orders 24 hr Category Date Time Status Analysis Director STAT Care 10/14/22 11:42 Active EKG-ER Only STAT Care 10/14/22 11:41 Active IV Insertion STAT Care 10/14/22 11:41 Active Pulse Oximetry (ED) STAT Care 10/14/22 11:41 Active ABDOMEN AND PELVIS W CONTRAST [CT] Stat Exams 10/14/22 13:37 Completed CHEST 1 VIEW (PORTABLE) Stat Exams 10/14/22 13:40 Completed HEAD WITHOUT CONTRAST [CT] Stat Exams 10/14/22 13:37 Completed BLOOD CULTURE Stat Lab 10/14/22 13:28 Received CBC W DIFF Stat Lab 10/14/22 12:24 Completed CMP Stat Lab 10/14/22 12:24 Completed CULTURE,URINE Stat Lab 10/14/22 12:18 Ordered Lactic Acid Routine Lab 10/14/22 13:50 Completed Lactic Acid Stat Lab 10/14/22 12:10 Completed MAGNESIUM Stat Lab 10/14/22 12:24 Completed Manual Differential NC Stat Lab 10/14/22 12:24 Completed NT PRO BNPII Stat Lab 10/14/22 12:24 Completed TROPONIN Q4H Lab 10/14/22 12:24 Completed TROPONIN Q4H Lab 10/14/22 15:33 Completed TROPONIN Q4H Lab 10/14/22 19:45 Ordered UA W/RFX UR CULTURE Stat Lab 10/14/22 12:18 Completed Urine Triage Profile Stat Lab 10/14/22 12:16 Completed Medication Summary Generic Name Dose Route Start Last Admin Trade Name Freq PRN Reason Stop Dose Admin Magnesium Sulfate/Dextrose 100 mls @ 100 mls/hr 10/14/22 13:00 10/14/22 13:31 Magnesium 1 Gm / 100 Ml D5w IV 10/14/22 14:59 100 mls/hr Q1H AMELIE Administration Discontinued Medications Generic Name Dose Route Start Last Admin Trade Name Freq PRN Reason Stop Dose Admin Sodium Chloride 1,000 mls @ 999 mls/hr 10/14/22 12:49 10/14/22 13:53 Sodium Chloride 0.9% 1000 Ml IV 10/14/22 13:49 Infused .Q1H1M STA Infusion Sodium Chloride Confirm 10/14/22 12:51 Sodium Chloride 0.9% 1000 Ml Administered 10/14/22 12:52 Dose 1,000 mls @ ud .ROUTE .STK-MED ONE Ondansetron HCl 4 mg 10/14/22 17:09 10/14/22 17:11 Ondansetron Hcl 4 Mg/2 Ml Vial IV 10/14/22 17:10 4 mg STAT ONE Administration Ondansetron HCl Confirm 10/14/22 17:10 Ondansetron Hcl 4 Mg/2 Ml Vial Administered 10/14/22 17:11 Dose 4 mg .ROUTE .STK-MED ONE Potassium Chloride 40 meq 10/14/22 12:49 10/14/22 13:01 Potassium Chloride Tab 10 Meq Tab PO 10/14/22 12:50 40 meq STAT ONE Administration Potassium Chloride Confirm 10/14/22 12:51 Potassium Chloride Tab 10 Meq Tab Administered 10/14/22 12:52 Dose 40 meq PO .STK-MED ONE Lab/Rad Data: Laboratory Result Diagrams 10/14/22 12:24 10/14/22 12:24 Laboratory Results 10/14/22 10/14/22 10/14/22 Range/Units 15:33 13:50 13:28 WBC (4.0-10.5) x10^3/uL RBC (4.1-5.4) x10^6/uL Hgb (12.0-16.0) g/dL Hct (35-47) % MCV (78-100) fL MCH (26-32) pg MCHC (32-36) g/dL RDW (11.5-14.0) % Plt Count (150-450) x10^3/uL MPV (7.5-11.0) fL Gran % (36.0-66.0) % Immature Gran % (Auto) (0.00-0.4) % Nucleat RBC Rel Count (0.00-0.1) % Eos # (Auto) (0-0.5) x10^3/uL Immature Gran # (Auto) (0.00-0.03) x10^3u/L Absolute Lymphs (auto) (1.0-4.6) x10^3/uL Absolute Monos (auto) (0.0-1.3) x10^3/uL Absolute Nucleated RBC (0.00-0.01) x10^3u/L Lymphocytes % (24.0-44.0) % Monocytes % (0.0-12.0) % Eosinophils % (0.00-5.0) % Basophils % (0.0-0.4) % Absolute Granulocytes (1.4-6.9) x10^3/uL Segmented Neutrophils (36.0-66.0) % Lymphocytes (Manual) (24-44) % Monocytes (Manual) (0.0-12.0) % Basophils # (0-0.4) x10^3/uL Platelet Estimate (NORMAL) RBC Morphology Sodium (137-145) mmol/L Potassium (3.5-5.1) mmol/L Chloride (98-107) mmol/L Carbon Dioxide (22-30) mmol/L Anion Gap (5-15) MEQ/L BUN (7-17) mg/dL Creatinine (0.52-1.04) mg/dL Estimated GFR ML/MIN Glucose (74-106) mg/dL Lactic Acid 2.6 H (0.4-2.0) Calcium (8.4-10.2) mg/dL Magnesium (1.6-2.3) mg/dL Total Bilirubin (0.2-1.3) mg/dL AST (14-36) U/L ALT (0-35) U/L Alkaline Phosphatase (38-126) U/L Ammonia < 9 L (9-30) umol/L Troponin I < 0.012 (0.000-0.034) ng/mL NT-Pro-B Natriuret Pep (<300) pg/mL Serum Total Protein (6.3-8.2) g/dL Albumin (3.5-5.0) g/dL Urine Color (Yellow) Urine Appearance (Clear) Urine pH (4.6-8.0) Ur Specific [place] (1.005-1.030) Urine Protein (Negative) Urine Glucose (UA) (Negative) mg/dL Urine Ketones (Negative) Urine Blood (Negative) Urine Nitrite (Negative) Urine Bilirubin (Negative) Urine Urobilinogen (0.2) mg/dL Ur Leukocyte Esterase (Negative) U Hyaline Cast (Auto) (0-2) /LPF Urine Microscopic RBC (0-5) /HPF Urine Microscopic WBC (0-5) /HPF Ur Epithelial Cells (None Seen) /HPF Urine Bacteria (None Seen) /HPF Urine Culture Reflexed (NO) Urine Opiates Level (NEGATIVE) Ur Methadone (NEGATIVE) Urine Barbiturates (NEGATIVE) Ur Phencyclidine (PCP) (NEGATIVE) Urine Amphetamine (NEGATIVE) U Benzodiazepine Level (NEGATIVE) Urine Cocaine (NEGATIVE) Urine Marijuana (THC) (NEGATIVE) 10/14/22 10/14/22 10/14/22 Range/Units 12:24 12:24 12:24 WBC (4.0-10.5) x10^3/uL RBC (4.1-5.4) x10^6/uL Hgb (12.0-16.0) g/dL Hct (35-47) % MCV (78-100) fL MCH (26-32) pg MCHC (32-36) g/dL RDW (11.5-14.0) % Plt Count (150-450) x10^3/uL MPV (7.5-11.0) fL Gran % (36.0-66.0) % Immature Gran % (Auto) (0.00-0.4) % Nucleat RBC Rel Count (0.00-0.1) % Eos # (Auto) (0-0.5) x10^3/uL Immature Gran # (Auto) (0.00-0.03) x10^3u/L Absolute Lymphs (auto) (1.0-4.6) x10^3/uL Absolute Monos (auto) (0.0-1.3) x10^3/uL Absolute Nucleated RBC (0.00-0.01) x10^3u/L Lymphocytes % (24.0-44.0) % Monocytes % (0.0-12.0) % Eosinophils % (0.00-5.0) % Basophils % (0.0-0.4) % Absolute Granulocytes (1.4-6.9) x10^3/uL Segmented Neutrophils (36.0-66.0) % Lymphocytes (Manual) (24-44) % Monocytes (Manual) (0.0-12.0) % Basophils # (0-0.4) x10^3/uL Platelet Estimate (NORMAL) RBC Morphology Sodium 140 (137-145) mmol/L Potassium 3.2 L (3.5-5.1) mmol/L Chloride 112 H (98-107) mmol/L Carbon Dioxide 16 L* (22-30) mmol/L Anion Gap 16.6 H (5-15) MEQ/L BUN 19 H (7-17) mg/dL Creatinine 1.14 H (0.52-1.04) mg/dL Estimated GFR 49.7 ML/MIN Glucose 121 H (74-106) mg/dL Lactic Acid (0.4-2.0) Calcium 8.5 (8.4-10.2) mg/dL Magnesium 1.8 (1.6-2.3) mg/dL Total Bilirubin 2.10 H (0.2-1.3) mg/dL AST 504 H (14-36) U/L ALT 316 H (0-35) U/L Alkaline Phosphatase 178 H (38-126) U/L Ammonia (9-30) umol/L Troponin I < 0.012 (0.000-0.034) ng/mL NT-Pro-B Natriuret Pep 5110 (<300) pg/mL Serum Total Protein 5.9 L (6.3-8.2) g/dL Albumin 3.1 L (3.5-5.0) g/dL Urine Color (Yellow) Urine Appearance (Clear) Urine pH (4.6-8.0) Ur Specific [place] (1.005-1.030) Urine Protein (Negative) Urine Glucose (UA) (Negative) mg/dL Urine Ketones (Negative) Urine Blood (Negative) Urine Nitrite (Negative) Urine Bilirubin (Negative) Urine Urobilinogen (0.2) mg/dL Ur Leukocyte Esterase (Negative) U Hyaline Cast (Auto) (0-2) /LPF Urine Microscopic RBC (0-5) /HPF Urine Microscopic WBC (0-5) /HPF Ur Epithelial Cells (None Seen) /HPF Urine Bacteria (None Seen) /HPF Urine Culture Reflexed (NO) Urine Opiates Level (NEGATIVE) Ur Methadone (NEGATIVE) Urine Barbiturates (NEGATIVE) Ur Phencyclidine (PCP) (NEGATIVE) Urine Amphetamine (NEGATIVE) U Benzodiazepine Level (NEGATIVE) Urine Cocaine (NEGATIVE) Urine Marijuana (THC) (NEGATIVE) 10/14/22 10/14/22 10/14/22 Range/Units 12:24 12:18 12:16 WBC 21.8 H (4.0-10.5) x10^3/uL RBC 4.18 (4.1-5.4) x10^6/uL Hgb 12.2 (12.0-16.0) g/dL Hct 38.0 (35-47) % MCV 90.9 (78-100) fL MCH 29.2 (26-32) pg MCHC 32.1 (32-36) g/dL RDW 13.2 (11.5-14.0) % Plt Count 226 (150-450) x10^3/uL MPV 9.6 (7.5-11.0) fL Gran % 89.3 H (36.0-66.0) % Immature Gran % (Auto) 0.9 H (0.00-0.4) % Nucleat RBC Rel Count 0.0 (0.00-0.1) % Eos # (Auto) 0 (0-0.5) x10^3/uL Immature Gran # (Auto) 0.19 H (0.00-0.03) x10^3u/L Absolute Lymphs (auto) 0.81 L (1.0-4.6) x10^3/uL Absolute Monos (auto) 1.30 (0.0-1.3) x10^3/uL Absolute Nucleated RBC 0.00 (0.00-0.01) x10^3u/L Lymphocytes % 3.7 L (24.0-44.0) % Monocytes % 6.0 (0.0-12.0) % Eosinophils % 0.0 (0.00-5.0) % Basophils % 0.1 (0.0-0.4) % Absolute Granulocytes 19.48 H (1.4-6.9) x10^3/uL Segmented Neutrophils 90 H (36.0-66.0) % Lymphocytes (Manual) 5 L (24-44) % Monocytes (Manual) 5 (0.0-12.0) % Basophils # 0.03 (0-0.4) x10^3/uL Platelet Estimate NORMAL (NORMAL) RBC Morphology NORMAL Sodium (137-145) mmol/L Potassium (3.5-5.1) mmol/L Chloride (98-107) mmol/L Carbon Dioxide (22-30) mmol/L Anion Gap (5-15) MEQ/L BUN (7-17) mg/dL Creatinine (0.52-1.04) mg/dL Estimated GFR ML/MIN Glucose (74-106) mg/dL Lactic Acid (0.4-2.0) Calcium (8.4-10.2) mg/dL Magnesium (1.6-2.3) mg/dL Total Bilirubin (0.2-1.3) mg/dL AST (14-36) U/L ALT (0-35) U/L Alkaline Phosphatase (38-126) U/L Ammonia (9-30) umol/L Troponin I (0.000-0.034) ng/mL NT-Pro-B Natriuret Pep (<300) pg/mL Serum Total Protein (6.3-8.2) g/dL Albumin (3.5-5.0) g/dL Urine Color Dark Yellow A (Yellow) Urine Appearance Clear (Clear) Urine pH 7.0 (4.6-8.0) Ur Specific [place] 1.010 (1.005-1.030) Urine Protein Negative (Negative) Urine Glucose (UA) Negative (Negative) mg/dL Urine Ketones Negative (Negative) Urine Blood Negative (Negative) Urine Nitrite Negative (Negative) Urine Bilirubin Negative (Negative) Urine Urobilinogen 1.0 A (0.2) mg/dL Ur Leukocyte Esterase Negative (Negative) U Hyaline Cast (Auto) 11-20 (0-2) /LPF Urine Microscopic RBC 0-2 (0-5) /HPF Urine Microscopic WBC 3-5 (0-5) /HPF Ur Epithelial Cells Many A (None Seen) /HPF Urine Bacteria None Seen (None Seen) /HPF Urine Culture Reflexed ORDERED SEPARATELY (NO) Urine Opiates Level NEGATIVE (NEGATIVE) Ur Methadone NEGATIVE (NEGATIVE) Urine Barbiturates NEGATIVE (NEGATIVE) Ur Phencyclidine (PCP) NEGATIVE (NEGATIVE) Urine Amphetamine NEGATIVE (NEGATIVE) U Benzodiazepine Level NEGATIVE (NEGATIVE) Urine Cocaine NEGATIVE (NEGATIVE) Urine Marijuana (THC) NEGATIVE (NEGATIVE) 10/14/22 Range/Units 12:10 WBC (4.0-10.5) x10^3/uL RBC (4.1-5.4) x10^6/uL Hgb (12.0-16.0) g/dL Hct (35-47) % MCV (78-100) fL MCH (26-32) pg MCHC (32-36) g/dL RDW (11.5-14.0) % Plt Count (150-450) x10^3/uL MPV (7.5-11.0) fL Gran % (36.0-66.0) % Immature Gran % (Auto) (0.00-0.4) % Nucleat RBC Rel Count (0.00-0.1) % Eos # (Auto) (0-0.5) x10^3/uL Immature Gran # (Auto) (0.00-0.03) x10^3u/L Absolute Lymphs (auto) (1.0-4.6) x10^3/uL Absolute Monos (auto) (0.0-1.3) x10^3/uL Absolute Nucleated RBC (0.00-0.01) x10^3u/L Lymphocytes % (24.0-44.0) % Monocytes % (0.0-12.0) % Eosinophils % (0.00-5.0) % Basophils % (0.0-0.4) % Absolute Granulocytes (1.4-6.9) x10^3/uL Segmented Neutrophils (36.0-66.0) % Lymphocytes (Manual) (24-44) % Monocytes (Manual) (0.0-12.0) % Basophils # (0-0.4) x10^3/uL Platelet Estimate (NORMAL) RBC Morphology Sodium (137-145) mmol/L Potassium (3.5-5.1) mmol/L Chloride (98-107) mmol/L Carbon Dioxide (22-30) mmol/L Anion Gap (5-15) MEQ/L BUN (7-17) mg/dL Creatinine (0.52-1.04) mg/dL Estimated GFR ML/MIN Glucose (74-106) mg/dL Lactic Acid 3.0 H (0.4-2.0) Calcium (8.4-10.2) mg/dL Magnesium (1.6-2.3) mg/dL Total Bilirubin (0.2-1.3) mg/dL AST (14-36) U/L ALT (0-35) U/L Alkaline Phosphatase (38-126) U/L Ammonia (9-30) umol/L Troponin I (0.000-0.034) ng/mL NT-Pro-B Natriuret Pep (<300) pg/mL Serum Total Protein (6.3-8.2) g/dL Albumin (3.5-5.0) g/dL Urine Color (Yellow) Urine Appearance (Clear) Urine pH (4.6-8.0) Ur Specific [place] (1.005-1.030) Urine Protein (Negative) Urine Glucose (UA) (Negative) mg/dL Urine Ketones (Negative) Urine Blood (Negative) Urine Nitrite (Negative) Urine Bilirubin (Negative) Urine Urobilinogen (0.2) mg/dL Ur Leukocyte Esterase (Negative) U Hyaline Cast (Auto) (0-2) /LPF Urine Microscopic RBC (0-5) /HPF Urine Microscopic WBC (0-5) /HPF Ur Epithelial Cells (None Seen) /HPF Urine Bacteria (None Seen) /HPF Urine Culture Reflexed (NO) Urine Opiates Level (NEGATIVE) Ur Methadone (NEGATIVE) Urine Barbiturates (NEGATIVE) Ur Phencyclidine (PCP) (NEGATIVE) Urine Amphetamine (NEGATIVE) U Benzodiazepine Level (NEGATIVE) Urine Cocaine (NEGATIVE) Urine Marijuana (THC) (NEGATIVE) - Progress Progress: improved Progress Note: Case discussed with Dr. Garcia at 1:[address] Garcia requests a CT head chest x-ray and CT abdomen and pelvis. CT head requested to assess for altered mental status. Chest x-ray and CT abdomen pelvis requested to find an etiology for patient's leukocytosis. Dr. Garcia requests to be notified after results of testing obtained. Dr. Garcia requesting that we contact patient's GI physician and discussed the elevated liver enzymes. The question we have is in light of patient's autoimmune history should we start steroids? 10/14/22 14:03 10/14/22 14:05 Dr[address] updated on CT head chest x-ray and CT abdomen pelvis at 5:50 PM. He advised adding on a COVID test. He was also advised of the spike in temperature to 100.1. He requested a gram of Rocephin to cover patient empirically. Patient will be admitted to Dr. Garcia's service. Plan of care discussed with patient and her son. They voiced no other complaints or concerns at this time. 10/14/22 17:53 Patient is 72-year-old female presents to our ED for evaluation of syncope failure to thrive, excessive sleeping. Work-up includes EKG which reveals sinus rhythm. Upon arrival to our ED patient was afebrile. Patient spiked a fever of 100.1. CT abdomen pelvis shows some pneumobilia but apparently this is resolving. Patient has no abdominal pain. Chest x-ray shows no acute findings. No pneumonia. CT head negative for acute intracranial pathology. Blood cultures obtained to address the leukocytosis of 21.8 observed on CBC. CMP reveals a potassium of 3.2. Potassium chloride 40 mEq administered orally. COVID test ordered and pending. Initial lactic acid elevated. IV fluids infuse d. Lactic acid level improving. Patient received magnesium sulfate in conjunction with the oral potassium to address the hypokalemia. Troponin negative. Urinalysis negative for UTI. In light of patient's leukocytosis and spiking temperature patient received a gram of Rocephin to treat empirically. This was the request of Dr. Garcia. Zofran administered along with normal saline. Ammonia level is negative. Complexity problems addressed is moderate acute complicated No critical care time Complexity of data reviewed and analyzed is extensive. Test ordered. Test reviewed and analyzed. Findings clinically correlated with history and physical exam. Plan of care/management discussed with Dr. Garcia who accepts admission to observation. Risk complication and or risk of morbidity/mortality patient management is high. Patient requires hospitalization for further evaluation and treatment of underlying pathology. Vital stable. Time to admit patient approximately 15 minutes. Plan of care established for shared decision making. Son at bedside. They voiced no other complaints or concerns at this time. Portions of this note were created with voice recognition technology. There may be grammatical, spelling, punctuation or sound alike errors 10/14/22 17:57 10/14/22 17:59 Counseled pt/family regarding: lab results, diagnosis, rad results - Departure Departure Disposition: Observation Clinical Impression: Syncope, Hypokalemia, Metabolic acidosis, Lactic acidosis, Transaminitis, Elevated alkaline phosphatase level, Generalized weakness, Leukocytosis, Fever of unknown origin Condition: Stable Critical Care Time: No Referrals: [facility] [Primary Care Provider] - Follow up/PCP as directed
[2022-10-14 13:20] LABS: Amphetamine,Urine NEGATIVE (NEGATIVE); Barbiturate,Urine NEGATIVE (NEGATIVE); Benzodiazepine,Urine NEGATIVE (NEGATIVE); Cocaine,Urine NEGATIVE (NEGATIVE); Methadone,Urine NEGATIVE (NEGATIVE); Opiate,Urine NEGATIVE (NEGATIVE); PCP,Urine NEGATIVE (NEGATIVE); THC,Urine NEGATIVE (NEGATIVE)
--- NOTE | 2022-10-14 15:27 | XRAY ---
CLINICAL HISTORY:leukocytosis COMPARISON:07/28/2022. TECHNIQUE:X-ray of the chest, AP view (portable). FINDINGS: Radiographic examination of the chest demonstrates clear lungs, no changes. Few subcentimeter calcified nodules likely old granulomas infection bilaterally. Normal configuration of the mediastinum. The cardiac size is normal. The bony thorax is unremarkable. Both costophrenic and cardiophrenic angles are clear. Hiatal hernia show no changes in the current study. IMPRESSION: 1. In comparison with the previous study, no parenchymal changes noted, and clear left costophrenic angle noted in the current study. 2. Few subcentimeter calcified nodules likely old granulomas infection bilaterally. 3. Both costophrenic and cardiophrenic angles are clear. Electronically Signed by: Hayden Goldberg MD. (10/14/2022 14:25:43 DIRECTOR [employer])
[2022-10-14 15:28] LABS: Lymphocytes 5 % (24-44); Monocyte 5 % (0.0-12.0); Neutrophils 90 % (36.0-66.0); Platelet Estimate NORMAL (NORMAL); Total Cells Counted 100
--- NOTE | 2022-10-14 16:08 | XRAY ---
CLINICAL HISTORY:Elevated liver enzymes COMPARISON:CT dated 07/26/2022. TECHNIQUE:Non-contrast CT scan of the brain was performed, with sagittal and coronal reconstructions. FINDINGS: Few old lacunar infarctions are noted at the basal ganglionic regions bilaterally as well as the left cerebellar hemisphere. Mild widening of the frontoparietal sulci and sylvian fissures, and basal cisterns. Findings are consistent with an aging process. No midline shifts or deformity. No intracerebral or extra axial hematoma. Normal CT appearance of the right cerebellar hemisphere, brainstem, and cerebellar peduncles. The osseous structures in the skull base are unremarkable. The IACs are unremarkable. The cerebellopontine angles are clear. No definite calvarium fractures. The scanned paranasal sinuses are clear. IMPRESSION: 1. No changes detected since the last study. 2. Bilateral basal ganglia and left cerebellar hemisphere old lacunar infarctions. 3. Age matched involutional brain changes. Electronically Signed by: Hayden Goldberg MD. (10/14/2022 15:07:34 AMPHIBIOUS OPERATIONS OFFICER)
--- NOTE | 2022-10-14 16:35 | XRAY ---
CLINICAL HISTORY:Elevated liver enzymes COMPARISON:CT dated 07/26/2022. TECHNIQUE:CT of the abdomen and pelvis was performed in axial plane with sagittal and coronal reconstructed images after administration of intravenous contrast. FINDINGS: Calcified granulomas within the periphery of the left lower lung lobe is still noted. The liver is normal in size, morphology, and position, air is seen within the biliary tree likely postoperative removal of the gall bladder. No focal lesion. The CBD is dilated reaching 1.6 cm and shows soft tissue density material inside. Surgical clips are seen at GB bed. Unremarkable appearing pancreas. No pancreatic mass or ductal dilatation is seen. Unremarkable appearing spleen. The adrenal glands are normal. The kidneys appear unremarkable with no stones, cysts masses or hydronephrosis. The ureters are normal with no stones. Unremarkable abdominal aorta and IVC. Sliding hiatal hernia is still noted. Unremarkable appearing duodenum, small bowel and colon. No subdiaphragmatic free air and no ascites. The uterus appears unremarkable. No adnexal mass. Left hip prosthesis degrading the image quality of pelvic structures. No abdominal wall pathology is seen. Lymph nodes: No prominent lymph nodes are seen. Skeletal system: No suspicious bony lesion detected. Degenerative changes seen in the spine. Bladder: No definite focal lesion detected. IMPRESSION: 1. Postoperative pneumobilia is still noted with regressive course since last study. 2. Dilated CBD with soft tissue density material inside. Further evaluation by MRCP is advised as CBD diameter is increased in the current study. 3. Sliding hiatal hernia is still noted. Electronically Signed by: Hayden Goldberg MD. (10/14/2022 15:33:46 SCIENCE INTERPRETER)
[2022-10-14] MEDS ORDERED: Zofran 4 MG/2 ML VIAL IV ONE (17:09)
[2022-10-14] MEDS ORDERED: Zofran 4 MG/2 ML VIAL ONE (17:10)
[2022-10-14] MEDS ORDERED: ROCEPHIN 1 Gm-D5w 50 ml Bag** 1 G/50 ML IVPB IV STA (17:51)
[2022-10-14] MEDS ORDERED: ROCEPHIN 1 Gm-D5w 50 ml Bag** 1 G/50 ML IVPB IV ONE (17:52)
[2022-10-14] MEDS ORDERED: Compazine 10 MG/2 ML IV ONE (18:25)
[2022-10-14] MEDS ORDERED: Compazine 10 MG/2 ML ONE (18:28)
[2022-10-14 18:44] LABS: INFLUENZA A NEGATIVE (NEGATIVE); INFLUENZA B NEGATIVE (NEGATIVE); RESPIRATORY SYNCTIAL VIRUS NEGATIVE (NEGATIVE); SARS-CoV-2 Xpert Express NEGATIVE (NEGATIVE)
[2022-10-14] MEDS ORDERED: Lactated Ringers 1,000 ML IV SCH (22:30)
[2022-10-14] MEDS ORDERED: Zofran 4 MG/2 ML VIAL IV PRN (22:31)
[2022-10-14] MEDS ORDERED: Docusate Sodium 100 MG PO PRN (22:31)
[2022-10-14] MEDS ORDERED: MILK OF MAGNESIA 30 ML PO PRN (22:31)
[2022-10-14] MEDS ORDERED: TYLENOL 325 MG PO PRN (22:31)
--- NOTE | 2022-10-14 22:41 | PCM.HP ---
History of Present Illness - Chief Complaint Chief Complaint: syncope, vomiting Date: 10/14/22 History of Present Illness: This is a 72-year-old female admitted for sepsis. She has past medical history of chronic autoimmune hepatitis, anemia, prior stroke, history of hepatitis A, primary biliary cholangitis dementia, coronary artery disease, hypertension, anxiety, depression. She presented to the ER today for evaluation of syncope and vomiting. On arrival she was afebrile blood pressure 93/47, heart rate 83, sat 96% on room air. In the ED temperature max was 100.1. Labs were significant for WBC 21, potassium 3.2, serum bicarb 16, creatinine 1.1, AST 504, ALT 316, alk phos 178, ammonia less than 9, troponin negative, UA unremarkable, U tox unremarkable, COVID, RSV, flu negative. CT abdomen pelvis was obtained that showed normal liver with air seen within the biliary tree felt to be postoperative and regressing since prior study. Common bile duct 1.6 cm with soft tissue density material inside. CT head showed bilateral basal ganglia and left cerebellar hemisphere lacunar infarctions that were old. Chest x-ray negative for acute pathology. In the ED she was given mag sulfate, Zofran, potassium, ceftriaxone, 1 L of normal saline. Currently she is awake but does not participate in interview. - Review of Systems All Other Systems: Unable due to condition Medications & Allergies Home Medications: Home Medication List Aspirin 81 gm Chew [Baby Aspirin 81 mg Chew] 81 mg PO BID 04/24/20 [History Confirmed 10/14/22] PANTOPRAZOLE 40 mg Tablet [Protonix 40MG Tablet] 40 mg PO BID 04/24/20 [History Confirmed 10/14/22] Potassium Chloride Tab* [Klor Con] 10 meq PO TID 04/24/20 [History Confirmed 10/14/22] Sertraline HCl 100 mg PO HS 04/24/20 [History Confirmed 10/14/22] ursodioL [Ursodiol] 500 mg PO TID 10/17/20 [History Confirmed 10/14/22] Alendronate Sodium 70 mg PO WEEKLY 04/18/22 [History Confirmed 10/14/22] Cholecalciferol (Vitamin D3) [Vitamin D3] 50 mcg PO DAILY 04/18/22 [History Confirmed 10/14/22] Donepezil HCl 10 mg PO 1200 04/18/22 [History Confirmed 10/14/22] Magnesium Oxide [Magnesium] 400 mg PO DAILY 04/18/22 [History Confirmed ] Topiramate 100 mg [Topamax 100 MG] 100 mg PO BID 04/18/22 [History Confirmed 10/14/22] Cyanocobalamin (Vitamin B-12) [Vitamin B-12] 1,000 mcg PO DAILY 05/30/22 [History Confirmed 10/14/22] Multivitamin 1 tab PO 1200 05/30/22 [History Confirmed 10/14/22] Ascorbic Acid [Vitamin C] 250 mg PO DAILY 06/27/22 [History Confirmed 10/14/22] Memantine HCl [Namenda] 10 mg PO BID 06/27/22 [History Confirmed 10/14/22] Polyethylene Glycol 3350 17 gm [Miralax Powder 17GM PACKET] 17 gm PO BID 06/27/22 [History Confirmed 10/14/22] Nitrofurantoin Macro 100 mg [Macrobid 100MG Capsule] 100 mg PO DAILY 10/14/22 [History Confirmed 10/14/22] Allergies/Adverse Reactions: Allergies Allergy/AdvReac Type Severity Reaction Status Date / Time levetiracetam [From [facility]] AdvReac Verified 10/14/22 11:09 - Past Medical History Past Medical History: Yes Neurological History: Seizures, Stroke ENT History: No Pertinent History Cardiac History: Angina, Coronary Artery Disease, Hypertension Respiratory History: No Pertinent History Endocrine Medical History: No Pertinent History Musculoskelatal History: Osteoporosis GI Medical History: Other History: No Pertinent History Pyscho-Social History: Anxiety, Depression Reproductive Disorders: No Pertinent History Comment: autoimmune liver disease. shingles - Female History Are you now?: No - Past Surgical History Past Surgical History: Yes Neuro Surgical History: No Pertinent History Cardiac History: Cardiac Stent Respiratory Surgery: No Pertinent History GI Surgical History: Bowel Surgery, Cholecystectomy Genitourinary Surgical Hx: No Pertinent History Musculskeletal Surgical Hx: No Pertinent History Female Surgical History: No Pertinent History Other Surgical History: PARTIAL L HIP REPLACEMENT - Social History Smoking Status: Never smoker Exposure to second hand smoke: No Alcohol: None Drug Use: none Significant Family History: no pertinent family hx - Physical Exam Vital Signs: Vital Signs - 24 hr Temp Pulse Resp BP BP Pulse Ox 10/14/22 20:34 97.3 F 93 H 16 151/65 10/14/22 19:48 97.3 F 93 H 16 151/65 96 10/14/22 18:05 96 10/14/22 18:00 105 H 14 136/62 96 10/14/22 17:57 100 H 0 L 132/57 97 10/14/22 17:01 100.1 F 107 H 15 153/78 10/14/22 16:30 99 H 30 H 138/72 99 10/14/22 16:00 78 19 136/59 97 10/14/22 15:20 77 18 127/53 97 10/14/22 14:00 78 19 112/50 97 10/14/22 13:00 83 19 118/54 97 10/14/22 12:30 80 19 104/50 97 10/14/22 12:00 80 104/59 96 10/14/22 11:30 104/48 10/14/22 11:27 105/44 97 10/14/22 11:15 97.9 F 83 18 93/47 96 10/14/22 11:09 80 93/47 97 General Appearance: no apparent distress Neurologic Exam: alert Eye Exam: PERRL/EOMI Neck Exam: normal inspection Respiratory Exam: normal breath sounds Cardiovascular Exam: regular rate/rhythm Pelvic Exam: not done Extremity Exam: normal inspection Results - Labs Lab/Micro Results: Lab Results-Last 24 Hours 10/14/22 10/14/22 10/14/22 Range/Units 12:10 12:16 12:18 WBC (4.0-10.5) x10^3/uL RBC (4.1-5.4) x10^6/uL Hgb (12.0-16.0) g/dL Hct (35-47) % MCV (78-100) fL MCH (26-32) pg MCHC (32-36) g/dL RDW (11.5-14.0) % Plt Count (150-450) x10^3/uL MPV (7.5-11.0) fL Gran % (36.0-66.0) % Immature Gran % (Auto) (0.00-0.4) % Nucleat RBC Rel Count (0.00-0.1) % Eos # (Auto) (0-0.5) x10^3/uL Immature Gran # (Auto) (0.00-0.03) x10^3u/L Absolute Lymphs (auto) (1.0-4.6) x10^3/uL Absolute Monos (auto) (0.0-1.3) x10^3/uL Absolute Nucleated RBC (0.00-0.01) x10^3u/L Lymphocytes % (24.0-44.0) % Monocytes % (0.0-12.0) % Eosinophils % (0.00-5.0) % Basophils % (0.0-0.4) % Absolute Granulocytes (1.4-6.9) x10^3/uL Segmented Neutrophils (36.0-66.0) % Lymphocytes (Manual) (24-44) % Monocytes (Manual) (0.0-12.0) % Basophils # (0-0.4) x10^3/uL Platelet Estimate (NORMAL) RBC Morphology Sodium (137-145) mmol/L Potassium (3.5-5.1) mmol/L Chloride (98-107) mmol/L Carbon Dioxide (22-30) mmol/L Anion Gap (5-15) MEQ/L BUN (7-17) mg/dL Creatinine (0.52-1.04) mg/dL Estimated GFR ML/MIN Glucose (74-106) mg/dL Lactic Acid 3.0 H (0.4-2.0) Calcium (8.4-10.2) mg/dL Magnesium (1.6-2.3) mg/dL Total Bilirubin (0.2-1.3) mg/dL AST (14-36) U/L ALT (0-35) U/L Alkaline Phosphatase (38-126) U/L Ammonia (9-30) umol/L Troponin I (0.000-0.034) ng/mL NT-Pro-B Natriuret Pep (<300) pg/mL Serum Total Protein (6.3-8.2) g/dL Albumin (3.5-5.0) g/dL Urine Color Dark Yellow A (Yellow) Urine Appearance Clear (Clear) Urine pH 7.0 (4.6-8.0) Ur Specific [place] 1.010 (1.005-1.030) Urine Protein Negative (Negative) Urine Glucose (UA) Negative (Negative) mg/dL Urine Ketones Negative (Negative) Urine Blood Negative (Negative) Urine Nitrite Negative (Negative) Urine Bilirubin Negative (Negative) Urine Urobilinogen 1.0 A (0.2) mg/dL Ur Leukocyte Esterase Negative (Negative) U Hyaline Cast (Auto) 11-20 (0-2) /LPF Urine Microscopic RBC 0-2 (0-5) /HPF Urine Microscopic WBC 3-5 (0-5) /HPF Ur Epithelial Cells Many A (None Seen) /HPF Urine Bacteria None Seen (None Seen) /HPF Urine Culture Reflexed ORDERED SEPARATELY (NO) Urine Opiates Level NEGATIVE (NEGATIVE) Ur Methadone NEGATIVE (NEGATIVE) Urine Barbiturates NEGATIVE (NEGATIVE) Ur Phencyclidine (PCP) NEGATIVE (NEGATIVE) Urine Amphetamine NEGATIVE (NEGATIVE) U Benzodiazepine Level NEGATIVE (NEGATIVE) Urine Cocaine NEGATIVE (NEGATIVE) Urine Marijuana (THC) NEGATIVE (NEGATIVE) Influenza Type A Ag (NEGATIVE) Influenza Type B Ag (NEGATIVE) RSV (PCR) (NEGATIVE) SARS-CoV-2 (PCR) (NEGATIVE) 10/14/22 10/14/22 10/14/22 Range/Units 12:24 12:24 12:24 WBC 21.8 H (4.0-10.5) x10^3/uL RBC 4.18 (4.1-5.4) x10^6/uL Hgb 12.2 (12.0-16.0) g/dL Hct 38.0 (35-47) % MCV 90.9 (78-100) fL MCH 29.2 (26-32) pg MCHC 32.1 (32-36) g/dL RDW 13.2 (11.5-14.0) % Plt Count 226 (150-450) x10^3/uL MPV 9.6 (7.5-11.0) fL Gran % 89.3 H (36.0-66.0) % Immature Gran % (Auto) 0.9 H (0.00-0.4) % Nucleat RBC Rel Count 0.0 (0.00-0.1) % Eos # (Auto) 0 (0-0.5) x10^3/uL Immature Gran # (Auto) 0.19 H (0.00-0.03) x10^3u/L Absolute Lymphs (auto) 0.81 L (1.0-4.6) x10^3/uL Absolute Monos (auto) 1.30 (0.0-1.3) x10^3/uL Absolute Nucleated RBC 0.00 (0.00-0.01) x10^3u/L Lymphocytes % 3.7 L (24.0-44.0) % Monocytes % 6.0 (0.0-12.0) % Eosinophils % 0.0 (0.00-5.0) % Basophils % 0.1 (0.0-0.4) % Absolute Granulocytes 19.48 H (1.4-6.9) x10^3/uL Segmented Neutrophils 90 H (36.0-66.0) % Lymphocytes (Manual) 5 L (24-44) % Monocytes (Manual) 5 (0.0-12.0) % Basophils # 0.03 (0-0.4) x10^3/uL Platelet Estimate NORMAL (NORMAL) RBC Morphology NORMAL Sodium 140 (137-145) mmol/L Potassium 3.2 L (3.5-5.1) mmol/L Chloride 112 H (98-107) mmol/L Carbon Dioxide 16 L* (22-30) mmol/L Anion Gap 16.6 H (5-15) MEQ/L BUN 19 H (7-17) mg/dL Creatinine 1.14 H (0.52-1.04) mg/dL Estimated GFR 49.7 ML/MIN Glucose 121 H (74-106) mg/dL Lactic Acid (0.4-2.0) Calcium 8.5 (8.4-10.2) mg/dL Magnesium 1.8 (1.6-2.3) mg/dL Total Bilirubin 2.10 H (0.2-1.3) mg/dL AST 504 H (14-36) U/L ALT 316 H (0-35) U/L Alkaline Phosphatase 178 H (38-126) U/L Ammonia (9-30) umol/L Troponin I < 0.012 (0.000-0.034) ng/mL NT-Pro-B Natriuret Pep (<300) pg/mL Serum Total Protein 5.9 L (6.3-8.2) g/dL Albumin 3.1 L (3.5-5.0) g/dL Urine Color (Yellow) Urine Appearance (Clear) Urine pH (4.6-8.0) Ur Specific [place] (1.005-1.030) Urine Protein (Negative) Urine Glucose (UA) (Negative) mg/dL Urine Ketones (Negative) Urine Blood (Negative) Urine Nitrite (Negative) Urine Bilirubin (Negative) Urine Urobilinogen (0.2) mg/dL Ur Leukocyte Esterase (Negative) U Hyaline Cast (Auto) (0-2) /LPF Urine Microscopic RBC (0-5) /HPF Urine Microscopic WBC (0-5) /HPF Ur Epithelial Cells (None Seen) /HPF Urine Bacteria (None Seen) /HPF Urine Culture Reflexed (NO) Urine Opiates Level (NEGATIVE) Ur Methadone (NEGATIVE) Urine Barbiturates (NEGATIVE) Ur Phencyclidine (PCP) (NEGATIVE) Urine Amphetamine (NEGATIVE) U Benzodiazepine Level (NEGATIVE) Urine Cocaine (NEGATIVE) Urine Marijuana (THC) (NEGATIVE) Influenza Type A Ag (NEGATIVE) Influenza Type B Ag (NEGATIVE) RSV (PCR) (NEGATIVE) SARS-CoV-2 (PCR) (NEGATIVE) 10/14/22 10/14/22 10/14/22 Range/Units 12:24 13:28 13:50 WBC (4.0-10.5) x10^3/uL RBC (4.1-5.4) x10^6/uL Hgb (12.0-16.0) g/dL Hct (35-47) % MCV (78-100) fL MCH (26-32) pg MCHC (32-36) g/dL RDW (11.5-14.0) % Plt Count (150-450) x10^3/uL MPV (7.5-11.0) fL Gran % (36.0-66.0) % Immature Gran % (Auto) (0.00-0.4) % Nucleat RBC Rel Count (0.00-0.1) % Eos # (Auto) (0-0.5) x10^3/uL Immature Gran # (Auto) (0.00-0.03) x10^3u/L Absolute Lymphs (auto) (1.0-4.6) x10^3/uL Absolute Monos (auto) (0.0-1.3) x10^3/uL Absolute Nucleated RBC (0.00-0.01) x10^3u/L Lymphocytes % (24.0-44.0) % Monocytes % (0.0-12.0) % Eosinophils % (0.00-5.0) % Basophils % (0.0-0.4) % Absolute Granulocytes (1.4-6.9) x10^3/uL Segmented Neutrophils (36.0-66.0) % Lymphocytes (Manual) (24-44) % Monocytes (Manual) (0.0-12.0) % Basophils # (0-0.4) x10^3/uL Platelet Estimate (NORMAL) RBC Morphology Sodium (137-145) mmol/L Potassium (3.5-5.1) mmol/L Chloride (98-107) mmol/L Carbon Dioxide (22-30) mmol/L Anion Gap (5-15) MEQ/L BUN (7-17) mg/dL Creatinine (0.52-1.04) mg/dL Estimated GFR ML/MIN Glucose (74-106) mg/dL Lactic Acid 2.6 H (0.4-2.0) Calcium (8.4-10.2) mg/dL Magnesium (1.6-2.3) mg/dL Total Bilirubin (0.2-1.3) mg/dL AST (14-36) U/L ALT (0-35) U/L Alkaline Phosphatase (38-126) U/L Ammonia < 9 L (9-30) umol/L Troponin I (0.000-0.034) ng/mL NT-Pro-B Natriuret Pep 5110 (<300) pg/mL Serum Total Protein (6.3-8.2) g/dL Albumin (3.5-5.0) g/dL Urine Color (Yellow) Urine Appearance (Clear) Urine pH (4.6-8.0) Ur Specific [place] (1.005-1.030) Urine Protein (Negative) Urine Glucose (UA) (Negative) mg/dL Urine Ketones (Negative) Urine Blood (Negative) Urine Nitrite (Negative) Urine Bilirubin (Negative) Urine Urobilinogen (0.2) mg/dL Ur Leukocyte Esterase (Negative) U Hyaline Cast (Auto) (0-2) /LPF Urine Microscopic RBC (0-5) /HPF Urine Microscopic WBC (0-5) /HPF Ur Epithelial Cells (None Seen) /HPF Urine Bacteria (None Seen) /HPF Urine Culture Reflexed (NO) Urine Opiates Level (NEGATIVE) Ur Methadone (NEGATIVE) Urine Barbiturates (NEGATIVE) Ur Phencyclidine (PCP) (NEGATIVE) Urine Amphetamine (NEGATIVE) U Benzodiazepine Level (NEGATIVE) Urine Cocaine (NEGATIVE) Urine Marijuana (THC) (NEGATIVE) Influenza Type A Ag (NEGATIVE) Influenza Type B Ag (NEGATIVE) RSV (PCR) (NEGATIVE) SARS-CoV-2 (PCR) (NEGATIVE) 10/14/22 10/14/22 10/14/22 Range/Units 15:33 18:05 19:28 WBC (4.0-10.5) x10^3/uL RBC (4.1-5.4) x10^6/uL Hgb (12.0-16.0) g/dL Hct (35-47) % MCV (78-100) fL MCH (26-32) pg MCHC (32-36) g/dL RDW (11.5-14.0) % Plt Count (150-450) x10^3/uL MPV (7.5-11.0) fL Gran % (36.0-66.0) % Immature Gran % (Auto) (0.00-0.4) % Nucleat RBC Rel Count (0.00-0.1) % Eos # (Auto) (0-0.5) x10^3/uL Immature Gran # (Auto) (0.00-0.03) x10^3u/L Absolute Lymphs (auto) (1.0-4.6) x10^3/uL Absolute Monos (auto) (0.0-1.3) x10^3/uL Absolute Nucleated RBC (0.00-0.01) x10^3u/L Lymphocytes % (24.0-44.0) % Monocytes % (0.0-12.0) % Eosinophils % (0.00-5.0) % Basophils % (0.0-0.4) % Absolute Granulocytes (1.4-6.9) x10^3/uL Segmented Neutrophils (36.0-66.0) % Lymphocytes (Manual) (24-44) % Monocytes (Manual) (0.0-12.0) % Basophils # (0-0.4) x10^3/uL Platelet Estimate (NORMAL) RBC Morphology Sodium (137-145) mmol/L Potassium (3.5-5.1) mmol/L Chloride (98-107) mmol/L Carbon Dioxide (22-30) mmol/L Anion Gap (5-15) MEQ/L BUN (7-17) mg/dL Creatinine (0.52-1.04) mg/dL Estimated GFR ML/MIN Glucose (74-106) mg/dL Lactic Acid (0.4-2.0) Calcium (8.4-10.2) mg/dL Magnesium (1.6-2.3) mg/dL Total Bilirubin (0.2-1.3) mg/dL AST (14-36) U/L ALT (0-35) U/L Alkaline Phosphatase (38-126) U/L Ammonia (9-30) umol/L Troponin I < 0.012 < 0.012 (0.000-0.034) ng/mL NT-Pro-B Natriuret Pep (<300) pg/mL Serum Total Protein (6.3-8.2) g/dL Albumin (3.5-5.0) g/dL Urine Color (Yellow) Urine Appearance (Clear) Urine pH (4.6-8.0) Ur Specific [place] (1.005-1.030) Urine Protein (Negative) Urine Glucose (UA) (Negative) mg/dL Urine Ketones (Negative) Urine Blood (Negative) Urine Nitrite (Negative) Urine Bilirubin (Negative) Urine Urobilinogen (0.2) mg/dL Ur Leukocyte Esterase (Negative) U Hyaline Cast (Auto) (0-2) /LPF Urine Microscopic RBC (0-5) /HPF Urine Microscopic WBC (0-5) /HPF Ur Epithelial Cells (None Seen) /HPF Urine Bacteria (None Seen) /HPF Urine Culture Reflexed (NO) Urine Opiates Level (NEGATIVE) Ur Methadone (NEGATIVE) Urine Barbiturates (NEGATIVE) Ur Phencyclidine (PCP) (NEGATIVE) Urine Amphetamine (NEGATIVE) U Benzodiazepine Level (NEGATIVE) Urine Cocaine (NEGATIVE) Urine Marijuana (THC) (NEGATIVE) Influenza Type A Ag NEGATIVE (NEGATIVE) Influenza Type B Ag NEGATIVE (NEGATIVE) RSV (PCR) NEGATIVE (NEGATIVE) SARS-CoV-2 (PCR) NEGATIVE (NEGATIVE) - Radiology Impressions Radiology Exams & Impressions: Radiology Procedures Category Date Time Status ABDOMEN AND PELVIS W CONTRAST [CT] Stat Exams 10/14/22 13:37 Completed CHEST 1 VIEW (PORTABLE) Stat Exams 10/14/22 13:40 Completed HEAD WITHOUT CONTRAST [CT] Stat Exams 10/14/22 13:37 Completed Assessment/Plan (1) Generalized weakness Current Visit: Yes Status: Acute Assessment & Plan: ASSESSMENT #Possible Sepsis #Syncope #Postoperative pneumobilia #Dilated common bile duct with soft tissue density material inside #Metabolic acidosis #Acute kidney injury creatinine 1.1 (0.6 on September 15) PLAN: -Follow cx -Empiric Ceftriaxone -IVFs -Monitor on telemetry -Follow renal panel and urine output -Continue home meds for chronic medical conditions PPX: Lovenox Entire encounter performed via telemdicine Code(s): R53.1 - WEAKNESS Telemedicine Encounter - Telemedicine Encounter Telemedicine Encounter: The entirety of this encounter was performed via Telemedicine"
[2022-10-15 05:22] LABS: Hematocrit 33.3 % (35-47); Hemoglobin 10.8 g/dL (12.0-16.0); Mean Cell Volume 90.7 fL (78-100); Mean Corpuscular Hemoglobin 29.4 pg (26-32); Mean Corpuscular Hgb Concent. 32.4 g/dL (32-36); Mean Platelet Volume 10.7 fL (7.5-11.0); Platelet Count 193 x10^3/uL (150-450); Red Blood Count 3.67 x10^6/uL (4.1-5.4); Red Cell Distribution Width 14.1 % (11.5-14.0)
[2022-10-15 05:27] LABS: ALBUMIN 2.9 g/dL (3.5-5.0); ANION GAP 15.4 MEQ/L (5-15); BILIRUBIN,TOTAL 2.4 mg/dL (0.2-1.3); Creatinine 1 1.14 mg/dL (0.52-1.04); EST GLOMERULAR FILTRATION RATE 49.7 ML/MIN; Potassium 3.6 mmol/L (3.5-5.1); Total Protein 5.7 g/dL (6.3-8.2)
[2022-10-15 05:28] LABS: White Blood Count 32.2 x10^3/uL (4.0-10.5)
[2022-10-15 07:41] LABS: BAND 6 % (0.0-2.0); Lymphocytes 4 % (24-44); Monocyte 7 % (0.0-12.0); Neutrophils 83 % (36.0-66.0); Total Cells Counted 100
[2022-10-15 07:43] LABS: Platelet Estimate NORMAL (NORMAL)
[2022-10-15] MEDS: NON-FORMULARY ITEM PO SCH ×3 (08:58→22:01)
[2022-10-15] MEDS: VITAMIN D PO SCH (08:58)
[2022-10-15] MEDS: Namenda 5 MG PO SCH ×2 (08:59→21:51)
[2022-10-15] MEDS: ECOTRIN 81 MG PO SCH ×2 (08:59→21:50)
[2022-10-15] MEDS: Vitamin B-12 500 MCG PO SCH (08:59)
[2022-10-15] MEDS: MAG-OX 400 PO SCH (08:59)
[2022-10-15] MEDS: Vitamin C 500 MG PO SCH (08:59)
[2022-10-15] MEDS: Klor Con PO SCH ×3 (09:00→21:53)
[2022-10-15] MEDS: Protonix 40MG Tablet PO SCH (09:00)
[2022-10-15] MEDS: TOPIRAMATE PO SCH ×2 (09:00→21:51)
[2022-10-15] MEDS: ENOXAPARIN SODIUM SQ SCH (09:04)
[2022-10-15] MEDS: Miralax Powder 17GM PACKET PO SCH ×2 (09:06→21:47)
[2022-10-15] MEDS ORDERED: NON-FORMULARY ITEM (Cholecalciferol (Vitamin D3) [Vitamin D3] 50 MCG Tablet) PO SCH (10:00)
[2022-10-15] MEDS ORDERED: URSODIOL 500 MG PO SCH (10:00)
[2022-10-15] MEDS ORDERED: NON-FORMULARY ITEM (Cyanocobalamin (Vitamin B-12) [Vitamin B-12] 1,000 MCG Capsule) PO SCH (10:00)
[2022-10-15] MEDS ORDERED: ASCORBIC ACID 250 MG PO SCH (10:00)
[2022-10-15] MEDS ORDERED: NON-FORMULARY ITEM (Topiramate 100 Mg*** [Topamax 100 Mg***] 100 MG Tablet) PO SCH (10:00)
[2022-10-15] MEDS ORDERED: NON-FORMULARY ITEM (Magnesium Oxide [Magnesium] 400 MG Tablet) PO SCH (10:00)
[2022-10-15] MEDS ORDERED: NON-FORMULARY ITEM (Memantine Hcl [Namenda] 10 MG Tablet) PO SCH (10:00)
[2022-10-15] MEDS: PIPERACILLIN/TAZOBACTAM 3.375 GM in Sodium Chloride 100ML MINI-BAG PLUS 100 ML IV SCH ×2 (12:18→19:20)
[2022-10-15] MEDS: Aricept 10 MG PO SCH (12:18)
--- NOTE | 2022-10-15 14:32 | PCM.NOTE ---
Date and Time: 10/15/22 2052 Subjective Assessment: This is a 72-year-old female admitted for sepsis. She has past medical history of chronic autoimmune hepatitis, anemia, prior stroke, history of hepatitis A, primary biliary cholangitis dementia, coronary artery disease, hypertension, anxiety, depression. She presented to the ER for evaluation of syncope and vomiting. She has a hx of repeat UTI's but urine was unremarkable, U tox unremarkable, COVID, RSV, flu negative. CT abdomen pelvis was obtained that showed normal liver with air seen within the biliary tree felt to be postoperative and regressing since prior study. Common bile duct 1.6 cm with soft tissue density material inside. CT head showed bilateral basal ganglia and left cerebellar hemisphere lacunar infarctions that were old. Chest x-ray negative for acute pathology. Blood cultures have came back as both having gram negative rods. Antibiotic changed to Zosyn. Pt was sleeping this morning during assessment. Son states she sleeps on average of up to 22 hours at a time and this is her norm. He and his sister are her primary caregivers. The son reports seeing several specialist as to why she sleeps so much and results have been inconclusive. She does not appear to be in any distress. - Review of Systems Constitutional: No Fever, No Chills Eyes: No Symptoms Ears, Nose, & Throat: No Symptoms Respiratory: No Cough, No Short Of Breath Cardiac: No Chest Pain, No Edema, No Syncope Abdominal/Gastrointestinal: No Abdominal Pain, No Nausea, No Vomiting, No Diarrhea Genitourinary Symptoms: No Dysuria Musculoskeletal: No Back Pain, No Neck Pain Skin: No Rash Neurological: No Dizziness, No Focal Weakness, No Sensory Changes Psychological: No Symptoms Endocrine: No Symptoms Hematologic/Lymphatic: No Symptoms Immunological/Allergic: No Symptoms Objective Exam General Appearance: no apparent distress, alert Neurologic Exam: oriented x 3, cooperative, nml cerebellar function, sensation nml, No motor deficits Skin Exam: normal color, warm, dry Eye Exam: PERRL, EOMI, eyes nml inspection Ears, Nose, Throat Exam: normal ENT inspection, pharynx normal, moist mucous membranes Neck Exam: normal inspection, non-tender, supple, full range of motion Respiratory Exam: normal breath sounds, lungs clear, No respiratory distress Cardiovascular Exam: regular rate/rhythm, normal heart sounds Gastrointestinal/Abdomen Exam: soft, No tenderness, No mass Extremity Exam: normal inspection, normal range of motion Back Exam: normal inspection, normal range of motion, No CVA tenderness, No vertebral tenderness Pelvic Exam: deferred Rectal Exam: deferred OBJECTIVE DATA Vital Signs: Vital Signs - 24 hr Temp Pulse Resp BP BP Pulse Ox 10/15/22 14:00 97.5 F 69 16 115/58 96 10/15/22 10:00 96.9 F 69 16 115/58 96 10/15/22 06:44 97.1 F 76 16 107/66 96 10/15/22 04:00 96.8 F 68 16 92/46 91 L 10/14/22 23:46 97.5 F 86 18 93/50 93 L 10/14/22 20:34 97.3 F 93 H 16 151/65 10/14/22 19:48 97.3 F 93 H 16 151/65 96 10/14/22 18:05 96 10/14/22 18:00 105 H 14 136/62 96 10/14/22 17:57 100 H 0 L 132/57 97 10/14/22 17:01 100.1 F 107 H 15 153/78 10/14/22 16:30 99 H 30 H 138/72 99 10/14/22 16:00 78 19 136/59 97 10/14/22 15:20 77 18 127/53 97 Pain Assessment - Last Documented Pain Intensity 0 Intake and Output: Intake & Output 10/13/22 10/14/22 10/15/22 10/16/22 11:59 11:59 11:59 11:59 Intake Total 220 240 Balance 220 240 Weight 56.5 kg 55.5 kg Lab Results: Lab Results-Last 24 Hours 10/14/22 10/14/22 10/14/22 Range/Units 12:24 15:33 18:05 WBC (4.0-10.5) x10^3/uL RBC (4.1-5.4) x10^6/uL Hgb (12.0-16.0) g/dL Hct (35-47) % MCV (78-100) fL MCH (26-32) pg MCHC (32-36) g/dL RDW (11.5-14.0) % Plt Count (150-450) x10^3/uL MPV (7.5-11.0) fL Segmented Neutrophils 90 H (36.0-66.0) % Band Neutrophils (0.0-2.0) % Lymphocytes (Manual) 5 L (24-44) % Monocytes (Manual) 5 (0.0-12.0) % Platelet Estimate NORMAL (NORMAL) RBC Morphology NORMAL Smear Path Review Sodium (137-145) mmol/L Potassium (3.5-5.1) mmol/L Chloride (98-107) mmol/L Carbon Dioxide (22-30) mmol/L Anion Gap (5-15) MEQ/L BUN (7-17) mg/dL Creatinine (0.52-1.04) mg/dL Estimated GFR ML/MIN Glucose (74-106) mg/dL Calcium (8.4-10.2) mg/dL Magnesium (1.6-2.3) mg/dL Total Bilirubin (0.2-1.3) mg/dL AST (14-36) U/L ALT (0-35) U/L Alkaline Phosphatase (38-126) U/L Troponin I < 0.012 (0.000-0.034) ng/mL Serum Total Protein (6.3-8.2) g/dL Albumin (3.5-5.0) g/dL Influenza Type A Ag NEGATIVE (NEGATIVE) Influenza Type B Ag NEGATIVE (NEGATIVE) RSV (PCR) NEGATIVE (NEGATIVE) SARS-CoV-2 (PCR) NEGATIVE (NEGATIVE) 10/14/22 10/15/22 10/15/22 Range/Units 19:28 04:47 04:47 WBC 32.2 H* (4.0-10.5) x10^3/uL RBC 3.67 L (4.1-5.4) x10^6/uL Hgb 10.8 L (12.0-16.0) g/dL Hct 33.3 L (35-47) % MCV 90.7 (78-100) fL MCH 29.4 (26-32) pg MCHC 32.4 (32-36) g/dL RDW 14.1 H (11.5-14.0) % Plt Count 193 (150-450) x10^3/uL MPV 10.7 (7.5-11.0) fL Segmented Neutrophils 83 H (36.0-66.0) % Band Neutrophils 6 H (0.0-2.0) % Lymphocytes (Manual) 4 L (24-44) % Monocytes (Manual) 7 (0.0-12.0) % Platelet Estimate NORMAL (NORMAL) RBC Morphology NORMAL Smear Path Review Pending Sodium 137 (137-145) mmol/L Potassium 3.6 (3.5-5.1) mmol/L Chloride 108 H (98-107) mmol/L Carbon Dioxide 18 L (22-30) mmol/L Anion Gap 15.4 H (5-15) MEQ/L BUN 21 H (7-17) mg/dL Creatinine 1.14 H (0.52-1.04) mg/dL Estimated GFR 49.7 ML/MIN Glucose 146 H (74-106) mg/dL Calcium 8.0 L (8.4-10.2) mg/dL Magnesium (1.6-2.3) mg/dL Total Bilirubin 2.40 H (0.2-1.3) mg/dL AST 292 H (14-36) U/L ALT 280 H (0-35) U/L Alkaline Phosphatase 168 H (38-126) U/L Troponin I < 0.012 (0.000-0.034) ng/mL Serum Total Protein 5.7 L (6.3-8.2) g/dL Albumin 2.9 L (3.5-5.0) g/dL Influenza Type A Ag (NEGATIVE) Influenza Type B Ag (NEGATIVE) RSV (PCR) (NEGATIVE) SARS-CoV-2 (PCR) (NEGATIVE) 10/15/22 Range/Units 04:47 WBC (4.0-10.5) x10^3/uL RBC (4.1-5.4) x10^6/uL Hgb (12.0-16.0) g/dL Hct (35-47) % MCV (78-100) fL MCH (26-32) pg MCHC (32-36) g/dL RDW (11.5-14.0) % Plt Count (150-450) x10^3/uL MPV (7.5-11.0) fL Segmented Neutrophils (36.0-66.0) % Band Neutrophils (0.0-2.0) % Lymphocytes (Manual) (24-44) % Monocytes (Manual) (0.0-12.0) % Platelet Estimate (NORMAL) RBC Morphology Smear Path Review Sodium (137-145) mmol/L Potassium (3.5-5.1) mmol/L Chloride (98-107) mmol/L Carbon Dioxide (22-30) mmol/L Anion Gap (5-15) MEQ/L BUN (7-17) mg/dL Creatinine (0.52-1.04) mg/dL Estimated GFR ML/MIN Glucose (74-106) mg/dL Calcium (8.4-10.2) mg/dL Magnesium 2.5 H (1.6-2.3) mg/dL Total Bilirubin (0.2-1.3) mg/dL AST (14-36) U/L ALT (0-35) U/L Alkaline Phosphatase (38-126) U/L Troponin I (0.000-0.034) ng/mL Serum Total Protein (6.3-8.2) g/dL Albumin (3.5-5.0) g/dL Influenza Type A Ag (NEGATIVE) Influenza Type B Ag (NEGATIVE) RSV (PCR) (NEGATIVE) SARS-CoV-2 (PCR) (NEGATIVE) Radiology Exams: Radiology Procedures Category Date Time Status ABDOMEN AND PELVIS W CONTRAST [CT] Stat Exams 10/14/22 13:37 Completed CHEST 1 VIEW (PORTABLE) Stat Exams 10/14/22 13:40 Completed HEAD WITHOUT CONTRAST [CT] Stat Exams 10/14/22 13:37 Completed Assessment/Plan (1) Sepsis Current Visit: Yes Status: Acute Assessment & Plan: - Pt came in with fever of 100.1 and WBC of 21.8, not responding on admission, SBP< 100 - Lactic acid 3.0 at 12:10 -1L fluid bolus gave in ER - Lactic acid 2.6 @ 13:50- L fluid bolus gave in ER -10/15 WBC 32.2 - repeat lactate ordered 2.4- 1LNS ordered - will recheck in 6 hours at 2100 (2) Abdominal pain Current Visit: Yes Status: Acute Assessment & Plan: - LR @ 50 ml/hr - Zosyn 3.375 Q6 - CT abd/pelvis: 1. Postoperative pneumobilia is still noted with regressive course since last study. 2. Dilated CBD with soft tissue density material inside. Further evaluation by MRCP is advised as CBD diameter is increased in the current study. 3. Sliding hiatal hernia is still noted. Code(s): R10.9 - UNSPECIFIED ABDOMINAL PAIN (3) Dementia Current Visit: Yes Status: Acute Assessment & Plan: - Continue home meds - Pt is sleeping per normal state per son - CT head: IMPRESSION: 1. No changes detected since the last study. 2. Bilateral basal ganglia and left cerebellar hemisphere old lacunar infarctions. 3. Age matched involutional brain changes Code(s): F03.90 - UNSP DEMENTIA, UNSP SEVERITY, WITHOUT BEH/PSYCH/MOOD/ANX (4) Depression Current Visit: Yes Status: Acute Assessment & Plan: - Chronic - continue home medication Code(s): F32.A - DEPRESSION, UNSPECIFIED (5) Vomiting Current Visit: No Status: Acute Assessment & Plan: - resolved - PRN Zofran Code(s): R11.10 - VOMITING, UNSPECIFIED (6) Elevated liver function tests Current Visit: No Status: Chronic Assessment & Plan: - improving - cont to trend VTE: Lovenox PPI: Protonix D/C plan: possibly tomorrow POA: Son Code(s): R79.89 - OTHER SPECIFIED ABNORMAL FINDINGS OF BLOOD CHEMISTRY
[2022-10-15] MEDS ORDERED: Sodium Chloride 0.9% 1000 ML 1,000 ML IV STA (15:55)
[2022-10-15] MEDS ORDERED: ROCEPHIN 1 Gm-D5w 50 ml Bag** 1 G/50 ML IVPB IV SCH (18:00)
[2022-10-15] MEDS ORDERED: NON-FORMULARY ITEM (Sertraline Hcl [Sertraline Hcl] 100 MG Tablet) PO SCH (22:00)
[2022-10-15] MEDS ORDERED: ZOLOFT 50 MG TABLET PO SCH (22:00)
[2022-10-16] MEDS: Protonix 40MG Tablet PO SCH ×2 (00:23→09:20)
[2022-10-16] MEDS: PIPERACILLIN/TAZOBACTAM 3.375 GM in Sodium Chloride 100ML MINI-BAG PLUS 100 ML IV SCH ×3 (00:24→12:14)
[2022-10-16 07:18] VITALS: RESP 16
[2022-10-16] MEDS ORDERED: Sodium Chloride 0.9% 1000 ML 1,000 ML IV SCH (07:30)
[2022-10-16 09:08] LABS: Hematocrit 32.8 % (35-47); Hemoglobin 10.8 g/dL (12.0-16.0); Mean Cell Volume 90.1 fL (78-100); Mean Corpuscular Hemoglobin 29.7 pg (26-32); Mean Corpuscular Hgb Concent. 32.9 g/dL (32-36); Mean Platelet Volume 10.6 fL (7.5-11.0); Platelet Count 196 x10^3/uL (150-450); Red Blood Count 3.64 x10^6/uL (4.1-5.4); Red Cell Distribution Width 14.2 % (11.5-14.0); White Blood Count 16.7 x10^3/uL (4.0-10.5)
[2022-10-16] MEDS: NON-FORMULARY ITEM PO SCH ×2 (09:19→14:44)
[2022-10-16] MEDS: ECOTRIN 81 MG PO SCH (09:20)
[2022-10-16] MEDS: Namenda 5 MG PO SCH (09:20)
[2022-10-16] MEDS: VITAMIN D PO SCH (09:20)
[2022-10-16] MEDS: Vitamin B-12 500 MCG PO SCH (09:20)
[2022-10-16] MEDS: Klor Con PO SCH ×2 (09:20→14:41)
[2022-10-16] MEDS: ENOXAPARIN SODIUM SQ SCH (09:21)
[2022-10-16] MEDS: TOPIRAMATE PO SCH (09:21)
[2022-10-16] MEDS: Miralax Powder 17GM PACKET PO SCH (09:24)
[2022-10-16] MEDS: MAG-OX 400 PO SCH (09:24)
[2022-10-16] MEDS: Vitamin C 500 MG PO SCH (09:26)
[2022-10-16 10:36] LABS: ALBUMIN 2.5 g/dL (3.5-5.0); ALKALINE PHOSPHATASE 124 U/L (38-126); ANION GAP 12.1 MEQ/L (5-15); BLOOD UREA NITROGEN 11 mg/dL (7-17); CHLORIDE 116 mmol/L (98-107); Calcium 7.7 mg/dL (8.4-10.2); Carbon Dioxide 19 mmol/L (22-30); Creatinine 1 0.79 mg/dL (0.52-1.04); EST GLOMERULAR FILTRATION RATE > 60.0 ML/MIN; Glucose 112 mg/dL (74-106); Potassium 3.3 mmol/L (3.5-5.1); SGOT/AST 97 U/L (14-36); SGPT/ALT 152 U/L (0-35); SODIUM 143 mmol/L (137-145); Total Protein 5.3 g/dL (6.3-8.2)
[2022-10-16 12:00] VITALS: BP 137/65; PULSE 70; TEMP 98.2; O2SAT 94
[2022-10-16] MEDS: Aricept 10 MG PO SCH (12:14)
[2022-10-16] MEDS ORDERED: Klor Con PO ONE (12:18)
--- NOTE | 2022-10-16 12:39 | PCM.DS ---
Discharge Summary Date of Admission: 10/15/22 05:35 Date of Discharge: 10/16/22 Admitting Physician: PERNELL ACUÑA MD Primary Care Provider: [facility] Allergies Allergies levetiracetam [From [facility]] Adverse Reaction (Verified 10/14/22 11:09) Hospital Summary - Hospital Course Hospital Course: This is a 72-year-old female admitted for sepsis. She has past medical history of chronic autoimmune hepatitis, anemia, prior stroke, history of hepatitis A, primary biliary cholangitis dementia, coronary artery disease, hypertension, anxiety, depression. She presented to the ER for evaluation of syncope and vomiting. She has a hx of repeat UTI's but urine was unremarkable, U tox unremarkable, COVID, RSV, flu negative. CT abdomen pelvis was obtained that showed normal liver with air seen within the biliary tree felt to be postoperative and regressing since prior study. Common bile duct 1.6 cm with soft tissue density material inside. CT head showed bilateral basal ganglia and left cerebellar hemisphere lacunar infarctions that were old. Chest x-ray negative for acute pathology. Blood cultures have came back as both having gram negative rods. Antibiotic changed to Zosyn. Pt is awake and alert today. She has no c/o pain. Lactate continues to be elevated but this is most likly due to her hepatitis hx. Blood culture x2 came back + for Klebsiella oxytoca. Pt feels she is ready to go home. She has no c/o at this time. PT to work with pt prior to D/C to see if there are any needs for pt. - Vitals & Intake/Output Vital Signs: Vital Signs Temperature 98.2 F 10/16/22 11:55 Pulse Rate 70 10/16/22 11:55 Respiratory Rate 16 10/16/22 11:55 Blood Pressure 137/65 10/16/22 11:55 O2 Sat by Pulse Oximetry 94 L 10/16/22 11:55 Intake & Output: Intake & Output 10/14/22 10/15/22 10/16/22 10/17/22 11:59 11:59 11:59 11:59 Intake Total 220 1120 Balance 220 1120 Weight 56.5 kg 55.5 kg - Lab Result Diagrams: 10/16/22 07:30 10/16/22 09:01 Lab Results-Last 24 Hrs: Lab Results-Last 24 Hours 0810/15/22 10/16/22 Range/Units 15:20 21:15 07:30 WBC 16.7 H (4.0-10.5) x10^3/uL RBC 3.64 L (4.1-5.4) x10^6/uL Hgb 10.8 L (12.0-16.0) g/dL Hct 32.8 L (35-47) % MCV 90.1 (78-100) fL MCH 29.7 (26-32) pg MCHC 32.9 (32-36) g/dL RDW 14.2 H (11.5-14.0) % Plt Count 196 (150-450) x10^3/uL MPV 10.6 (7.5-11.0) fL Sodium (137-145) mmol/L Potassium (3.5-5.1) mmol/L Chloride (98-107) mmol/L Carbon Dioxide (22-30) mmol/L Anion Gap (5-15) MEQ/L BUN (7-17) mg/dL Creatinine (0.52-1.04) mg/dL Estimated GFR ML/MIN Glucose (74-106) mg/dL Lactic Acid 2.4 H 2.3 H (0.4-2.0) Calcium (8.4-10.2) mg/dL Total Bilirubin (0.2-1.3) mg/dL AST (14-36) U/L ALT (0-35) U/L Alkaline Phosphatase (38-126) U/L Serum Total Protein (6.3-8.2) g/dL Albumin (3.5-5.0) g/dL 10/16/22 10/16/22 Range/Units 07:50 09:01 WBC (4.0-10.5) x10^3/uL RBC (4.1-5.4) x10^6/uL Hgb (12.0-16.0) g/dL Hct (35-47) % MCV (78-100) fL MCH (26-32) pg MCHC (32-36) g/dL RDW (11.5-14.0) % Plt Count (150-450) x10^3/uL MPV (7.5-11.0) fL Sodium 143 (137-145) mmol/L Potassium 3.3 L (3.5-5.1) mmol/L Chloride 116 H (98-107) mmol/L Carbon Dioxide 19 L (22-30) mmol/L Anion Gap 12.1 (5-15) MEQ/L BUN 11 (7-17) mg/dL Creatinine 0.79 (0.52-1.04) mg/dL Estimated GFR > 60.0 ML/MIN Glucose 112 H (74-106) mg/dL Lactic Acid 0.7 (0.4-2.0) Calcium 7.7 L (8.4-10.2) mg/dL Total Bilirubin 0.60 (0.2-1.3) mg/dL AST 97 H (14-36) U/L ALT 152 H (0-35) U/L Alkaline Phosphatase 124 (38-126) U/L Serum Total Protein 5.3 L (6.3-8.2) g/dL Albumin 2.5 L (3.5-5.0) g/dL Micro Results-Entire Visit: Microbiology 10/14/22 13:45 Blood Culture Gram Stain - Final Blood Blood Culture - Preliminary GRAM NEGATIVE ID AND SENSITIVITY PENDING 10/14/22 13:28 Blood Culture Gram Stain - Final Blood Blood Culture - Final Klebsiella Oxytoca 10/14/22 12:30 Urine Culture - Final Catherized NO GROWTH - Radiology Exams Ordered Rad Exams-Entire Visit: Radiology Procedures Category Date Time Status ABDOMEN AND PELVIS W CONTRAST [CT] Stat Exams 10/14/22 13:37 Completed CHEST 1 VIEW (PORTABLE) Stat Exams 10/14/22 13:40 Completed HEAD WITHOUT CONTRAST [CT] Stat Exams 10/14/22 13:37 Completed - Procedures and Test Procedures and Tests throughout Hospitalization: Therapy Orders & Screens 10/16/22 11:22 PT Eval & Treat ( Order) ONCE Reason for Eval:: prior to d/c to see if pt has any home needs Diagnosis: BACTEREMIA, WEAKNESS Discharge Exam General Appearance: no apparent distress, alert Neurologic Exam: alert, oriented x 3, cooperative, normal mood/affect, nml cerebellar function, sensation nml, No motor deficits Eye Exam: PERRL, EOMI, eyes nml inspection Ears, Nose, Throat Exam: normal ENT inspection, pharynx normal, moist mucous m embranes Neck Exam: normal inspection, non-tender, supple, full range of motion Respiratory Exam: normal breath sounds, lungs clear, No respiratory distress Cardiovascular Exam: regular rate/rhythm, normal heart sounds Gastrointestinal/Abdomen Exam: soft, No tenderness, No mass Pelvic Exam: deferred Rectal Exam: deferred Back Exam: normal inspection, normal range of motion, No CVA tenderness, No vertebral tenderness Extremity Exam: normal inspection, normal range of motion Skin Exam: normal color, warm, dry Final Diagnosis/Problem List - Final Discharge Diagnosis/Problem (1) Sepsis Current Visit: Yes Status: Acute (2) Abdominal pain Current Visit: Yes Status: Acute Code(s): R10.9 - UNSPECIFIED ABDOMINAL PAIN (3) Dementia Current Visit: Yes Status: Acute Code(s): F03.90 - UNSP DEMENTIA, UNSP SEVERITY, WITHOUT BEH/PSYCH/MOOD/ANX (4) Depression Current Visit: Yes Status: Acute Code(s): F32.A - DEPRESSION, UNSPECIFIED (5) Vomiting Current Visit: No Status: Acute Code(s): R11.10 - VOMITING, UNSPECIFIED (6) Elevated liver function tests Current Visit: No Status: Chronic Assessment & Plan: (1) Sepsis Current Visit: Yes Status: Acute Assessment & Plan: - Pt came in with fever of 100.1 and WBC of 21.8, not responding on admission, SBP< 100 - Lactic acid 3.0 at 12:10 -1L fluid bolus gave in ER - Lactic acid 2.6 @ 13:50- L fluid bolus gave in ER -10/15 WBC 32.2 - repeat lactate ordered 2.4- 1LNS ordered - will recheck in 6 hours at 2100- 2.3 10/16 - lactate 0.7 - BC X2 + for Klebsella Oxytoca (2) Abdominal pain Current Visit: Yes Status: Acute Assessment & Plan: - LR @ 50 ml/hr - Zosyn 3.375 Q6 - CT abd/pelvis: 1. Postoperative pneumobilia is still noted with regressive course since last study. 2. Dilated CBD with soft tissue density material inside. Further evaluation by MRCP is advised as CBD diameter is increased in the current study. 3. Sliding hiatal hernia is still noted. 10/16 - WBC improved - abd pain resolved Code(s): R10.9 - UNSPECIFIED ABDOMINAL PAIN (3) Dementia Current Visit: Yes Status: Acute Assessment & Plan: - Continue home meds - Pt is sleeping per normal state per son - CT head: IMPRESSION: 1. No changes detected since the last study. 2. Bilateral basal ganglia and left cerebellar hemisphere old lacunar infarctions. 3. Age matched involutional brain changes 10/16 - Pt awake and alert Code(s): F03.90 - UNSP DEMENTIA, UNSP SEVERITY, WITHOUT BEH/PSYCH/MOOD/ANX (4) Depression Current Visit: Yes Status: Acute Assessment & Plan: - Chronic - continue home medication Code(s): F32.A - DEPRESSION, UNSPECIFIED (5) Vomiting Current Visit: No Status: Acute Assessment & Plan: - resolved - PRN Zofran Code(s): R11.10 - VOMITING, UNSPECIFIED (6) Elevated liver function tests Current Visit: No Status: Chronic Assessment & Plan: - improved Code(s): R79.89 - OTHER SPECIFIED ABNORMAL FINDINGS OF BLOOD CHEMISTRY - Discharge Discharge Date: 10/16/22 Disposition: Home, Self-Care Condition: Stable Prescriptions: Continue Sertraline HCl 100 mg PO HS Potassium Chloride Tab* [Klor Con] 10 meq PO TID PANTOPRAZOLE 40 mg Tablet [Protonix 40MG Tablet] 40 mg PO BID Aspirin 81 gm Chew [Baby Aspirin 81 mg Chew] 81 mg PO BID ursodioL [Ursodiol] 500 mg PO TID Topiramate 100 mg [Topamax 100 MG] 100 mg PO BID Alendronate Sodium 70 mg PO WEEKLY Magnesium Oxide [Magnesium] 400 mg PO DAILY Donepezil HCl 10 mg PO 1200 Cholecalciferol (Vitamin D3) [Vitamin D3] 50 mcg PO DAILY Cyanocobalamin (Vitamin B-12) [Vitamin B-12] 1,000 mcg PO DAILY Multivitamin 1 tab PO 1200 Polyethylene Glycol 3350 17 gm [Miralax Powder 17GM PACKET] 17 gm PO BID Ascorbic Acid [Vitamin C] 250 mg PO DAILY Memantine HCl [Namenda] 10 mg PO BID Nitrofurantoin Macro 100 mg [Macrobid 100MG Capsule] 100 mg PO DAILY [facility] with[facility] - SANCHO LEGER NP [Family Provider] -
== END 2022-10-16 17:55 | disposition home health service (06) | DRG 872 ==
LOC: ED 11:06 → MED SURG 18:40 → OBSVTOIN 10-15 05:35
PROVIDERS: ADMIT Internal Medicine; ATTEND Internal Medicine
DX: A41.9 Sepsis, unspecified organism (principal); R10.9 Unspecified abdominal pain; F03.90 Unspecified dementia, unspecified severity, without behavioral disturbance, psychotic disturbance, mood disturbance, and anxiety; F32.A Depression, unspecified; R11.10 Vomiting, unspecified; R79.89 Other specified abnormal findings of blood chemistry; D64.9 Anemia, unspecified; I25.10 Atherosclerotic heart disease of native coronary artery without angina pectoris; I10 Essential (primary) hypertension; R55 Syncope and collapse; R53.1 Weakness; Z86.19 Personal history of other infectious and parasitic diseases; Z79.899 Other long term (current) drug therapy; Z20.828 Contact with and (suspected) exposure to other viral communicable diseases
CPT/HCPCS: 0241U; 36000; 36415; 70450; 71045; 74177; 80053; 80307; 81001; 82140; 83605; 83735; 83880; 84484; 85025; 85027; 87040; 87077; 87086; 87186; 93005; 93041; 93268; 94760; 96360; 96365; 96366; 96367; 96374; 96375; 97161; 99285; G0378; P9612; Q3014; J0696; J1650; J2405; J3475; A9270-GY

== ENCOUNTER 2022-12-27 15:26 | Inpatient (IN) | payer MEDICARE ==
[2022-12-27] MEDS ORDERED: Sodium Chloride 0.9% 1000 ML 1,000 ML IV STA (16:03)
[2022-12-27 16:38] LABS: Absolute Neutrophil Ct (ANC) 8.09 x10^3/uL (1.4-6.9); BASOPHIL % 0.3 % (0.0-0.4); Basophil (Absolute #) 0.03 x10^3/uL (0-0.4); Eosinophil % 0.1 % (0.00-5.0); Eosinophil (Absolute #) 0.01 x10^3/uL (0-0.5); Hematocrit 37.8 % (35-47); Hemoglobin 12.1 g/dL (12.0-16.0); IMMATURE GRAN # 0.02 x10^3u/L (0.00-0.03); IMMATURE GRAN % 0.2 % (0.00-0.4); Lymphocyte (Absolute #) 2.04 x10^3/uL (1.0-4.6); Lymphocytes % 18.4 % (24.0-44.0); Mean Cell Volume 93.8 fL (78-100); Mean Platelet Volume 10.6 fL (7.5-11.0); Monocyte (Absolute #) 0.91 x10^3/uL (0.0-1.3); Monocytes % 8.2 % (0.0-12.0); Neutrophil % 72.8 % (36.0-66.0); Platelet Count 172 x10^3/uL (150-450); Red Blood Count 4.03 x10^6/uL (4.1-5.4); Red Cell Distribution Width 14.7 % (11.5-14.0); White Blood Count 11.1 x10^3/uL (4.0-10.5)
[2022-12-27 17:00] LABS: ALBUMIN 3.3 g/dL (3.5-5.0); ALKALINE PHOSPHATASE 172 U/L (38-126); AMYLASE 43 U/L (30-110); ANION GAP 12.2 MEQ/L (5-15); BLOOD UREA NITROGEN 18 mg/dL (7-17); CHLORIDE 114 mmol/L (98-107); Carbon Dioxide 19 mmol/L (22-30); Creatinine 1 0.69 mg/dL (0.52-1.04); EST GLOMERULAR FILTRATION RATE > 60.0 ML/MIN; Glucose 130 mg/dL (74-106); LIPASE 30 U/L (23-300); Potassium 3.2 mmol/L (3.5-5.1); SGOT/AST 330 U/L (14-36); SGPT/ALT 264 U/L (0-35); SODIUM 142 mmol/L (137-145); Total Protein 6.3 g/dL (6.3-8.2)
--- NOTE | 2022-12-27 17:27 | XRAY ---
CLINICAL HISTORY:dysphagia COMPARISON:None. TECHNIQUE:A CT scan of the neck was performed without administration of intravenous contrast. Sagittal and coronal reconstructions were obtained. FINDINGS: Mildly dilated upper thoracic oesophagus. No sizable cervical lymph nodes at any of noted lymph node stations. Mutiple bilateral subcentimetric intraparotid lymph nodes with preserved fatty hilum. Normal CT appearance of the supra-and infra hyoid deep neck spaces. Normal CT appearance of the larynx, namely the supraglottic, glottic and infra, glottic spaces. Unremarkable nasal and sherrell pharyngeal mucosal spaces. Normal CT appearance of the sublingual, submandibular and parotid salivary glands. The base of the tongue, the uvula, the epiglottis, the vocal cords, the upper trachea, the upper oesophagus are unremarkable. The thyroid gland shows no definite abnormality. The visualized structures of the posterior fossa show no definite abnormality. Spondylotic changes of the visualized cervical spine with minimal anterolisthesis of C5 relative to C6. Scanned upper chest cuts reveal no pulmonary abnormality. IMPRESSION: Mildly dilated upper thoracic oesophagus. Distal esophagus not included in the study. Further evaluation is suggseted if clinically warranted. Multiple bilateral subcentimetric intraparotid lymph nodes with preserved fatty hilum. Spondylotic changes of the visualized cervical spine with minimal anterolisthesis of C5 relative to C6. Electronically Signed by: Hayden Goldberg MD. (12/27/2022 16:25:52 [employer])
[2022-12-27 17:31] LABS: INFLUENZA A NEGATIVE (NEGATIVE); INFLUENZA B NEGATIVE (NEGATIVE); RESPIRATORY SYNCTIAL VIRUS NEGATIVE (NEGATIVE); SARS-CoV-2 Xpert Express NEGATIVE (NEGATIVE)
[2022-12-27] MEDS ORDERED: Sodium Chloride 0.9% 1000 ML 1,000 ML ONE (17:33)
--- NOTE | 2022-12-27 17:43 | ERPHSYRPT ---
- History of Present Illness Time Seen by Provider: 12/27/22 15:30 Source: family Exam Limitations: clinical condition Patient Subjective Stated Complaint: Pt reports she has been sick for at least four days with nausea/vomiting/weakness, unable to keep any food or fluid down. Denies any pain. Triage Nursing Assessment: Pt alert and oriented x3. Respirations easy/nonlabored. Skin w/p/d. Transferred from EMS cot to ED cot by EMS staff. Abdomen soft/flat/nontender. Hypoactive bowel sounds in all four quads. Vomiting what appears to be some undigested food at time of traige, pt reports she tried to drink water and eat chicken salad sandwhich approx 1-2 hours ago. Physician History: Patient is a 72-year-old white female who presents with a complaint of vomiting for 3 to 4 days. Family reports she has had nausea and vomiting not eating well. For several days. She is now not retaining anything taken orally and cannot take her medications. She denies any fever chills sweats no diarrhea her gallbladder is out she has had 2 C-sections in the past. The daughter of the patient relates a problem with chronic orthostatic hypotension she says she will pass out on the stool she will pass out if she stands in 1 place too long and no one is ever really made a definitive diagnosis. Timing/Duration: day(s) (3) Severity: moderate Associated Symptoms: nausea, vomiting Allergies/Adverse Reactions: levetiracetam [From [facility]] Adverse Reaction (Verified 12/27/22 15:42) Home Medications: Aspirin 81 gm Chew [Baby Aspirin 81 mg Chew] 81 mg PO BID 04/24/20 [History] PANTOPRAZOLE 40 mg Tablet [Protonix 40MG Tablet] 40 mg PO BID 04/24/20 [History] Sertraline HCl 100 mg PO HS 04/24/20 [History] ursodioL [Ursodiol] 500 mg PO TID 10/17/20 [History] Alendronate Sodium 70 mg PO WEEKLY 04/18/22 [History] Cholecalciferol (Vitamin D3) [Vitamin D3] 50 mcg PO DAILY 04/18/22 [History] Donepezil HCl 10 mg PO 1200 04/18/22 [History] Magnesium Oxide [Magnesium] 400 mg PO DAILY 04/18/22 [History] Topiramate 100 mg [Topamax 100 MG] 100 mg PO BID 04/18/22 [History] Cyanocobalamin (Vitamin B-12) [Vitamin B-12] 1,000 mcg PO DAILY 05/30/22 [History] Multivitamin 1 tab PO 1200 05/30/22 [History] Ascorbic Acid [Vitamin C] 250 mg PO DAILY 06/27/22 [History] Memantine HCl [Namenda] 10 mg PO BID 06/27/22 [History] Polyethylene Glycol 3350 17 gm [Miralax Powder 17GM PACKET] 17 gm PO BID 06/27/22 [History] Nitrofurantoin Macro 100 mg [Macrobid 100MG Capsule] 100 mg PO DAILY 10/14/22 [History] Atorvastatin Calcium 10 mg PO DAILY 12/27/22 [History] Nitroglycerin 0.4 mg Tablet [Nitrostat 0.4 MG Tablet] See Rx Instructions .ROUTE .COMPLEX 12/27/22 [History] Hx Tetanus, Diphtheria Vaccination/Date Given: (unknown) Hx Influenza Vaccination/Date Given: (unknown) Hx Pneumococcal Vaccination/Date Given: Yes Travel Risk - International Travel Have you traveled outside of the country in past 3 weeks: No - Coronavirus Screening Are you exhibiting any of the following symptoms?: Yes Symptoms: Vomiting/Diarrhea Close contact with a COVID-19 positive Pt in past 14-21 Days: No - Vaccine Status Have you recieved a Covid-19 vaccination: Yes 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 - Vaccination Dates Date of 2cond Vaccination (if applicable): 05/26/2020 - Review of Systems Constitutional: No Fever, No Chills Eyes: No Symptoms Ears, Nose, & Throat: No Symptoms Respiratory: No Cough, No Dyspnea Cardiac: No Chest Pain, No Edema, No Syncope Abdominal/Gastrointestinal: Nausea, Vomiting, No Abdominal Pain, No Diarrhea Genitourinary Symptoms: No Dysuria Musculoskeletal: No Back Pain, No Neck Pain Skin: No Rash Neurological: No Dizziness, No Focal Weakness, No Sensory Changes Psychological: No Symptoms Endocrine: No Symptoms All Other Systems: Reviewed and Negative - Past Medical History Pertinent Past Medical History: Yes Neurological History: Seizures, Stroke ENT History: No Pertinent History Cardiac History: Angina, Coronary Artery Disease, Hypertension Respiratory History: No Pertinent History Endocrine Medical History: No Pertinent History Musculoskeletal History: Osteoporosis GI Medical History: Other History: No Pertinent History Psycho-Social History: Anxiety, Depression Female Reproductive Disorders: No Pertinent History Other Medical History: autoimmune liver disease. shingles - Past Surgical History Past Surgical History: Yes Neuro Surgical History: No Pertinent History Cardiac: Cardiac Stent Respiratory: No Pertinent History Gastrointestinal: Bowel Surgery, Cholecystectomy Genitourinary: No Pertinent History Musculoskeletal: No Pertinent History Female Surgical History: No Pertinent History Other Surgical History: PARTIAL L HIP REPLACEMENT - Social History Smoking Status: Never smoker Exposure to second hand smoke: No Drug Use: none Patient Lives Alone: No Significant Family History: no pertinent family hx - Nursing Vital Signs Nursing Vital Signs: Initial Vital Signs Temperature 98.5 F 12/27/22 15:26 Pulse Rate 67 12/27/22 15:26 Respiratory Rate 16 12/27/22 15:26 Blood Pressure 154/59 12/27/22 15:26 O2 Sat by Pulse Oximetry 99 12/27/22 15:26 Pain Scale Pain Intensity 1 - Physical Exam General Appearance: no apparent distress, alert Eye Exam: PERRL/EOMI, eyes nml inspection Ears, Nose, Throat Exam: normal ENT inspection, TMs normal, pharynx normal, moist mucous membranes Neck Exam: normal inspection, non-tender, supple, full range of motion Respiratory Exam: normal breath sounds, lungs clear, No respiratory distress Cardiovascular Exam: regular rate/rhythm, normal heart sounds, normal peripheral pulses Gastrointestinal/Abdomen Exam: soft, normal bowel sounds, No tenderness, No mass Back Exam: normal inspection, normal range of motion, No CVA tenderness, No vertebral tenderness Extremity Exam: normal inspection, normal range of motion, pelvis stable Neurologic Exam: alert, cooperative, normal mood/affect, nml cerebellar function, nml station & gait, sensation nml, disoriented, confusion, No motor deficits Skin Exam: normal color, warm, dry, No rash Lymphatic Exam: No adenopathy SpO2 Interpretation: normal SpO2: 97 O2 Delivery: Room Air - Course Nursing assessment & vital signs reviewed: Yes - CT Exams Soft Tissue Neck CT Interpretation: Tele-radiologist Report Abdomen/Pelvis CT Interpretation: Tele-radiologist Report Ordered Tests: Active Orders 24 hr Category Date Time Status IV Insertion STAT Care 12/27/22 16:03 Active Orthostatic Vital Signs STAT Care 12/27/22 16:03 Active ABDOMEN AND PELVIS W/0 CONTRAS [CT] Stat Exams 12/27/22 16:04 Completed NECK WO CONTRAST [CT] Stat Exams 12/27/22 16:07 Completed AMYLASE Stat Lab 12/27/22 16:30 Completed CBC W DIFF Stat Lab 12/27/22 16:30 Completed CMP Stat Lab 12/27/22 16:30 Completed CULTURE,URINE Stat Lab 12/27/22 17:57 Received LIPASE Stat Lab 12/27/22 16:30 Completed Lactic Acid Stat Lab 12/27/22 16:45 Completed UA W/RFX UR CULTURE Stat Lab 12/27/22 17:57 Completed Medication Summary Discontinued Medications Generic Name Dose Route Start Last Admin Trade Name Freq PRN Reason Stop Dose Admin Droperidol 1.25 mg 12/27/22 16:03 12/27/22 16:08 Droperidol 5 Mg/2 Ml Vial IV 12/27/22 16:04 1.25 mg STAT ONE Administration Droperidol Confirm 12/27/22 16:06 Droperidol 5 Mg/2 Ml Vial Administered 12/27/22 16:07 Dose 5 mg .ROUTE .STK-MED ONE Sodium Chloride 1,000 mls @ 999 mls/hr 12/27/22 16:03 12/27/22 17:35 Sodium Chloride 0.9% 1000 Ml IV 12/27/22 17:03 999 mls/hr .Q1H1M STA Administration Sodium Chloride Confirm 12/27/22 17:33 Sodium Chloride 0.9% 1000 Ml Administered 12/27/22 17:34 Dose 1,000 mls @ ud .ROUTE .STK-MED ONE Lab/Rad Data: Laboratory Result Diagrams 12/27/22 16:30 12/27/22 16:30 Laboratory Results 12/27/22 12/27/22 12/27/22 Range/Units 17:57 16:45 16:30 WBC (4.0-10.5) x10^3/uL RBC (4.1-5.4) x10^6/uL Hgb (12.0-16.0) g/dL Hct (35-47) % MCV (78-100) fL MCH (26-32) pg MCHC (32-36) g/dL RDW (11.5-14.0) % Plt Count (150-450) x10^3/uL MPV (7.5-11.0) fL Gran % (36.0-66.0) % Immature Gran % (Auto) (0.00-0.4) % Nucleat RBC Rel Count (0.00-0.1) % Eos # (Auto) (0-0.5) x10^3/uL Immature Gran # (Auto) (0.00-0.03) x10^3u/L Absolute Lymphs (auto) (1.0-4.6) x10^3/uL Absolute Monos (auto) (0.0-1.3) x10^3/uL Absolute Nucleated RBC (0.00-0.01) x10^3u/L Lymphocytes % (24.0-44.0) % Monocytes % (0.0-12.0) % Eosinophils % (0.00-5.0) % Basophils % (0.0-0.4) % Absolute Granulocytes (1.4-6.9) x10^3/uL Basophils # (0-0.4) x10^3/uL Sodium (137-145) mmol/L Potassium (3.5-5.1) mmol/L Chloride (98-107) mmol/L Carbon Dioxide (22-30) mmol/L Anion Gap (5-15) MEQ/L BUN (7-17) mg/dL Creatinine (0.52-1.04) mg/dL Estimated GFR ML/MIN Glucose (74-106) mg/dL Lactic Acid 2.0 (0.4-2.0) Calcium (8.4-10.2) mg/dL Total Bilirubin (0.2-1.3) mg/dL AST (14-36) U/L ALT (0-35) U/L Alkaline Phosphatase (38-126) U/L Serum Total Protein (6.3-8.2) g/dL Albumin (3.5-5.0) g/dL Amylase (30-110) U/L Lipase (23-300) U/L Urine Color Dark Yellow A (Yellow) Urine Appearance Cloudy A (Clear) Urine pH 6.5 (4.6-8.0) Ur Specific [place] 1.020 (1.005-1.030) Urine Protein Trace A (Negative) Urine Glucose (UA) Negative (Negative) mg/dL Urine Ketones Trace A (Negative) Urine Blood Negative (Negative) Urine Nitrite Negative (Negative) Urine Bilirubin Moderate A (Negative) Urine Urobilinogen 2.0 A (0.2) mg/dL Ur Leukocyte Esterase Trace A (Negative) U Hyaline Cast (Auto) 3-5 A (0-2) /LPF Urine Microscopic RBC 0-2 (0-5) /HPF Urine Microscopic WBC 3-5 (0-5) /HPF Ur Epithelial Cells Moderate A (None Seen) /HPF Urine Bacteria Many A (None Seen) /HPF Urine Culture Reflexed YES (NO) Influenza Type A Ag NEGATIVE (NEGATIVE) Influenza Type B Ag NEGATIVE (NEGATIVE) RSV (PCR) NEGATIVE (NEGATIVE) SARS-CoV-2 (PCR) NEGATIVE (NEGATIVE) 12/27/22 12/27/22 Range/Units 16:30 16:30 WBC 11.1 H (4.0-10.5) x10^3/uL RBC 4.03 L (4.1-5.4) x10^6/uL Hgb 12.1 (12.0-16.0) g/dL Hct 37.8 (35-47) % MCV 93.8 (78-100) fL MCH 30.0 (26-32) pg MCHC 32.0 (32-36) g/dL RDW 14.7 H (11.5-14.0) % Plt Count 172 (150-450) x10^3/uL MPV 10.6 (7.5-11.0) fL Gran % 72.8 H (36.0-66.0) % Immature Gran % (Auto) 0.2 (0.00-0.4) % Nucleat RBC Rel Count 0.0 (0.00-0.1) % Eos # (Auto) 0.01 (0-0.5) x10^3/uL Immature Gran # (Auto) 0.02 (0.00-0.03) x10^3u/L Absolute Lymphs (auto) 2.04 (1.0-4.6) x10^3/uL Absolute Monos (auto) 0.91 (0.0-1.3) x10^3/uL Absolute Nucleated RBC 0.00 (0.00-0.01) x10^3u/L Lymphocytes % 18.4 L (24.0-44.0) % Monocytes % 8.2 (0.0-12.0) % Eosinophils % 0.1 (0.00-5.0) % Basophils % 0.3 (0.0-0.4) % Absolute Granulocytes 8.09 H (1.4-6.9) x10^3/uL Basophils # 0.03 (0-0.4) x10^3/uL Sodium 142 (137-145) mmol/L Potassium 3.2 L (3.5-5.1) mmol/L Chloride 114 H (98-107) mmol/L Carbon Dioxide 19 L (22-30) mmol/L Anion Gap 12.2 (5-15) MEQ/L BUN 18 H (7-17) mg/dL Creatinine 0.69 (0.52-1.04) mg/dL Estimated GFR > 60.0 ML/MIN Glucose 130 H (74-106) mg/dL Lactic Acid (0.4-2.0) Calcium 8.0 L (8.4-10.2) mg/dL Total Bilirubin 1.70 H (0.2-1.3) mg/dL AST 330 H (14-36) U/L ALT 264 H (0-35) U/L Alkaline Phosphatase 172 H (38-126) U/L Serum Total Protein 6.3 (6.3-8.2) g/dL Albumin 3.3 L (3.5-5.0) g/dL Amylase 43 (30-110) U/L Lipase 30 (23-300) U/L Urine Color (Yellow) Urine Appearance (Clear) Urine pH (4.6-8.0) Ur Specific [place] (1.005-1.030) Urine Protein (Negative) Urine Glucose (UA) (Negative) mg/dL Urine Ketones (Negative) Urine Blood (Negative) Urine Nitrite (Negative) Urine Bilirubin (Negative) Urine Urobilinogen (0.2) mg/dL Ur Leukocyte Esterase (Negative) U Hyaline Cast (Auto) (0-2) /LPF Urine Microscopic RBC (0-5) /HPF Urine Microscopic WBC (0-5) /HPF Ur Epithelial Cells (None Seen) /HPF Urine Bacteria (None Seen) /HPF Urine Culture Reflexed (NO) Influenza Type A Ag (NEGATIVE) Influenza Type B Ag (NEGATIVE) RSV (PCR) (NEGATIVE) SARS-CoV-2 (PCR) (NEGATIVE) - Progress Progress: unchanged Discussed with Dr.: Jose Antonio Will see patient in: hospital (observation) Counseled pt/family regarding: lab results, diagnosis Medical Desision Making - Independent Historian Additional History obtained from: Family - Discussion of managment Care discussed with:: hospitalist Reviewed:: Test results Agreed on:: Treatment plan, decision to admit Will see patient: in hospital - Diagnostic Testing Diagnostic test were ordered, analyzed, and reviewed by me: Yes Radiological Interpretation: Reviewed by me - Risk of complications The pt has a mod risk of morbidity or mortality based on: Need for prescription drug management - Departure Departure Disposition: Observation Clinical Impression: Orthostatic hypotension, Dehydration, Hypokalemia, Nausea & vomiting, Pneumobilia, Chronic autoimmune hepatitis, Elevated liver function tests Condition: Fair Critical Care Time: No Referrals: [facility] [Primary Care Provider] - Follow up/PCP as directed
--- NOTE | 2022-12-27 17:47 | XRAY ---
CLINICAL HISTORY:n/v COMPARISON:To 10-14-2022 TECHNIQUE:CT of the abdomen and pelvis was performed in an axial plane without contrast. Sagittal and coronal reconstructed images after administration of intravenous contrast. FINDINGS: The liver is normal in size, morphology, and position, regression of post-operative aerobilia currently seen within the left biliary radicles. No focal lesion. The previously noted soft tissue density material seen within the CBD is difficult to assess in today?s study due to lack of IV contrast injection, however, the lower CBD shows barely identified hyperdensity with the CBD diameter reaching 1.6 cm. The intrahepatic biliary radicles dilatation appears to be minimally regressed based on non-contrast assessment. Surgical clips are seen at GB bed. Unremarkable appearing pancreas. No pancreatic mass or ductal dilatation is seen. Unremarkable appearing spleen. The adrenal glands are normal. The kidneys appear unremarkable with no stones, cysts masses, or hydronephrosis. The ureters are normal with no stones. Unremarkable abdominal aorta and IVC. A sliding hiatal hernia is still noted. Unremarkable appearing duodenum, small bowel, and colon. No subdiaphragmatic free air and no ascites. The bladder is unremarkable. The uterus appears unremarkable. No adnexal mass. No abdominal wall pathology is seen. Calcified granulomas within the periphery of the left lower lung lobe is still noted. Left hip prosthesis degrading the image quality of pelvic structures. Lymph nodes: No prominent lymph nodes are seen. Skeletal system: No suspicious bony lesion detected. Degenerative changes seen in the spine. IMPRESSION: Regression of biliary pneumobilia since last study. CBD remains dilated (stable since last study), with subtle hyperdensity within the lower CBD, for MRCP correlation. Minimal regression of the intrahepatic biliary radicles dilatation based on non contrast assessment. Sliding hiatal hernia is still noted. Electronically Signed by: Hayden Goldberg MD. (12/27/2022 16:46:04 [employer])
[2022-12-27 18:11] LABS: ADD URINE CULTURE? YES (NO); Appearance Cloudy (Clear); Bacteria Many /HPF (None Seen); Bilirubin Moderate (Negative); Blood Negative (Negative); Epithelial Cells Moderate /HPF (None Seen); Glucose, Urine Negative (Negative); Ketones Trace (Negative); Leukocyte Esterase Trace (Negative); Nitrite Negative (Negative); Ph 6.5 (4.6-8.0); Protein,Urine Dip Trace (Negative); RBC 0-2 /HPF (0-5)
--- NOTE | 2022-12-27 21:32 | PCM.HP ---
History of Present Illness - Chief Complaint Chief Complaint: Orthostatic hypotension Date: 12/27/22 History of Present Illness: This is a 72-year-old female admitted for nausea vomiting. She has past medical history of chronic autoimmune hepatitis, anemia, stroke, primary biliary cholangitis, dementia, coronary artery disease, hypertension, anxiety, depression. She presented to the ED today for 4 days of nausea, vomiting, weakness on arrival she was afebrile, heart rate 67, blood pressure 154/59. Labs significant for WBC 11, hemoglobin 12.1, platelets 172, potassium 3.2, CO2 19, creatinine 0.6, AST 330, ALT 264, alk phos 172. UA with trace leukocyte Estrace many bacteria, moderate amount of epithelial cells, COVID and influenza RSV all negative. CT neck was obtained for evaluation of dysphagia that showed mildly dilated upper thoracic esophagus. CT abdomen pelvis obtained that showed regression of biliary pneumobilia since last study. CBD remains dilated with subtle hyperdensity within the lower CBD. Minimal regression of intra hepatic bile biliary radicles dilation based on noncontrast assessment in the ED she was given droperidol and 1 L of saline. On my evaluation she is somnolent after receiving the droperidol and not able to answer any questions. Family reported to nursing staff prior to leaving that she had been sleeping excessively up to 22 hours a day which is undergoing investigation by her outpatient medical team. They also note that she has had some issues with swallowing and it appears to be painful for her. - Review of Systems All Other Systems: Unable due to condition (AMS) Medications & Allergies Home Medications: Home Medication List Aspirin 81 gm Chew [Baby Aspirin 81 mg Chew] 81 mg PO BID 04/24/20 [History Confirmed 12/27/22] PANTOPRAZOLE 40 mg Tablet [Protonix 40MG Tablet] 40 mg PO BID 04/24/20 [History Confirmed 12/27/22] Sertraline HCl 100 mg PO HS 04/24/20 [History Confirmed 12/27/22] ursodioL [Ursodiol] 500 mg PO TID 10/17/20 [History Confirmed 12/27/22] Alendronate Sodium 70 mg PO WEEKLY 04/18/22 [History Confirmed 12/27/22] Cholecalciferol (Vitamin D3) [Vitamin D3] 50 mcg PO DAILY 04/18/22 [History Co nfirmed 12/27/22] Donepezil HCl 10 mg PO 1200 04/18/22 [History Confirmed 12/27/22] Magnesium Oxide [Magnesium] 400 mg PO DAILY 04/18/22 [History Confirmed 12/27/22] Topiramate 100 mg [Topamax 100 MG] 100 mg PO BID 04/18/22 [History Confirmed 12/27/22] Cyanocobalamin (Vitamin B-12) [Vitamin B-12] 1,000 mcg PO DAILY 05/30/22 [History Confirmed 12/27/22] Multivitamin 1 tab PO 1200 05/30/22 [History Confirmed 12/27/22] Ascorbic Acid [Vitamin C] 250 mg PO DAILY 06/27/22 [History Confirmed 12/27/22] Memantine HCl [Namenda] 10 mg PO BID 06/27/22 [History Confirmed 12/27/22] Polyethylene Glycol 3350 17 gm [Miralax Powder 17GM PACKET] 17 gm PO BID 06/27/22 [History Confirmed 12/27/22] Nitrofurantoin Macro 100 mg [Macrobid 100MG Capsule] 100 mg PO DAILY 10/14/22 [History Confirmed 12/27/22] Atorvastatin Calcium 10 mg PO DAILY 12/27/22 [History Confirmed 12/27/22] Nitroglycerin 0.4 mg Tablet [Nitrostat 0.4 MG Tablet] See Rx Instructions .ROUTE .COMPLEX 12/27/22 [History Confirmed 12/27/22] Allergies/Adverse Reactions: Allergies Allergy/AdvReac Type Severity Reaction Status Date / Time levetiracetam [From [facility]] AdvReac Verified 12/27/22 15:42 - Past Medical History Past Medical History: Yes Neurological History: Seizures, Stroke ENT History: No Pertinent History Cardiac History: Angina, Coronary Artery Disease, Hypertension Respiratory History: No Pertinent History Endocrine Medical History: No Pertinent History Musculoskelatal History: Osteoporosis GI Medical History: Other History: No Pertinent History Pyscho-Social History: Anxiety, Depression Reproductive Disorders: No Pertinent History Comment: autoimmune liver disease. shingles - Female History Are you now?: No - Past Surgical History Past Surgical History: Yes Neuro Surgical History: No Pertinent History Cardiac History: Cardiac Stent Respiratory Surgery: No Pertinent History GI Surgical History: Bowel Surgery, Cholecystectomy Genitourinary Surgical Hx: No Pertinent History Musculskeletal Surgical Hx: No Pertinent History Female Surgical History: No Pertinent History Other Surgical History: PARTIAL L HIP REPLACEMENT - Social History Smoking Status: Never smoker Exposure to second hand smoke: No Alcohol: None Drug Use: none Significant Family History: no pertinent family hx - Physical Exam Vital Signs: Vital Signs - 24 hr Temp Pulse Resp BP BP Pulse Ox 12/27/22 19:47 98.4 F 64 17 181/75 99 12/27/22 19:13 65 17 139/47 99 12/27/22 19:00 63 137/50 98 12/27/22 18:30 64 151/50 98 12/27/22 18:27 97 12/27/22 18:01 160/60 98 12/27/22 17:30 69 16 146/48 97 12/27/22 17:00 151/110 98 12/27/22 16:31 16 173/57 99 12/27/22 16:05 179/56 12/27/22 16:00 152/60 99 12/27/22 15:26 98.5 F 67 16 154/59 99 General Appearance: lethargy Eye Exam: PERRL/EOMI Ears, Nose, Throat Exam: normal ENT inspection Neck Exam: normal inspection Respiratory Exam: normal breath sounds Cardiovascular Exam: regular rate/rhythm Gastrointestinal/Abdomen Exam: soft, No tenderness, No distention Back Exam: No normal inspection Extremity Exam: normal inspection Skin Exam: normal color Wound Assessment: Skin/Wound Assessment Wound/Incision Assessment Start: 12/27/22 20:17 Text: Status: Active Freq: Q6H Protocol: Document 12/27/22 20:17 MP (Rec: 12/27/22 20:44 MP [id number]) Wound Photo Photo Taken No Results - Labs Lab/Micro Results: Lab Results-Last 24 Hours 12/27/22 12/27/22 12/27/22 Range/Units 16:30 16:30 16:30 WBC 11.1 H (4.0-10.5) x10^3/uL RBC 4.03 L (4.1-5.4) x10^6/uL Hgb 12.1 (12.0-16.0) g/dL Hct 37.8 (35-47) % MCV 93.8 (78-100) fL MCH 30.0 (26-32) pg MCHC 32.0 (32-36) g/dL RDW 14.7 H (11.5-14.0) % Plt Count 172 (150-450) x10^3/uL MPV 10.6 (7.5-11.0) fL Gran % 72.8 H (36.0-66.0) % Immature Gran % (Auto) 0.2 (0.00-0.4) % Nucleat RBC Rel Count 0.0 (0.00-0.1) % Eos # (Auto) 0.01 (0-0.5) x10^3/uL Immature Gran # (Auto) 0.02 (0.00-0.03) x10^3u/L Absolute Lymphs (auto) 2.04 (1.0-4.6) x10^3/uL Absolute Monos (auto) 0.91 (0.0-1.3) x10^3/uL Absolute Nucleated RBC 0.00 (0.00-0.01) x10^3u/L Lymphocytes % 18.4 L (24.0-44.0) % Monocytes % 8.2 (0.0-12.0) % Eosinophils % 0.1 (0.00-5.0) % Basophils % 0.3 (0.0-0.4) % Absolute Granulocytes 8.09 H (1.4-6.9) x10^3/uL Basophils # 0.03 (0-0.4) x10^3/uL Sodium 142 (137-145) mmol/L Potassium 3.2 L (3.5-5.1) mmol/L Chloride 114 H (98-107) mmol/L Carbon Dioxide 19 L (22-30) mmol/L Anion Gap 12.2 (5-15) MEQ/L BUN 18 H (7-17) mg/dL Creatinine 0.69 (0.52-1.04) mg/dL Estimated GFR > 60.0 ML/MIN Glucose 130 H (74-106) mg/dL Lactic Acid (0.4-2.0) Calcium 8.0 L (8.4-10.2) mg/dL Total Bilirubin 1.70 H (0.2-1.3) mg/dL AST 330 H (14-36) U/L ALT 264 H (0-35) U/L Alkaline Phosphatase 172 H (38-126) U/L Serum Total Protein 6.3 (6.3-8.2) g/dL Albumin 3.3 L (3.5-5.0) g/dL Amylase 43 (30-110) U/L Lipase 30 (23-300) U/L Urine Color (Yellow) Urine Appearance (Clear) Urine pH (4.6-8.0) Ur Specific [place] (1.005-1.030) Urine Protein (Negative) Urine Glucose (UA) (Negative) mg/dL Urine Ketones (Negative) Urine Blood (Negative) Urine Nitrite (Negative) Urine Bilirubin (Negative) Urine Urobilinogen (0.2) mg/dL Ur Leukocyte Esterase (Negative) U Hyaline Cast (Auto) (0-2) /LPF Urine Microscopic RBC (0-5) /HPF Urine Microscopic WBC (0-5) /HPF Ur Epithelial Cells (None Seen) /HPF Urine Bacteria (None Seen) /HPF Urine Culture Reflexed (NO) Influenza Type A Ag NEGATIVE (NEGATIVE) Influenza Type B Ag NEGATIVE (NEGATIVE) RSV (PCR) NEGATIVE (NEGATIVE) SARS-CoV-2 (PCR) NEGATIVE (NEGATIVE) 12/27/22 12/27/22 Range/Units 16:45 17:57 WBC (4.0-10.5) x10^3/uL RBC (4.1-5.4) x10^6/uL Hgb (12.0-16.0) g/dL Hct (35-47) % MCV (78-100) fL MCH (26-32) pg MCHC (32-36) g/dL RDW (11.5-14.0) % Plt Count (150-450) x10^3/uL MPV (7.5-11.0) fL Gran % (36.0-66.0) % Immature Gran % (Auto) (0.00-0.4) % Nucleat RBC Rel Count (0.00-0.1) % Eos # (Auto) (0-0.5) x10^3/uL Immature Gran # (Auto) (0.00-0.03) x10^3u/L Absolute Lymphs (auto) (1.0-4.6) x10^3/uL Absolute Monos (auto) (0.0-1.3) x10^3/uL Absolute Nucleated RBC (0.00-0.01) x10^3u/L Lymphocytes % (24.0-44.0) % Monocytes % (0.0-12.0) % Eosinophils % (0.00-5.0) % Basophils % (0.0-0.4) % Absolute Granulocytes (1.4-6.9) x10^3/uL Basophils # (0-0.4) x10^3/uL Sodium (137-145) mmol/L Potassium (3.5-5.1) mmol/L Chloride (98-107) mmol/L Carbon Dioxide (22-30) mmol/L Anion Gap (5-15) MEQ/L BUN (7-17) mg/dL Creatinine (0.52-1.04) mg/dL Estimated GFR ML/MIN Glucose (74-106) mg/dL Lactic Acid 2.0 (0.4-2.0) Calcium (8.4-10.2) mg/dL Total Bilirubin (0.2-1.3) mg/dL AST (14-36) U/L ALT (0-35) U/L Alkaline Phosphatase (38-126) U/L Serum Total Protein (6.3-8.2) g/dL Albumin (3.5-5.0) g/dL Amylase (30-110) U/L Lipase (23-300) U/L Urine Color Dark Yellow A (Yellow) Urine Appearance Cloudy A (Clear) Urine pH 6.5 (4.6-8.0) Ur Specific [place] 1.020 (1.005-1.030) Urine Protein Trace A (Negative) Urine Glucose (UA) Negative (Negative) mg/dL Urine Ketones Trace A (Negative) Urine Blood Negative (Negative) Urine Nitrite Negative (Negative) Urine Bilirubin Moderate A (Negative) Urine Urobilinogen 2.0 A (0.2) mg/dL Ur Leukocyte Esterase Trace A (Negative) U Hyaline Cast (Auto) 3-5 A (0-2) /LPF Urine Microscopic RBC 0-2 (0-5) /HPF Urine Microscopic WBC 3-5 (0-5) /HPF Ur Epithelial Cells Moderate A (None Seen) /HPF Urine Bacteria Many A (None Seen) /HPF Urine Culture Reflexed YES (NO) Influenza Type A Ag (NEGATIVE) Influenza Type B Ag (NEGATIVE) RSV (PCR) (NEGATIVE) SARS-CoV-2 (PCR) (NEGATIVE) - Radiology Impressions Radiology Exams & Impressions: Radiology Procedures Category Date Time Status ABDOMEN AND PELVIS W/0 CONTRAS [CT] Stat Exams 12/27/22 16:04 Completed NECK WO CONTRAST [CT] Stat Exams 12/27/22 16:07 Completed Assessment/Plan (1) Chronic autoimmune hepatitis Current Visit: Yes Status: Acute Code(s): K75.4 - AUTOIMMUNE HEPATITIS (2) Dehydration Current Visit: Yes Status: Acute Code(s): E86.0 - DEHYDRATION (3) Hypokalemia Current Visit: Yes Status: Acute Code(s): E87.6 - HYPOKALEMIA (4) Nausea & vomiting Current Visit: Yes Status: Acute Code(s): R11.2 - NAUSEA WITH VOMITING, UNSPECIFIED (5) Orthostatic hypotension Current Visit: Yes Status: Acute Assessment & Plan: ASSESSMENT #Nausea, vomiting #Elevated LFTs, with subtle hyperdensity within the lower CBD #Contaminated UA #Dysphagia #Hypokalemia #Mild metabolic acidosis #Mild leukocytosis #Chronic autoimmune hepatitis. #History of stroke #History of coronary artery disease #History of anemia #Dementia PLAN -Gentle IV fluids with potassium repletion -Check Ammonia level -Follow cultures -As needed Zofran, Reglan -Follow LFTs/electrolytes -Speech therapy consult -Repeat UA -Resume home meds Prophylaxis: Protonix, Lovenox Entire encounter performed via telemedicine Code(s): I95.1 - ORTHOSTATIC HYPOTENSION Telemedicine Encounter - Telemedicine Encounter Telemedicine Encounter: The entirety of this encounter was performed via Telemedicine"
[2022-12-27] MEDS ORDERED: TYLENOL 325 MG PO PRN (21:34)
[2022-12-27] MEDS ORDERED: Docusate Sodium 100 MG PO PRN (21:34)
[2022-12-27] MEDS ORDERED: NON-FORMULARY ITEM (Memantine Hcl [Namenda] 10 MG Tablet) PO SCH (22:00)
[2022-12-27] MEDS: POTASSIUM CHLORIDE 20 mEq IN WATER 100ML 20 MEQ/100 ML BAG IV SCH (22:00)
[2022-12-27] MEDS ORDERED: NON-FORMULARY ITEM (Topiramate 100 Mg*** [Topamax 100 Mg***] 100 MG Tablet) PO SCH (22:00)
[2022-12-27] MEDS ORDERED: BABY ASPIRIN 81 MG CHEW PO SCH (22:00)
[2022-12-27] MEDS ORDERED: ECOTRIN 81 MG PO ONE (22:00)
[2022-12-27] MEDS ORDERED: NON-FORMULARY ITEM (Sertraline Hcl [Sertraline Hcl] 100 MG Tablet) PO SCH (22:00)
[2022-12-27] MEDS ORDERED: URSODIOL 500 MG PO SCH (22:00)
[2022-12-27] MEDS ORDERED: ECOTRIN 81 MG PO SCH ×2 (22:04→22:09)
[2022-12-27] MEDS: ECOTRIN 81 MG PO SCH (22:16)
[2022-12-27] MEDS: Lactated Ringers 1,000 ML IV SCH (22:18)
[2022-12-27] MEDS ORDERED: TOPIRAMATE ONE (22:52)
[2022-12-27] MEDS ORDERED: Namenda 5 MG ONE (22:53)
[2022-12-27] MEDS ORDERED: ZOLOFT 50 MG TABLET ONE (22:53)
[2022-12-27] MEDS: Protonix 40MG Tablet PO SCH (23:00)
[2022-12-27] MEDS: Miralax Powder 17GM PACKET PO SCH (23:04)
[2022-12-28] MEDS: POTASSIUM CHLORIDE 20 mEq IN WATER 100ML 20 MEQ/100 ML BAG IV SCH (00:59)
[2022-12-28 05:45] LABS: Absolute Neutrophil Ct (ANC) 5.29 x10^3/uL (1.4-6.9); BASOPHIL % 0.4 % (0.0-0.4); Basophil (Absolute #) 0.03 x10^3/uL (0-0.4); Eosinophil % 0.4 % (0.00-5.0); Eosinophil (Absolute #) 0.03 x10^3/uL (0-0.5); Hematocrit 32.8 % (35-47); Hemoglobin 10.6 g/dL (12.0-16.0); IMMATURE GRAN # 0.03 x10^3u/L (0.00-0.03); IMMATURE GRAN % 0.4 % (0.00-0.4); Lymphocyte (Absolute #) 1.95 x10^3/uL (1.0-4.6); Lymphocytes % 23.8 % (24.0-44.0); Mean Cell Volume 93.2 fL (78-100); Mean Corpuscular Hemoglobin 30.1 pg (26-32); Mean Corpuscular Hgb Concent. 32.3 g/dL (32-36); Mean Platelet Volume 10.7 fL (7.5-11.0); Monocyte (Absolute #) 0.86 x10^3/uL (0.0-1.3); Monocytes % 10.5 % (0.0-12.0); Neutrophil % 64.5 % (36.0-66.0); Platelet Count 170 x10^3/uL (150-450); Red Blood Count 3.52 x10^6/uL (4.1-5.4); Red Cell Distribution Width 15.3 % (11.5-14.0); White Blood Count 8.2 x10^3/uL (4.0-10.5)
[2022-12-28 06:09] LABS: ALBUMIN 2.7 g/dL (3.5-5.0); ALKALINE PHOSPHATASE 134 U/L (38-126); ANION GAP 10.9 MEQ/L (5-15); BLOOD UREA NITROGEN 15 mg/dL (7-17); CHLORIDE 117 mmol/L (98-107); Calcium 7.5 mg/dL (8.4-10.2); Carbon Dioxide 17 mmol/L (22-30); Creatinine 1 0.52 mg/dL (0.52-1.04); EST GLOMERULAR FILTRATION RATE > 60.0 ML/MIN; Glucose 81 mg/dL (74-106); PREALBUMIN 12.04 mg/dL (17.6-36.0); Potassium 3.7 mmol/L (3.5-5.1); SGOT/AST 162 U/L (14-36); SGPT/ALT 186 U/L (0-35); SODIUM 141 mmol/L (137-145); Total Protein 5.4 g/dL (6.3-8.2)
[2022-12-28 06:16] LABS: PROTIME 10.9 SECONDS (9.4-12.5)
[2022-12-28] MEDS: Lactated Ringers 1,000 ML IV SCH (07:44)
[2022-12-28] MEDS: ROCEPHIN 1 Gm-D5w 50 ml Bag** 1 G/50 ML IVPB IV SCH (07:56)
[2022-12-28] MEDS ORDERED: MEDICATION INTERVENTION MC SCH (08:30)
[2022-12-28] MEDS: Sodium Chloride 0.9% 1000 ML 1,000 ML IV SCH ×2 (09:04→21:55)
[2022-12-28] MEDS: Zofran 4 MG/2 ML VIAL IV PRN ×4 (09:30→23:33)
[2022-12-28] MEDS: ENOXAPARIN SODIUM SQ SCH (09:36)
[2022-12-28] MEDS ORDERED: NON-FORMULARY ITEM (Cyanocobalamin (Vitamin B-12) [Vitamin B-12] 1,000 MCG Capsule) PO SCH (10:00)
[2022-12-28] MEDS ORDERED: NON-FORMULARY ITEM (Magnesium Oxide [Magnesium] 400 MG Tablet) PO SCH (10:00)
[2022-12-28] MEDS ORDERED: NON-FORMULARY ITEM (Cholecalciferol (Vitamin D3) [Vitamin D3] 50 MCG Tablet) PO SCH (10:00)
[2022-12-28] MEDS ORDERED: ASCORBIC ACID 250 MG PO SCH (10:00)
[2022-12-28] MEDS ORDERED: ECOTRIN 81 MG PO SCH (10:00)
--- NOTE | 2022-12-28 10:32 | PCM.NOTE ---
Date and Time: 12/28/22 1024 Subjective Assessment: 12/27/22 This is a 72-year-old female admitted for nausea vomiting. She has past medical history of chronic autoimmune hepatitis, anemia, stroke, primary biliary cholangitis, dementia, coronary artery disease, hypertension, anxiety, depression. She presented to the ED today for 4 days of nausea, vomiting, weakness on arrival she was afebrile, heart rate 67, blood pressure 154/59. Labs significant for WBC 11, hemoglobin 12.1, platelets 172, potassium 3.2, CO2 19, creatinine 0.6, AST 330, ALT 264, alk phos 172. UA with trace leukocyte Estrace many bacteria, moderate amount of epithelial cells, COVID and influenza RSV all negative. CT neck was obtained for evaluation of dysphagia that showed mildly dilated upper thoracic esophagus. CT abdomen pelvis obtained that showed regression of biliary pneumobilia since last study. CBD remains dilated with subtle hyperdensity within the lower CBD. Minimal regression of intra hepatic bile biliary radicles dilation based on noncontrast assessment in the ED she was given droperidol and 1 L of saline. On my evaluation she is somnolent after receiving the droperidol and not able to answer any questions. Family reported to nursing staff prior to leaving that she had been sleeping excessively up to 22 hours a day which is undergoing investigation by her outpatient medical team. They also note that she has had some issues with swallowing and it appears to be painful for her. 12/28/22 Pt resting in bed. She is sleepy but sleeps on average 22 hours a day. This may be related to end stage dementia. She would be a good candidate for Hospice if family would be amenable. Will have case management f/u with family tomorrow to discuss. She does have appear to have a UTI and Rocephin started. Reviewed past medical records and labs. Pt has repeated admissions to the hospital for similar sxs. She is unable to answer any questions at this time as she is sleeping. - Review of Systems Constitutional: No Symptoms, Lethargy, No Fever, No Chills Eyes: No Symptoms Ears, Nose, & Throat: No Symptoms Respiratory: No Cough, No Short Of Breath Cardiac: No Chest Pain, No Edema, No Syncope Abdominal/Gastrointestinal: No Abdominal Pain, No Nausea, No Vomiting, No Diarrhea Genitourinary Symptoms: No Dysuria Musculoskeletal: No Back Pain, No Neck Pain Skin: No Rash Neurological: No Dizziness, No Focal Weakness, No Sensory Changes Psychological: No Symptoms Endocrine: No Symptoms Hematologic/Lymphatic: No Symptoms Immunological/Allergic: No Symptoms Objective Exam General Appearance: no apparent distress, alert Neurologic Exam: other (-sleeping as she normally does per family, pt did wake up per nurse and answered questions appropriately.), No motor deficits Skin Exam: normal color, warm, dry Eye Exam: PERRL, EOMI, eyes nml inspection Ears, Nose, Throat Exam: normal ENT inspection, pharynx normal, moist mucous membranes Neck Exam: normal inspection, non-tender, supple, full range of motion Respiratory Exam: normal breath sounds, lungs clear, No respiratory distress Cardiovascular Exam: regular rate/rhythm, normal heart sounds Gastrointestinal/Abdomen Exam: soft, No tenderness, No mass Extremity Exam: normal inspection, normal range of motion Back Exam: normal inspection, normal range of motion, No CVA tenderness, No vertebral tenderness Pelvic Exam: deferred Rectal Exam: deferred OBJECTIVE DATA Vital Signs: Vital Signs - 24 hr Temp Pulse Resp BP BP Pulse Ox 12/28/22 08:00 17 12/28/22 07:16 97.8 F 70 17 136/63 97 12/28/22 04:00 97.5 F 70 18 157/68 98 12/28/22 00:00 97.9 F 67 16 98 12/27/22 19:47 98.4 F 64 17 181/75 99 12/27/22 19:13 65 17 139/47 99 12/27/22 19:00 63 137/50 98 12/27/22 18:30 64 151/50 98 12/27/22 18:27 97 12/27/22 18:01 160/60 98 12/27/22 17:30 69 16 146/48 97 12/27/22 17:00 151/110 98 12/27/22 16:31 16 173/57 99 12/27/22 16:05 179/56 12/27/22 16:00 152/60 99 12/27/22 15:26 98.5 F 67 16 154/59 99 Pain Assessment - Last Documented Pain Intensity 0 Intake and Output: Intake & Output 12/25/22 12/26/22 12/27/22 12/28/22 11:59 11:59 11:59 11:59 Intake Total 966 Balance 966 Weight 54.5 kg Lab Results: Lab Results-Last 24 Hours 12/27/22 12/27/22 12/27/22 Range/Units 16:30 16:30 16:30 WBC 11.1 H (4.0-10.5) x10^3/uL RBC 4.03 L (4.1-5.4) x10^6/uL Hgb 12.1 (12.0-16.0) g/dL Hct 37.8 (35-47) % MCV 93.8 (78-100) fL MCH 30.0 (26-32) pg MCHC 32.0 (32-36) g/dL RDW 14.7 H (11.5-14.0) % Plt Count 172 (150-450) x10^3/uL MPV 10.6 (7.5-11.0) fL Gran % 72.8 H (36.0-66.0) % Immature Gran % (Auto) 0.2 (0.00-0.4) % Nucleat RBC Rel Count 0.0 (0.00-0.1) % Eos # (Auto) 0.01 (0-0.5) x10^3/uL Immature Gran # (Auto) 0.02 (0.00-0.03) x10^3u/L Absolute Lymphs (auto) 2.04 (1.0-4.6) x10^3/uL Absolute Monos (auto) 0.91 (0.0-1.3) x10^3/uL Absolute Nucleated RBC 0.00 (0.00-0.01) x10^3u/L Lymphocytes % 18.4 L (24.0-44.0) % Monocytes % 8.2 (0.0-12.0) % Eosinophils % 0.1 (0.00-5.0) % Basophils % 0.3 (0.0-0.4) % Absolute Granulocytes 8.09 H (1.4-6.9) x10^3/uL Basophils # 0.03 (0-0.4) x10^3/uL PT (9.4-12.5) SECONDS INR (0.8-3.0) Sodium 142 (137-145) mmol/L Potassium 3.2 L (3.5-5.1) mmol/L Chloride 114 H (98-107) mmol/L Carbon Dioxide 19 L (22-30) mmol/L Anion Gap 12.2 (5-15) MEQ/L BUN 18 H (7-17) mg/dL Creatinine 0.69 (0.52-1.04) mg/dL Estimated GFR > 60.0 ML/MIN Glucose 130 H (74-106) mg/dL POC Glucometer (74 to 106) mg/dL Lactic Acid (0.4-2.0) Calcium 8.0 L (8.4-10.2) mg/dL Total Bilirubin 1.70 H (0.2-1.3) mg/dL AST 330 H (14-36) U/L ALT 264 H (0-35) U/L Alkaline Phosphatase 172 H (38-126) U/L Ammonia (9-30) umol/L Serum Total Protein 6.3 (6.3-8.2) g/dL Albumin 3.3 L (3.5-5.0) g/dL Prealbumin (17.6-36.0) mg/dL Amylase 43 (30-110) U/L Lipase 30 (23-300) U/L Urine Color (Yellow) Urine Appearance (Clear) Urine pH (4.6-8.0) Ur Specific Inland (1.005-1.030) Urine Protein (Negative) Urine Glucose (UA) (Negative) mg/dL Urine Ketones (Negative) Urine Blood (Negative) Urine Nitrite (Negative) Urine Bilirubin (Negative) Urine Urobilinogen (0.2) mg/dL Ur Leukocyte Esterase (Negative) U Hyaline Cast (Auto) (0-2) /LPF Urine Microscopic RBC (0-5) /HPF Urine Microscopic WBC (0-5) /HPF Ur Epithelial Cells (None Seen) /HPF Urine Bacteria (None Seen) /HPF Urine Culture Reflexed (NO) Influenza Type A Ag NEGATIVE (NEGATIVE) Influenza Type B Ag NEGATIVE (NEGATIVE) RSV (PCR) NEGATIVE (NEGATIVE) SARS-CoV-2 (PCR) NEGATIVE (NEGATIVE) 12/27/22 12/27/22 12/27/22 Range/Units 16:45 17:57 21:45 WBC (4.0-10.5) x10^3/uL RBC (4.1-5.4) x10^6/uL Hgb (12.0-16.0) g/dL Hct (35-47) % MCV (78-100) fL MCH (26-32) pg MCHC (32-36) g/dL RDW (11.5-14.0) % Plt Count (150-450) x10^3/uL MPV (7.5-11.0) fL Gran % (36.0-66.0) % Immature Gran % (Auto) (0.00-0.4) % Nucleat RBC Rel Count (0.00-0.1) % Eos # (Auto) (0-0.5) x10^3/uL Immature Gran # (Auto) (0.00-0.03) x10^3u/L Absolute Lymphs (auto) (1.0-4.6) x10^3/uL Absolute Monos (auto) (0.0-1.3) x10^3/uL Absolute Nucleated RBC (0.00-0.01) x10^3u/L Lymphocytes % (24.0-44.0) % Monocytes % (0.0-12.0) % Eosinophils % (0.00-5.0) % Basophils % (0.0-0.4) % Absolute Granulocytes (1.4-6.9) x10^3/uL Basophils # (0-0.4) x10^3/uL PT (9.4-12.5) SECONDS INR (0.8-3.0) Sodium (137-145) mmol/L Potassium (3.5-5.1) mmol/L Chloride (98-107) mmol/L Carbon Dioxide (22-30) mmol/L Anion Gap (5-15) MEQ/L BUN (7-17) mg/dL Creatinine (0.52-1.04) mg/dL Estimated GFR ML/MIN Glucose (74-106) mg/dL POC Glucometer 102 (74 to 106) mg/dL Lactic Acid 2.0 (0.4-2.0) Calcium (8.4-10.2) mg/dL Total Bilirubin (0.2-1.3) mg/dL AST (14-36) U/L ALT (0-35) U/L Alkaline Phosphatase (38-126) U/L Ammonia (9-30) umol/L Serum Total Protein (6.3-8.2) g/dL Albumin (3.5-5.0) g/dL Prealbumin (17.6-36.0) mg/dL Amylase (30-110) U/L Lipase (23-300) U/L Urine Color Dark Yellow A (Yellow) Urine Appearance Cloudy A (Clear) Urine pH 6.5 (4.6-8.0) Ur Specific Inland 1.020 (1.005-1.030) Urine Protein Trace A (Negative) Urine Glucose (UA) Negative (Negative) mg/dL Urine Ketones Trace A (Negative) Urine Blood Negative (Negative) Urine Nitrite Negative (Negative) Urine Bilirubin Moderate A (Negative) Urine Urobilinogen 2.0 A (0.2) mg/dL Ur Leukocyte Esterase Trace A (Negative) U Hyaline Cast (Auto) 3-5 A (0-2) /LPF Urine Microscopic RBC 0-2 (0-5) /HPF Urine Microscopic WBC 3-5 (0-5) /HPF Ur Epithelial Cells Moderate A (None Seen) /HPF Urine Bacteria Many A (None Seen) /HPF Urine Culture Reflexed YES (NO) Influenza Type A Ag (NEGATIVE) Influenza Type B Ag (NEGATIVE) RSV (PCR) (NEGATIVE) SARS-CoV-2 (PCR) (NEGATIVE) 12/28/22 12/28/22 12/28/22 Range/Units 05:15 05:15 05:15 WBC 8.2 (4.0-10.5) x10^3/uL RBC 3.52 L (4.1-5.4) x10^6/uL Hgb 10.6 L (12.0-16.0) g/dL Hct 32.8 L (35-47) % MCV 93.2 (78-100) fL MCH 30.1 (26-32) pg MCHC 32.3 (32-36) g/dL RDW 15.3 H (11.5-14.0) % Plt Count 170 (150-450) x10^3/uL MPV 10.7 (7.5-11.0) fL Gran % 64.5 (36.0-66.0) % Immature Gran % (Auto) 0.4 (0.00-0.4) % Nucleat RBC Rel Count 0.0 (0.00-0.1) % Eos # (Auto) 0.03 (0-0.5) x10^3/uL Immature Gran # (Auto) 0.03 (0.00-0.03) x10^3u/L Absolute Lymphs (auto) 1.95 (1.0-4.6) x10^3/uL Absolute Monos (auto) 0.86 (0.0-1.3) x10^3/uL Absolute Nucleated RBC 0.00 (0.00-0.01) x10^3u/L Lymphocytes % 23.8 L (24.0-44.0) % Monocytes % 10.5 (0.0-12.0) % Eosinophils % 0.4 (0.00-5.0) % Basophils % 0.4 (0.0-0.4) % Absolute Granulocytes 5.29 (1.4-6.9) x10^3/uL Basophils # 0.03 (0-0.4) x10^3/uL PT 10.9 (9.4-12.5) SECONDS INR 1.00 (0.8-3.0) Sodium 141 (137-145) mmol/L Potassium 3.7 (3.5-5.1) mmol/L Chloride 117 H (98-107) mmol/L Carbon Dioxide 17 L (22-30) mmol/L Anion Gap 10.9 (5-15) MEQ/L BUN 15 (7-17) mg/dL Creatinine 0.52 (0.52-1.04) mg/dL Estimated GFR > 60.0 ML/MIN Glucose 81 (74-106) mg/dL POC Glucometer (74 to 106) mg/dL Lactic Acid (0.4-2.0) Calcium 7.5 L (8.4-10.2) mg/dL Total Bilirubin 0.70 (0.2-1.3) mg/dL AST 162 H (14-36) U/L ALT 186 H (0-35) U/L Alkaline Phosphatase 134 H (38-126) U/L Ammonia (9-30) umol/L Serum Total Protein 5.4 L (6.3-8.2) g/dL Albumin 2.7 L (3.5-5.0) g/dL Prealbumin 12.04 L (17.6-36.0) mg/dL Amylase (30-110) U/L Lipase (23-300) U/L Urine Color (Yellow) Urine Appearance (Clear) Urine pH (4.6-8.0) Ur Specific Inland (1.005-1.030) Urine Protein (Negative) Urine Glucose (UA) (Negative) mg/dL Urine Ketones (Negative) Urine Blood (Negative) Urine Nitrite (Negative) Urine Bilirubin (Negative) Urine Urobilinogen (0.2) mg/dL Ur Leukocyte Esterase (Negative) U Hyaline Cast (Auto) (0-2) /LPF Urine Microscopic RBC (0-5) /HPF Urine Microscopic WBC (0-5) /HPF Ur Epithelial Cells (None Seen) /HPF Urine Bacteria (None Seen) /HPF Urine Culture Reflexed (NO) Influenza Type A Ag (NEGATIVE) Influenza Type B Ag (NEGATIVE) RSV (PCR) (NEGATIVE) SARS-CoV-2 (PCR) (NEGATIVE) 12/28/22 Range/Units 05:15 WBC (4.0-10.5) x10^3/uL RBC (4.1-5.4) x10^6/uL Hgb (12.0-16.0) g/dL Hct (35-47) % MCV (78-100) fL MCH (26-32) pg MCHC (32-36) g/dL RDW (11.5-14.0) % Plt Count (150-450) x10^3/uL MPV (7.5-11.0) fL Gran % (36.0-66.0) % Immature Gran % (Auto) (0.00-0.4) % Nucleat RBC Rel Count (0.00-0.1) % Eos # (Auto) (0-0.5) x10^3/uL Immature Gran # (Auto) (0.00-0.03) x10^3u/L Absolute Lymphs (auto) (1.0-4.6) x10^3/uL Absolute Monos (auto) (0.0-1.3) x10^3/uL Absolute Nucleated RBC (0.00-0.01) x10^3u/L Lymphocytes % (24.0-44.0) % Monocytes % (0.0-12.0) % Eosinophils % (0.00-5.0) % Basophils % (0.0-0.4) % Absolute Granulocytes (1.4-6.9) x10^3/uL Basophils # (0-0.4) x10^3/uL PT (9.4-12.5) SECONDS INR (0.8-3.0) Sodium (137-145) mmol/L Potassium (3.5-5.1) mmol/L Chloride (98-107) mmol/L Carbon Dioxide (22-30) mmol/L Anion Gap (5-15) MEQ/L BUN (7-17) mg/dL Creatinine (0.52-1.04) mg/dL Estimated GFR ML/MIN Glucose (74-106) mg/dL POC Glucometer (74 to 106) mg/dL Lactic Acid (0.4-2.0) Calcium (8.4-10.2) mg/dL Total Bilirubin (0.2-1.3) mg/dL AST (14-36) U/L ALT (0-35) U/L Alkaline Phosphatase (38-126) U/L Ammonia 13 (9-30) umol/L Serum Total Protein (6.3-8.2) g/dL Albumin (3.5-5.0) g/dL Prealbumin (17.6-36.0) mg/dL Amylase (30-110) U/L Lipase (23-300) U/L Urine Color (Yellow) Urine Appearance (Clear) Urine pH (4.6-8.0) Ur Specific [place] (1.005-1.030) Urine Protein (Negative) Urine Glucose (UA) (Negative) mg/dL Urine Ketones (Negative) Urine Blood (Negative) Urine Nitrite (Negative) Urine Bilirubin (Negative) Urine Urobilinogen (0.2) mg/dL Ur Leukocyte Esterase (Negative) U Hyaline Cast (Auto) (0-2) /LPF Urine Microscopic RBC (0-5) /HPF Urine Microscopic WBC (0-5) /HPF Ur Epithelial Cells (None Seen) /HPF Urine Bacteria (None Seen) /HPF Urine Culture Reflexed (NO) Influenza Type A Ag (NEGATIVE) Influenza Type B Ag (NEGATIVE) RSV (PCR) (NEGATIVE) SARS-CoV-2 (PCR) (NEGATIVE) Radiology Exams: Radiology Procedures Category Date Time Status ABDOMEN AND PELVIS W/0 CONTRAS [CT] Stat Exams 12/27/22 16:04 Completed NECK WO CONTRAST [CT] Stat Exams 12/27/22 16:07 Completed Assessment/Plan (1) Dehydration Current Visit: Yes Status: Acute Assessment & Plan: - NS @ 75 ml/hr - 2:2 N/V, end stage dementia, difficulty swallowing Code(s): E86.0 - DEHYDRATION (2) Nausea & vomiting Current Visit: Yes Status: Acute Assessment & Plan: - reglan, Zofran, IVF Code(s): R11.2 - NAUSEA WITH VOMITING, UNSPECIFIED (3) Swallowing difficulty Current Visit: Yes Status: Acute Assessment & Plan: - ST eval - consider barium swallow study - CT neck 12/27/22: FINDINGS: Mildly dilated upper thoracic oesophagus. No sizable cervical lymph nodes at any of noted lymph node stations. Mutiple bilateral subcentimetric intraparotid lymph nodes with preserved fatty hilum. Normal CT appearance of the supra-and infra hyoid deep neck spaces. Normal CT appearance of the larynx, namely the supraglottic, glottic and infra, glottic spaces. Unremarkable nasal and sherrell pharyngeal mucosal spaces. Normal CT appearance of the sublingual, submandibular and parotid salivary glands. The base of the tongue, the uvula, the epiglottis, the vocal cords, the upper trachea, the upper oesophagus are unremarkable. The thyroid gland shows no definite abnormality. The visualized structures of the posterior fossa show no definite abnormality. Spondylotic changes of the visualized cervical spine with minimal anterolisthesis of C5 relative to C6. Scanned upper chest cuts reveal no pulmonary abnormality. IMPRESSION: Mildly dilated upper thoracic oesophagus. Distal esophagus not included in the study. Further evaluation is suggseted if clinically warranted. Multiple bilateral subcentimetric intraparotid lymph nodes with preserved fatty hilum. Spondylotic changes of the visualized cervical spine with minimal anterolisthesis of C5 relative to C6. Code(s): R13.10 - DYSPHAGIA, UNSPECIFIED (4) Elevated liver function tests Current Visit: Yes Status: Chronic Assessment & Plan: - AST 162/ Alt 186- improved from admission- trend Code(s): R79.89 - OTHER SPECIFIED ABNORMAL FINDINGS OF BLOOD CHEMISTRY (5) UTI (urinary tract infection) Current Visit: No Status: Acute Qualifiers: Urinary tract infection type: site unspecified Assessment & Plan: - repeat admissions for UTI per reviewing old records and labs - Rocephin started after reviewing old labs - UC pending - IV fluids Code(s): N39.0 - URINARY TRACT INFECTION, SITE NOT SPECIFIED (6) Chronic autoimmune hepatitis Current Visit: Yes Status: Chronic Assessment & Plan: - ammonia level 13- WNL Code(s): K75.4 - AUTOIMMUNE HEPATITIS (7) Dementia Current Visit: No Status: Chronic Assessment & Plan: - chronic - consider hospice- Case management to discuss with family VTE: Lovenox PPI: pantoprazole D/C plan: when UC back- consider hospice Code status: Chiquita Ojeda [phone] Code(s): F03.90 - UNSP DEMENTIA, UNSP SEVERITY, WITHOUT BEH/PSYCH/MOOD/ANX
[2022-12-28] MEDS: ECOTRIN 81 MG PO SCH ×3 (10:51→21:57)
[2022-12-28] MEDS: Namenda 5 MG PO SCH ×3 (10:51→21:57)
[2022-12-28] MEDS: Protonix 40MG Tablet PO SCH ×3 (10:51→21:57)
[2022-12-28] MEDS: TOPIRAMATE PO SCH ×3 (10:52→21:58)
[2022-12-28] MEDS: Reglan 10 MG/2 ML IV PRN ×2 (10:57→16:54)
[2022-12-28] MEDS ORDERED: NON-FORMULARY ITEM (Multivitamin [Multivitamin] 1 EACH Tablet) PO SCH (12:00)
[2022-12-28] MEDS: MAG-OX 400 PO SCH (12:03)
[2022-12-28] MEDS: Miralax Powder 17GM PACKET PO SCH ×2 (12:03→21:57)
[2022-12-28] MEDS: VITAMIN D PO SCH (12:04)
[2022-12-28] MEDS: Vitamin B-12 500 MCG PO SCH (12:04)
[2022-12-28] MEDS: Vitamin C 500 MG PO SCH (12:04)
[2022-12-28] MEDS: Aricept 10 MG PO SCH (12:04)
[2022-12-28] MEDS: THERAGRAN MULTIVITAMIN PO SCH (12:04)
[2022-12-28] MEDS: ZOLOFT 50 MG TABLET PO SCH (21:58)
[2022-12-29] MEDS: Reglan 10 MG/2 ML IV PRN ×2 (04:22→12:19)
--- NOTE | 2022-12-29 05:30 | PCM.NOTE ---
Date and Time: 12/29/22 0528 Subjective Assessment: HPI: 72-year-old female admitted for nausea vomiting. She has past medical history of chronic autoimmune hepatitis, anemia, stroke, primary biliary cholangitis, dementia, coronary artery disease, hypertension, anxiety, depression. She presented to the ED today for 4 days of nausea, vomiting, weakness on arrival she was afebrile, heart rate 67, blood pressure 154/59. Labs significant for WBC 11, hemoglobin 12.1, platelets 172, potassium 3.2, CO2 19, creatinine 0.6, AST 330, ALT 264, alk phos 172. UA with trace leukocyte Estrace many bacteria, moderate amount of epithelial cells, COVID and influenza RSV all negative. CT neck was obtained for evaluation of dysphagia that showed mildly dilated upper thoracic esophagus. CT abdomen pelvis obtained that showed regression of biliary pneumobilia since last study. CBD remains dilated with subtle hyperdensity within the lower CBD. Minimal regression of intra hepatic bile biliary radicles dilation based on noncontrast assessment in the ED she was given droperidol and 1 L of saline. Family reported to nursing staff prior to leaving that she had been sleeping excessively up to 22 hours a day which is undergoing investigation by her outpatient medical team. They also note that she has had some issues with swallowing and it appears to be painful for her. 12/29: Met with patient and son bedside. Endorses continued vomiting. ST recommending barium esophagram due to difficulty swallowing. Labs discussed with patient and son showing low potassium and bicarb. Will replenish potassium and start on bicarb gtt. Will add compazine for nausea. U-cult showing Klebsiell, sensitive to ceftriaxone she is receiving. - Review of Systems Constitutional: Fatigue, Lethargy Eyes: No Symptoms Ears, Nose, & Throat: No Symptoms Respiratory: No Symptoms Cardiac: No Symptoms Abdominal/Gastrointestinal: Nausea, Vomiting Genitourinary Symptoms: No Symptoms Musculoskeletal: No Symptoms Skin: No Symptoms Neurological: Lethargy Psychological: No Symptoms Endocrine: No Symptoms Hematologic/Lymphatic: No Symptoms Immunological/Allergic: No Symptoms Objective Exam General Appearance: no apparent distress Neurologic Exam: alert, oriented x 3, cooperative Skin Exam: normal color Eye Exam: PERRL Ears, Nose, Throat Exam: normal ENT inspection Neck Exam: normal inspection Respiratory Exam: normal breath sounds, lungs clear Cardiovascular Exam: regular rate/rhythm, normal heart sounds Gastrointestinal/Abdomen Exam: soft, normal bowel sounds Extremity Exam: normal inspection Back Exam: normal inspection Pelvic Exam: deferred Rectal Exam: deferred OBJECTIVE DATA Vital Signs: Vital Signs - 24 hr Temp Pulse Resp BP Pulse Ox 12/29/22 04:00 97.7 F 87 20 184/75 96 12/29/22 00:05 99.6 F 71 18 150/65 97 12/29/22 00:00 16 12/28/22 19:31 99.3 F 68 16 136/64 94 L 12/28/22 16:00 97.8 F 65 17 132/61 97 12/28/22 12:00 16 12/28/22 11:39 97.7 F 71 17 163/69 96 12/28/22 08:00 17 12/28/22 07:16 97.8 F 70 17 136/63 97 Pain Assessment - Last Documented Pain Intensity 0 Intake and Output: Intake & Output 12/26/22 12/27/22 12/28/22 12/29/22 11:59 11:59 11:59 11:59 Intake Total 966 0 Balance 966 0 Weight 54.5 kg Lab Results: Lab Results-Last 24 Hours 12/28/22 12/28/22 12/28/22 Range/Units 05:15 05:15 05:15 WBC 8.2 (4.0-10.5) x10^3/uL RBC 3.52 L (4.1-5.4) x10^6/uL Hgb 10.6 L (12.0-16.0) g/dL Hct 32.8 L (35-47) % MCV 93.2 (78-100) fL MCH 30.1 (26-32) pg MCHC 32.3 (32-36) g/dL RDW 15.3 H (11.5-14.0) % Plt Count 170 (150-450) x10^3/uL MPV 10.7 (7.5-11.0) fL Gran % 64.5 (36.0-66.0) % Immature Gran % (Auto) 0.4 (0.00-0.4) % Nucleat RBC Rel Count 0.0 (0.00-0.1) % Eos # (Auto) 0.03 (0-0.5) x10^3/uL Immature Gran # (Auto) 0.03 (0.00-0.03) x10^3u/L Absolute Lymphs (auto) 1.95 (1.0-4.6) x10^3/uL Absolute Monos (auto) 0.86 (0.0-1.3) x10^3/uL Absolute Nucleated RBC 0.00 (0.00-0.01) x10^3u/L Lymphocytes % 23.8 L (24.0-44.0) % Monocytes % 10.5 (0.0-12.0) % Eosinophils % 0.4 (0.00-5.0) % Basophils % 0.4 (0.0-0.4) % Absolute Granulocytes 5.29 (1.4-6.9) x10^3/uL Basophils # 0.03 (0-0.4) x10^3/uL PT 10.9 (9.4-12.5) SECONDS INR 1.00 (0.8-3.0) Sodium 141 (137-145) mmol/L Potassium 3.7 (3.5-5.1) mmol/L Chloride 117 H (98-107) mmol/L Carbon Dioxide 17 L (22-30) mmol/L Anion Gap 10.9 (5-15) MEQ/L BUN 15 (7-17) mg/dL Creatinine 0.52 (0.52-1.04) mg/dL Estimated GFR > 60.0 ML/MIN Glucose 81 (74-106) mg/dL Calcium 7.5 L (8.4-10.2) mg/dL Total Bilirubin 0.70 (0.2-1.3) mg/dL AST 162 H (14-36) U/L ALT 186 H (0-35) U/L Alkaline Phosphatase 134 H (38-126) U/L Ammonia (9-30) umol/L Serum Total Protein 5.4 L (6.3-8.2) g/dL Albumin 2.7 L (3.5-5.0) g/dL Prealbumin 12.04 L (17.6-36.0) mg/dL 12/28/22 Range/Units 05:15 WBC (4.0-10.5) x10^3/uL RBC (4.1-5.4) x10^6/uL Hgb (12.0-16.0) g/dL Hct (35-47) % MCV (78-100) fL MCH (26-32) pg MCHC (32-36) g/dL RDW (11.5-14.0) % Plt Count (150-450) x10^3/uL MPV (7.5-11.0) fL Gran % (36.0-66.0) % Immature Gran % (Auto) (0.00-0.4) % Nucleat RBC Rel Count (0.00-0.1) % Eos # (Auto) (0-0.5) x10^3/uL Immature Gran # (Auto) (0.00-0.03) x10^3u/L Absolute Lymphs (auto) (1.0-4.6) x10^3/uL Absolute Monos (auto) (0.0-1.3) x10^3/uL Absolute Nucleated RBC (0.00-0.01) x10^3u/L Lymphocytes % (24.0-44.0) % Monocytes % (0.0-12.0) % Eosinophils % (0.00-5.0) % Basophils % (0.0-0.4) % Absolute Granulocytes (1.4-6.9) x10^3/uL Basophils # (0-0.4) x10^3/uL PT (9.4-12.5) SECONDS INR (0.8-3.0) Sodium (137-145) mmol/L Potassium (3.5-5.1) mmol/L Chloride (98-107) mmol/L Carbon Dioxide (22-30) mmol/L Anion Gap (5-15) MEQ/L BUN (7-17) mg/dL Creatinine (0.52-1.04) mg/dL Estimated GFR ML/MIN Glucose (74-106) mg/dL Calcium (8.4-10.2) mg/dL Total Bilirubin (0.2-1.3) mg/dL AST (14-36) U/L ALT (0-35) U/L Alkaline Phosphatase (38-126) U/L Ammonia 13 (9-30) umol/L Serum Total Protein (6.3-8.2) g/dL Albumin (3.5-5.0) g/dL Prealbumin (17.6-36.0) mg/dL Radiology Exams: Radiology Procedures Category Date Time Status ABDOMEN AND PELVIS W/0 CONTRAS [CT] Stat Exams 12/27/22 16:04 Completed NECK WO CONTRAST [CT] Stat Exams 12/27/22 16:07 Completed Assessment/Plan (1) Dehydration Current Visit: Yes Status: Acute Assessment & Plan: (1) Dehydration Current Visit: Yes Status: Acute Assessment & Plan: - NS @ 75 ml/hr - 2:2 N/V, end stage dementia, difficulty swallowing 12/29: -Start on D5 with bicarb drip Code(s): E86.0 - DEHYDRATION (2) Nausea & vomiting Current Visit: Yes Status: Acute Assessment & Plan: - reglan, Zofran, IVF 12/29: -add compazine Code(s): R11.2 - NAUSEA WITH VOMITING, UNSPECIFIED (3) Swallowing difficulty Current Visit: Yes Status: Acute Assessment & Plan: - ev - consider barium swallow study - CT neck 12/27/22: FINDINGS: Mildly dilated upper thoracic oesophagus. No sizable cervical lymph nodes at any of noted lymph node stations. Mutiple bilateral subcentimetric intraparotid lymph nodes with preserved fatty hilum. Normal CT appearance of the supra-and infra hyoid deep neck spaces. Normal CT appearance of the larynx, namely the supraglottic, glottic and infra, glottic spaces. Unremarkable nasal and sherrell pharyngeal mucosal spaces. Normal CT appearance of the sublingual, submandibular and parotid salivary glands. The base of the tongue, the uvula, the epiglottis, the vocal cords, the upper trachea, the upper oesophagus are unremarkable. The thyroid gland shows no definite abnormality. The visualized structures of the posterior fossa show no definite abnormality. Spondylotic changes of the visualized cervical spine with minimal anterolisthesis of C5 relative to C6. Scanned upper chest cuts reveal no pulmonary abnormality. IMPRESSION: Mildly dilated upper thoracic oesophagus. Distal esophagus not included in the study. Further evaluation is suggseted if clinically warranted. Multiple bilateral subcentimetric intraparotid lymph nodes with preserved fatty hilum. Spondylotic changes of the visualized cervical spine with minimal anterolisthesis of C5 relative to C6. Code(s): R13.10 - DYSPHAGIA, UNSPECIFIED 12/29: -Per ST eval will order barium esophagram (4) Elevated liver function tests Current Visit: Yes Status: Chronic Assessment & Plan: - AST 162/ Alt 186- improved from admission- trend 12/29: -trending down, AST 55 ALT 102, much improved since admission Code(s): R79.89 - OTHER SPECIFIED ABNORMAL FINDINGS OF BLOOD CHEMISTRY (5) UTI (urinary tract infection) Current Visit: No Status: Acute Qualifiers: Urinary tract infection type: site unspecified Assessment & Plan: - repeat admissions for UTI per reviewing old records and labs - Rocephin started after reviewing old labs - UC pending - IV fluids 12/29: -Ucult growing Klebsiella, will continue Rocephin Code(s): N39.0 - URINARY TRACT INFECTION, SITE NOT SPECIFIED #Hypokalemia -Potassium reviewed, low at 3.2, will replenish # metabolic acidosis -Bicarb at 13, will start bicarb drip (6) Chronic autoimmune hepatitis Current Visit: Yes Status: Chronic Assessment & Plan: - ammonia level 13- WNL Code(s): K75.4 - AUTOIMMUNE HEPATITIS (7) Dementia Current Visit: No Status: Chronic Assessment & Plan: - chronic - consider hospice- Case management to discuss with family 12/29: -Family not interested in hospice at this time VTE: Lovenox PPI: pantoprazole D/C plan: when UC back- consider hospice Code status: Chiquita Ojeda [phone] Code(s): F03.90 - UNSP DEMENTIA, UNSP SEVERITY, WITHOUT BEH/PSYCH/MOOD/ANX Code(s): E86.0 - DEHYDRATION (2) Metabolic acidosis Current Visit: No Status: Acute Code(s): E87.20 - ACIDOSIS, UNSPECIFIED (3) Nausea & vomiting Current Visit: Yes Status: Acute Code(s): R11.2 - NAUSEA WITH VOMITING, UNSPECIFIED (4) Swallowing difficulty Current Visit: Yes Status: Acute Code(s): R13.10 - DYSPHAGIA, UNSPECIFIED (5) Chronic autoimmune hepatitis Current Visit: Yes Status: Chronic Code(s): K75.4 - AUTOIMMUNE HEPATITIS (6) Elevated liver function tests Current Visit: Yes Status: Chronic Code(s): R79.89 - OTHER SPECIFIED ABNORMAL FINDINGS OF BLOOD CHEMISTRY (7) Hypokalemia Current Visit: Yes Status: Acute Code(s): E87.6 - HYPOKALEMIA (8) UTI (urinary tract infection) Current Visit: No Status: Acute Qualifiers: Urinary tract infection type: site unspecified Code(s): N39.0 - URINARY TRACT INFECTION, SITE NOT SPECIFIED (9) Dementia Current Visit: No Status: Chronic Code(s): F03.90 - UNSP DEMENTIA, UNSP SEVERITY, WITHOUT BEH/PSYCH/MOOD/ANX
[2022-12-29 08:11] LABS: Absolute Neutrophil Ct (ANC) 6.14 x10^3/uL (1.4-6.9); BASOPHIL % 0.2 % (0.0-0.4); Basophil (Absolute #) 0.02 x10^3/uL (0-0.4); Eosinophil % 0.2 % (0.00-5.0); Eosinophil (Absolute #) 0.02 x10^3/uL (0-0.5); Hematocrit 32.5 % (35-47); Hemoglobin 10.2 g/dL (12.0-16.0); IMMATURE GRAN # 0.03 x10^3u/L (0.00-0.03); IMMATURE GRAN % 0.3 % (0.00-0.4); Lymphocyte (Absolute #) 1.56 x10^3/uL (1.0-4.6); Lymphocytes % 18.2 % (24.0-44.0); Mean Corpuscular Hemoglobin 29.8 pg (26-32); Mean Corpuscular Hgb Concent. 31.4 g/dL (32-36); Mean Platelet Volume 10.7 fL (7.5-11.0); Monocyte (Absolute #) 0.81 x10^3/uL (0.0-1.3); Monocytes % 9.4 % (0.0-12.0); Neutrophil % 71.7 % (36.0-66.0); Platelet Count 183 x10^3/uL (150-450); Red Blood Count 3.42 x10^6/uL (4.1-5.4); Red Cell Distribution Width 14.9 % (11.5-14.0); White Blood Count 8.6 x10^3/uL (4.0-10.5)
[2022-12-29 08:48] LABS: ALBUMIN 2.7 g/dL (3.5-5.0); ALKALINE PHOSPHATASE 116 U/L (38-126); ANION GAP 13.7 MEQ/L (5-15); BLOOD UREA NITROGEN 13 mg/dL (7-17); CHLORIDE 120 mmol/L (98-107); Calcium 7.5 mg/dL (8.4-10.2); Creatinine 1 0.57 mg/dL (0.52-1.04); EST GLOMERULAR FILTRATION RATE > 60.0 ML/MIN; Glucose 70 mg/dL (74-106); Potassium 3.2 mmol/L (3.5-5.1); SGOT/AST 55 U/L (14-36); SGPT/ALT 102 U/L (0-35); SODIUM 143 mmol/L (137-145); Total Protein 5.5 g/dL (6.3-8.2)
[2022-12-29] MEDS: Zofran 4 MG/2 ML VIAL IV PRN (08:53)
[2022-12-29] MEDS: ENOXAPARIN SODIUM SQ SCH (09:30)
[2022-12-29] MEDS: ROCEPHIN 1 Gm-D5w 50 ml Bag** 1 G/50 ML IVPB IV SCH (09:31)
[2022-12-29 10:08] LABS: Carbon Dioxide 13 mmol/L (22-30)
[2022-12-29] MEDS ORDERED: Dextrose 5%-NS IV Solution 1000 ML 1,000 ML IV SCH (11:00)
[2022-12-29] MEDS ORDERED: POTASSIUM CHLORIDE 20 mEq IN WATER 100ML 20 MEQ/100 ML BAG IV ONE ×3 (11:47→20:31)
[2022-12-29] MEDS ORDERED: Klor Con PO SCH (12:00)
[2022-12-29] MEDS: ECOTRIN 81 MG PO SCH ×2 (12:00→21:21)
[2022-12-29] MEDS: MAG-OX 400 PO SCH (12:01)
[2022-12-29] MEDS: TOPIRAMATE PO SCH ×2 (12:01→21:22)
[2022-12-29] MEDS: Protonix 40MG Tablet PO SCH ×2 (12:01→21:22)
[2022-12-29] MEDS: Miralax Powder 17GM PACKET PO SCH ×2 (12:01→21:21)
[2022-12-29] MEDS: Vitamin B-12 500 MCG PO SCH (12:01)
[2022-12-29] MEDS: Namenda 5 MG PO SCH ×2 (12:01→21:22)
[2022-12-29] MEDS: Vitamin C 500 MG PO SCH (12:02)
[2022-12-29] MEDS: VITAMIN D PO SCH (12:02)
[2022-12-29] MEDS: Aricept 10 MG PO SCH (12:36)
[2022-12-29] MEDS: THERAGRAN MULTIVITAMIN PO SCH (12:36)
[2022-12-29] MEDS: Sodium Bicarbonate 50 MEQ/50 ML VIAL*** 100 MEQ in Dextrose 5%/Water IV Soln. 1000 ML 1... IV SCH (12:42)
[2022-12-29] MEDS ORDERED: Compazine 10 MG/2 ML IM PRN (12:44)
[2022-12-29] MEDS: Sodium Chloride 0.9% 1000 ML 1,000 ML IV SCH (12:51)
[2022-12-29] MEDS ORDERED: Transderm Scop 1.5MG Patch TOP ONE (12:56)
--- NOTE | 2022-12-29 15:03 | XRAY ---
Indication: Dysphagia. Nausea and vomiting. Single contrast esophagram performed. Due to patient's frailty and limited mobility, esophagram was performed semiupright. Patient ingested barium without miss swallower aspiration. Mid to proximal esophagus is normal in course and caliber without obstruction. Tiny intraluminal filling defects mixed with barium presumed debris/food. Abnormal distal third esophagus with there is spindle-shaped intraluminal narrowing with irregular margins. Proximal to narrowing, margins of the esophagus appear irregular with ulcerations. Findings worrisome for malignancy such as adenocarcinoma. Barium empties into the empty stomach. Cardiac portion of stomach demonstrates moderate-sized gastric wall mass also concerning for malignancy. Impression: Abnormal distal esophagus with intraluminal narrowing, irregularities, and ulcerations worrisome for malignancy. Also gastric mass also probably malignant. Direct endoscopy recommended. Approximately 0.5 minute fluoroscopy used.
[2022-12-29] MEDS ORDERED: Xylocaine-Mpf 2% 5 Ml Vial ONE (16:05)
[2022-12-29] MEDS: ZOLOFT 50 MG TABLET PO SCH (21:23)
[2022-12-30] MEDS: Zofran 4 MG/2 ML VIAL IV PRN (02:22)
--- NOTE | 2022-12-30 05:11 | PCM.NOTE ---
Date and Time: 12/30/22 2987 Subjective Assessment: HPI: 72-year-old female admitted for nausea vomiting. She has past medical history of chronic autoimmune hepatitis, anemia, stroke, primary biliary cholangitis, dementia, coronary artery disease, hypertension, anxiety, depression. She presented to the ED today for 4 days of nausea, vomiting, weakness on arrival she was afebrile, heart rate 67, blood pressure 154/59. Labs significant for WBC 11, hemoglobin 12.1, platelets 172, potassium 3.2, CO2 19, creatinine 0.6, AST 330, ALT 264, alk phos 172. UA with trace leukocyte Estrace many bacteria, moderate amount of epithelial cells, COVID and influenza RSV all negative. CT neck was obtained for evaluation of dysphagia that showed mildly dilated upper thoracic esophagus. CT abdomen pelvis obtained that showed regression of biliary pneumobilia since last study. CBD remains dilated with subtle hyperdensity within the lower CBD. Minimal regression of intra hepatic bile biliary radicles dilation based on noncontrast assessment in the ED she was given droperidol and 1 L of saline. Family reported to nursing staff prior to leaving that she had been sleeping excessively up to 22 hours a day which is undergoing investigation by her outpatient medical team. They also note that she has had some issues with swallowing and it appears to be painful for her. Barium esophagram from 12/29/22 demonstrating narrowed esophagus suspicious for malignancy plus gastric mass suspicious for malignancy. EGD is planned for 12/30/22. Severe metabolic acidosis likely due to vomiting. IV bicarb ordered. 12/29: Met with patient and son bedside. Endorses continued vomiting. ST recommending barium esophagram due to difficulty swallowing. Labs discussed with patient and son showing low potassium and bicarb. Will replenish potassium and start on bicarb gtt. Will add compazine for nausea. U-cult showing Klebsiell, sensitive to ceftriaxone she is receiving. 12/30: Met with patient and family bedside. Endorses improvement in vomiting although she states she did have one episode overnight. Discussed Barium esophagram re sults and need for EGD. All questions and concerns were addressed. Plan for EGD today. - Review of Systems Constitutional: Fatigue, Weakness Eyes: No Symptoms Ears, Nose, & Throat: No Symptoms Respiratory: No Symptoms Cardiac: No Symptoms Abdominal/Gastrointestinal: Nausea, Vomiting Genitourinary Symptoms: No Symptoms Musculoskeletal: No Symptoms Skin: No Symptoms Neurological: Lethargy Psychological: No Symptoms Endocrine: No Symptoms Hematologic/Lymphatic: No Symptoms Immunological/Allergic: No Symptoms Objective Exam General Appearance: no apparent distress Neurologic Exam: alert, oriented x 3, cooperative Skin Exam: pale Eye Exam: PERRL Ears, Nose, Throat Exam: normal ENT inspection Neck Exam: normal inspection Respiratory Exam: normal breath sounds, lungs clear Cardiovascular Exam: regular rate/rhythm, normal heart sounds Gastrointestinal/Abdomen Exam: soft, normal bowel sounds, tenderness Extremity Exam: normal inspection Back Exam: normal inspection OBJECTIVE DATA Vital Signs: Vital Signs - 24 hr Temp Pulse Resp BP Pulse Ox 12/30/22 00:50 18 12/29/22 22:51 95.9 F 79 18 162/83 93 L 12/29/22 17:11 17 12/29/22 16:00 98.2 F 75 17 184/74 98 12/29/22 13:08 17 12/29/22 11:24 97.7 F 77 17 154/67 99 12/29/22 08:00 17 12/29/22 07:09 97.8 F 74 17 151/70 96 Pain Assessment - Last Documented Pain Intensity 0 Intake and Output: Intake & Output 12/27/22 12/28/22 12/29/22 12/30/22 11:59 11:59 11:59 11:59 Intake Total 609 316 2373 Output Total 400 600 Balance 966 515 848 Weight 54.5 kg 54.5 kg Lab Results: Lab Results-Last 24 Hours 12/29/22 12/29/22 12/29/22 Range/Units 07:50 07:50 11:52 WBC 8.6 (4.0-10.5) x10^3/uL RBC 3.42 L (4.1-5.4) x10^6/uL Hgb 10.2 L (12.0-16.0) g/dL Hct 32.5 L (35-47) % MCV 95.0 (78-100) fL MCH 29.8 (26-32) pg MCHC 31.4 L (32-36) g/dL RDW 14.9 H (11.5-14.0) % Plt Count 183 (150-450) x10^3/uL MPV 10.7 (7.5-11.0) fL Gran % 71.7 H (36.0-66.0) % Immature Gran % (Auto) 0.3 (0.00-0.4) % Nucleat RBC Rel Count 0.0 (0.00-0.1) % Eos # (Auto) 0.02 (0-0.5) x10^3/uL Immature Gran # (Auto) 0.03 (0.00-0.03) x10^3u/L Absolute Lymphs (auto) 1.56 (1.0-4.6) x10^3/uL Absolute Monos (auto) 0.81 (0.0-1.3) x10^3/uL Absolute Nucleated RBC 0.00 (0.00-0.01) x10^3u/L Lymphocytes % 18.2 L (24.0-44.0) % Monocytes % 9.4 (0.0-12.0) % Eosinophils % 0.2 (0.00-5.0) % Basophils % 0.2 (0.0-0.4) % Absolute Granulocytes 6.14 (1.4-6.9) x10^3/uL Basophils # 0.02 (0-0.4) x10^3/uL Sodium 143 (137-145) mmol/L Potassium 3.2 L (3.5-5.1) mmol/L Chloride 120 H (98-107) mmol/L Carbon Dioxide 13 L* (22-30) mmol/L Anion Gap 13.7 (5-15) MEQ/L BUN 13 (7-17) mg/dL Creatinine 0.57 (0.52-1.04) mg/dL Estimated GFR > 60.0 ML/MIN Glucose 70 L (74-106) mg/dL POC Glucometer 103 (74 to 106) mg/dL Calcium 7.5 L (8.4-10.2) mg/dL Total Bilirubin 0.50 (0.2-1.3) mg/dL AST 55 H (14-36) U/L ALT 102 H (0-35) U/L Alkaline Phosphatase 116 (38-126) U/L Serum Total Protein 5.5 L (6.3-8.2) g/dL Albumin 2.7 L (3.5-5.0) g/dL 12/29/22 12/29/22 Range/Units 15:08 20:00 WBC (4.0-10.5) x10^3/uL RBC (4.1-5.4) x10^6/uL Hgb (12.0-16.0) g/dL Hct (35-47) % MCV (78-100) fL MCH (26-32) pg MCHC (32-36) g/dL RDW (11.5-14.0) % Plt Count (150-450) x10^3/uL MPV (7.5-11.0) fL Gran % (36.0-66.0) % Immature Gran % (Auto) (0.00-0.4) % Nucleat RBC Rel Count (0.00-0.1) % Eos # (Auto) (0-0.5) x10^3/uL Immature Gran # (Auto) (0.00-0.03) x10^3u/L Absolute Lymphs (auto) (1.0-4.6) x10^3/uL Absolute Monos (auto) (0.0-1.3) x10^3/uL Absolute Nucleated RBC (0.00-0.01) x10^3u/L Lymphocytes % (24.0-44.0) % Monocytes % (0.0-12.0) % Eosinophils % (0.00-5.0) % Basophils % (0.0-0.4) % Absolute Granulocytes (1.4-6.9) x10^3/uL Basophils # (0-0.4) x10^3/uL Sodium (137-145) mmol/L Potassium 3.6 3.2 L (3.5-5.1) mmol/L Chloride (98-107) mmol/L Carbon Dioxide (22-30) mmol/L Anion Gap (5-15) MEQ/L BUN (7-17) mg/dL Creatinine (0.52-1.04) mg/dL Estimated GFR ML/MIN Glucose (74-106) mg/dL POC Glucometer (74 to 106) mg/dL Calcium (8.4-10.2) mg/dL Total Bilirubin (0.2-1.3) mg/dL AST (14-36) U/L ALT (0-35) U/L Alkaline Phosphatase (38-126) U/L Serum Total Protein (6.3-8.2) g/dL Albumin (3.5-5.0) g/dL Radiology Exams: Radiology Procedures Category Date Time Status BARIUM SWALLOW ESOPHOGRAM Stat Exams 12/29/22 11:51 Completed Multi-Disciplinary Progress Notes: Multi-Disciplinary Progress Notes 12/29/22 13:00 Case Management Note by Mandi Morrison PATIENT HAS [facility]REPID [facility]. THEY WERE NOTIFIED PATIENT HERE OBS- THEY WILL NEED NOTIFIED AT TIME OF DC AT [phone]. THEY WILL NEED FAXED THE DC INSTRUCTIONS, DC MED LIST AND DC SUMMARY TO [phone] Initialized on 12/29/22 13:00 - END OF NOTE Assessment/Plan (1) Gastric mass Current Visit: Yes Status: Acute Assessment & Plan: #Gastric Mass 12/30/22: -Barium Esophagram noting Abnormal distal esophagus with intraluminal narrowing, irregularities, and ulcerations worrisome for malignancy. Also gastric mass also probably malignant. Direct endoscopy recommended. General surgery consulted. Plan for EGD 12/30/22 (1) Dehydration Current Visit: Yes Status: Acute Assessment & Plan: - NS @ 75 ml/hr - 2:2 N/V, end stage dementia, difficulty swallowing 12/29: -Start on D5 with bicarb drip 12/30: -improving, will continue bicarb drip Code(s): E86.0 - DEHYDRATION (2) Nausea & vomiting Current Visit: Yes Status: Acute Assessment & Plan: - reglan, Zofran, IVF 12/29: -add compazine Code(s): R11.2 - NAUSEA WITH VOMITING, UNSPECIFIED 12/30: -Scopalamine patch added, nausea improved (3) Swallowing difficulty Current Visit: Yes Status: Acute Assessment & Plan: - ST eval - consider barium swallow study - CT neck 12/27/22: FINDINGS: Mildly dilated upper thoracic oesophagus. No sizable cervical lymph nodes at any of noted lymph node stations. Mutiple bilateral subcentimetric intraparotid lymph nodes with preserved fatty hilum. Normal CT appearance of the supra-and infra hyoid deep neck spaces. Normal CT appearance of the larynx, namely the supraglottic, glottic and infra, glottic spaces. Unremarkable nasal and sherrell pharyngeal mucosal spaces. Normal CT appearance of the sublingual, submandibular and parotid salivary glands. The base of the tongue, the uvula, the epiglottis, the vocal cords, the upper trachea, the upper oesophagus are unremarkable. The thyroid gland shows no definite abnormality. The visualized structures of the posterior fossa show no definite abnormality. Spondylotic changes of the visualized cervical spine with minimal anterolisthesis of C5 relative to C6. Scanned upper chest cuts reveal no pulmonary abnormality. IMPRESSION: Mildly dilated upper thoracic oesophagus. Distal esophagus not included in the study. Further evaluation is suggseted if clinically warranted. Multiple bilateral subcentimetric intraparotid lymph nodes with preserved fatty hilum. Spondylotic changes of the visualized cervical spine with minimal anterolisthesis of C5 relative to C6. Code(s): R13.10 - DYSPHAGIA, UNSPECIFIED 12/29: -Per [facility] will order barium esophagram (4) Elevated liver function tests Current Visit: Yes Status: Chronic Assessment & Plan: - AST 162/ Alt 186- improved from admission- trend 12/29: -trending down, AST 55 ALT 102, much improved since admission Code(s): R79.89 - OTHER SPECIFIED ABNORMAL FINDINGS OF BLOOD CHEMISTRY (5) UTI (urinary tract infection) Current Visit: No Status: Acute Qualifiers: Urinary tract infection type: site unspecified Assessment & Plan: - repeat admissions for UTI per reviewing old records and labs - Rocephin started after reviewing old labs - UC pending - IV fluids 12/29: -Ucult growing Klebsiella, will continue Rocephin Code(s): N39.0 - URINARY TRACT INFECTION, SITE NOT SPECIFIED #Hypokalemia -Potassium reviewed, low at 3.2, will replenish # metabolic acidosis -Bicarb at 13, will start bicarb drip 12/30: -Levels have improved, will continue bicarb drip (6) Chronic autoimmune hepatitis Current Visit: Yes Status: Chronic Assessment & Plan: - ammonia level 13- WNL Code(s): K75.4 - AUTOIMMUNE HEPATITIS (7) Dementia Current Visit: No Status: Chronic Assessment & Plan: - chronic - consider hospice- Case management to discuss with family 12/29: -Family not interested in hospice at this time Code(s): K31.89 - OTHER DISEASES OF STOMACH AND DUODENUM (2) Metabolic acidosis Current Visit: No Status: Acute Code(s): E87.20 - ACIDOSIS, UNSPECIFIED (3) Dehydration Current Visit: Yes Status: Acute Code(s): E86.0 - DEHYDRATION (4) Nausea & vomiting Current Visit: Yes Status: Acute Code(s): R11.2 - NAUSEA WITH VOMITING, UNSPECIFIED (5) Swallowing difficulty Current Visit: Yes Status: Acute Code(s): R13.10 - DYSPHAGIA, UNSPECIFIED (6) Chronic autoimmune hepatitis Current Visit: Yes Status: Chronic Code(s): K75.4 - AUTOIMMUNE HEPATITIS (7) Elevated liver function tests Current Visit: Yes Status: Chronic Code(s): R79.89 - OTHER SPECIFIED ABNORMAL FINDINGS OF BLOOD CHEMISTRY (8) Hypokalemia Current Visit: Yes Status: Acute Code(s): E87.6 - HYPOKALEMIA (9) UTI (urinary tract infection) Current Visit: No Status: Acute Qualifiers: Urinary tract infection type: site unspecified Code(s): N39.0 - URINARY TRACT INFECTION, SITE NOT SPECIFIED (10) Dementia Current Visit: No Status: Chronic Code(s): F03.90 - UNSP DEMENTIA, UNSP SEVERITY, WITHOUT BEH/PSYCH/MOOD/ANX (11) Abnormal finding on imaging Current Visit: Yes Status: Acute Code(s): R93.89 - ABNORMAL FINDINGS ON DX IMAGING OF OTH BODY STRUCTURES
[2022-12-30 05:30] LABS: Absolute Neutrophil Ct (ANC) 7.75 x10^3/uL (1.4-6.9); BASOPHIL % 0.3 % (0.0-0.4); Basophil (Absolute #) 0.03 x10^3/uL (0-0.4); Eosinophil % 0.4 % (0.00-5.0); Eosinophil (Absolute #) 0.04 x10^3/uL (0-0.5); Hematocrit 32.9 % (35-47); Hemoglobin 10.7 g/dL (12.0-16.0); IMMATURE GRAN # 0.04 x10^3u/L (0.00-0.03); IMMATURE GRAN % 0.4 % (0.00-0.4); Lymphocyte (Absolute #) 1.61 x10^3/uL (1.0-4.6); Lymphocytes % 15.6 % (24.0-44.0); Mean Cell Volume 91.4 fL (78-100); Mean Corpuscular Hemoglobin 29.7 pg (26-32); Mean Corpuscular Hgb Concent. 32.5 g/dL (32-36); Mean Platelet Volume 10.3 fL (7.5-11.0); Monocyte (Absolute #) 0.84 x10^3/uL (0.0-1.3); Monocytes % 8.1 % (0.0-12.0); Neutrophil % 75.2 % (36.0-66.0); Platelet Count 222 x10^3/uL (150-450); Red Cell Distribution Width 14.4 % (11.5-14.0); White Blood Count 10.3 x10^3/uL (4.0-10.5)
[2022-12-30 05:43] LABS: ALBUMIN 2.8 g/dL (3.5-5.0); ANION GAP 9.3 MEQ/L (5-15); BILIRUBIN,TOTAL 0.5 mg/dL (0.2-1.3); Calcium 7.5 mg/dL (8.4-10.2); Creatinine 1 0.48 mg/dL (0.52-1.04); Potassium 3.2 mmol/L (3.5-5.1); Total Protein 5.6 g/dL (6.3-8.2)
[2022-12-30] MEDS ORDERED: POTASSIUM CHLORIDE 20 mEq IN WATER 100ML 20 MEQ/100 ML BAG IV ONE (07:03)
[2022-12-30] MEDS ORDERED: DIPRIVAN 200 MG/20 ML IV ONE (10:56)
[2022-12-30] MEDS ORDERED: Xylocaine-Mpf 2% 5 Ml Vial ONE (10:56)
[2022-12-30] MEDS ORDERED: Versed 2 MG/2 ML Injection ONE (11:01)
[2022-12-30] MEDS: Miralax Powder 17GM PACKET PO SCH (13:08)
[2022-12-30] MEDS: ENOXAPARIN SODIUM SQ SCH (13:08)
[2022-12-30] MEDS: Vitamin C 500 MG PO SCH (13:08)
[2022-12-30] MEDS: ECOTRIN 81 MG PO SCH (13:08)
[2022-12-30] MEDS: TOPIRAMATE PO SCH (13:08)
[2022-12-30] MEDS: ROCEPHIN 1 Gm-D5w 50 ml Bag** 1 G/50 ML IVPB IV SCH (13:47)
[2022-12-30] MEDS: Namenda 5 MG PO SCH (13:49)
[2022-12-30] MEDS: VITAMIN D PO SCH (13:49)
[2022-12-30] MEDS: THERAGRAN MULTIVITAMIN PO SCH (13:49)
[2022-12-30] MEDS: MAG-OX 400 PO SCH (13:50)
[2022-12-30] MEDS: Vitamin B-12 500 MCG PO SCH (13:50)
[2022-12-30] MEDS: Protonix 40MG Tablet PO SCH (13:50)
[2022-12-30] MEDS: Aricept 10 MG PO SCH (13:50)
[2022-12-30] MEDS ORDERED: Diflucan 100 MG PO SCH (14:00)
[2022-12-30] MEDS: Sodium Bicarbonate 50 MEQ/50 ML VIAL*** 100 MEQ in Dextrose 5%/Water IV Soln. 1000 ML 1... IV SCH (14:25)
[2022-12-30] MEDS: Nystatin SUSPENSION 60 ML PO SCH (16:14)
[2022-12-31] MEDS: Namenda 5 MG PO SCH ×3 (00:33→21:28)
[2022-12-31] MEDS: Nystatin SUSPENSION 60 ML PO SCH ×4 (00:34→21:29)
[2022-12-31] MEDS: Protonix 40MG Tablet PO SCH ×3 (00:35→21:28)
[2022-12-31] MEDS: ZOLOFT 50 MG TABLET PO SCH ×2 (00:35→21:28)
--- NOTE | 2022-12-31 05:04 | PCM.NOTE ---
Date and Time: 12/31/22 0505 Subjective Assessment: HPI: 72-year-old female admitted for nausea vomiting. She has past medical history of chronic autoimmune hepatitis, anemia, stroke, primary biliary cholangitis, dementia, coronary artery disease, hypertension, anxiety, depression. She presented to the ED today for 4 days of nausea, vomiting, weakness on arrival she was afebrile, heart rate 67, blood pressure 154/59. Labs significant for WBC 11, hemoglobin 12.1, platelets 172, potassium 3.2, CO2 19, creatinine 0.6, AST 330, ALT 264, alk phos 172. UA with trace leukocyte Estrace many bacteria, moderate amount of epithelial cells, COVID and influenza RSV all negative. CT neck was obtained for evaluation of dysphagia that showed mildly dilated upper thoracic esophagus. CT abdomen pelvis obtained that showed regression of biliary pneumobilia since last study. CBD remains dilated with subtle hyperdensity within the lower CBD. Minimal regression of intra hepatic bile biliary radicles dilation based on noncontrast assessment in the ED she was given droperidol and 1 L of saline. Family reported to nursing staff prior to leaving that she had been sleeping excessively up to 22 hours a day which is undergoing investigation by her outpatient medical team. They also note that she has had some issues with swallowing and it appears to be painful for her. Barium esophagram from 12/29/22 demonstrating narrowed esophagus suspicious for malignancy plus gastric mass suspicious for malignancy. EGD is planned for 12/30/22. Severe metabolic acidosis likely due to vomiting. IV bicarb ordered. 12/29: Met with patient and son bedside. Endorses continued vomiting. ST recommending barium esophagram due to difficulty swallowing. Labs discussed with patient and son showing low potassium and bicarb. Will replenish potassium and start on bicarb gtt. Will add compazine for nausea. U-cult showing Klebsiell, sensitive to ceftriaxone she is receiving. 12/30: Met with patient and family bedside. Endorses improvement in vomiting although she states she did have one episode overnight. Discussed Barium esophagram re sults and need for EGD. All questions and concerns were addressed. Plan for EGD today. 12/31/22: Met with patient bedside. Patient is much more alert. Was able to tolerate a full liquid diet this morning. Discussed EGD from yesterday, patient diagnosed with yeast esophagitis for which she is being treated with diflucan and nystatin. Patient endorses much improvement in swallowing, feeling much better today. The diflucan does interact with her Aricept and will need to be held until she finishes it. N/V has resolved. Possible discharge tomorrow.Denies fever,cough, sob, cp, abdominal pain, COTTER, dizziness, N/V/D. - Review of Systems Constitutional: No Symptoms Eyes: No Symptoms Ears, Nose, & Throat: No Symptoms Respiratory: No Symptoms Cardiac: No Symptoms Abdominal/Gastrointestinal: No Symptoms Genitourinary Symptoms: No Symptoms Musculoskeletal: No Symptoms Skin: No Symptoms Neurological: No Symptoms Psychological: No Symptoms Endocrine: No Symptoms Hematologic/Lymphatic: No Symptoms Immunological/Allergic: No Symptoms Objective Exam General Appearance: no apparent distress Neurologic Exam: alert, oriented x 3, cooperative Skin Exam: pale Eye Exam: PERRL Ears, Nose, Throat Exam: normal ENT inspection Neck Exam: normal inspection Respiratory Exam: normal breath sounds, lungs clear Cardiovascular Exam: regular rate/rhythm, normal heart sounds Gastrointestinal/Abdomen Exam: soft, normal bowel sounds Extremity Exam: normal inspection Back Exam: normal inspection OBJECTIVE DATA Vital Signs: Vital Signs - 24 hr Temp Pulse Resp BP Pulse Ox 12/31/22 04:32 18 12/31/22 03:26 98.8 F 67 18 187/78 95 12/31/22 00:27 20 12/30/22 23:59 99.3 F 72 20 199/81 97 12/30/22 20:29 18 12/30/22 20:00 98.8 F 60 18 162/75 94 L 12/30/22 17:00 18 12/30/22 16:00 97.7 F 68 16 147/68 98 12/30/22 13:00 18 12/30/22 12:18 97.2 F 64 16 172/74 98 12/30/22 11:02 97.6 F 69 16 172/71 98 12/30/22 09:00 17 12/30/22 08:00 17 139/68 12/30/22 07:02 97.5 F 90 16 139/68 97 Pain Assessment - Last Documented Pain Intensity 0 Intake and Output: Intake & Output 12/28/22 12/29/22 12/30/22 12/31/22 11:59 11:59 11:59 11:59 Intake Total 765 826 1993 1690 Output Total 400 600 300 Balance 966 974 317 6959 Weight 54.5 kg 54.5 kg Lab Results: Lab Results-Last 24 Hours 12/30/22 12/30/22 12/30/22 Range/Units 05:00 05:00 05:00 WBC 10.3 (4.0-10.5) x10^3/uL RBC 3.60 L (4.1-5.4) x10^6/uL Hgb 10.7 L (12.0-16.0) g/dL Hct 32.9 L (35-47) % MCV 91.4 (78-100) fL MCH 29.7 (26-32) pg MCHC 32.5 (32-36) g/dL RDW 14.4 H (11.5-14.0) % Plt Count 222 (150-450) x10^3/uL MPV 10.3 (7.5-11.0) fL Gran % 75.2 H (36.0-66.0) % Immature Gran % (Auto) 0.4 (0.00-0.4) % Nucleat RBC Rel Count 0.0 (0.00-0.1) % Eos # (Auto) 0.04 (0-0.5) x10^3/uL Immature Gran # (Auto) 0.04 H (0.00-0.03) x10^3u/L Absolute Lymphs (auto) 1.61 (1.0-4.6) x10^3/uL Absolute Monos (auto) 0.84 (0.0-1.3) x10^3/uL Absolute Nucleated RBC 0.00 (0.00-0.01) x10^3u/L Lymphocytes % 15.6 L (24.0-44.0) % Monocytes % 8.1 (0.0-12.0) % Eosinophils % 0.4 (0.00-5.0) % Basophils % 0.3 (0.0-0.4) % Absolute Granulocytes 7.75 H (1.4-6.9) x10^3/uL Basophils # 0.03 (0-0.4) x10^3/uL Sodium 136 L (137-145) mmol/L Potassium 3.2 L (3.5-5.1) mmol/L Chloride 111 H (98-107) mmol/L Carbon Dioxide 19 L (22-30) mmol/L Anion Gap 9.3 (5-15) MEQ/L BUN 8 (7-17) mg/dL Creatinine 0.48 L (0.52-1.04) mg/dL Estimated GFR 100.0 ML/MIN Glucose 101 (74-106) mg/dL Calcium 7.5 L (8.4-10.2) mg/dL Magnesium 1.6 (1.6-2.3) mg/dL Total Bilirubin 0.50 (0.2-1.3) mg/dL AST 38 H (14-36) U/L ALT 72 H (0-35) U/L Alkaline Phosphatase 113 (38-126) U/L Serum Total Protein 5.6 L (6.3-8.2) g/dL Albumin 2.8 L (3.5-5.0) g/dL 12/30/ Range/Units 14:33 WBC (4.0-10.5) x10^3/uL RBC (4.1-5.4) x10^6/uL Hgb (12.0-16.0) g/dL Hct (35-47) % MCV (78-100) fL MCH (26-32) pg MCHC (32-36) g/dL RDW (11.5-14.0) % Plt Count (150-450) x10^3/uL MPV (7.5-11.0) fL Gran % (36.0-66.0) % Immature Gran % (Auto) (0.00-0.4) % Nucleat RBC Rel Count (0.00-0.1) % Eos # (Auto) (0-0.5) x10^3/uL Immature Gran # (Auto) (0.00-0.03) x10^3u/L Absolute Lymphs (auto) (1.0-4.6) x10^3/uL Absolute Monos (auto) (0.0-1.3) x10^3/uL Absolute Nucleated RBC (0.00-0.01) x10^3u/L Lymphocytes % (24.0-44.0) % Monocytes % (0.0-12.0) % Eosinophils % (0.00-5.0) % Basophils % (0.0-0.4) % Absolute Granulocytes (1.4-6.9) x10^3/uL Basophils # (0-0.4) x10^3/uL Sodium (137-145) mmol/L Potassium 3.5 (3.5-5.1) mmol/L Chloride (98-107) mmol/L Carbon Dioxide (22-30) mmol/L Anion Gap (5-15) MEQ/L BUN (7-17) mg/dL Creatinine (0.52-1.04) mg/dL Estimated GFR ML/MIN Glucose (74-106) mg/dL Calcium (8.4-10.2) mg/dL Magnesium (1.6-2.3) mg/dL Total Bilirubin (0.2-1.3) mg/dL AST (14-36) U/L ALT (0-35) U/L Alkaline Phosphatase (38-126) U/L Serum Total Protein (6.3-8.2) g/dL Albumin (3.5-5.0) g/dL Radiology Exams: Radiology Procedures Category Date Time Status BARIUM SWALLOW ESOPHOGRAM Stat Exams 12/29/22 11:51 Completed Multi-Disciplinary Progress Notes: Multi-Disciplinary Progress Notes 12/30/22 10:30 Case Management Note by Mandi Morrison S/W PATIENT AND FAMILY- NO CHANGE IN DC PLANS AT THIS TIME. PATENT TO RETURN HOME WITH FAMILY AND [facility] [place] Initialized on 12/30/22 10:30 - END OF NOTE Assessment/Plan (1) Gastric mass Current Visit: Yes Status: Acute Assessment & Plan: (1) Gastric mass Current Visit: Yes Status: Acute Assessment & Plan: #Gastric Mass 12/30/22: -Barium Esophagram noting Abnormal distal esophagus with intraluminal narrowing, irregularities, and ulcerations worrisome for malignancy. Also gastric mass also probably malignant. Direct endoscopy recommended. General surgery consulted. Plan for EGD 12/30/22 (1) Dehydration Current Visit: Yes Status: Acute Assessment & Plan: - NS @ 75 ml/hr - 2:2 N/V, end stage dementia, difficulty swallowing 12/29: -Start on D5 with bicarb drip 12/30: -improving, will continue bicarb drip 12/31: -Per RN, report from surgery indicating mass seen on barium is a hernia, yeast esophagitis noted with nystatin and diflucan ordered. Will need to hold aricept until course is completed Code(s): E86.0 - DEHYDRATION (2) Nausea & vomiting Current Visit: Yes Status: Acute Assessment & Plan: - reglan, Zofran, IVF 12/29: -add compazine Code(s): R11.2 - NAUSEA WITH VOMITING, UNSPECIFIED 12/30: -Scopalamine patch added, nausea improved 12/31: -Resolved (3) Swallowing difficulty Current Visit: Yes Status: Acute Assessment & Plan: - ST eval - consider barium swallow study - CT neck 12/27/22: FINDINGS: Mildly dilated upper thoracic oesophagus. No sizable cervical lymph nodes at any of noted lymph node stations. Mutiple bilateral subcentimetric intraparotid lymph nodes with preserved fatty hilum. Normal CT appearance of the supra-and infra hyoid deep neck spaces. Normal CT appearance of the larynx, namely the supraglottic, glottic and infra, glottic spaces. Unremarkable nasal and sherrell pharyngeal mucosal spaces. Normal CT appearance of the sublingual, submandibular and parotid salivary glands. The base of the tongue, the uvula, the epiglottis, the vocal cords, the upper trachea, the upper oesophagus are unremarkable. The thyroid gland shows no definite abnormality. The visualized structures of the posterior fossa show no definite abnormality. Spondylotic changes of the visualized cervical spine with minimal anterolisthesis of C5 relative to C6. Scanned upper chest cuts reveal no pulmonary abnormality. IMPRESSION: Mildly dilated upper thoracic oesophagus. Distal esophagus not included in the study. Further evaluation is suggseted if clinically warranted. Multiple bilateral subcentimetric intraparotid lymph nodes with preserved fatty hilum. Spondylotic changes of the visualized cervical spine with minimal anterolisthesis of C5 relative to C6. Code(s): R13.10 - DYSPHAGIA, UNSPECIFIED 12/29: -Per ST eval will order barium esophagram 12/31: -Improved (4) Elevated liver function tests Current Visit: Yes Status: Chronic Assessment & Plan: - AST 162/ Alt 186- improved from admission- trend 12/29: -trending down, AST 55 ALT 102, much improved since admission 12/31: -ALT wnl, AST slightly elevated at 49 Code(s): R79.89 - OTHER SPECIFIED ABNORMAL FINDINGS OF BLOOD CHEMISTRY (5) UTI (urinary tract infection) Current Visit: No Status: Acute Qualifiers: Urinary tract infection type: site unspecified Assessment & Plan: - repeat admissions for UTI per reviewing old records and labs - Rocephin started after reviewing old labs - UC pending - IV fluids 12/29: -Ucult growing Klebsiella, will continue Rocephin Code(s): N39.0 - URINARY TRACT INFECTION, SITE NOT SPECIFIED #Hypokalemia -Potassium reviewed, low at 3.0, will replenish # metabolic acidosis -Bicarb at 13, will start bicarb drip 12/30: -Levels have improved, will continue bicarb drip 12/31: -resolved, d/c bicarb (6) Chronic autoimmune hepatitis Current Visit: Yes Status: Chronic Assessment & Plan: - ammonia level 13- WNL Code(s): K75.4 - AUTOIMMUNE HEPATITIS (7) Dementia Current Visit: No Status: Chronic Assessment & Plan: - chronic - consider hospice- Case management to discuss with family 12/29: -Family not interested in hospice at this time Code(s): K31.89 - OTHER DISEASES OF STOMACH AND DUODENUM (2) Metabolic acidosis Current Visit: No Status: Acute Code(s): E87.20 - ACIDOSIS, UNSPECIFIED (3) Dehydration Current Visit: Yes Status: Acute Code(s): E86.0 - DEHYDRATION (4) Nausea & vomiting Current Visit: Yes Status: Acute Code(s): R11.2 - NAUSEA WITH VOMITING, UNSPECIFIED (5) Swallowing difficulty Current Visit: Yes Status: Acute Code(s): R13.10 - DYSPHAGIA, UNSPECIFIED (6) Chronic autoimmune hepatitis Current Visit: Yes Status: Chronic Code(s): K75.4 - AUTOIMMUNE HEPATITIS (7) Elevated liver function tests Current Visit: Yes Status: Chronic Code(s): R79.89 - OTHER SPECIFIED ABNORMAL FINDINGS OF BLOOD CHEMISTRY (8) Hypokalemia Current Visit: Yes Status: Acute Code(s): E87.6 - HYPOKALEMIA (9) UTI (urinary tract infection) Current Visit: No Status: Acute Qualifiers: Urinary tract infection type: site unspecified Code(s): N39.0 - URINARY TRACT INFECTION, SITE NOT SPECIFIED (10) Dementia Current Visit: No Status: Chronic Code(s): F03.90 - UNSP DEMENTIA, UNSP SEVERITY, WITHOUT BEH/PSYCH/MOOD/ANX (11) Abnormal finding on imaging Current Visit: Yes Status: Acute Code(s): R93.89 - ABNORMAL FINDINGS ON DX IMAGING OF OTH BODY STRUCTURES
[2022-12-31 05:32] LABS: Absolute Neutrophil Ct (ANC) 2.77 x10^3/uL (1.4-6.9); BASOPHIL % 0.6 % (0.0-0.4); Basophil (Absolute #) 0.04 x10^3/uL (0-0.4); Eosinophil % 2.8 % (0.00-5.0); Eosinophil (Absolute #) 0.19 x10^3/uL (0-0.5); Hematocrit 31.5 % (35-47); Hemoglobin 10.5 g/dL (12.0-16.0); IMMATURE GRAN # 0.02 x10^3u/L (0.00-0.03); IMMATURE GRAN % 0.3 % (0.00-0.4); Lymphocyte (Absolute #) 3.07 x10^3/uL (1.0-4.6); Lymphocytes % 45.3 % (24.0-44.0); Mean Corpuscular Hgb Concent. 33.3 g/dL (32-36); Monocyte (Absolute #) 0.68 x10^3/uL (0.0-1.3); Platelet Count 225 x10^3/uL (150-450); Red Cell Distribution Width 14.1 % (11.5-14.0); White Blood Count 6.8 x10^3/uL (4.0-10.5)
[2022-12-31 05:42] LABS: ALBUMIN 2.4 g/dL (3.5-5.0); ANION GAP 6.7 MEQ/L (5-15); BILIRUBIN,TOTAL 0.4 mg/dL (0.2-1.3); Calcium 7.6 mg/dL (8.4-10.2); Creatinine 1 0.45 mg/dL (0.52-1.04); EST GLOMERULAR FILTRATION RATE 101.5 ML/MIN; Total Protein 4.8 g/dL (6.3-8.2)
[2022-12-31] MEDS ORDERED: POTASSIUM CHLORIDE 20 mEq IN WATER 100ML 20 MEQ/100 ML BAG IV SCH (06:30)
[2022-12-31] MEDS: POTASSIUM CHLORIDE 20 mEq IN WATER 100ML 20 MEQ/100 ML BAG IV SCH ×2 (06:36→08:52)
[2022-12-31] MEDS ORDERED: Sodium Chloride 0.9% 1000 ML 1,000 ML IV SCH (08:45)
[2022-12-31] MEDS: MAG-OX 400 PO SCH (09:50)
[2022-12-31] MEDS: Vitamin B-12 500 MCG PO SCH (09:50)
[2022-12-31] MEDS: VITAMIN D PO SCH (09:50)
[2022-12-31] MEDS: Diflucan 100 MG PO SCH (09:51)
[2022-12-31] MEDS: ROCEPHIN 1 Gm-D5w 50 ml Bag** 1 G/50 ML IVPB IV SCH (09:52)
[2022-12-31] MEDS: ECOTRIN 81 MG PO SCH ×2 (10:20→21:28)
[2022-12-31] MEDS: TOPIRAMATE PO SCH ×2 (10:21→21:28)
[2022-12-31] MEDS: Vitamin C 500 MG PO SCH (10:21)
[2022-12-31] MEDS: Miralax Powder 17GM PACKET PO SCH ×2 (10:22→21:29)
[2022-12-31] MEDS: THERAGRAN MULTIVITAMIN PO SCH (10:22)
[2022-12-31] MEDS: ENOXAPARIN SODIUM SQ SCH (10:22)
--- NOTE | 2022-12-31 11:25 | CONS ---
CONSULT DATE: 12/29/2022 REASON FOR CONSULT: Possible gastric mass. HISTORY: The patients chart is totally reviewed. She has a known hiatal hernia. She had a difficult cholecystectomy back in 2019 that subsequently required an ERCP and subsequent drainage of upper abdominal/intra-abdominal fluid collection. She had a major work up of upper abdomen. It has been noted that she does have intrahepatic air on her CT scan this is certainly from previous ERCP with sphincteroplasty with sphincterotomy. She has some changes on her CT scan suggestive of hiatal hernia. She does have some thickening. I am not aware of a large mass of any sort. I think there is a lot of distortion from her previous surgery. She was seen at the bedside. She is alert and oriented. She was admitted with upper abdominal discomfort and vomiting. She clearly needs an EGD. She requested for EGD tomorrow on 12/30/2022.
--- NOTE | 2022-12-31 11:45 | OP ---
SURGERY DATE/TIME: 12/30/2022 1108 PREOPERATIVE DIAGNOSIS: Clinical symptoms of fullness and vomiting. CT scan upper abdominal findings of thickening, hiatal hernia and possible esophagogastric issues. POSTOPERATIVE DIAGNOSIS: Severe erosive thrush esophagitis with superficial erosion, i.e. ulceration. PROCEDURE: EGD. SURGEON: Jorge Aleman M.D. DESCRIPTION OF PROCEDURE: She is taken to endoscopy. MAC sedation provided. On neck examination there was no palpable lymphadenopathy. The scope is introduced. Pharyngoesophageal junction was normal. The first inch or two were satisfactory but then there was severe thrush esophagitis down through the middle and distal esophagus. There is slight narrowing but there is no true stricture. Scope withdrew easily. Fundus, body, antrum, pylorus, duodenal bulb, second portion of the duodenum satisfactory. Scope withdrawn back on itself. Hiatal hernia was noted. The yeast was very thick, 3 to [address] Three inbound sales representative biopsies of the gastroesophageal junction particularly in the right lateral wall were taken. Scope was withdrawn. PLAN: The patient is started on swish and swallow Nystatin and Diflucan, this will be continued as an outpatient. I think her CT findings are postsurgical. A four to six week follow up would be in order. We can see her also as an outpatient after her discharge.
[2022-12-31] MEDS ORDERED: APRESOLINE 20 MG/ML INJ IV PRN (12:22)
[2022-12-31] MEDS: NORVASC 5 MG PO SCH (12:30)
[2022-12-31] MEDS: Zofran 4 MG/2 ML VIAL IV PRN (12:31)
[2022-12-31] MEDS ORDERED: Klor Con PO SCH (13:30)
[2022-12-31] MEDS: Klor Con PO SCH ×2 (14:32→16:22)
[2022-12-31 20:54] VITALS: RESP 17
[2023-01-01 04:41] LABS: Absolute Neutrophil Ct (ANC) 3.82 x10^3/uL (1.4-6.9); BASOPHIL % 0.6 % (0.0-0.4); Basophil (Absolute #) 0.05 x10^3/uL (0-0.4); Eosinophil % 3.5 % (0.00-5.0); Hematocrit 33.2 % (35-47); Hemoglobin 10.7 g/dL (12.0-16.0); IMMATURE GRAN # 0.05 x10^3u/L (0.00-0.03); IMMATURE GRAN % 0.6 % (0.00-0.4); Lymphocytes % 43.1 % (24.0-44.0); Mean Cell Volume 91.5 fL (78-100); Mean Corpuscular Hemoglobin 29.5 pg (26-32); Mean Corpuscular Hgb Concent. 32.2 g/dL (32-36); Mean Platelet Volume 9.8 fL (7.5-11.0); Monocyte (Absolute #) 0.67 x10^3/uL (0.0-1.3); Monocytes % 7.8 % (0.0-12.0); Neutrophil % 44.4 % (36.0-66.0); Platelet Count 250 x10^3/uL (150-450); Red Blood Count 3.63 x10^6/uL (4.1-5.4); Red Cell Distribution Width 14.3 % (11.5-14.0); White Blood Count 8.6 x10^3/uL (4.0-10.5)
[2023-01-01 05:09] LABS: ALBUMIN 2.7 g/dL (3.5-5.0); ANION GAP 8.9 MEQ/L (5-15); BILIRUBIN,TOTAL 0.3 mg/dL (0.2-1.3); Calcium 8.2 mg/dL (8.4-10.2); Creatinine 1 0.54 mg/dL (0.52-1.04); EST GLOMERULAR FILTRATION RATE 97.2 ML/MIN; MAGNESIUM 1.8 mg/dL (1.6-2.3); Potassium 3.5 mmol/L (3.5-5.1); Total Protein 5.5 g/dL (6.3-8.2)
--- NOTE | 2023-01-01 05:11 | PCM.DS ---
Discharge Summary Date of Admission: 12/28/22 10:24 Date of Discharge: 01/01/23 Admitting Physician: ANTHONY HEBERT MD Consults: Consults on Case 12/29/22 15:20 Consult Surgery ROUTINE Primary Care Provider: [employer] [facility] Allergies Allergies levetiracetam [From [facility]] Adverse Reaction (Verified 12/27/22 15:42) Hospital Summary - Hospital Course Hospital Course: 72-year-old female admitted for nausea vomiting. She has past medical history of chronic autoimmune hepatitis, anemia, stroke, primary biliary cholangitis, dementia, coronary artery disease, hypertension, anxiety, depression. She presented to the ED today for 4 days of nausea, vomiting, weakness on arrival she was afebrile, heart rate 67, blood pressure 154/59. Labs significant for WBC 11, hemoglobin 12.1, platelets 172, potassium 3.2, CO2 19, creatinine 0.6, AST 330, ALT 264, alk phos 172. UA with trace leukocyte Estrace many bacteria, moderate amount of epithelial cells, COVID and influenza RSV all negative. CT neck was obtained for evaluation of dysphagia that showed mildly dilated upper thoracic esophagus. CT abdomen pelvis obtained that showed regression of biliary pneumobilia since last study. CBD remains dilated with subtle hyperdensity within the lower CBD. Minimal regression of intra hepatic bile biliary radicles dilation based on noncontrast assessment in the ED she was given droperidol and 1 L of saline. Family reported to nursing staff prior to leaving that she had been sleeping excessively up to 22 hours a day which is undergoing investigation by her outpatient medical team. They also note that she has had some issues with swallowing and it appears to be painful for her. Barium esophagram from 12/29/22 demonstrating narrowed esophagus suspicious for malignancy plus gastric mass suspicious for malignancy. Surgery consulted and EGD performed 12/30/22 showing severe thrush esophagitis down through the middle and distal esophagus. There is slight narrowing but there is no true stricture. The yeast was very thick, 3 to [address] Three sales representative facility services biopsies of the gastroesophageal junction particularly in the right lateral wall were taken. The patient is started on swish and swallow Nystatin and Diflucan, this will be continued as an outpatient. Per surgery the CT findings are postsurgical. A four to six week follow up would be in order as well as a week after discharge. Patient also had severe metabolic acidosis likely due to vomiting and received IV bicarb. Patient is now much improved. No nausea/vomiting and able to resume diet. She will have to hold her Aricept while on diflucan. New Diagnosis: Yeast esophagitis New Medications:Diflucan/aricept -held Follow Up: PCP/surgery Results pending: Biopsy from egd Outpatient testing to order: none I spent 35 minutes [id number] with the patient on the day of discharge perfo rming discharge exam, discussing hospital stay and discharge instructions with patient and caregivers, preparation of discharge records, prescriptions & referral forms and addressing any questions/concerns the patient had as documented above. Latest Assessment & Plan (1) Gastric mass Current Visit: Yes Status: Acute Assessment & Plan: (1) Gastric mass Current Visit: Yes Status: Acute Assessment & Plan: #Gastric Mass 12/30/22: -Barium Esophagram noting Abnormal distal esophagus with intraluminal narrowing, irregularities, and ulcerations worrisome for malignancy. Also gastric mass also probably malignant. Direct endoscopy recommended. General surgery consulted. Plan for EGD 12/30/22 (1) Dehydration Current Visit: Yes Status: Acute Assessment & Plan: - NS @ 75 ml/hr - 2:2 N/V, end stage dementia, difficulty swallowing 12/29: -Start on D5 with bicarb drip 12/30: -improving, will continue bicarb drip 12/31: -Per RN, report from surgery indicating mass seen on barium is a hernia, yeast esophagitis noted with nystatin and diflucan ordered. Will need to hold aricept until course is completed Code(s): E86.0 - DEHYDRATION (2) Nausea & vomiting Current Visit: Yes Status: Acute Assessment & Plan: - reglan, Zofran, IVF 12/29: -add compazine Code(s): R11.2 - NAUSEA WITH VOMITING, UNSPECIFIED 12/30: -Scopalamine patch added, nausea improved 12/31: -Resolved (3) Swallowing difficulty Current Visit: Yes Status: Acute Assessment & Plan: - ST bower - consider barium swallow study - CT neck 12/27/22: FINDINGS: Mildly dilated upper thoracic oesophagus. No sizable cervical lymph nodes at any of noted lymph node stations. Mutiple bilateral subcentimetric intraparotid lymph nodes with preserved fatty hilum. Normal CT appearance of the supra-and infra hyoid deep neck spaces. Normal CT appearance of the larynx, namely the supraglottic, glottic and infra, glottic spaces. Unremarkable nasal and sherrell pharyngeal mucosal spaces. Normal CT appearance of the sublingual, submandibular and parotid salivary glands. The base of the tongue, the uvula, the epiglottis, the vocal cords, the upper trachea, the upper oesophagus are unremarkable. The thyroid gland shows no definite abnormality. The visualized structures of the posterior fossa show no definite abnormality. Spondylotic changes of the visualized cervical spine with minimal anterolisthesis of C5 relative to C6. Scanned upper chest cuts reveal no pulmonary abnormality. IMPRESSION: Mildly dilated upper thoracic oesophagus. Distal esophagus not included in the study. Further evaluation is suggseted if clinically warranted. Multiple bilateral subcentimetric intraparotid lymph nodes with preserved fatty hilum. Spondylotic changes of the visualized cervical spine with minimal anterolisthesis of C5 relative to C6. Code(s): R13.10 - DYSPHAGIA, UNSPECIFIED 12/29: -Per [facility] will order barium esophagram 12/31: -Improved (4) Elevated liver function tests Current Visit: Yes Status: Chronic Assessment & Plan: - AST 162/ Alt 186- improved from admission- trend 12/29: -trending down, AST 55 ALT 102, much improved since admission 12/31: -ALT wnl, AST slightly elevated at 49 Code(s): R79.89 - OTHER SPECIFIED ABNORMAL FINDINGS OF BLOOD CHEMISTRY (5) UTI (urinary tract infection) Current Visit: No Status: Acute Qualifiers: Urinary tract infection type: site unspecified Assessment & Plan: - repeat admissions for UTI per reviewing old records and labs - Rocephin started after reviewing old labs - UC pending - IV fluids 12/29: -Ucult growing Klebsiella, will continue Rocephin Code(s): N39.0 - URINARY TRACT INFECTION, SITE NOT SPECIFIED #Hypokalemia -Potassium reviewed, low at 3.0, will replenish # metabolic acidosis -Bicarb at 13, will start bicarb drip 12/30: -Levels have improved, will continue bicarb drip 12/31: -resolved, d/c bicarb (6) Chronic autoimmune hepatitis Current Visit: Yes Status: Chronic Assessment & Plan: - ammonia level 13- WNL Code(s): K75.4 - AUTOIMMUNE HEPATITIS (7) Dementia Current Visit: No Status: Chronic Assessment & Plan: - chronic - consider hospice- Case management to discuss with family 12/29: -Family not interested in hospice at this time - Vitals & Intake/Output Vital Signs: Vital Signs Temperature 98.0 F 01/01/23 04:00 Pulse Rate 74 01/01/23 04:00 Respiratory Rate 17 01/01/23 04:00 Blood Pressure 162/71 01/01/23 04:00 O2 Sat by Pulse Oximetry 98 01/01/23 04:00 Intake & Output: Intake & Output 12/29/22 12/30/22 12/31/22 01/01/23 11:59 11:59 11:59 11:59 Intake Total 915 1448 2290 800 Output Total 400 600 300 Balance 315 083 3513 800 Weight 54.5 kg - Lab Result Diagrams: 01/01/23 04:36 01/01/23 04:36 Lab Results-Last 24 Hrs: Lab Results-Last 24 Hours 12/31/22 12/31/22 12/31/22 Range/Units 04:00 04:00 05:00 WBC 6.8 (4.0-10.5) x10^3/uL RBC 3.50 L (4.1-5.4) x10^6/uL Hgb 10.5 L (12.0-16.0) g/dL Hct 31.5 L (35-47) % MCV 90.0 (78-100) fL MCH 30.0 (26-32) pg MCHC 33.3 (32-36) g/dL RDW 14.1 H (11.5-14.0) % Plt Count 225 (150-450) x10^3/uL MPV 10.0 (7.5-11.0) fL Gran % 41.0 (36.0-66.0) % Immature Gran % (Auto) 0.3 (0.00-0.4) % Nucleat RBC Rel Count 0.0 (0.00-0.1) % Eos # (Auto) 0.19 (0-0.5) x10^3/uL Immature Gran # (Auto) 0.02 (0.00-0.03) x10^3u/L Absolute Lymphs (auto) 3.07 (1.0-4.6) x10^3/uL Absolute Monos (auto) 0.68 (0.0-1.3) x10^3/uL Absolute Nucleated RBC 0.00 (0.00-0.01) x10^3u/L Lymphocytes % 45.3 H (24.0-44.0) % Monocytes % 10.0 (0.0-12.0) % Eosinophils % 2.8 (0.00-5.0) % Basophils % 0.6 (0.0-0.4) % Absolute Granulocytes 2.77 (1.4-6.9) x10^3/uL Basophils # 0.04 (0-0.4) x10^3/uL Sodium 135 L (137-145) mmol/L Potassium 3.0 L* (3.5-5.1) mmol/L Chloride 110 H (98-107) mmol/L Carbon Dioxide 22 (22-30) mmol/L Anion Gap 6.7 (5-15) MEQ/L BUN 4 L (7-17) mg/dL Creatinine 0.45 L (0.52-1.04) mg/dL Estimated GFR 101.5 ML/MIN Glucose 90 (74-106) mg/dL Calcium 7.6 L (8.4-10.2) mg/dL Magnesium 1.7 (1.6-2.3) mg/dL Total Bilirubin 0.40 (0.2-1.3) mg/dL AST 27 (14-36) U/L ALT 49 H (0-35) U/L Alkaline Phosphatase 93 (38-126) U/L Serum Total Protein 4.8 L (6.3-8.2) g/dL Albumin 2.4 L (3.5-5.0) g/dL 12/31/22 12/31/22 01/01/23 Range/Units 13:06 17:26 04:36 WBC 8.6 (4.0-10.5) x10^3/uL RBC 3.63 L (4.1-5.4) x10^6/uL Hgb 10.7 L (12.0-16.0) g/dL Hct 33.2 L (35-47) % MCV 91.5 (78-100) fL MCH 29.5 (26-32) pg MCHC 32.2 (32-36) g/dL RDW 14.3 H (11.5-14.0) % Plt Count 250 (150-450) x10^3/uL MPV 9.8 (7.5-11.0) fL Gran % 44.4 (36.0-66.0) % Immature Gran % (Auto) 0.6 H (0.00-0.4) % Nucleat RBC Rel Count 0.0 (0.00-0.1) % Eos # (Auto) 0.30 (0-0.5) x10^3/uL Immature Gran # (Auto) 0.05 H (0.00-0.03) x10^3u/L Absolute Lymphs (auto) 3.70 (1.0-4.6) x10^3/uL Absolute Monos (auto) 0.67 (0.0-1.3) x10^3/uL Absolute Nucleated RBC 0.00 (0.00-0.01) x10^3u/L Lymphocytes % 43.1 (24.0-44.0) % Monocytes % 7.8 (0.0-12.0) % Eosinophils % 3.5 (0.00-5.0) % Basophils % 0.6 (0.0-0.4) % Absolute Granulocytes 3.82 (1.4-6.9) x10^3/uL Basophils # 0.05 (0-0.4) x10^3/uL Sodium (137-145) mmol/L Potassium 3.4 L 3.8 (3.5-5.1) mmol/L Chloride (98-107) mmol/L Carbon Dioxide (22-30) mmol/L Anion Gap (5-15) MEQ/L BUN (7-17) mg/dL Creatinine (0.52-1.04) mg/dL Estimated GFR ML/MIN Glucose (74-106) mg/dL Calcium (8.4-10.2) mg/dL Magnesium (1.6-2.3) mg/dL Total Bilirubin (0.2-1.3) mg/dL AST (14-36) U/L ALT (0-35) U/L Alkaline Phosphatase (38-126) U/L Serum Total Protein (6.3-8.2) g/dL Albumin (3.5-5.0) g/dL Micro Results-Entire Visit: Microbiology 12/27/22 17:57 Urine Culture - Final Catherized Klebsiella Pneumoniae - Procedures and Test Procedures and Tests throughout Hospitalization: Therapy Orders & Screens 12/27/22 21:35 ST Eval & Treat (MD Order) ROUTINE Comment: Physician Instructions: Reason For Exam: Evaluate: Yes Treat: Yes Reason for Eval: Dysphagia Diagnosis: Orthostatic hypotension Discharge Exam General Appearance: no apparent distress Neurologic Exam: alert, oriented x 3, cooperative Eye Exam: PERRL Ears, Nose, Throat Exam: normal ENT inspection Neck Exam: normal inspection Respiratory Exam: normal breath sounds, lungs clear Cardiovascular Exam: regular rate/rhythm, normal heart sounds Gastrointestinal/Abdomen Exam: soft, normal bowel sounds Pelvic Exam: deferred Rectal Exam: deferred Back Exam: normal inspection Extremity Exam: normal inspection Skin Exam: pale Final Diagnosis/Problem List - Final Discharge Diagnosis/Problem (1) Gastric mass Current Visit: Yes Status: Acute Code(s): K31.89 - OTHER DISEASES OF STOMACH AND DUODENUM (2) Metabolic acidosis Current Visit: No Status: Acute Code(s): E87.20 - ACIDOSIS, UNSPECIFIED (3) Dehydration Current Visit: Yes Status: Acute Code(s): E86.0 - DEHYDRATION (4) Nausea & vomiting Current Visit: Yes Status: Acute Code(s): R11.2 - NAUSEA WITH VOMITING, UNSPECIFIED (5) Swallowing difficulty Current Visit: Yes Status: Acute Code(s): R13.10 - DYSPHAGIA, UNSPECIFIED (6) Chronic autoimmune hepatitis Current Visit: Yes Status: Chronic Code(s): K75.4 - AUTOIMMUNE HEPATITIS (7) Elevated liver function tests Current Visit: Yes Status: Chronic Code(s): R79.89 - OTHER SPECIFIED ABNORMAL FINDINGS OF BLOOD CHEMISTRY (8) Hypokalemia Current Visit: Yes Status: Acute Code(s): E87.6 - HYPOKALEMIA (9) UTI (urinary tract infection) Current Visit: No Status: Acute Code(s): N39.0 - URINARY TRACT INFECTION, SITE NOT SPECIFIED (10) Dementia Current Visit: No Status: Chronic Code(s): F03.90 - UNSP DEMENTIA, UNSP SEVERITY, WITHOUT BEH/PSYCH/MOOD/ANX (11) Abnormal finding on imaging Current Visit: Yes Status: Acute Code(s): R93.89 - ABNORMAL FINDINGS ON DX IMAGING OF OTH BODY STRUCTURES - Discharge Disposition: HOME HEALTH SERVICE Condition: Fair Prescriptions: New Fluconazole 100 mg [Diflucan 100 MG] 100 mg PO DAILY 14 Days #14 tablet Amlodipine Besylate 5 mg [Norvasc 5 mg] 5 mg PO DAILY 30 Days #30 tablet Nystatin 60 ml [Nystatin SUSPENSION 60 ML] 5 ml PO TID 14 Days #210 ml Continue Sertraline HCl 100 mg PO HS PANTOPRAZOLE 40 mg Tablet [Protonix 40MG Tablet] 40 mg PO BID Aspirin 81 gm Chew [Baby Aspirin 81 mg Chew] 81 mg PO BID ursodioL [Ursodiol] 500 mg PO TID Topiramate 100 mg [Topamax 100 MG] 100 mg PO BID Alendronate Sodium 70 mg PO WEEKLY Magnesium Oxide [Magnesium] 400 mg PO DAILY Cholecalciferol (Vitamin D3) [Vitamin D3] 50 mcg PO DAILY Cyanocobalamin (Vitamin B-12) [Vitamin B-12] 1,000 mcg PO DAILY Multivitamin 1 tab PO 1200 Polyethylene Glycol 3350 17 gm [Miralax Powder 17GM PACKET] 17 gm PO BID Ascorbic Acid [Vitamin C] 250 mg PO DAILY Memantine HCl [Namenda] 10 mg PO BID Nitrofurantoin Macro 100 mg [Macrobid 100MG Capsule] 100 mg PO DAILY Atorvastatin Calcium 10 mg PO DAILY Nitroglycerin 0.4 mg Tablet [Nitrostat 0.4 MG Tablet] See Rx I nstructions .ROUTE .COMPLEX No Action Donepezil HCl 10 mg PO 1200 Instructions: Hypokalemia (DC) Follow up with: JIM HARPER [ACTIVE STAFF] - 1 Week SANCHO LEGER NP [Family Provider] - 01/06/23 8:45 am
--- NOTE | 2023-01-01 05:40 | PCM.DS ---
Discharge Summary Date of Admission: 12/28/22 10:24 Date of Discharge: 01/01/23 Admitting Physician: ANTHONY HEBETR MD Consults: Consults on Case 12/29/22 15:20 Consult Surgery ROUTINE Primary Care Provider: [facility] Allergies Allergies levetiracetam [From [facility]] Adverse Reaction (Verified 12/27/22 15:42) Hospital Summary - Vitals & Intake/Output Vital Signs: Vital Signs Temperature 98.0 F 01/01/23 04:00 Pulse Rate 74 01/01/23 04:00 Respiratory Rate 17 01/01/23 04:00 Blood Pressure 162/71 01/01/23 04:00 O2 Sat by Pulse Oximetry 98 01/01/23 04:00 Intake & Output: Intake & Output 12/29/22 12/30/22 12/31/22 01/01/23 11:59 11:59 11:59 11:59 Intake Total 915 1448 2290 800 Output Total 400 600 300 Balance 898 016 2273 800 Weight 54.5 kg - Lab Result Diagrams: 01/01/23 04:36 12/31/22 17:26 Lab Results-Last 24 Hrs: Lab Results-Last 24 Hours 12/31/22 12/31/22 12/31/22 Range/Units 04:00 04:00 05:00 WBC 6.8 (4.0-10.5) x10^3/uL RBC 3.50 L (4.1-5.4) x10^6/uL Hgb 10.5 L (12.0-16.0) g/dL Hct 31.5 L (35-47) % MCV 90.0 (78-100) fL MCH 30.0 (26-32) pg MCHC 33.3 (32-36) g/dL RDW 14.1 H (11.5-14.0) % Plt Count 225 (150-450) x10^3/uL MPV 10.0 (7.5-11.0) fL Gran % 41.0 (36.0-66.0) % Immature Gran % (Auto) 0.3 (0.00-0.4) % Nucleat RBC Rel Count 0.0 (0.00-0.1) % Eos # (Auto) 0.19 (0-0.5) x10^3/uL Immature Gran # (Auto) 0.02 (0.00-0.03) x10^3u/L Absolute Lymphs (auto) 3.07 (1.0-4.6) x10^3/uL Absolute Monos (auto) 0.68 (0.0-1.3) x10^3/uL Absolute Nucleated RBC 0.00 (0.00-0.01) x10^3u/L Lymphocytes % 45.3 H (24.0-44.0) % Monocytes % 10.0 (0.0-12.0) % Eosinophils % 2.8 (0.00-5.0) % Basophils % 0.6 (0.0-0.4) % Absolute Granulocytes 2.77 (1.4-6.9) x10^3/uL Basophils # 0.04 (0-0.4) x10^3/uL Sodium 135 L (137-145) mmol/L Potassium 3.0 L* (3.5-5.1) mmol/L Chloride 110 H (98-107) mmol/L Carbon Dioxide 22 (22-30) mmol/L Anion Gap 6.7 (5-15) MEQ/L BUN 4 L (7-17) mg/dL Creatinine 0.45 L (0.52-1.04) mg/dL Estimated GFR 101.5 ML/MIN Glucose 90 (74-106) mg/dL Calcium 7.6 L (8.4-10.2) mg/dL Magnesium 1.7 (1.6-2.3) mg/dL Total Bilirubin 0.40 (0.2-1.3) mg/dL AST 27 (14-36) U/L ALT 49 H (0-35) U/L Alkaline Phosphatase 93 (38-126) U/L Serum Total Protein 4.8 L (6.3-8.2) g/dL Albumin 2.4 L (3.5-5.0) g/dL 12/31/22 12/31/22 01/01/23 Range/Units 13:06 17:26 04:36 WBC 8.6 (4.0-10.5) x10^3/uL RBC 3.63 L (4.1-5.4) x10^6/uL Hgb 10.7 L (12.0-16.0) g/dL Hct 33.2 L (35-47) % MCV 91.5 (78-100) fL MCH 29.5 (26-32) pg MCHC 32.2 (32-36) g/dL RDW 14.3 H (11.5-14.0) % Plt Count 250 (150-450) x10^3/uL MPV 9.8 (7.5-11.0) fL Gran % 44.4 (36.0-66.0) % Immature Gran % (Auto) 0.6 H (0.00-0.4) % Nucleat RBC Rel Count 0.0 (0.00-0.1) % Eos # (Auto) 0.30 (0-0.5) x10^3/uL Immature Gran # (Auto) 0.05 H (0.00-0.03) x10^3u/L Absolute Lymphs (auto) 3.70 (1.0-4.6) x10^3/uL Absolute Monos (auto) 0.67 (0.0-1.3) x10^3/uL Absolute Nucleated RBC 0.00 (0.00-0.01) x10^3u/L Lymphocytes % 43.1 (24.0-44.0) % Monocytes % 7.8 (0.0-12.0) % Eosinophils % 3.5 (0.00-5.0) % Basophils % 0.6 (0.0-0.4) % Absolute Granulocytes 3.82 (1.4-6.9) x10^3/uL Basophils # 0.05 (0-0.4) x10^3/uL Sodium (137-145) mmol/L Potassium 3.4 L 3.8 (3.5-5.1) mmol/L Chloride (98-107) mmol/L Carbon Dioxide (22-30) mmol/L Anion Gap (5-15) MEQ/L BUN (7-17) mg/dL Creatinine (0.52-1.04) mg/dL Estimated GFR ML/MIN Glucose (74-106) mg/dL Calcium (8.4-10.2) mg/dL Magnesium (1.6-2.3) mg/dL Total Bilirubin (0.2-1.3) mg/dL AST (14-36) U/L ALT (0-35) U/L Alkaline Phosphatase (38-126) U/L Serum Total Protein (6.3-8.2) g/dL Albumin (3.5-5.0) g/dL Micro Results-Entire Visit: Microbiology 12/27/22 17:57 Urine Culture - Final Catherized Klebsiella Pneumoniae - Procedures and Test Procedures and Tests throughout Hospitalization: Therapy Orders & Screens 12/27/22 21:35 ST Eval & Treat ( Order) ROUTINE Comment: Physician Instructions: Reason For Exam: Evaluate: Yes Treat: Yes Reason for Eval: Dysphagia Diagnosis: Orthostatic hypotension Final Diagnosis/Problem List - Final Discharge Diagnosis/Problem (1) Gastric mass Current Visit: Yes Status: Acute Code(s): K31.89 - OTHER DISEASES OF STOMACH AND DUODENUM (2) Metabolic acidosis Current Visit: No Status: Acute Code(s): E87.20 - ACIDOSIS, UNSPECIFIED (3) Dehydration Current Visit: Yes Status: Acute Code(s): E86.0 - DEHYDRATION (4) Nausea & vomiting Current Visit: Yes Status: Acute Code(s): R11.2 - NAUSEA WITH VOMITING, UNSPECIFIED (5) Swallowing difficulty Current Visit: Yes Status: Acute Code(s): R13.10 - DYSPHAGIA, UNSPECIFIED (6) Chronic autoimmune hepatitis Current Visit: Yes Status: Chronic Code(s): K75.4 - AUTOIMMUNE HEPATITIS (7) Elevated liver function tests Current Visit: Yes Status: Chronic Code(s): R79.89 - OTHER SPECIFIED ABNORMAL FINDINGS OF BLOOD CHEMISTRY (8) Hypokalemia Current Visit: Yes Status: Acute Code(s): E87.6 - HYPOKALEMIA (9) UTI (urinary tract infection) Current Visit: No Status: Acute Code(s): N39.0 - URINARY TRACT INFECTION, SITE NOT SPECIFIED (10) Dementia Current Visit: No Status: Chronic Code(s): F03.90 - UNSP DEMENTIA, UNSP SEVERITY, WITHOUT BEH/PSYCH/MOOD/ANX (11) Abnormal finding on imaging Current Visit: Yes Status: Acute Code(s): R93.89 - ABNORMAL FINDINGS ON DX IMAGING OF OTH BODY STRUCTURES - Discharge Disposition: Home, Self-Care Condition: Fair Prescriptions: No Action Sertraline HCl 100 mg PO HS PANTOPRAZOLE 40 mg Tablet [Protonix 40MG Tablet] 40 mg PO BID Aspirin 81 gm Chew [Baby Aspirin 81 mg Chew] 81 mg PO BID ursodioL [Ursodiol] 500 mg PO TID Topiramate 100 mg [Topamax 100 MG] 100 mg PO BID Alendronate Sodium 70 mg PO WEEKLY Magnesium Oxide [Magnesium] 400 mg PO DAILY Donepezil HCl 10 mg PO 1200 Cholecalciferol (Vitamin D3) [Vitamin D3] 50 mcg PO DAILY Cyanocobalamin (Vitamin B-12) [Vitamin B-12] 1,000 mcg PO DAILY Multivitamin 1 tab PO 1200 Polyethylene Glycol 3350 17 gm [Miralax Powder 17GM PACKET] 17 gm PO BID Ascorbic Acid [Vitamin C] 250 mg PO DAILY Memantine HCl [Namenda] 10 mg PO BID Nitrofurantoin Macro 100 mg [Macrobid 100MG Capsule] 100 mg PO DAILY Atorvastatin Calcium 10 mg PO DAILY Nitroglycerin 0.4 mg Tablet [Nitrostat 0.4 MG Tablet] See Rx Instructions .ROUTE .COMPLEX Follow up with: [facility] [Primary Care Provider] - SANCHO LEGER NP [Family Provider] -
[2023-01-01] MEDS: NORVASC 5 MG PO SCH (10:08)
[2023-01-01] MEDS: MAG-OX 400 PO SCH (10:08)
[2023-01-01] MEDS: VITAMIN D PO SCH (10:09)
[2023-01-01] MEDS: Namenda 5 MG PO SCH (10:09)
[2023-01-01] MEDS: Vitamin B-12 500 MCG PO SCH (10:09)
[2023-01-01] MEDS: ECOTRIN 81 MG PO SCH (10:09)
[2023-01-01] MEDS: TOPIRAMATE PO SCH (10:09)
[2023-01-01] MEDS: Vitamin C 500 MG PO SCH (10:10)
[2023-01-01] MEDS: Protonix 40MG Tablet PO SCH (10:10)
[2023-01-01] MEDS: Diflucan 100 MG PO SCH (10:10)
[2023-01-01] MEDS: Nystatin SUSPENSION 60 ML PO SCH (10:11)
[2023-01-01] MEDS: ROCEPHIN 1 Gm-D5w 50 ml Bag** 1 G/50 ML IVPB IV SCH (10:12)
[2023-01-01] MEDS: ENOXAPARIN SODIUM SQ SCH (10:12)
[2023-01-01] MEDS: Miralax Powder 17GM PACKET PO SCH (10:27)
[2023-01-01 11:35] VITALS: BP 151/68; PULSE 88; TEMP 97.8; O2SAT 94
[2023-01-01] MEDS: THERAGRAN MULTIVITAMIN PO SCH (13:05)
== END 2023-01-01 13:35 | disposition home health service (06) | DRG 392 ==
LOC: ED 15:26 → MED SURG 19:24 → OBSVTOIN 12-28 10:24
PROVIDERS: ADMIT Internal Medicine; ATTEND Internal Medicine
PROC: 0DJ08ZZ Inspection of Upper Intestinal Tract, Via Natural or Artificial Opening Endoscopic (ICD-10-PCS; principal; 2022-12-29)
DX: K31.89 Other diseases of stomach and duodenum (principal); E87.20 Acidosis, unspecified; N39.0 Urinary tract infection, site not specified; E86.0 Dehydration; R11.2 Nausea with vomiting, unspecified; R13.10 Dysphagia, unspecified; K75.4 Autoimmune hepatitis; R79.89 Other specified abnormal findings of blood chemistry; E87.6 Hypokalemia; F03.90 Unspecified dementia, unspecified severity, without behavioral disturbance, psychotic disturbance, mood disturbance, and anxiety; D64.9 Anemia, unspecified; I25.10 Atherosclerotic heart disease of native coronary artery without angina pectoris; I95.1 Orthostatic hypotension; I10 Essential (primary) hypertension; K44.9 Diaphragmatic hernia without obstruction or gangrene; R93.89 Abnormal findings on diagnostic imaging of other specified body structures; Z79.899 Other long term (current) drug therapy; Z20.828 Contact with and (suspected) exposure to other viral communicable diseases
CPT/HCPCS: 0241U; 36000; 36415; 43235; 70490; 74176; 74220; 80053; 81001; 82140; 82150; 82947; 83605; 83690; 83735; 84132; 84134; 85025; 85610; 87077; 87086; 87186; 93268; 96360; 96374; 99285; G0378; Q3014; J0696; J1650; J2250; J2405; J2704; J3480; A9270-GY

== ENCOUNTER 2023-03-05 06:17 | Day surgery (SDC) | payer MEDICARE ==
--- NOTE | 2023-03-04 10:10 | HP ---
DATE OF SURGERY: 03/05/2023 HISTORY OF PRESENT ILLNESS: The patient is a 72-year-old female presents for follow up surveillance EGD. It looks like the patient had severe erosive thrush, esophagitis, erosion and atypia on last EGD. She presents for evaluation of this and surveillance. PAST MEDICAL HISTORY: Dementia, gastroesophageal reflux disease, anxiety, depression, hyperlipidemia and hypertension. PAST SURGICAL HISTORY: None recent. ALLERGIES: NKDA. MEDICATIONS: Nitro, atorvastatin, memantine, vitamin C, multivitamin, vitamin B12, topiramate, Ursodiol, aspirin, pantoprazole, Sertraline, amlodipine, fluconazole. FAMILY HISTORY: None reported. SOCIAL HISTORY: None reported. REVIEW OF SYSTEMS: CONSTITUTIONAL: Denies fever or chills. CHEST: Denies shortness of breath. CVS: Denies chest pain. ABDOMEN: Denies abdominal pain. PHYSICAL EXAMINATION: GENERAL: No acute distress. CHEST: Nonlabored. No shortness of breath. CVS: Regular rate and rhythm. ABDOMEN: Soft. IMPRESSION: Surveillance for severe erosive esophagitis and atypia on pathology. PLAN: EGD with Dr. Jorge Aleman. As dictated by Kamilla Smith NP.
[2023-03-05] MEDS ORDERED: Lactated Ringers 1,000 ML IV SCH (06:30)
[2023-03-05] MEDS ORDERED: Xylocaine-Mpf 2% 5 Ml Vial ONE (08:47)
[2023-03-05] MEDS ORDERED: DIPRIVAN 200 MG/20 ML IV ONE (08:47)
[2023-03-05 09:19] VITALS: BP 187/76; PULSE 57; RESP 18; O2SAT 99
[2023-03-05 09:26] VITALS: TEMP 98
--- NOTE | 2023-03-05 11:01 | OP ---
SURGERY DATE/TIME: 03/05/2023 2676 PREOPERATIVE DIAGNOSIS: The patient has severe esophagitis, gastritis, erosive esophagitis and is not able to swallow. She has been on major medication and presents for re-evaluation. POSTOPERATIVE DIAGNOSIS: Small hiatal hernia. PROCEDURE: EGD and dilatation. SURGEON: Jorge Aleman M.D. ANESTHESIA: MAC. COMPLICATIONS: None. CONDITION: Stable. INDICATION: A patient requiring re-evaluation. DESCRIPTION OF PROCEDURE: Taken to endoscopy. Left lateral decubitus position. Scope introduced. There was a stricture size 40 at the gastroesophageal junction. Fundus, body, antrum was normal today. Pylorus normal. Duodenal bulb normal. Second portion normal. Scope looped upon itself. Small hiatal hernia. The balloon was placed and placed in the stomach. It was pulled back in the stricture and it was inflated to first stage and this opened up nicely to about size 46 and that was felt satisfactory for this lady at this time. It looked very satisfactory. The scope and the balloon was withdrawn. Actually during the procedure the stricture was identified. We went and talked to her family in the lobby and we got additional consent for dilatation. We came back and placed the balloon and blew it up.
== END 2023-03-05 09:24 | disposition home or self-care (01) ==
LOC: SDC 06:17
PROVIDERS: ATTEND Surgery
DX: K44.9 Diaphragmatic hernia without obstruction or gangrene (principal); K22.10 Ulcer of esophagus without bleeding; K29.70 Gastritis, unspecified, without bleeding
CPT/HCPCS: 93005; 99100; C1726; J2704

== ENCOUNTER 2023-03-05 13:50 | Observation (INO) | payer MEDICARE ==
[2023-03-05] MEDS ORDERED: DUONEB 0.5-3 MG/3 ml Neb IH ONE ×2 (14:20→14:55)
[2023-03-05] MEDS ORDERED: Sodium Chloride 0.9% 1000 ML 1,000 ML IV STA (14:20)
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
--- NOTE | 2023-03-05 15:01 | XRAY ---
Indication: Syncope. Stroke. Multiple contiguous axial images obtained through the head without contrast. Comparison: October 14, 2022 Again age-appropriate global atrophy, minimal periventricular degenerative micro-ischemia bilaterally, and multifocal remote lacunar infarcts both basal ganglia/left cerebellum. No acute intracranial hemorrhage, abnormal extra-axial fluid collection, or mass effect. Fourth ventricle is midline without hydrocephalus. Bony calvarium intact. Visualized paranasal sinuses and mastoid air cells are clear. Impression: Stable nonacute senile brain with multifocal remote lacunar infarcts both basal ganglia/left cerebellum.
[2023-03-05 15:12] LABS: A-aADO2 8; ABG HEMOGLOBIN 11.5; ABG POTASSIUM 3.4 (3.5-5.1); ABG SITE RIGHT RADIAL; ALLEN TEST OK? YES; ARTERIAL BLD GAS O2 SATURATION 99.5 % (95-100); ARTERIAL BLOOD GAS BASE EXCESS -4.7 (-2.0-2.0); ARTERIAL BLOOD GAS FIO2 28 %; ARTERIAL BLOOD GAS PCO2 32 mmHg (35-45); ARTERIAL BLOOD GAS PO2 152 mmHg (75-100); ARTERIAL BLOOD GAS pH 7.39 (7.35-7.45); CARBOXYHEMOGLOBIN 2.8 % THgb (0.0-6.9); HCO3- 19.4 (22-28); HGB O2 SAT 95.4 g/dF (94-100); Methhemoglobin 1.3 % (1.4-1.5); paO2 pAO1 0.95
[2023-03-05 15:19] LABS: Absolute Neutrophil Ct (ANC) 10.26 x10^3/uL (1.4-6.9); BASOPHIL % 0.4 % (0.0-0.4); Basophil (Absolute #) 0.05 x10^3/uL (0-0.4); Eosinophil % 0.4 % (0.00-5.0); Eosinophil (Absolute #) 0.05 x10^3/uL (0-0.5); Hematocrit 34.3 % (35-47); IMMATURE GRAN # 0.05 x10^3u/L (0.00-0.03); IMMATURE GRAN % 0.4 % (0.00-0.4); Lymphocytes % 12.3 % (24.0-44.0); Mean Cell Volume 93.2 fL (78-100); Mean Corpuscular Hemoglobin 29.9 pg (26-32); Mean Corpuscular Hgb Concent. 32.1 g/dL (32-36); Mean Platelet Volume 10.4 fL (7.5-11.0); Monocyte (Absolute #) 0.96 x10^3/uL (0.0-1.3); Monocytes % 7.4 % (0.0-12.0); Neutrophil % 79.1 % (36.0-66.0); Platelet Count 220 x10^3/uL (150-450); Red Blood Count 3.68 x10^6/uL (4.1-5.4); Red Cell Distribution Width 13.6 % (11.5-14.0)
[2023-03-05 15:33] LABS: ALBUMIN 3.4 g/dL (3.5-5.0); ANION GAP 12.6 MEQ/L (5-15); BILIRUBIN,TOTAL 0.5 mg/dL (0.2-1.3); Calcium 8.3 mg/dL (8.4-10.2); Creatinine 1 0.64 mg/dL (0.52-1.04); EST GLOMERULAR FILTRATION RATE 93.3 ML/MIN; MAGNESIUM 1.8 mg/dL (1.6-2.3); Potassium 3.4 mmol/L (3.5-5.1); Total Protein 6.2 g/dL (6.3-8.2)
[2023-03-05 15:44] LABS: NT PRO BNPII 1020 pg/mL (<300); TROPONIN < 0.012 ng/mL (0.000-0.034)
[2023-03-05 15:55] LABS: INFLUENZA A NEGATIVE (NEGATIVE); INFLUENZA B NEGATIVE (NEGATIVE); RESPIRATORY SYNCTIAL VIRUS NEGATIVE (NEGATIVE); SARS-CoV-2 Xpert Express NEGATIVE (NEGATIVE)
--- NOTE | 2023-03-05 16:21 | XRAY ---
Indication: Syncope. Comparison: October 14, 2022 Portable chest again hyperinflated with a few bilateral tiny calcified granulomas. No focal infiltrate, consolidation, or large effusion. Heart not enlarged. Bony thorax intact again with osteopenia and mild degenerative changes. Impression: Continued nonacute hyperinflated chest with chronic features.
[2023-03-05] MEDS ORDERED: Sodium Chloride 0.9% 1000 ML 1,000 ML ONE (16:39)
--- NOTE | 2023-03-05 18:14 | PCM.HP ---
History of Present Illness - Chief Complaint Chief Complaint: syncope Date: 03/05/23 History of Present Illness: is a 72 year old female with past medical history of coronary artery disease with stenting, seizures, stroke, CAD, HTN, OA, anxiety, depression, end stage dementia, and chronic UTI's. She was seen here today at the hospital for an EGD that was done with Dr. Aleman with [facility] anesthesia. She was discharged around 930 am, went home and to bed, woke up around 115 to use restroom and passed twice on the commode while having a bowel movement. She has not ate or drank anything all day per family as she refused to do so. Reports generalized weakness and no focal numbness tingling or weakness. Denies any difficulty speech or visual disturbance. Denies any chest pain palpitations or shortness of breath. Daughter reports patient having similar symptoms multiple times in the past as well. CT head and CXR negative for any acute process. Will further evaluate with echo and carotid duplex in the AM. Will also check for a UTI since she has a past hx of this. Sxs most likely r/t not eating or drinking all day in combination with MAC sedation and end stage dementia. She is sleeping an was unable to answer my questions at time of assessment. Family was the historians. ASA held x1 week per Dr. Aleman's order. - Review of Systems Constitutional: No Fever, No Chills Eyes: No Symptoms Ears, Nose, & Throat: No Symptoms Respiratory: No Cough, No Short Of Breath Cardiac: Syncope, No Chest Pain, No Edema Abdominal/Gastrointestinal: No Abdominal Pain, No Nausea, No Vomiting, No Diarrhea Genitourinary Symptoms: No Dysuria Musculoskeletal: No Back Pain, No Neck Pain Skin: No Rash Neurological: Other, No Dizziness, No Focal Weakness, No Sensory Changes Psychological: No Symptoms Endocrine: No Symptoms Hematologic/Lymphatic: No Symptoms Immunological/Allergic: No Symptoms Medications & Allergies Home Medications: Home Medication List Aspirin 81 gm Chew [Baby Aspirin 81 mg Chew] 81 mg PO BID 04/24/20 [History Confirmed 03/05/23] PANTOPRAZOLE 40 mg Tablet [Protonix 40MG Tablet] 40 mg PO BID 04/24/20 [History Confirmed 03/05/23] Sertraline HCl 100 mg PO HS 04/24/20 [History Confirmed 03/05/23] ursodioL [Ursodiol] 500 mg PO TID 10/17/20 [History Confirmed 03/05/23] Alendronate Sodium 70 mg PO WEEKLY 04/18/22 [History Confirmed 03/05/23] Cholecalciferol (Vitamin D3) [Vitamin D3] 50 mcg PO DAILY 04/18/22 [History Confirmed 03/05/23] Donepezil HCl 10 mg PO 1200 04/18/22 [History Confirmed 03/05/23] Magnesium Oxide [Magnesium] 400 mg PO DAILY 04/18/22 [History Confirmed 03/05/23] Topiramate 100 mg [Topamax 100 MG] 100 mg PO BID 04/18/22 [History Confirmed 03/05/23] Cyanocobalamin (Vitamin B-12) [Vitamin B-12] 1,000 mcg PO DAILY 05/30/22 [History Confirmed 03/05/23] Multivitamin 1 tab PO 1200 05/30/22 [History Confirmed 03/05/23] Ascorbic Acid [Vitamin C] 250 mg PO DAILY 06/27/22 [History Confirmed 03/05/23] Memantine HCl [Namenda] 10 mg PO BID 06/27/22 [History Confirmed 03/05/23] Polyethylene Glycol 3350 17 gm [Miralax Powder 17GM PACKET] 17 gm PO BID 06/27/22 [History Confirmed 03/05/23] Nitrofurantoin Macro 100 mg [Macrobid 100MG Capsule] 100 mg PO DAILY 10/14/22 [History Confirmed 03/05/23] Atorvastatin Calcium 10 mg PO DAILY 12/27/22 [History Confirmed 03/05/23] Nitroglycerin 0.4 mg Tablet [Nitrostat 0.4 MG Tablet] See Rx Instructions .ROUTE .COMPLEX 12/27/22 [History Confirmed 03/05/23] estradioL [Estradiol] 42.5 gm VG UD 02/24/23 [History Confirmed 03/05/23] Allergies/Adverse Reactions: Allergies Allergy/AdvReac Type Severity Reaction Status Date / Time eslicarbazepine Allergy Verified 03/05/23 14:14 levetiracetam [From [facility]] AdvReac Verified 03/05/23 14:14 - Past Medical History Past Medical History: Yes Neurological History: Seizures, Stroke ENT History: No Pertinent History Cardiac History: Angina, Coronary Artery Disease, Hypertension Respiratory History: No Pertinent History Endocrine Medical History: No Pertinent History Musculoskelatal History: Osteoporosis GI Medical History: Other History: No Pertinent History Pyscho-Social History: Anxiety, Depression Reproductive Disorders: No Pertinent History Comment: autoimmune liver disease. shingles - Past Surgical History Past Surgical History: Yes Neuro Surgical History: No Pertinent History Cardiac History: Cardiac Stent Respiratory Surgery: No Pertinent History GI Surgical History: Bowel Surgery, Cholecystectomy Genitourinary Surgical Hx: No Pertinent History Musculskeletal Surgical Hx: No Pertinent History Female Surgical History: Section Other Surgical History: PARTIAL L HIP REPLACEMENT 2-3 yrs ago - Social History Smoking Status: Never smoker Exposure to second hand smoke: No Alcohol: None Drug Use: none Significant Family History: no pertinent family hx - Physical Exam Vital Signs: Vital Signs - 24 hr Temp Pulse Resp BP BP Pulse Ox 03/05/23 17:00 73 13 157/81 100 03/05/23 16:57 90 L 03/05/23 16:30 72 17 168/54 98 03/05/23 15:34 70 11 L 98 03/05/23 15:30 71 29 H 164/74 97 03/05/23 15:00 68 15 141/57 100 03/05/23 14:00 69 12 130/51 95 03/05/23 13:52 96.0 F 65 18 118/53 90 L General Appearance: no apparent distress Neurologic Exam: cooperative, other (sleeping), No motor deficits Eye Exam: PERRL/EOMI, eyes nml inspection Ears, Nose, Throat Exam: normal ENT inspection, TMs normal, pharynx normal, moist mucous membranes Neck Exam: normal inspection, non-tender, supple, full range of motion Respiratory Exam: normal breath sounds, lungs clear, No respiratory distress Cardiovascular Exam: regular rate/rhythm, normal heart sounds, normal peripheral pulses Gastrointestinal/Abdomen Exam: soft, normal bowel sounds, No tenderness, No mass Back Exam: normal inspection, normal range of motion, No CVA tenderness, No vertebral tenderness Extremity Exam: normal inspection, normal range of motion, pelvis stable Skin Exam: normal color, warm, dry, No rash Lymphatic Exam: No adenopathy Results - Labs Lab/Micro Results: Lab Results-Last 24 Hours 03/05/23 03/05/23 03/05/23 Range/Units 15:00 15:00 15:00 WBC 13.0 H (4.0-10.5) x10^3/uL RBC 3.68 L (4.1-5.4) x10^6/uL Hgb 11.0 L (12.0-16.0) g/dL Hct 34.3 L (35-47) % MCV 93.2 (78-100) fL MCH 29.9 (26-32) pg MCHC 32.1 (32-36) g/dL RDW 13.6 (11.5-14.0) % Plt Count 220 (150-450) x10^3/uL MPV 10.4 (7.5-11.0) fL Gran % 79.1 H (36.0-66.0) % Immature Gran % (Auto) 0.4 (0.00-0.4) % Nucleat RBC Rel Count 0.0 (0.00-0.1) % Eos # (Auto) 0.05 (0-0.5) x10^3/uL Immature Gran # (Auto) 0.05 H (0.00-0.03) x10^3u/L Absolute Lymphs (auto) 1.60 (1.0-4.6) x10^3/uL Absolute Monos (auto) 0.96 (0.0-1.3) x10^3/uL Absolute Nucleated RBC 0.00 (0.00-0.01) x10^3u/L Lymphocytes % 12.3 L (24.0-44.0) % Monocytes % 7.4 (0.0-12.0) % Eosinophils % 0.4 (0.00-5.0) % Basophils % 0.4 (0.0-0.4) % Absolute Granulocytes 10.26 H (1.4-6.9) x10^3/uL Basophils # 0.05 (0-0.4) x10^3/uL Puncture Site pCO2 (35-45) mmHg pO2 (75-100) mmHg Base Excess (-2.0-2.0) O2 Saturation (94-100) g/dF ABG pH (7.35-7.45) ABG HCO3 (22-28) ABG O2 Sat (Measured) (95-100) % Julio Test A-a Gradient a/A Ratio Hemoglobin Carboxyhemoglobin (0.0-6.9) % THgb Methemoglobin (1.4-1.5) % Temperature C POC O2 Flow Rate % Sodium 139 (137-145) mmol/L Potassium 3.4 L (3.5-5.1) mmol/L Chloride 113 H (98-107) mmol/L Carbon Dioxide 17 L (22-30) mmol/L Anion Gap 12.6 (5-15) MEQ/L BUN 24 H (7-17) mg/dL Creatinine 0.64 (0.52-1.04) mg/dL Estimated GFR 93.3 ML/MIN Glucose 114 H (74-106) mg/dL Lactic Acid (0.4-2.0) Calcium 8.3 L (8.4-10.2) mg/dL Magnesium 1.8 (1.6-2.3) mg/dL Total Bilirubin 0.50 (0.2-1.3) mg/dL AST 59 H (14-36) U/L ALT 90 H (0-35) U/L Alkaline Phosphatase 94 (38-126) U/L Troponin I < 0.012 (0.000-0.034) ng/mL NT-Pro-B Natriuret Pep 1020 (<300) pg/mL Serum Total Protein 6.2 L (6.3-8.2) g/dL Albumin 3.4 L (3.5-5.0) g/dL Influenza Type A Ag (NEGATIVE) Influenza Type B Ag (NEGATIVE) RSV (PCR) (NEGATIVE) SARS-CoV-2 (PCR) (NEGATIVE) 03/05/23 03/05/23 03/05/23 Range/Units 15:00 15:10 15:10 WBC (4.0-10.5) x10^3/uL RBC (4.1-5.4) x10^6/uL Hgb (12.0-16.0) g/dL Hct (35-47) % MCV (78-100) fL MCH (26-32) pg MCHC (32-36) g/dL RDW (11.5-14.0) % Plt Count (150-450) x10^3/uL MPV (7.5-11.0) fL Gran % (36.0-66.0) % Immature Gran % (Auto) (0.00-0.4) % Nucleat RBC Rel Count (0.00-0.1) % Eos # (Auto) (0-0.5) x10^3/uL Immature Gran # (Auto) (0.00-0.03) x10^3u/L Absolute Lymphs (auto) (1.0-4.6) x10^3/uL Absolute Monos (auto) (0.0-1.3) x10^3/uL Absolute Nucleated RBC (0.00-0.01) x10^3u/L Lymphocytes % (24.0-44.0) % Monocytes % (0.0-12.0) % Eosinophils % (0.00-5.0) % Basophils % (0.0-0.4) % Absolute Granulocytes (1.4-6.9) x10^3/uL Basophils # (0-0.4) x10^3/uL Puncture Site RIGHT RADIAL pCO2 32 L (35-45) mmHg pO2 152 H* (75-100) mmHg Base Excess -4.7 L (-2.0-2.0) O2 Saturation 95.4 (94-100) g/dF ABG pH 7.39 (7.35-7.45) ABG HCO3 19.4 L (22-28) ABG O2 Sat (Measured) 99.5 (95-100) % Julio Test YES A-a Gradient 8 a/A Ratio 0.95 Hemoglobin 11.5 Carboxyhemoglobin 2.8 (0.0-6.9) % THgb Methemoglobin 1.3 L (1.4-1.5) % Temperature 37.0 C POC O2 Flow Rate 28 % Sodium (137-145) mmol/L Potassium 3.4 L (3.5-5.1) mmol/L Chloride (98-107) mmol/L Carbon Dioxide (22-30) mmol/L Anion Gap (5-15) MEQ/L BUN (7-17) mg/dL Creatinine (0.52-1.04) mg/dL Estimated GFR ML/MIN Glucose (74-106) mg/dL Lactic Acid 1.3 (0.4-2.0) Calcium (8.4-10.2) mg/dL Magnesium (1.6-2.3) mg/dL Total Bilirubin (0.2-1.3) mg/dL AST (14-36) U/L ALT (0-35) U/L Alkaline Phosphatase (38-126) U/L Troponin I (0.000-0.034) ng/mL NT-Pro-B Natriuret Pep (<300) pg/mL Serum Total Protein (6.3-8.2) g/dL Albumin (3.5-5.0) g/dL Influenza Type A Ag NEGATIVE (NEGATIVE) Influenza Type B Ag NEGATIVE (NEGATIVE) RSV (PCR) NEGATIVE (NEGATIVE) SARS-CoV-2 (PCR) NEGATIVE (NEGATIVE) - Radiology Impressions Radiology Exams & Impressions: Radiology Procedures Category Date Time Status CHEST 1 VIEW (PORTABLE) Stat Exams 03/05/23 14:21 Completed HEAD WITHOUT CONTRAST [CT] Stat Exams 03/05/23 14:20 Completed - Other Procedures and Tests Respiratory Therapy 03/05/23 17:36 Oxygen Nasal Cannula 2 lpm Assessment/Plan (1) Syncopal episodes Current Visit: Yes Status: Acute Qualifiers: Assessment & Plan: - Echo, carotid duplex - will check orthostats in AM - PT/OT - Post OP MAC anesthesia for EGD today. - end stage dementia- recommended Hospice in the past as she has poor quality of life and sleeps most of the time. - Family refused - Did not eat or drink today - IVF - BR with BRP Code(s): R55 - SYNCOPE AND COLLAPSE (2) Orthostatic hypotension Current Visit: No Status: Acute Assessment & Plan: - did not eat or drink anything today post procedure - Check orthostats in AM - IVF - regular diet Code(s): I95.1 - ORTHOSTATIC HYPOTENSION (3) Dementia Current Visit: No Status: Chronic Assessment & Plan: - Chronic end stage- adds to complexity - Lives with children and they are her caretakers - Hospice recommended in the past - refused by family Code(s): F03.90 - UNSP DEMENTIA, UNSP SEVERITY, WITHOUT BEH/PSYCH/MOOD/ANX (4) Hypokalemia Current Visit: Yes Status: Acute Assessment & Plan: - K+ 3.4 replaced - trend - Tele Code(s): E87.6 - HYPOKALEMIA (5) Abnormal AST and ALT Current Visit: Yes Status: Acute Assessment & Plan: - AST 59, ALT 90 - Most likely 2:2 not eating drinking today. - Should improve with IVF VTE: lovenox PPI: pantoprazole Code status: Full Next of kin: Son and daughter Code(s): R74.8 - ABNORMAL LEVELS OF OTHER SERUM ENZYMES
[2023-03-05] MEDS ORDERED: Klor Con PO ONE (18:15)
[2023-03-05] MEDS ORDERED: BENADRYL 12.5 MG/5 ML ONE (18:18)
[2023-03-05] MEDS ORDERED: ESTRADIOL APPL VG SCH (19:00)
[2023-03-05] MEDS ORDERED: Sodium Chloride 0.9% 1000 ML 1,000 ML IV SCH (19:15)
[2023-03-05] MEDS ORDERED: TOPIRAMATE ONE (21:44)
[2023-03-05] MEDS ORDERED: Namenda 5 MG ONE (21:44)
[2023-03-05] MEDS ORDERED: ZOLOFT 50 MG TABLET ONE (21:45)
[2023-03-05] MEDS ORDERED: URSODIOL 500 MG PO SCH (22:00)
[2023-03-05] MEDS ORDERED: NON-FORMULARY ITEM (Sertraline Hcl [Sertraline Hcl] 100 MG Tablet) PO SCH (22:00)
[2023-03-05] MEDS ORDERED: NON-FORMULARY ITEM (Topiramate 100 Mg*** [Topamax 100 Mg***] 100 MG Tablet) PO SCH (22:00)
[2023-03-05] MEDS ORDERED: NON-FORMULARY ITEM (Memantine Hcl [Namenda] 10 MG Tablet) PO SCH (22:00)
[2023-03-05] MEDS: Protonix 40MG Tablet PO SCH (22:08)
[2023-03-05] MEDS: Miralax Powder 17GM PACKET PO SCH (22:13)
[2023-03-05] MEDS: TOPIRAMATE PO SCH (22:14)
[2023-03-05] MEDS ORDERED: ZOLOFT 50 MG TABLET PO SCH (22:15)
[2023-03-05] MEDS: Namenda 5 MG PO SCH (22:16)
[2023-03-05 22:21] LABS: Appearance Cloudy (Clear); Bacteria Many /HPF (None Seen); Bilirubin Negative (Negative); Blood Trace (Negative); Epithelial Cells None Seen /HPF (None Seen); Glucose, Urine Negative (Negative); Ketones 15 (Negative); Leukocyte Esterase Large (Negative); Nitrite Positive (Negative); Ph 8.5 (4.6-8.0); Protein,Urine Dip 30 (Negative); Specific Gravity 1.015 (1.005-1.030); Urobilinogen 0.2 mg/dL (0.2); WBC 51-100 /HPF (0-5)
[2023-03-05 22:22] LABS: ADD URINE CULTURE? YES (NO)
[2023-03-05] MEDS: Zocor 10MG PO SCH (23:52)
[2023-03-06 05:14] LABS: Hematocrit 30.1 % (35-47); Hemoglobin 9.5 g/dL (12.0-16.0); Mean Cell Volume 93.2 fL (78-100); Mean Corpuscular Hemoglobin 29.4 pg (26-32); Mean Corpuscular Hgb Concent. 31.6 g/dL (32-36); Mean Platelet Volume 10.6 fL (7.5-11.0); Platelet Count 217 x10^3/uL (150-450); Red Blood Count 3.23 x10^6/uL (4.1-5.4); Red Cell Distribution Width 13.7 % (11.5-14.0); White Blood Count 8.8 x10^3/uL (4.0-10.5)
[2023-03-06 05:45] LABS: ALBUMIN 2.8 g/dL (3.5-5.0); ANION GAP 10.6 MEQ/L (5-15); BILIRUBIN,TOTAL 0.4 mg/dL (0.2-1.3); Calcium 7.6 mg/dL (8.4-10.2); Creatinine 1 0.52 mg/dL (0.52-1.04); PREALBUMIN 17.65 mg/dL (17.6-36.0); Potassium 3.4 mmol/L (3.5-5.1); Total Protein 5.7 g/dL (6.3-8.2)
[2023-03-06] MEDS ORDERED: MEDICATION INTERVENTION MC SCH (07:15)
[2023-03-06] MEDS ORDERED: PHARMACY DOSING REQUEST MC ONE (07:35)
[2023-03-06] MEDS: Sodium Bicarbonate 50 MEQ/50 ML VIAL*** 150 MEQ in Dextrose 5%/Water IV Soln. 1000 ML 1... IV SCH ×2 (08:15→21:01)
[2023-03-06] MEDS: POTASSIUM CHLORIDE 20 mEq IN WATER 100ML 100 ML IV SCH ×4 (08:30→15:08)
[2023-03-06] MEDS: PATIENT OWN MEDICATION PO SCH ×3 (08:34→18:40)
[2023-03-06] MEDS ORDERED: NON-FORMULARY ITEM (Cyanocobalamin (Vitamin B-12) [Vitamin B-12] 1,000 MCG Capsule) PO SCH (10:00)
[2023-03-06] MEDS ORDERED: NON-FORMULARY ITEM (Magnesium Oxide [Magnesium] 400 MG Tablet) PO SCH (10:00)
[2023-03-06] MEDS ORDERED: NON-FORMULARY ITEM (Atorvastatin Calcium [Atorvastatin Calcium] 10 MG Tablet) PO SCH (10:00)
[2023-03-06] MEDS ORDERED: ASCORBIC ACID 250 MG PO SCH (10:00)
[2023-03-06] MEDS ORDERED: Levofloxacin 500 MG Tablet PO SCH (10:00)
[2023-03-06] MEDS ORDERED: NON-FORMULARY ITEM (Cholecalciferol (Vitamin D3) [Vitamin D3] 50 MCG Tablet) PO SCH (10:00)
[2023-03-06] MEDS: ENOXAPARIN SODIUM SQ SCH (10:34)
[2023-03-06] MEDS: Levofloxacin 500 MG Tablet PO SCH (10:37)
[2023-03-06] MEDS: Protonix 40MG Tablet PO SCH ×2 (10:37→21:01)
[2023-03-06] MEDS: Vitamin C 500 MG PO SCH (10:40)
[2023-03-06] MEDS: Namenda 5 MG PO SCH ×2 (10:40→21:01)
[2023-03-06] MEDS: Zocor 10MG PO SCH (10:40)
[2023-03-06] MEDS: VITAMIN D PO SCH (10:41)
[2023-03-06] MEDS: MAG-OX 400 PO SCH (10:41)
[2023-03-06] MEDS: Vitamin B-12 500 MCG PO SCH (10:41)
[2023-03-06] MEDS: Miralax Powder 17GM PACKET PO SCH (10:46)
[2023-03-06] MEDS ORDERED: Miralax Powder 17GM PACKET PO PRN (10:55)
--- NOTE | 2023-03-06 11:13 | PCM.NOTE ---
Date and Time: 03/06/23 1047 Subjective Assessment: 03/05/23 is a 72 year old female with past medical history of coronary artery disease with stenting, seizures, stroke, CAD, HTN, OA, anxiety, depression, end stage dementia, and chronic UTI's. She was seen here today at the hospital for an EGD that was done with Dr. Aleman with [facility] anesthesia. She was discharged around 930 am, went home and to bed, woke up around 115 to use restroom and passed twice on the commode while having a bowel movement. She has not ate or drank anything all day per family as she refused to do so. Reports generalized weakness and no focal numbness tingling or weakness. Denies any difficulty speech or visual disturbance. Denies any chest pain palpitations or shortness of breath. Daughter reports patient having similar symptoms multiple times in the past as well. CT head and CXR negative for any acute process. Will further evaluate with echo and carotid duplex in the AM. Will also check for a UTI since she has a past hx of this. Sxs most likely r/t not eating or drinking all day in combination with MAC sedation and end stage dementia. She is sleeping an was u nable to answer my questions at time of assessment. Family was the historians. ASA held x1 week per Dr. Aleman's order. 03/06/23 Pt resting in bed. She is awake and alert today eating biscuits and gravy. She is asking to go home. Discussed labs, orthostats, and that she has a UTI. Will consider possible d/c tomorrow. CO2 is 15- bicarb gtt started. BP was elevatd overnight and IV PRN blood pressure meds not given. Discussed with day shift nurse to pass on that there is PRN medication there if needed. She continues to be sleepy but this is her baseline. She denies any further concerns at this davide e. - Review of Systems Constitutional: No Fever, No Chills Eyes: No Symptoms Ears, Nose, & Throat: No Symptoms Respiratory: No Cough, No Short Of Breath Cardiac: No Chest Pain, No Edema, No Syncope Abdominal/Gastrointestinal: No Abdominal Pain, No Nausea, No Vomiting, No Diarrhea Genitourinary Symptoms: No Dysuria Musculoskeletal: No Back Pain, No Neck Pain Skin: No Rash Neurological: No Dizziness, No Focal Weakness, No Sensory Changes Psychological: No Symptoms Endocrine: No Symptoms Hematologic/Lymphatic: No Symptoms Immunological/Allergic: No Symptoms Objective Exam General Appearance: no apparent distress, alert Neurologic Exam: alert, oriented x 3, cooperative, normal mood/affect, nml cerebellar function, sensation nml, No motor deficits Skin Exam: normal color, warm, dry Eye Exam: PERRL, EOMI, eyes nml inspection Ears, Nose, Throat Exam: normal ENT inspection, pharynx normal, moist mucous membranes Neck Exam: normal inspection, non-tender, supple, full range of motion Respiratory Exam: normal breath sounds, lungs clear, No respiratory distress Cardiovascular Exam: regular rate/rhythm, normal heart sounds Gastrointestinal/Abdomen Exam: soft, No tenderness, No mass Extremity Exam: normal inspection, normal range of motion Back Exam: normal inspection, normal range of motion, No CVA tenderness, No vertebral tenderness Pelvic Exam: deferred Rectal Exam: deferred OBJECTIVE DATA Vital Signs: Vital Signs - 24 hr Temp Pulse Resp BP BP Pulse Ox 03/06/23 10:00 74 136/64 03/06/23 08:00 97.3 F 96 H 15 150/66 96 03/06/23 04:00 98.8 F 84 15 172/72 96 03/06/23 00:00 16 03/05/23 23:45 97.8 F 84 18 181/79 96 03/05/23 20:17 95 03/05/23 20:00 98.3 F 75 16 207/81 98 03/05/23 18:56 87 03/05/23 18:09 98.3 F 75 16 197/82 99 03/05/23 17:00 73 13 157/81 100 03/05/23 16:57 90 L 03/05/23 16:30 72 17 168/54 98 03/05/23 15:34 70 11 L 98 03/05/23 15:30 71 29 H 164/74 97 03/05/23 15:00 68 15 141/57 100 03/05/23 14:00 69 12 130/51 95 03/05/23 13:52 96.0 F 65 18 118/53 90 L Pain Assessment - Last Documented Pain Intensity 0 Intake and Output: Intake & Output 03/03/23 03/04/23 03/05/23 03/06/23 11:59 11:59 11:59 11:59 Intake Total 889 Balance 889 Weight 52.5 kg Lab Results: Lab Results-Last 24 Hours 03/05/23 03/05/23 03/05/23 Range/Units 15:00 15:00 15:00 WBC 13.0 H (4.0-10.5) x10^3/uL RBC 3.68 L (4.1-5.4) x10^6/uL Hgb 11.0 L (12.0-16.0) g/dL Hct 34.3 L (35-47) % MCV 93.2 (78-100) fL MCH 29.9 (26-32) pg MCHC 32.1 (32-36) g/dL RDW 13.6 (11.5-14.0) % Plt Count 220 (150-450) x10^3/uL MPV 10.4 (7.5-11.0) fL Gran % 79.1 H (36.0-66.0) % Immature Gran % (Auto) 0.4 (0.00-0.4) % Nucleat RBC Rel Count 0.0 (0.00-0.1) % Eos # (Auto) 0.05 (0-0.5) x10^3/uL Immature Gran # (Auto) 0.05 H (0.00-0.03) x10^3u/L Absolute Lymphs (auto) 1.60 (1.0-4.6) x10^3/uL Absolute Monos (auto) 0.96 (0.0-1.3) x10^3/uL Absolute Nucleated RBC 0.00 (0.00-0.01) x10^3u/L Lymphocytes % 12.3 L (24.0-44.0) % Monocytes % 7.4 (0.0-12.0) % Eosinophils % 0.4 (0.00-5.0) % Basophils % 0.4 (0.0-0.4) % Absolute Granulocytes 10.26 H (1.4-6.9) x10^3/uL Basophils # 0.05 (0-0.4) x10^3/uL Puncture Site pCO2 (35-45) mmHg pO2 (75-100) mmHg Base Excess (-2.0-2.0) O2 Saturation (94-100) g/dF ABG pH (7.35-7.45) ABG HCO3 (22-28) ABG O2 Sat (Measured) (95-100) % Julio Test A-a Gradient a/A Ratio Hemoglobin Carboxyhemoglobin (0.0-6.9) % THgb Methemoglobin (1.4-1.5) % Temperature C POC O2 Flow Rate % Sodium 139 (137-145) mmol/L Potassium 3.4 L (3.5-5.1) mmol/L Chloride 113 H (98-107) mmol/L Carbon Dioxide 17 L (22-30) mmol/L Anion Gap 12.6 (5-15) MEQ/L BUN 24 H (7-17) mg/dL Creatinine 0.64 (0.52-1.04) mg/dL Estimated GFR 93.3 ML/MIN Glucose 114 H (74-106) mg/dL Lactic Acid (0.4-2.0) Calcium 8.3 L (8.4-10.2) mg/dL Magnesium 1.8 (1.6-2.3) mg/dL Total Bilirubin 0.50 (0.2-1.3) mg/dL AST 59 H (14-36) U/L ALT 90 H (0-35) U/L Alkaline Phosphatase 94 (38-126) U/L Troponin I < 0.012 (0.000-0.034) ng/mL NT-Pro-B Natriuret Pep 1020 (<300) pg/mL Serum Total Protein 6.2 L (6.3-8.2) g/dL Albumin 3.4 L (3.5-5.0) g/dL Prealbumin (17.6-36.0) mg/dL Urine Color (Yellow) Urine Appearance (Clear) Urine pH (4.6-8.0) Ur Specific [place] (1.005-1.030) Urine Protein (Negative) Urine Glucose (UA) (Negative) mg/dL Urine Ketones (Negative) Urine Blood (Negative) Urine Nitrite (Negative) Urine Bilirubin (Negative) Urine Urobilinogen (0.2) mg/dL Ur Leukocyte Esterase (Negative) U Hyaline Cast (Auto) (0-2) /LPF Urine Microscopic RBC (0-5) /HPF Urine Microscopic WBC (0-5) /HPF Ur Epithelial Cells (None Seen) /HPF Urine Bacteria (None Seen) /HPF Urine Culture Reflexed (NO) Influenza Type A Ag (NEGATIVE) Influenza Type B Ag (NEGATIVE) RSV (PCR) (NEGATIVE) SARS-CoV-2 (PCR) (NEGATIVE) 03/05/23 03/05/23 03/05/23 Range/Units 15:00 15:10 15:10 WBC (4.0-10.5) x10^3/uL RBC (4.1-5.4) x10^6/uL Hgb (12.0-16.0) g/dL Hct (35-47) % MCV (78-100) fL MCH (26-32) pg MCHC (32-36) g/dL RDW (11.5-14.0) % Plt Count (150-450) x10^3/uL MPV (7.5-11.0) fL Gran % (36.0-66.0) % Immature Gran % (Auto) (0.00-0.4) % Nucleat RBC Rel Count (0.00-0.1) % Eos # (Auto) (0-0.5) x10^3/uL Immature Gran # (Auto) (0.00-0.03) x10^3u/L Absolute Lymphs (auto) (1.0-4.6) x10^3/uL Absolute Monos (auto) (0.0-1.3) x10^3/uL Absolute Nucleated RBC (0.00-0.01) x10^3u/L Lymphocytes % (24.0-44.0) % Monocytes % (0.0-12.0) % Eosinophils % (0.00-5.0) % Basophils % (0.0-0.4) % Absolute Granulocytes (1.4-6.9) x10^3/uL Basophils # (0-0.4) x10^3/uL Puncture Site RIGHT RADIAL pCO2 32 L (35-45) mmHg pO2 152 H* (75-100) mmHg Base Excess -4.7 L (-2.0-2.0) O2 Saturation 95.4 (94-100) g/dF ABG pH 7.39 (7.35-7.45) ABG HCO3 19.4 L (22-28) ABG O2 Sat (Measured) 99.5 (95-100) % Julio Test YES A-a Gradient 8 a/A Ratio 0.95 Hemoglobin 11.5 Carboxyhemoglobin 2.8 (0.0-6.9) % THgb Methemoglobin 1.3 L (1.4-1.5) % Temperature 37.0 C POC O2 Flow Rate 28 % Sodium (137-145) mmol/L Potassium 3.4 L (3.5-5.1) mmol/L Chloride (98-107) mmol/L Carbon Dioxide (22-30) mmol/L Anion Gap (5-15) MEQ/L BUN (7-17) mg/dL Creatinine (0.52-1.04) mg/dL Estimated GFR ML/MIN Glucose (74-106) mg/dL Lactic Acid 1.3 (0.4-2.0) Calcium (8.4-10.2) mg/dL Magnesium (1.6-2.3) mg/dL Total Bilirubin (0.2-1.3) mg/dL AST (14-36) U/L ALT (0-35) U/L Alkaline Phosphatase (38-126) U/L Troponin I (0.000-0.034) ng/mL NT-Pro-B Natriuret Pep (<300) pg/mL Serum Total Protein (6.3-8.2) g/dL Albumin (3.5-5.0) g/dL Prealbumin (17.6-36.0) mg/dL Urine Color (Yellow) Urine Appearance (Clear) Urine pH (4.6-8.0) Ur Specific [place] (1.005-1.030) Urine Protein (Negative) Urine Glucose (UA) (Negative) mg/dL Urine Ketones (Negative) Urine Blood (Negative) Urine Nitrite (Negative) Urine Bilirubin (Negative) Urine Urobilinogen (0.2) mg/dL Ur Leukocyte Esterase (Negative) U Hyaline Cast (Auto) (0-2) /LPF Urine Microscopic RBC (0-5) /HPF Urine Microscopic WBC (0-5) /HPF Ur Epithelial Cells (None Seen) /HPF Urine Bacteria (None Seen) /HPF Urine Culture Reflexed (NO) Influenza Type A Ag NEGATIVE (NEGATIVE) Influenza Type B Ag NEGATIVE (NEGATIVE) RSV (PCR) NEGATIVE (NEGATIVE) SARS-CoV-2 (PCR) NEGATIVE (NEGATIVE) 03/05/23 03/06/23 03/06/23 Range/Units 20:15 04:31 04:31 WBC 8.8 (4.0-10.5) x10^3/uL RBC 3.23 L (4.1-5.4) x10^6/uL Hgb 9.5 L (12.0-16.0) g/dL Hct 30.1 L (35-47) % MCV 93.2 (78-100) fL MCH 29.4 (26-32) pg MCHC 31.6 L (32-36) g/dL RDW 13.7 (11.5-14.0) % Plt Count 217 (150-450) x10^3/uL MPV 10.6 (7.5-11.0) fL Gran % (36.0-66.0) % Immature Gran % (Auto) (0.00-0.4) % Nucleat RBC Rel Count (0.00-0.1) % Eos # (Auto) (0-0.5) x10^3/uL Immature Gran # (Auto) (0.00-0.03) x10^3u/L Absolute Lymphs (auto) (1.0-4.6) x10^3/uL Absolute Monos (auto) (0.0-1.3) x10^3/uL Absolute Nucleated RBC (0.00-0.01) x10^3u/L Lymphocytes % (24.0-44.0) % Monocytes % (0.0-12.0) % Eosinophils % (0.00-5.0) % Basophils % (0.0-0.4) % Absolute Granulocytes (1.4-6.9) x10^3/uL Basophils # (0-0.4) x10^3/uL Puncture Site pCO2 (35-45) mmHg pO2 (75-100) mmHg Base Excess (-2.0-2.0) O2 Saturation (94-100) g/dF ABG pH (7.35-7.45) ABG HCO3 (22-28) ABG O2 Sat (Measured) (95-100) % Julio Test A-a Gradient a/A Ratio Hemoglobin Carboxyhemoglobin (0.0-6.9) % THgb Methemoglobin (1.4-1.5) % Temperature C POC O2 Flow Rate % Sodium 138 (137-145) mmol/L Potassium 3.4 L (3.5-5.1) mmol/L Chloride 116 H (98-107) mmol/L Carbon Dioxide 15 L* (22-30) mmol/L Anion Gap 10.6 (5-15) MEQ/L BUN 19 H (7-17) mg/dL Creatinine 0.52 (0.52-1.04) mg/dL Estimated GFR 98.0 ML/MIN Glucose 80 (74-106) mg/dL Lactic Acid (0.4-2.0) Calcium 7.6 L (8.4-10.2) mg/dL Magnesium (1.6-2.3) mg/dL Total Bilirubin 0.40 (0.2-1.3) mg/dL AST 42 H (14-36) U/L ALT 68 H (0-35) U/L Alkaline Phosphatase 78 (38-126) U/L Troponin I (0.000-0.034) ng/mL NT-Pro-B Natriuret Pep (<300) pg/mL Serum Total Protein 5.7 L (6.3-8.2) g/dL Albumin 2.8 L (3.5-5.0) g/dL Prealbumin 17.65 (17.6-36.0) mg/dL Urine Color Yellow (Yellow) Urine Appearance Cloudy A (Clear) Urine pH 8.5 A (4.6-8.0) Ur Specific [place] 1.015 (1.005-1.030) Urine Protein 30 (Negative) Urine Glucose (UA) Negative (Negative) mg/dL Urine Ketones 15 A (Negative) Urine Blood Trace (Negative) Urine Nitrite Positive A (Negative) Urine Bilirubin Negative (Negative) Urine Urobilinogen 0.2 (0.2) mg/dL Ur Leukocyte Esterase Large A (Negative) U Hyaline Cast (Auto) 3-5 A (0-2) /LPF Urine Microscopic RBC 6-10 A (0-5) /HPF Urine Microscopic WBC 51-100 A (0-5) /HPF Ur Epithelial Cells None Seen (None Seen) /HPF Urine Bacteria Many A (None Seen) /HPF Urine Culture Reflexed YES (NO) Influenza Type A Ag (NEGATIVE) Influenza Type B Ag (NEGATIVE) RSV (PCR) (NEGATIVE) SARS-CoV-2 (PCR) (NEGATIVE) Radiology Exams: Radiology Procedures Category Date Time Status CAROTID BILATERAL [US] Routine Exams 03/06/23 09:14 Ordered CHEST 1 VIEW (PORTABLE) Stat Exams 03/05/23 14:21 Completed ECHO W/2D AND DOPPLER [US] Routine Exams 03/06/23 19:04 Ordered HEAD WITHOUT CONTRAST [CT] Stat Exams 03/05/23 14:20 Completed Assessment/Plan (1) Syncopal episodes Current Visit: Yes Status: Acute Qualifiers: Assessment & Plan: - Echo, carotid duplex - will check orthostats in AM - PT/OT - Post OP MAC anesthesia for EGD today. - end stage dementia- recommended Hospice in the past as she has poor quality of life and sleeps most of the time. - Family refused - Did not eat or drink today - BR with BRP 03/06/23 - IVF fluids stopped - Pt awake and alert - + orthostats - she is eating and drinking - + UTI Code(s): R55 - SYNCOPE AND COLLAPSE (2) Orthostatic hypotension Current Visit: No Status: Acute Assessment & Plan: - did not eat or drink anything today post procedure - Check orthostats in AM - IVF - regular diet 03/06/23 - + orthostats - IVF stopped d/t bicarb gtt started - PT/OT Code(s): I95.1 - ORTHOSTATIC HYPOTENSION (3) Dementia Current Visit: No Status: Chronic Assessment & Plan: - Chronic end stage- adds to complexity - Lives with children and they are her caretakers - Hospice recommended in the past - refused by family - agreeable to [facility] Code(s): F03.90 - UNSP DEMENTIA, UNSP SEVERITY, WITHOUT BEH/PSYCH/MOOD/ANX (4) Hypokalemia Current Visit: Yes Status: Acute Assessment & Plan: - K+ 3.4 replaced - trend - Tele 03/06 - K+ 3.4 - replaced - trend Code(s): E87.6 - HYPOKALEMIA (5) Carbon dioxide, decreased level Current Visit: Yes Status: Acute Assessment & Plan: - CO2 15 - Bicarb gtt started Code(s): R79.81 - ABNORMAL BLOOD-GAS LEVEL (6) HTN (hypertension) Current Visit: Yes Status: Acute Assessment & Plan: - acute - BP elevated last night, improved this AM - PRN hydrazine Code(s): I10 - ESSENTIAL (PRIMARY) HYPERTENSION (7) UTI (urinary tract infection) Current Visit: Yes Status: Acute Assessment & Plan: - Levaquin started last night - UC pending Code(s): N39.0 - URINARY TRACT INFECTION, SITE NOT SPECIFIED (8) Abnormal AST and ALT Current Visit: Yes Status: Acute Assessment & Plan: - AST 59, ALT 90 - Most likely 2:2 not eating drinking today. - Should improve with IVF 03/06 - AST 42, ALT 68 VTE: lovenox PPI: pantoprazole Code status: Full Next of kin: Son and daughter D/C plan: tomorrow Code(s): R74.8 - ABNORMAL LEVELS OF OTHER SERUM ENZYMES
[2023-03-06] MEDS ORDERED: NON-FORMULARY ITEM (Multivitamin [Multivitamin] 1 EACH Tablet) PO SCH (12:00)
--- NOTE | 2023-03-06 12:23 | XRAY ---
Indication: Syncope. Two-dimensional sonogram and color Doppler imaging carotid arteries of the neck performed. Comparison: None Examination right carotid circulation demonstrates widely patent common carotid artery. There is minimal/mild heterogeneous plaquing at the level of the bulb extending to the origin of the internal carotid and external carotid arteries. PSV CCA is 74 cm/s. PSV ICA is 157 cm/s. ICA/CCA ratio is 2.1. Normal antegrade vertebral artery flow. Examination of the left carotid circulation demonstrates minimal soft plaquing throughout the common carotid. Carotid bulb demonstrates minimal calcified plaquing extending into origin of the internal carotid artery. Additional minimal scattered disease in the internal carotid artery. Widely patent external carotid artery. PSV CCA is 129 cm/s. PSV ICA is 136 cm/s. ICA/CCA ratio is 1.1. Normal antegrade vertebral artery flow. Impression: Minimal/mild scattered arteriosclerotic disease bilaterally as detailed. Velocity measurements and ratios favor 50-69% stenosis bilaterally.
[2023-03-06] MEDS: Aricept 10 MG PO SCH (12:28)
[2023-03-06] MEDS: THERAGRAN MULTIVITAMIN PO SCH (12:28)
[2023-03-06 15:21] LABS: IFOB TEST RESULTS POSITIVE (NEGATIVE)
[2023-03-06] MEDS: TOPIRAMATE PO SCH (21:01)
[2023-03-06] MEDS ORDERED: ZOLOFT 50 MG TABLET PO SCH (22:00)
[2023-03-06] MEDS: APRESOLINE 20 MG/ML INJ IV PRN (23:42)
[2023-03-07] MEDS: APRESOLINE 20 MG/ML INJ IV PRN (03:44)
[2023-03-07 06:10] LABS: Hematocrit 34.5 % (35-47); Mean Cell Volume 92.7 fL (78-100); Mean Corpuscular Hemoglobin 29.6 pg (26-32); Mean Corpuscular Hgb Concent. 31.9 g/dL (32-36); Mean Platelet Volume 10.9 fL (7.5-11.0); Platelet Count 231 x10^3/uL (150-450); Red Blood Count 3.72 x10^6/uL (4.1-5.4); Red Cell Distribution Width 13.8 % (11.5-14.0); White Blood Count 7.4 x10^3/uL (4.0-10.5)
[2023-03-07 06:26] LABS: ALBUMIN 3.5 g/dL (3.5-5.0); ANION GAP 8.6 MEQ/L (5-15); BILIRUBIN,TOTAL 0.5 mg/dL (0.2-1.3); Calcium 8.5 mg/dL (8.4-10.2); Creatinine 1 0.48 mg/dL (0.52-1.04); Potassium 3.2 mmol/L (3.5-5.1); Total Protein 6.5 g/dL (6.3-8.2)
[2023-03-07] MEDS ORDERED: Klor Con PO ONE (07:22)
[2023-03-07 07:24] VITALS: TEMP 97.3
[2023-03-07] MEDS: PATIENT OWN MEDICATION PO SCH ×2 (07:47→11:41)
[2023-03-07] MEDS: Sodium Bicarbonate 50 MEQ/50 ML VIAL*** 150 MEQ in Dextrose 5%/Water IV Soln. 1000 ML 1... IV SCH (08:05)
[2023-03-07] MEDS: VITAMIN D PO SCH (09:31)
[2023-03-07] MEDS: ENOXAPARIN SODIUM SQ SCH (09:31)
[2023-03-07] MEDS: Namenda 5 MG PO SCH (09:31)
[2023-03-07] MEDS: Levofloxacin 500 MG Tablet PO SCH (09:32)
[2023-03-07] MEDS: Protonix 40MG Tablet PO SCH (09:32)
[2023-03-07] MEDS: MAG-OX 400 PO SCH (09:32)
[2023-03-07] MEDS: Vitamin C 500 MG PO SCH (09:32)
[2023-03-07] MEDS: Vitamin B-12 500 MCG PO SCH (09:32)
[2023-03-07] MEDS: Zocor 10MG PO SCH (09:32)
--- NOTE | 2023-03-07 11:33 | PCM.DS ---
Discharge Summary Date of Admission: 03/05/23 17:28 Date of Discharge: 03/07/23 Admitting Physician: KACIE FRANCIS MD Primary Care Provider: SANCHO LEGER <MARY JANE GRIFFITH - Last Filed: 03/07/23 11:27> Date of Admission: 03/05/23 17:28 Date of Discharge: 03/07/23 Admitting Physician: KACIE FRANCIS MD Primary Care Provider: SANCHO LEGER <NATALIA BUI - Last Filed: 03/07/23 17:49> Allergies <MARYJ ANE GRIFFITH - Last Filed: 03/07/23 11:27> <NATALIA BUI - Last Filed: 03/07/23 17:49> Allergies eslicarbazepine Allergy (Verified 03/05/23 14:14) aptiom levetiracetam [From [facility]] Adverse Reaction (Verified 03/05/23 14:14) Hospital Summary - Hospital Course Hospital Course: 03/05/23 is a 72 year old female with past medical history of coronary artery disease with stenting, seizures, stroke, CAD, HTN, OA, anxiety, depression, end stage dementia, and chronic UTI's. She was seen here today at the hospital for an EGD that was done with Dr. Aleman with [facility] anesthesia. She was discharged around 930 am, went home and to bed, woke up around 115 to use restroom and passed twice on the commode while having a bowel movement. She has not ate or drank anything all day per family as she refused to do so. Reports generalized weakness and no focal numbness tingling or weakness. Denies any difficulty speech or visual disturbance. Denies any chest pain palpitations or shortness of breath. Daughter reports patient having similar symptoms multiple times in the past as well. CT head and CXR negative for any acute process. Will further evaluate with echo and carotid duplex in the AM. Will also check for a UTI since she has a past hx of this. Sxs most likely r/t not eating or drinking all day in combination with MAC sedation and end stage dementia. She is sleeping an was unable to answer my questions at time of assessment. Family was the historians. ASA held x1 week per Dr. Aleman's order. 03/06/23 Pt resting in bed. She is awake and alert today eating biscuits and gravy. She is asking to go home. Discussed labs, orthostats, and that she has a UTI. Will consider possible d/c tomorrow. CO2 is 15- bicarb gtt started. BP was elevatd overnight and IV PRN blood pressure meds not given. Discussed with day shift nurse to pass on that there is PRN medication there if needed. She continues to be sleepy but this is her baseline. She denies any further concerns at this time. 03/07/23 Pt resting in bed. She is feeling much better. CO2 has normalized. UA culture came back gram negative, sensitivity pending. Will d/c with Levaquin. She is wanting to go home today. She continues to be orthostatic. She does not eat or drink well due to her advanced dementia. Will add midodrine TID. She did have a + occult stool yesterday. Hgb stable. She can F/u with GS OP. K+ low and replaced this AM. Will d/c with replacement. She denies any further concerns at this time. - Vitals & Intake/Output Vital Signs: Vital Signs Temperature 97.3 F 03/07/23 07:23 Pulse Rate 82 03/07/23 07:23 Respiratory Rate 18 03/07/23 08:00 Blood Pressure 148/67 03/07/23 07:23 O2 Sat by Pulse Oximetry 97 03/07/23 07:39 Intake & Output: Intake & Output 03/04/23 03/05/23 03/06/23 03/07/23 11:59 11:59 11:59 11:59 Intake Total 889 3270 Output Total 600 Balance 889 6020 Weight 52.5 kg - Lab Result Diagrams: 03/07/23 05:10 03/07/23 05:10 Lab Results-Last 24 Hrs: Lab Results-Last 24 Hours 03/06/23 03/06/23 03/07/23 Range/Units 19:33 Unknown 05:10 WBC 7.4 (4.0-10.5) x10^3/uL RBC 3.72 L (4.1-5.4) x10^6/uL Hgb 11.0 L (12.0-16.0) g/dL Hct 34.5 L (35-47) % MCV 92.7 (78-100) fL MCH 29.6 (26-32) pg MCHC 31.9 L (32-36) g/dL RDW 13.8 (11.5-14.0) % Plt Count 231 (150-450) x10^3/uL MPV 10.9 (7.5-11.0) fL Sodium (137-145) mmol/L Potassium 3.9 (3.5-5.1) mmol/L Chloride (98-107) mmol/L Carbon Dioxide (22-30) mmol/L Anion Gap (5-15) MEQ/L BUN (7-17) mg/dL Creatinine (0.52-1.04) mg/dL Estimated GFR ML/MIN Glucose (74-106) mg/dL Calcium (8.4-10.2) mg/dL Total Bilirubin (0.2-1.3) mg/dL AST (14-36) U/L ALT (0-35) U/L Alkaline Phosphatase (38-126) U/L Serum Total Protein (6.3-8.2) g/dL Albumin (3.5-5.0) g/dL Stl Occult Blood (IFOB) POSITIVE A (NEGATIVE) 03/07/23 Range/Units 05:10 WBC (4.0-10.5) x10^3/uL RBC (4.1-5.4) x10^6/uL Hgb (12.0-16.0) g/dL Hct (35-47) % MCV (78-100) fL MCH (26-32) pg MCHC (32-36) g/dL RDW (11.5-14.0) % Plt Count (150-450) x10^3/uL MPV (7.5-11.0) fL Sodium 139 (137-145) mmol/L Potassium 3.2 L (3.5-5.1) mmol/L Chloride 109 H (98-107) mmol/L Carbon Dioxide 24 (22-30) mmol/L Anion Gap 8.6 (5-15) MEQ/L BUN 7 (7-17) mg/dL Creatinine 0.48 L (0.52-1.04) mg/dL Estimated GFR 100.0 ML/MIN Glucose 103 (74-106) mg/dL Calcium 8.5 (8.4-10.2) mg/dL Total Bilirubin 0.50 (0.2-1.3) mg/dL AST 65 H (14-36) U/L ALT 77 H (0-35) U/L Alkaline Phosphatase 94 (38-126) U/L Serum Total Protein 6.5 (6.3-8.2) g/dL Albumin 3.5 (3.5-5.0) g/dL Stl Occult Blood (IFOB) (NEGATIVE) Micro Results-Entire Visit: Microbiology 03/05/23 20:15 Urine Culture - Preliminary Urine, Void GRAM NEGATIVE ID AND SENSITIVITY PENDING - Radiology Exams Ordered Rad Exams-Entire Visit: Radiology Procedures Category Date Time Status CAROTID BILATERAL [US] Routine Exams 03/06/23 09:14 Completed CHEST 1 VIEW (PORTABLE) Stat Exams 03/05/23 14:21 Completed ECHO W/2D AND DOPPLER [US] Routine Exams 03/06/23 19:04 Taken HEAD WITHOUT CONTRAST [CT] Stat Exams 03/05/23 14:20 Completed - Procedures and Test Procedures and Tests throughout Hospitalization: Therapy Orders & Screens 03/05/23 17:36 Oxygen Nasal Cannula 2 lpm Comment: Respiratory Therapy Consult ONCE Comment: Reason For Exam: 03/05/23 18:43 PT Screen per Nursing Assess ONCE Comment: Protocol Order Physician Instructions: Greater than 3 points order PT Admission Screenin Reason For Exam: Triggered on Admission Diagnosis: syncope Open Wound/Cellutlitis/Pressure Ulcers: No Acute Fx/ORIF/Change in wt bearing status: No Severe MUSCULOSKELETAL pain: No ADL Dysfunction: Yes Acute CVA w/Hemiparesis/Hemiplegia: No Decreased Functional Mobility/Strength: Yes Sprain/Strain: No Acute Post-op Mobility Dysfunction: No Total Points: 4 03/05/23 19:21 PT Eval & Treat ( Order) ONCE Reason for Eval:: weakness, syncope Diagnosis: syncope OT Eval and Treat (MD Order) ONCE Comment: Physician Instructions: Reason For Exam: Diagnosis: syncope <MARY JANE GRIFFITH - Last Filed: 03/07/23 11:27> - Vitals & Intake/Output Vital Signs: Vital Signs Temperature 97.3 F 03/07/23 12:00 Pulse Rate 88 03/07/23 12:00 Respiratory Rate 17 03/07/23 12:00 Blood Pressure 110/55 03/07/23 12:00 O2 Sat by Pulse Oximetry 96 03/07/23 12:00 Intake & Output: Intake & Output 03/05/23 03/06/23 03/07/23 03/08/23 11:59 11:59 11:59 11:59 Intake Total 889 3270 Output Total 600 Balance 889 2670 Weight 52.5 kg - Lab Result Diagrams: 03/07/23 05:10 03/07/23 05:10 Lab Results-Last 24 Hrs: Lab Results-Last 24 Hours 03/06/23 03/07/23 03/07/23 Range/Units 19:33 05:10 05:10 WBC 7.4 (4.0-10.5) x10^3/uL RBC 3.72 L (4.1-5.4) x10^6/uL Hgb 11.0 L (12.0-16.0) g/dL Hct 34.5 L (35-47) % MCV 92.7 (78-100) fL MCH 29.6 (26-32) pg MCHC 31.9 L (32-36) g/dL RDW 13.8 (11.5-14.0) % Plt Count 231 (150-450) x10^3/uL MPV 10.9 (7.5-11.0) fL Sodium 139 (137-145) mmol/L Potassium 3.9 3.2 L (3.5-5.1) mmol/L Chloride 109 H (98-107) mmol/L Carbon Dioxide 24 (22-30) mmol/L Anion Gap 8.6 (5-15) MEQ/L BUN 7 (7-17) mg/dL Creatinine 0.48 L (0.52-1.04) mg/dL Estimated GFR 100.0 ML/MIN Glucose 103 (74-106) mg/dL Calcium 8.5 (8.4-10.2) mg/dL Total Bilirubin 0.50 (0.2-1.3) mg/dL AST 65 H (14-36) U/L ALT 77 H (0-35) U/L Alkaline Phosphatase 94 (38-126) U/L Serum Total Protein 6.5 (6.3-8.2) g/dL Albumin 3.5 (3.5-5.0) g/dL Micro Results-Entire Visit: Microbiology 03/05/23 20:15 Urine Culture - Preliminary Urine, Void GRAM NEGATIVE ID AND SENSITIVITY PENDING - Radiology Exams Ordered Rad Exams-Entire Visit: Radiology Procedures Category Date Time Status CAROTID BILATERAL [US] Routine Exams 03/06/23 09:14 Completed ECHO W/2D AND DOPPLER [US] Routine Exams 03/06/23 19:04 Taken - Procedures and Test Procedures and Tests throughout Hospitalization: Therapy Orders & Screens 03/05/23 17:36 Oxygen Nasal Cannula 2 lpm Comment: Respiratory Therapy Consult ONCE Comment: Reason For Exam: 03/05/23 18:43 PT Screen per Nursing Assess ONCE Comment: Protocol Order Physician Instructions: Greater than 3 points order PT Admission Screenin Reason For Exam: Triggered on Admission Diagnosis: syncope Open Wound/Cellutlitis/Pressure Ulcers: No Acute Fx/ORIF/Change in wt bearing status: No Severe MUSCULOSKELETAL pain: No ADL Dysfunction: Yes Acute CVA w/Hemiparesis/Hemiplegia: No Decreased Functional Mobility/Strength: Yes Sprain/Strain: No Acute Post-op Mobility Dysfunction: No Total Points: 4 03/05/23 19:21 PT Eval & Treat (MD Order) ONCE Reason for Eval:: weakness, syncope Diagnosis: syncope OT Eval and Treat (MD Order) ONCE Comment: Physician Instructions: Reason For Exam: Diagnosis: syncope <NATALIA BUI - Last Filed: 03/07/23 17:49> Discharge Exam General Appearance: no apparent distress, alert Neurologic Exam: alert, oriented x 3, cooperative, normal mood/affect, nml cerebellar function, sensation nml, No motor deficits Eye Exam: PERRL, EOMI, eyes nml inspection Ears, Nose, Throat Exam: normal ENT inspection, pharynx normal, moist mucous membranes Neck Exam: normal inspection, non-tender, supple, full range of motion Respiratory Exam: normal breath sounds, lungs clear, No respiratory distress Cardiovascular Exam: regular rate/rhythm, normal heart sounds Gastrointestinal/Abdomen Exam: soft, No tenderness, No mass Pelvic Exam: deferred Rectal Exam: deferred Back Exam: normal inspection, normal range of motion, No CVA tenderness, No vertebral tenderness Extremity Exam: normal inspection, normal range of motion Skin Exam: normal color, warm, dry <MARY JANE GRIFFITH - Last Filed: 03/07/23 11:27> Final Diagnosis/Problem List - Final Discharge Diagnosis/Problem (1) Syncopal episodes Status: Acute Assessment & Plan: - Echo, carotid duplex - will check orthostats in AM - PT/OT - Post OP MAC anesthesia for EGD today. - end stage dementia- recommended Hospice in the past as she has poor quality of life and sleeps most of the time. - Family refused - Did not eat or drink today - BR with BRP 03/06/23 - IVF fluids stopped - Pt awake and alert - + orthostats - she is eating and drinking - + UTI 03/07/23 - US Carotid BL Impression: Minimal/mild scattered arteriosclerotic disease bilaterally as detailed. Velocity measurements and ratios favor 50-69% stenosis bilaterally. - Echo results pending, EF73% estimated per tech Code(s): R55 - SYNCOPE AND COLLAPSE (2) Orthostatic hypotension Status: Acute Assessment & Plan: - did not eat or drink anything today post procedure - Check orthostats in AM - IVF - regular diet 03/06/23 - + orthostats - IVF stopped d/t bicarb gtt started - PT/OT 03/07 - + Orthostats today - pt does not eat or drink well generally due her advanced stage dementia - adding midodrine 5mg TID for home Code(s): I95.1 - ORTHOSTATIC HYPOTENSION (3) Dementia Status: Chronic Assessment & Plan: - Chronic end stage- adds to complexity - Lives with children and they are her caretakers - Hospice recommended in the past - refused by family - agreeable to [facility] Code(s): F03.90 - UNSP DEMENTIA, UNSP SEVERITY, WITHOUT BEH/PSYCH/MOOD/ANX (4) Hypokalemia Status: Acute Assessment & Plan: - K+ 3.4 replaced - trend - Tele 03/06 - K+ 3.4 - replaced - trend 03/07 - K+ 3.2 replaced Code(s): E87.6 - HYPOKALEMIA (5) Carbon dioxide, decreased level Status: Acute Assessment & Plan: - bicarb gtt stopped - resolved Code(s): R79.81 - ABNORMAL BLOOD-GAS LEVEL (6) HTN (hypertension) Status: Acute Assessment & Plan: - acute - BP elevated last night, improved this AM - PRN hydrazine Code(s): I10 - ESSENTIAL (PRIMARY) HYPERTENSION (7) UTI (urinary tract infection) Status: Acute Assessment & Plan: - Levaquin - UC gram negative - sensitivity pending Code(s): N39.0 - URINARY TRACT INFECTION, SITE NOT SPECIFIED (8) Abnormal AST and ALT Status: Acute Assessment & Plan: - AST 59, ALT 90 - Most likely 2:2 not eating drinking today. - Should improve with IVF Code(s): R74.8 - ABNORMAL LEVELS OF OTHER SERUM ENZYMES <MARY JANE GRIFFITH - Last Filed: 03/07/23 11:27> - Discharge Discharge Date: 03/07/23 <MARY JANE GRIFFITH - Last Filed: 03/07/23 11:27> <NATALIA BUI - Last Filed: 03/07/23 17:49> - Discharge Disposition: Home, Self-Care Condition: Stable Prescriptions: New Levofloxacin [Levofloxacin 500 MG Tablet] 500 mg PO DAILY 3 Days #3 tablet Midodrine HCl [Proamatine] 5 mg PO TID 30 Days #90 tablet Potassium Chloride Tab* [Klor Con] 20 meq PO BID 3 Days #12 tab Continue Sertraline HCl 100 mg PO HS PANTOPRAZOLE 40 mg Tablet [Protonix 40MG Tablet] 40 mg PO BID Aspirin 81 gm Chew [Baby Aspirin 81 mg Chew] 81 mg PO BID ursodioL [Ursodiol] 500 mg PO TID Topiramate 100 mg [Topamax 100 MG] 100 mg PO BID Alendronate Sodium 70 mg PO WEEKLY Magnesium Oxide [Magnesium] 400 mg PO DAILY Donepezil HCl 10 mg PO 1200 Cholecalciferol (Vitamin D3) [Vitamin D3] 50 mcg PO DAILY Cyanocobalamin (Vitamin B-12) [Vitamin B-12] 1,000 mcg PO DAILY Multivitamin 1 tab PO 1200 Polyethylene Glycol 3350 17 gm [Miralax Powder 17GM PACKET] 17 gm PO BIDPRN PRN PRN Reason: Constipation Ascorbic Acid [Vitamin C] 250 mg PO DAILY Memantine HCl [Namenda] 10 mg PO BID Nitrofurantoin Macro 100 mg [Macrobid 100MG Capsule] 100 mg PO DAILY Atorvastatin Calcium 10 mg PO DAILY Nitroglycerin 0.4 mg Tablet [Nitrostat 0.4 MG Tablet] See Rx Instructions .ROUTE .COMPLEX estradioL [Estradiol] 42.5 gm VG UD Instructions: Hypokalemia (DC), Syncope (Fainting) (DC), Midodrine Additional Instructions: [facility] HAS BEEN SET UP AGAIN FOR YOU. THEY WILL CONTACT YOU TO ARRANGE A TIME TO COME SEE YOU. THEIR PHONE NUMBER IS [phone]. IF YOU NEED ANYTHING BEFORE THEY MAKE CONTACT. Use support stocking during the day and take off at night. Follow up with: SANCHO LEGER NP [Primary Care Provider] - Call for Appointment Forms: Discharge Instructions
[2023-03-07] MEDS: Aricept 10 MG PO SCH (11:40)
[2023-03-07] MEDS: THERAGRAN MULTIVITAMIN PO SCH (11:40)
[2023-03-07 12:30] VITALS: BP 110/55; PULSE 88; RESP 17
[2023-03-07 20:25] VITALS: O2SAT 90
[2023-03-08] MEDS ORDERED: Fosamax 70 MG PO SCH (06:00)
== END 2023-03-07 13:15 | disposition home or self-care (01) ==
LOC: ED 13:50 → MED SURG 17:28
PROVIDERS: ADMIT Internal Medicine; ATTEND Internal Medicine
DX: R55 Syncope and collapse (principal); F03.90 Unspecified dementia, unspecified severity, without behavioral disturbance, psychotic disturbance, mood disturbance, and anxiety; E87.6 Hypokalemia; R79.81 Abnormal blood-gas level; I10 Essential (primary) hypertension; I25.10 Atherosclerotic heart disease of native coronary artery without angina pectoris; N39.0 Urinary tract infection, site not specified; R74.8 Abnormal levels of other serum enzymes; Z79.899 Other long term (current) drug therapy; Z20.828 Contact with and (suspected) exposure to other viral communicable diseases
CPT/HCPCS: 0241U; 36415; 36600; 70450; 71045; 80053; 81001; 82375; 82803; 83605; 83735; 83880; 84132; 84134; 84484; 85025; 85027; 87077; 87086; 87186; 93306; 93880; 94640; 94760; 94762; 96360; 99284; G0328; Q3014; 82274; 93268; J0360; J1650; J3480; A9270-GY; G0378

== ENCOUNTER 2023-04-18 23:54 | Emergency (ER) | payer MEDICARE ==
[2023-04-19 00:19] VITALS: TEMP 99.3
--- NOTE | 2023-04-19 00:44 | ERPHSYRPT ---
- History of Present Illness Time Seen by Provider: 04/19/23 00:36 Source: patient, family, EMS Patient Subjective Stated Complaint: per ems, pt has had some vomiting, had a possible seizure tonight per ems. had loss of consciousness and appeared postictal upon ems arrival Triage Nursing Assessment: pt alert and oriented, answers questions approp. pt arrive per ambulance and transfers to [facility] with assist of 4. respirations nonlabored. skin warm and dry. abd soft and nontender to light palpation. bowel sounds present x4. Physician History: 72 years old female with multiple medical problems including history of coronary artery disease with stenting, orthostatic dizziness/hypotension, frequent episodes of lightheadedness leading to blackouts, questionable history of seizures on Topamax, hypothyroidism, some element of dementia is brought in the ER with complains of generalized weakness fatigue tiredness and earlier she had an episode of vomiting. Per EMS patient on their arrival seemed as if she was postictal. Per family she had multiple episodes similar to this in the past and usually happens when she has a UTI are being septic. Did not hit her head. Denies any chest pain palpitations or shortness of breath. Denies any abdominal pain or nausea currently. No focal numbness tingling or weakness reported. History is obtained from EMS/son and patient but patient is not a very good historian. Associated Symptoms: weakness Allergies/Adverse Reactions: eslicarbazepine Allergy (Verified 04/19/23 00:21) aptiom levetiracetam [From [facility]] Adverse Reaction (Verified 04/19/23 00:21) Home Medications: PANTOPRAZOLE 40 mg Tablet [Protonix 40MG Tablet] 40 mg PO HS 04/24/20 [History] Sertraline HCl 100 mg PO HS 04/24/20 [History] ursodioL [Ursodiol] 500 mg PO TID 10/17/20 [History] Alendronate Sodium 70 mg PO WEEKLY 04/18/22 [History] Cholecalciferol (Vitamin D3) [Vitamin D3] 50 mcg PO DAILY 04/18/22 [History] Donepezil HCl 10 mg PO 1200 04/18/22 [History] Magnesium Oxide [Magnesium] 400 mg PO DAILY 04/18/22 [History] Topiramate 100 mg [Topamax 100 MG] 100 mg PO BID 04/18/22 [History] Cyanocobalamin (Vitamin B-12) [Vitamin B-12] 1,000 mcg PO DAILY 05/30/22 [History] Multivitamin 1 tab PO 1200 05/30/22 [History] Ascorbic Acid [Vitamin C] 250 mg PO DAILY 06/27/22 [History] Memantine HCl [Namenda] 10 mg PO BID 06/27/22 [History] Polyethylene Glycol 3350 17 gm [Miralax Powder 17GM PACKET] 17 gm PO BIDPRN PRN 06/27/22 [History] Nitrofurantoin Macro 100 mg [Macrobid 100MG Capsule] 100 mg PO HS 10/14/22 [History] Atorvastatin Calcium 10 mg PO HS 12/27/22 [History] Nitroglycerin 0.4 mg Tablet [Nitrostat 0.4 MG Tablet] See Rx Instructions .ROUTE .COMPLEX 12/27/22 [History] estradioL [Estradiol] 42.5 gm VG UD 02/24/23 [History] Clopidogrel Bisulfate [Plavix] 75 mg PO DAILY 04/19/23 [History] Hx Tetanus, Diphtheria Vaccination/Date Given: No (unknown) Hx Influenza Vaccination/Date Given: No (unknown) Hx Pneumococcal Vaccination/Date Given: Yes Immunizations Up to Date: No Travel Risk - International Travel Have you traveled outside of the country in past 3 weeks: No - Coronavirus Screening Are you exhibiting any of the following symptoms?: No Close contact with a COVID-19 positive Pt in past 14-21 Days: No - Vaccine Status Have you recieved a Covid-19 vaccination: Yes 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 - Vaccination Dates Date of 2cond Vaccination (if applicable): 05/26/2020 - Review of Systems Constitutional: Fatigue, Weakness Eyes: No Symptoms Ears, Nose, & Throat: No Symptoms Respiratory: No Symptoms Cardiac: No Symptoms Abdominal/Gastrointestinal: Vomiting Genitourinary Symptoms: No Symptoms Musculoskeletal: Arthralgias Skin: No Symptoms Neurological: Dizziness Endocrine: No Symptoms Hematologic/Lymphatic: No Symptoms Immunological/Allergic: No Symptoms - Past Medical History Pertinent Past Medical History: Yes Neurological History: Seizures, Stroke ENT History: No Pertinent History Cardiac History: Angina, Coronary Artery Disease, Hypertension Respiratory History: No Pertinent History Endocrine Medical History: No Pertinent History Musculoskeletal History: Osteoporosis GI Medical History: Other History: No Pertinent History Psycho-Social History: Anxiety, Depression Female Reproductive Disorders: No Pertinent History Other Medical History: autoimmune liver disease. shingles - Past Surgical History Past Surgical History: Yes Neuro Surgical History: No Pertinent History Cardiac: Cardiac Stent Respiratory: No Pertinent History Gastrointestinal: Bowel Surgery, Cholecystectomy Genitourinary: No Pertinent History Musculoskeletal: No Pertinent History Female Surgical History: Section Other Surgical History: PARTIAL L HIP REPLACEMENT - Social History Smoking Status: Never smoker Exposure to second hand smoke: No Drug Use: none Patient Lives Alone: No Significant Family History: no pertinent family hx - Nursing Vital Signs Nursing Vital Signs: Initial Vital Signs Temperature 99.3 F 04/18/23 23:55 Pulse Rate 102 H 04/18/23 23:55 Respiratory Rate 16 04/18/23 23:55 Blood Pressure 129/65 04/18/23 23:55 O2 Sat by Pulse Oximetry 98 04/18/23 23:55 Pain Scale Pain Intensity 0 - Physical Exam General Appearance: no apparent distress, alert Eye Exam: PERRL/EOMI Ears, Nose, Throat Exam: normal ENT inspection, TMs normal, pharynx normal, moist mucous membranes Neck Exam: normal inspection, non-tender, supple, full range of motion Respiratory Exam: normal breath sounds, lungs clear Cardiovascular Exam: regular rate/rhythm, normal heart sounds Gastrointestinal/Abdomen Exam: soft, normal bowel sounds, No tenderness Back Exam: normal inspection, normal range of motion Extremity Exam: normal inspection, normal range of motion Neurologic Exam: alert, oriented x 3, cooperative, group leader semiconductor testing II-XII nml as tested, nml cerebellar function, sensation nml, No normal mood/affect, No motor deficits Skin Exam: normal color SpO2 Interpretation: normal SpO2: 98 O2 Delivery: Room Air - Course EKG Interpreted by Me: RATE (95), Sinus Rhythm, NORMAL AXIS, NORMAL INTERVALS, Non-specific ST Changes, Other (Nonspecific T wave changes) Ordered Tests: Active Orders 24 hr Category Date Time Status EKG-ER Only STAT Care 04/19/23 00:38 Active IV Insertion STAT Care 04/19/23 00:38 Active CHEST 1 VIEW (PORTABLE) Stat Exams 04/19/23 00:39 Taken BLOOD CULTURE Stat Lab 04/19/23 00:39 Received CBC W DIFF Stat Lab 04/19/23 01:07 Completed CMP Stat Lab 04/19/23 01:07 Completed LIPASE Stat Lab 04/19/23 01:07 Completed Lactic Acid Stat Lab 04/19/23 01:20 Completed MAGNESIUM Stat Lab 04/19/23 01:07 Completed PROCALCITONIN Stat Lab 04/19/23 01:09 Completed TROPONIN Q4H Lab 04/19/23 01:07 Completed TROPONIN Q4H Lab 04/19/23 04:45 Ordered TROPONIN Q4H Lab 04/19/23 08:45 Ordered UA W/RFX UR CULTURE Stat Lab 04/19/23 03:55 Completed Medication Summary Discontinued Medications Generic Name Dose Route Start Last Admin Trade Name Freq PRN Reason Stop Dose Admin Cephalexin HCl 500 mg 04/19/23 04:39 Cephalexin Mh500 Mg Capsule PO 04/19/23 04:40 STAT ONE Sodium Chloride 1,000 mls @ 999 mls/hr 04/19/23 00:38 04/19/23 01:02 Sodium Chloride 0.9% 1000 Ml IV 04/19/23 01:38 999 mls/hr .Q1H1M STA Administration Sodium Chloride Confirm 04/19/23 00:56 Sodium Chloride 0.9% 1000 Ml Administered 04/19/23 00:57 Dose 1,000 mls @ ud .ROUTE .STK-MED ONE Lab/Rad Data: Laboratory Result Diagrams 04/19/23 01:07 04/19/23 01:07 Laboratory Results 04/19/23 04/19/23 04/19/23 Range/Units 03:55 01:20 01:09 WBC (4.0-10.5) x10^3/uL RBC (4.1-5.4) x10^6/uL Hgb (12.0-16.0) g/dL Hct (35-47) % MCV (78-100) fL MCH (26-32) pg MCHC (32-36) g/dL RDW (11.5-14.0) % Plt Count (150-450) x10^3/uL MPV (7.5-11.0) fL Gran % (36.0-66.0) % Immature Gran % (Auto) (0.00-0.4) % Nucleat RBC Rel Count (0.00-0.1) % Eos # (Auto) (0-0.5) x10^3/uL Immature Gran # (Auto) (0.00-0.03) x10^3u/L Absolute Lymphs (auto) (1.0-4.6) x10^3/uL Absolute Monos (auto) (0.0-1.3) x10^3/uL Absolute Nucleated RBC (0.00-0.01) x10^3u/L Lymphocytes % (24.0-44.0) % Monocytes % (0.0-12.0) % Eosinophils % (0.00-5.0) % Basophils % (0.0-0.4) % Absolute Granulocytes (1.4-6.9) x10^3/uL Basophils # (0-0.4) x10^3/uL Sodium (137-145) mmol/L Potassium (3.5-5.1) mmol/L Chloride (98-107) mmol/L Carbon Dioxide (22-30) mmol/L Anion Gap (5-15) MEQ/L BUN (7-17) mg/dL Creatinine (0.52-1.04) mg/dL Estimated GFR ML/MIN Glucose (74-106) mg/dL Lactic Acid 1.8 (0.4-2.0) Calcium (8.4-10.2) mg/dL Magnesium (1.6-2.3) mg/dL Total Bilirubin (0.2-1.3) mg/dL AST (14-36) U/L ALT (0-35) U/L Alkaline Phosphatase (38-126) U/L Troponin I (0.000-0.034) ng/mL Serum Total Protein (6.3-8.2) g/dL Albumin (3.5-5.0) g/dL Lipase (23-300) U/L Procalcitonin 0.912 H (0.030-0.080) ng/mL Urine Color Yellow (Yellow) Urine Appearance Clear (Clear) Urine pH 5.5 (4.6-8.0) Ur Specific [place] 1.015 (1.005-1.030) Urine Protein Negative (Negative) Urine Glucose (UA) Negative (Negative) mg/dL Urine Ketones Negative (Negative) Urine Blood Negative (Negative) Urine Nitrite Negative (Negative) Urine Bilirubin Negative (Negative) Urine Urobilinogen 1.0 A (0.2) mg/dL Ur Leukocyte Esterase Trace A (Negative) U Hyaline Cast (Auto) NONE SEEN (0-2) /LPF Urine Microscopic RBC 0-2 (0-5) /HPF Urine Microscopic WBC 0-2 (0-5) /HPF Ur Epithelial Cells None Seen (None Seen) /HPF Urine Bacteria None Seen (None Seen) /HPF Urine Culture Reflexed NO (NO) 04/19/23 04/19/23 04/19/23 Range/Units 01:07 01:07 01:07 WBC 14.7 H (4.0-10.5) x10^3/uL RBC 3.95 L (4.1-5.4) x10^6/uL Hgb 11.8 L (12.0-16.0) g/dL Hct 36.1 (35-47) % MCV 91.4 (78-100) fL MCH 29.9 (26-32) pg MCHC 32.7 (32-36) g/dL RDW 13.5 (11.5-14.0) % Plt Count 202 (150-450) x10^3/uL MPV 10.6 (7.5-11.0) fL Gran % 88.3 H (36.0-66.0) % Immature Gran % (Auto) 0.6 H (0.00-0.4) % Nucleat RBC Rel Count 0.0 (0.00-0.1) % Eos # (Auto) 0.01 (0-0.5) x10^3/uL Immature Gran # (Auto) 0.09 H (0.00-0.03) x10^3u/L Absolute Lymphs (auto) 0.55 L (1.0-4.6) x10^3/uL Absolute Monos (auto) 1.03 (0.0-1.3) x10^3/uL Absolute Nucleated RBC 0.00 (0.00-0.01) x10^3u/L Lymphocytes % 3.7 L (24.0-44.0) % Monocytes % 7.0 (0.0-12.0) % Eosinophils % 0.1 (0.00-5.0) % Basophils % 0.3 (0.0-0.4) % Absolute Granulocytes 13.00 H (1.4-6.9) x10^3/uL Basophils # 0.04 (0-0.4) x10^3/uL Sodium 139 (137-145) mmol/L Potassium 3.2 L (3.5-5.1) mmol/L Chloride 112 H (98-107) mmol/L Carbon Dioxide 21 L (22-30) mmol/L Anion Gap 9.3 (5-15) MEQ/L BUN 21 H (7-17) mg/dL Creatinine 0.70 (0.52-1.04) mg/dL Estimated GFR 91.3 ML/MIN Glucose 137 H (74-106) mg/dL Lactic Acid (0.4-2.0) Calcium 9.2 (8.4-10.2) mg/dL Magnesium 1.9 (1.6-2.3) mg/dL Total Bilirubin 0.90 (0.2-1.3) mg/dL AST 246 H (14-36) U/L ALT 133 H (0-35) U/L Alkaline Phosphatase 125 (38-126) U/L Troponin I < 0.012 (0.000-0.034) ng/mL Serum Total Protein 6.2 L (6.3-8.2) g/dL Albumin 3.6 (3.5-5.0) g/dL Lipase 143 (23-300) U/L Procalcitonin (0.030-0.080) ng/mL Urine Color (Yellow) Urine Appearance (Clear) Urine pH (4.6-8.0) Ur Specific [place] (1.005-1.030) Urine Protein (Negative) Urine Glucose (UA) (Negative) mg/dL Urine Ketones (Negative) Urine Blood (Negative) Urine Nitrite (Negative) Urine Bilirubin (Negative) Urine Urobilinogen (0.2) mg/dL Ur Leukocyte Esterase (Negative) U Hyaline Cast (Auto) (0-2) /LPF Urine Microscopic RBC (0-5) /HPF Urine Microscopic WBC (0-5) /HPF Ur Epithelial Cells (None Seen) /HPF Urine Bacteria (None Seen) /HPF Urine Culture Reflexed (NO) - Progress Progress: improved Progress Note: 04/19/23 04:40 72 years old with multiple medical problems is evaluated for generalized weakness tiredness and vomiting earlier without abdominal pain and questionable seizure prior to arrival. Family was concerned about patient being septic/having UTI with the symptoms. She is awake alert oriented, not in any distress. She is given fluid bolus, on reevaluation feeling better. She is back to her baseline. She has no tachypnea or tachycardia. Workup showed white count of 14, chemistries showed elevation in liver enzymes with a normal bilirubin and patient does have a history of cholecystectomy. Patient does not have any abdominal tenderness and denies any abdominal pain. Patient does have history of autoimmune liver issue and has elevation in liver enzymes in the past. Questionable element of UTI and started on Keflex. Chest x-ray negative for any acute cardiopulmonary findings reviewed by me, official report is pending. EKG is normal sinus with no acute ischemic changes and negative troponins. Patient has mild elevation in procalcitonin of 0.9 but no other focus of infection except for some element of UTI. Lactate is 1.8. I have offered her observation admission but patient wants to go home, I will give her Keflex to go home and blood cultures are pending. Discussed signs symptoms of worsening needing return to ER which patient/family seem understanding and stable for discharge Counseled pt/family regarding: lab results, diagnosis, need for follow-up, rad results Medical Desision Making - Independent Historian Additional History obtained from: Child, Bowstring Maker/EMT - Risk of complications The pt has a mod risk of morbidity or mortality based on: Need for prescription drug management - Departure Departure Disposition: Home Clinical Impression: Abnormal AST and ALT, UTI (urinary tract infection), Leukocytosis, Generalized weakness Condition: Stable Critical Care Time: No [facility] - Follow up with PCP 1 day Instructions: Urinary Tract Infection, Adult (DC), Generalized Weakness (DC) Additional Instructions: Plenty of fluids to keep yourself well-hydrated. Follow-up with your primary care for reevaluation and recheck of liver enzymes. Return to ER for intractable vomiting/abdominal pain/difficulty urination/fever chills etc. Prescriptions: Cephalexin Mh 500 mg [Keflex 500 mg] 500 mg PO TID #21 cap
[2023-04-19] MEDS ORDERED: Sodium Chloride 0.9% 1000 ML 1,000 ML ONE (00:56)
[2023-04-19] MEDS: Sodium Chloride 0.9% 1000 ML 1,000 ML IV STA (01:02)
[2023-04-19 01:14] LABS: BASOPHIL % 0.3 % (0.0-0.4); Basophil (Absolute #) 0.04 x10^3/uL (0-0.4); Eosinophil % 0.1 % (0.00-5.0); Eosinophil (Absolute #) 0.01 x10^3/uL (0-0.5); Hematocrit 36.1 % (35-47); Hemoglobin 11.8 g/dL (12.0-16.0); IMMATURE GRAN # 0.09 x10^3u/L (0.00-0.03); IMMATURE GRAN % 0.6 % (0.00-0.4); Lymphocyte (Absolute #) 0.55 x10^3/uL (1.0-4.6); Lymphocytes % 3.7 % (24.0-44.0); Mean Cell Volume 91.4 fL (78-100); Mean Corpuscular Hemoglobin 29.9 pg (26-32); Mean Corpuscular Hgb Concent. 32.7 g/dL (32-36); Mean Platelet Volume 10.6 fL (7.5-11.0); Monocyte (Absolute #) 1.03 x10^3/uL (0.0-1.3); Neutrophil % 88.3 % (36.0-66.0); Platelet Count 202 x10^3/uL (150-450); Red Blood Count 3.95 x10^6/uL (4.1-5.4); Red Cell Distribution Width 13.5 % (11.5-14.0); White Blood Count 14.7 x10^3/uL (4.0-10.5)
[2023-04-19 01:31] LABS: ALBUMIN 3.6 g/dL (3.5-5.0); ANION GAP 9.3 MEQ/L (5-15); BILIRUBIN,TOTAL 0.9 mg/dL (0.2-1.3); Calcium 9.2 mg/dL (8.4-10.2); Creatinine 1 0.7 mg/dL (0.52-1.04); EST GLOMERULAR FILTRATION RATE 91.3 ML/MIN; MAGNESIUM 1.9 mg/dL (1.6-2.3); Potassium 3.2 mmol/L (3.5-5.1); Total Protein 6.2 g/dL (6.3-8.2)
[2023-04-19 04:07] LABS: Appearance Clear (Clear); Bacteria None Seen /HPF (None Seen); Bilirubin Negative (Negative); Blood Negative (Negative); Epithelial Cells None Seen /HPF (None Seen); Glucose, Urine Negative (Negative); Hyaline Casts NONE SEEN /LPF (0-2); Ketones Negative (Negative); Leukocyte Esterase Trace (Negative); Nitrite Negative (Negative); Ph 5.5 (4.6-8.0); Protein,Urine Dip Negative (Negative); RBC 0-2 /HPF (0-5); Specific Gravity 1.015 (1.005-1.030); WBC 0-2 /HPF (0-5)
[2023-04-19 04:10] LABS: ADD URINE CULTURE? NO (NO)
[2023-04-19 04:39] VITALS: RESP 13
[2023-04-19 04:44] VITALS: O2SAT 98
[2023-04-19] MEDS ORDERED: KEFLEX 500 MG ONE (04:58)
[2023-04-19] MEDS: KEFLEX 500 MG PO ONE (04:59)
[2023-04-19 05:29] VITALS: BP 129/44; PULSE 66
--- NOTE | 2023-04-19 08:10 | XRAY ---
Indication: General weakness. Vomiting. Comparison: March 05, 2023 Portable chest unchanged again hyperinflated and clear with a few incidental tiny calcified granulomas. Heart not enlarged. Bony thorax intact again with osteopenia and degenerative changes. No new/acute abnormalities.
== END 2023-04-19 05:24 | disposition home or self-care (01) ==
LOC: ED 23:54
DX: N39.0 Urinary tract infection, site not specified (principal); R74.8 Abnormal levels of other serum enzymes; D72.829 Elevated white blood cell count, unspecified; R53.1 Weakness; R53.83 Other fatigue; I10 Essential (primary) hypertension; Z79.02 Long term (current) use of antithrombotics/antiplatelets; Z79.899 Other long term (current) drug therapy
CPT/HCPCS: 36000; 36415; 71045; 80053; 81001; 83605; 83690; 83735; 84145; 84484; 85025; 87040; 93005; 99284; A9270-GY